=== PATIENT | male | born 1955 | race Hispanic/Latino ===

== ENCOUNTER 2021-03-14 22:25 | Inpatient (IN) | payer OTHER ==
--- OUTSIDE RECORDS SUMMARY | 2021-03-14 22:28 | XMS REPORT | Continuity of Care Document ---
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 Allergies, Adverse Reactions, Alerts This patient has no known allergies or adverse reactions. Social History Social Habit Start Date Stop Date Quantity Comments Source Exposure to Yes [facility] SARS-CoV-2 (event) [facility] Sex Assigned At [birth year] [facility] 00:00:00 00:00:00 [facility] Smoking Status Start Date Stop Date Source Unknown if ever smoked [facility] Medications This patient has no known medications. Procedures Procedure Date / Time Performed Performing Clinician [facility] e ASSIGNMENT OF BENEFITS 2021-03-12 17:05:23 Doctor Unassigned, No [facility] Name [facility] Encounters Start End Encounter Admission Attending Care Care Encounter Source Date/Time Date/Time Type Type Clinicians Facility Department ID 2021-03-12 2021-03-12 Laboratory Only, Ang Db Test [facility] 1.2.8 [id number] [facility] 12:05:39 12:20:39 Only [employer] [id number] ity [facility] [id number] Erik as Ayaz?Blea [id number] Ut chandni [address] Medical Office Building 2021-03-12 2021-03-12 Orders Doctor LUIS ARMANDO [id number] [facility] 00:00:00 00:00:00 Only Unassigned, SLY [id number] ity of [place] [facility] [id number] Erik as [phone] [facility] [address] Results This patient has no known results.
[2021-03-14 22:55] LABS: Absolute Lymphocytes (CBC) 0.9 K/uL (0.7-4.9); Basophils % 0.7 % (0-1.3); Hematocrit 29.5 % (39.6-49.0); Lymphocytes % 10.2 % (15.3-44.8); MPV 8.8 fL (7.6-11.3); RBC Red Blood Cell Count 3.29 M/uL (4.33-5.43)
[2021-03-14] MEDS ORDERED: IPRATROPIUM BROM 0.5MG/2.5ML ONE (23:13)
[2021-03-14] MEDS ORDERED: ALBUTEROL 2.5 MG/3 ML NEB SOL ONE (23:13)
[2021-03-14 23:14] LABS: ALT/SGPT 25 U/L (12-78); AST/SGOT 40 U/L (15-37); Albumin 2.3 g/dL (3.4-5.0); Alkaline Phosphatase 51 U/L (45-117); BUN Blood Urea Nitrogen 39 mg/dL (7-18); Bicarbonate 21 mmol/L (21-32); Bilirubin Direct 0.2 mg/dL (0-0.2); Bilirubin Total 0.4 mg/dL (0.2-1.0); Glucose Level 208 mg/dL (74-106); Magnesium 2.3 mg/dL (1.8-2.4); NT PRO-BNP 15615 pg/mL (<125); Potassium 3.8 mmol/L (3.5-5.1); Protein, Total 6.5 g/dL (6.4-8.2); Sodium Level 137 mmol/L (136-145); Troponin (Emerg Dept Use Only) < 0.02 ng/mL (0.0-0.045)
[2021-03-14 23:27] LABS: Protime INR 1.08
[2021-03-14] MEDS ORDERED: FUROSEMIDE 40 MG/4 ML VIAL ONE (23:56)
--- NOTE | 2021-03-15 00:01 | EDPHYS ---
Physician Documentation [facility] Name: Omar Zamudio Age: 66 yrs Sex: Male : 1955 Arrival Date: 03/14/2021 Time: 22:32 Bed 5 Private MD: ED Physician Titus Queen HPI: 03/14 22:45 This 66 yrs old Male presents to ER via Wheelchair with complaints of cp Breathing Difficulty. 22:45 The patient has shortness of breath at rest. cp 22:45 Onset: The symptoms/episode began/occurred yesterday, and became worse today. Duration: cp The symptoms are continuous, and are steadily getting worse. 22:45 The patient's shortness of breath is aggravated by light activity, supine position. cp Associated signs and symptoms: Pertinent negatives: chest pain, productive cough, diaphoresis, dizziness, fever. Severity of symptoms: in the emergency department the symptoms are unchanged despite home interventions. Historical: - Allergies: 22:39 No Known Allergies; em - PMHx: 22:39 Diabetes mellitus; Hypertensive disorder; em - PSHx: 22:39 Coronary artery bypass graft; em - Immunization history:: Adult Immunizations up to date, Client reports receiving the 2nd dose of the Covid vaccine. - Social history:: Smoking status: Patient denies any tobacco usage or history of. ROS: 22:50 Constitutional: Negative for body aches, chills, fever, poor PO intake. cp 22:50 Eyes: Negative for injury, pain, redness, and discharge. cp 22:50 ENT: Negative for ear pain, sore throat, difficulty swallowing, difficulty handling secretions. 22:50 Cardiovascular: Positive for edema, Negative for chest pain, palpitations. 22:50 Respiratory: Positive for cough, with no reported sputum, orthopnea, shortness of breath, at rest. Negative for wheezing. 22:50 Abdomen/GI: Negative for abdominal pain, nausea, vomiting, and diarrhea. 22:50 Neuro: Negative for altered mental status, headache, numbness, syncope, weakness. 22:50 All other systems are negative. Exam: 22:44 ECG was reviewed by the Attending Physician. cp 22:55 Constitutional: The patient appears in no acute distress, alert, awake, cp non-diaphoretic, non-toxic, well developed, well nourished, uncomfortable. 22:55 Head/Face: Normocephalic, atraumatic. cp 22:55 Eyes: Periorbital structures: appear normal, Conjunctiva: normal, no exudate, no cp injection, Sclera: no appreciated abnormality, Lids and lashes: appear normal, bilaterally. 22:55 ENT: External ear(s): are unremarkable, Nose: is normal, Mouth: Lips: moist, Oral mucosa: pink and intact, moist, Posterior pharynx: Airway: no evidence of obstruction, patent. 22:55 Neck: ROM/movement: is normal, is supple, without pain, no range of motions limitations, no meningismus, no nuchal rigidity. 22:55 Chest/axilla: Inspection: normal, Palpation: is normal, no crepitus, no tenderness. 22:55 Cardiovascular: Rate: normal, Rhythm: regular, Edema: ankle edema, that is mild, JVD: is not appreciated. 22:55 Respiratory: the patient does not display signs of respiratory distress, Respirations: labored breathing, that is mild, Breath sounds: bronchial sounds, that are mild, are heard diffusely, stridor, is not appreciated. 22:55 Abdomen/GI: Inspection: abdomen appears normal, Bowel sounds: active, all quadrants, Palpation: abdomen is soft and non-tender, in all quadrants. 22:55 Back: pain, is absent, ROM is normal. 22:55 Skin: cellulitis, is not appreciated, no rash present. 22:55 Neuro: Orientation: to person, place \T\ time. Mentation: is normal, Cerebellar function: is grossly normal, Motor: moves all fours, strength is normal, Sensation: is normal. Vital Signs: 22:36 BP 174 / 75; Pulse 71; Resp 28; Temp 97.9(O); Pulse Ox 88% on R/A; Height 5 ft. 9 in. em (175.26 cm); 22:40 Pulse Ox 93% on 2 lpm NC; lp1 23:00 BP 150 / 66; Pulse 75; Resp 26; Pulse Ox 100% on 15% Nebulizer Mask; lp1 23:30 BP 151 / 65; Pulse 74; Resp 27; Pulse Ox 95% on 2 lpm NC; lp1 03/15 00:00 BP 147 / 63; Pulse 73; Resp 24; Pulse Ox 94% on 2 lpm NC; lp1 MDM: 03/14 22:43 Patient medically screened. 23:00 Differential diagnosis: asthma, Bronchitis CHF exacerbation, Chronic Obstructive cp Pulmonary Disease Myocardial Infarction pneumonia, pulmonary edema, Pulmonary Embolism Sepsis Unstable Angina. 23:30 Data reviewed: vital signs, nurses notes, lab test result(s), EKG, radiologic studies, cp plain films. 23:30 Test interpretation: by ED physician or midlevel provider: ECG, plain radiologic cp studies. Counseling: I had a detailed discussion with the patient and/or guardian regarding: the historical points, exam findings, and any diagnostic results supporting the discharge/admit diagnosis, lab results, radiology results, the need for further work-up and treatment in the hospital. Response to treatment: the patient's symptoms have mildly improved after treatment. 03/15 00:00 Physician consultation: Brien DICKENS was contacted at 00:00, regarding admission, to the telemetry unit. patient's condition. 03/14 22:42 Order name: Basic Metabolic Panel 03/14 22:42 Order name: CBC with Diff 03/14 22:42 Order name: LFT's 03/14 22:42 Order name: Magnesium 03/14 22:42 Order name: NT PRO-BNP 03/14 22:42 Order name: PT-INR 03/14 22:42 Order name: Troponin (emerg Dept Use Only) 03/14 22:42 Order name: Lactate; Complete Time: 23:24 03/14 22:42 Order name: Procalcitonin 03/14 22:42 Order name: Blood Culture Adult (2) 03/14 22:42 Order name: Basic Metabolic Panel; Complete Time: 23:24 EDMS 03/14 23:24 Interpretation: Normal except: CL 108; GLUC 208; BUN 39; CRE 2.55; GFR 25; CA 8.3. 03/14 22:42 Order name: CBC with Automated Diff; Complete Time: 23:24 EDMS 03/14 23:24 Interpretation: Normal except: RBC 3.29; HGB 10.2; HCT 29.5; KENISHA% 77.5; LYM% 10.2. 03/14 22:42 Order name: Liver (Hepatic) Function; Complete Time: 23:24 EDMD 03/14 22:42 Order name: Magnesium; Complete Time: 23:24 EDMS 03/14 22:42 Order name: NT PRO-BNP; Complete Time: 23:24 EDMS 03/14 23:24 Interpretation: Abnormal: NT PRO-BNP 02829. cp 03/14 22:42 Order name: Protime (+INR) EDMD 03/14 22:42 Order name: Troponin (Emerg Dept Use Only); Complete Time: 23:24 EDMD 03/15 00:03 Order name: COVID-19/FLU A+B EDMS 03/15 03:18 Order name: CBC with Automated Diff EDMD 03/15 03:48 Order name: Comprehensive Metabolic Panel EDMD 03/15 03:48 Order name: Phosphorus EDMS 03/15 03:48 Order name: Lipid Profile EDMD 03/15 03:48 Order name: T4 Free EDMD 03/15 03:48 Order name: Magnesium EDMD 03/15 03:48 Order name: Thyroid Stimulating Hormone EDMD 03/15 06:37 Order name: Creatine Phosphokinase EDMD 03/15 07:05 Order name: PTH Intact EDMD 03/15 07:46 Order name: Glucose, Ancillary Testing EDMD 03/14 22:42 Order name: XRAY Chest (1 view) 03/14 22:42 Order name: EKG; Complete Time: 22:43 03/14 22:42 Order name: Cardiac monitoring; Complete Time: 22:46 03/14 22:42 Order name: EKG - Nurse/Tech; Complete Time: 22:46 03/14 22:42 Order name: IV Saline Lock; Complete Time: 22:46 03/14 22:42 Order name: Labs collected and sent; Complete Time: 22:46 03/14 22:42 Order name: O2 Per Protocol; Complete Time: 22:46 03/14 22:42 Order name: O2 Sat Monitoring; Complete Time: 22:46 03/15 01:17 Order name: CONS Physician Consult EDMD 03/15 07:20 Order name: US EDMD 03/15 07:49 Order name: Osmolality, Urine EDMS 03/15 08:13 Order name: Ur Protein EDMS 03/15 08:51 Order name: UR SODIUM EDMS 03/15 08:51 Order name: UR POTASSIUM EDMS EC/12 22:44 Rate is 70 beats/min. Rhythm is regular. IA interval is normal. QRS interval is normal. cp QT interval is prolonged. Interpreted by me. Reviewed by me. Administered Medications: 22:51 Drug: Albuterol - atroVENT (ipratropium) (3:1) (2.5 mg - 0.5 mg) 3 ml Route: Nebulizer; lp1 23:41 Follow up: Response: No adverse reaction lp1 23:36 Drug: Lasix (furosemide) 40 mg Route: IVP; Site: right antecubital; lp1 03/15 01:00 Follow up: Response: No adverse reaction lp1 Disposition Summary: 03/15/21 00:00 Hospitalization Ordered Hospitalization Status: Inpatient Admission cp Provider: Hiren Mcfarlane cp Condition: Stable cp Problem: new cp Symptoms: have improved cp Bed/Room Type: Standard cp Location: Telemetry/MedSurg (Inpatient)(03/15/21 07:35) bd Room Assignment: 218(03/15/21 07:35) bd Diagnosis - Unspecified systolic (congestive) heart failure cp - Hypoxemia cp - Acute kidney failure, unspecified cp Discharge Instructions: - Discharge Summary Sheet em Forms: - SBAR form em - Medication Reconciliation Form cp Signatures: Dispatcher [employer] EDMS Damari Mancia Edgar, RN RN em Gisselle Lyles RN RN lp1 Dakota Diaz PA PA cp Corrections: (The following items were deleted from the chart) 03/14 23:18 22:42 CORONAVIRUS+MR.LAB.BRZ ordered. EDMS EDMS 23:18 22:42 Influenza Screen (A \T\ B)+BA.LAB.BRZ ordered. EDMS EDMS 23:36 23:34 This 66 yrs old Male presents to ER via Wheelchair with complaints of cp Breathing Difficulty. cp 03/15 00:04 00:00 Telemetry/MedSurg (Inpatient) cp em 00:04 00:00 cp em 07:35 00:04 [facility] ER HOLD em bd 07:35 00:04 ERHOLD- em bd
--- NOTE | 2021-03-15 00:01 | ER ---
Nurse's Notes [facility] Name: Omar Zamudio Age: 66 yrs Sex: Male : 1955 Arrival Date: 03/14/2021 Time: 22:32 Bed 5 Private MD: Diagnosis: Unspecified systolic (congestive) heart failure;Hypoxemia;Acute kidney failure, unspecified Presentation: 03/14 22:36 Chief complaint: Patient states: difficulty breathing since yesterday, denies cough or em fever, tested negative for covid a few days ago, SPO2 88% now. Coronavirus screen: Vaccine status: Patient reports receiving the 2nd dose of the covid vaccine. Ebola Screen: Patient negative for fever greater than or equal to 101.5 degrees Fahrenheit, and additional compatible Ebola Virus Disease symptoms Patient denies exposure to infectious person. Patient denies travel to an Ebola-affected area in the 21 days before illness onset. No symptoms or risks identified at this time. Initial Sepsis Screen: Does the patient meet any 2 criteria? No. Patient's initial sepsis screen is negative. Does the patient have a suspected source of infection? Yes: Productive cough/pneumonia. Risk Assessment: Do you want to hurt yourself or someone else? Patient reports no desire to harm self or others. Onset of symptoms was March 14, 2021. 22:36 Method Of Arrival: Wheelchair em 22:36 Acuity: MIKI 2 em Historical: - Allergies: 22:39 No Known Allergies; em - PMHx: 22:39 Diabetes mellitus; Hypertensive disorder; em - PSHx: 22:39 Coronary artery bypass graft; em - Immunization history:: Adult Immunizations up to date, Client reports receiving the 2nd dose of the Covid vaccine. - Social history:: Smoking status: Patient denies any tobacco usage or history of. Screenin:00 Abuse screen: Denies threats or abuse. Denies injuries from another. Nutritional lp1 screening: No deficits noted. Tuberculosis screening: No symptoms or risk factors identified. Fall Risk Total Eaton Fall Scale indicates High Risk Score (45 or more points). Fall prevention measures have been instituted. Side Rails Up X 2 Family Present and informed to notify staff if the need to leave the bedside As available patient and family educated on Fall Prevention Program and Strategies. Assessment: 22:45 General: Appears uncomfortable, Behavior is appropriate for age. Pain: Denies pain. lp1 Neuro: Level of Consciousness is awake, alert, obeys commands, Oriented to person, place, situation. Cardiovascular: Patient's skin is warm and dry. Edema is 1+ to right forearm, left ankle, left forearm and right ankle Rhythm is regular. Respiratory: Reports shortness of breath Airway is patent Trachea midline Respiratory effort is shallow, Respiratory pattern is regular, symmetrical, Breath sounds with wheezes bilaterally. Onset: The symptoms/episode began/occurred gradually, the patient has mild shortness of breath. GI: Abdomen is non-distended. : No signs and/or symptoms were reported regarding the genitourinary system. EENT: No signs and/or symptoms were reported regarding the EENT system. Derm: Skin is intact, is thin, Skin is dry, Skin is normal. Musculoskeletal: No deficits noted. 03/15 00:00 Reassessment: Patient appears more calm, respirations appear even, shallow. lp1 Vital Signs: 03/14 22:36 BP 174 / 75; Pulse 71; Resp 28; Temp 97.9(O); Pulse Ox 88% on R/A; Height 5 ft. 9 in. em (175.26 cm); 22:40 Pulse Ox 93% on 2 lpm NC; lp1 23:00 BP 150 / 66; Pulse 75; Resp 26; Pulse Ox 100% on 15% Nebulizer Mask; lp1 23:30 BP 151 / 65; Pulse 74; Resp 27; Pulse Ox 95% on 2 lpm NC; lp1 03/15 00:00 BP 147 / 63; Pulse 73; Resp 24; Pulse Ox 94% on 2 lpm NC; lp1 ED Course: 03/14 22:32 Patient arrived in ED. wm 22:36 Dakota Diaz PA is PHCP. cp 22:36 Titus Queen MD is Attending Physician. cp 22:39 Triage completed. em 22:39 Arm band placed on. em 22:40 Inserted saline lock: 20 gauge in right antecubital area, using aseptic technique. lp1 Blood collected. 22:40 Initial lab(s) drawn, by me, sent to lab. First set of blood cultures drawn by me. lp1 22:45 Gisselle Lyles, RN is Primary Nurse. lp1 22:45 Patient has correct armband on for positive identification. Bed in low position. Call lp1 light in reach. quality assurance monitor body on. Pulse ox on. NIBP on. 22:54 XRAY Chest (1 view) In Process Unspecified. EDMS 23:59 Hiren Mcfarlane is Hospitalizing Provider. cp 03/15 00:16 No provider procedures requiring assistance completed. Patient admitted, IV remains in lp1 place. Administered Medications: 03/14 22:51 Drug: Albuterol - atroVENT (ipratropium) (3:1) (2.5 mg - 0.5 mg) 3 ml Route: Nebulizer; lp1 23:41 Follow up: Response: No adverse reaction lp1 23:36 Drug: Lasix (furosemide) 40 mg Route: IVP; Site: right antecubital; lp1 03/15 01:00 Follow up: Response: No adverse reaction lp1 Outcome: 00:00 Decision to Hospitalize by Provider. cp 00:13 Condition: stable lp1 00:13 Instructed on the need for admit. 01:00 Admitted to ER Hold. Please see [facility] for further documentation. lp1 10:07 Patient left the ED. aa5 Signatures: Dispatcher [employer] EDGibran Chew RN ILEANA Heather Jensen RN RN aa5 Gisselle Lyles RN RN lp1 Dakota Diaz PA PA cp Marsh, Wendy wm
[2021-03-15 00:03] LABS: SARS-COV-2 RT PCR NEGATIVE (NEGATIVE)
[2021-03-15] MEDS ORDERED: D50W 25 GM/50 ML SYRINGE IV PRN (01:34)
[2021-03-15] MEDS ORDERED: HYDRALAZINE HCL 20 MG/ML VIAL IV PRN (01:34)
[2021-03-15] MEDS ORDERED: ONDANSETRON 4 MG/2 ML VIAL IV PRN (01:34)
[2021-03-15] MEDS ORDERED: GLUCAGON 1 MG/VIAL IM PRN (01:34)
[2021-03-15] MEDS ORDERED: ACETAMINOPHEN 500 MG TAB PO PRN (01:34)
[2021-03-15 01:42] VITALS: BMI 29.7
--- NOTE | 2021-03-15 01:52 | P.HP ---
Certification for Inpatient Patient admitted to: Inpatient With expected LOS: <2 Midnights Patient will require the following post-hospital care: None Practitioner: I am a practitioner with admitting privileges, knowledge of patient current condition, hospital course, and medical plan of care. Services: Services provided to patient in accordance with Admission requirements found in Title 42 Section 412.3 of the Code of Federal Regulations Patient History Date of Service: 03/15/21 Primary Care Provider: Nick Reason for admission: volume overload History of Present Illness: Mr. Zamudio is a 66 yo M with CAD s/p CABGx3, HTN, DM, HLD who presents with worsening SOB, cough and wheezing. Also reports orthopnea, PND, and edema. Scheduled to see nephrology outpatient, but appointment had to be rescheduled due to possible COVID exposure. Patient is negative for COVID here, and has received both doses of the vaccine. H/H 10.2. BUN 39, Cr 2.55, GFR 25. Glu 208. BNP 72436. Allergies No Known Allergies Allergy (Verified 03/15/21 01:34) - Past Medical/Surgical History Has patient received pneumonia vaccine in the past: No Diabetic: Yes -: DM type 2 -: HTN -: [place] (2011) -: CABG - Family History Mother -: Heart disease, Diabetes - Social History Smoking Status: Former smoker Alcohol use: No CD- Drugs: No Caffeine use: No Place of Residence: Home Review of Systems 10-point ROS is otherwise unremarkable Respiratory: Cough, Shortness of Breath, SOB with Excertion, Wheezing Cardiovascular: Orthopnea, Paroxysmal Noc. Dyspnea, Edema Physical Examination - Physical Exam General: Alert, In no apparent distress HEENT: Atraumatic, PERRLA, Mucous membr. moist/pink, EOMI, Sclerae nonicteric Neck: Supple, 2+ carotid pulse no bruit, No LAD, Without JVD or thyroid abnormality Respiratory: Normal air movement, Crackles/rales Cardiovascular: Regular rate/rhythm, Normal S1 S2, Edema Gastrointestinal: Normal bowel sounds, No tenderness Musculoskeletal: No tenderness Integumentary: No rashes Neurological: Normal strength at 5/5 x4 extr, Normal tone Lymphatics: No axilla or inguinal lymphadenopathy - Studies Laboratory Data (last 24 hrs) 03/14/21 22:40: PT 12.4, INR 1.08 03/14/21 22:40: WBC 8.60, Hgb 10.2 L, Hct 29.5 L, Plt Count 272 03/14/21 22:40: Sodium 137, Potassium 3.8, BUN 39 H, Creatinine 2.55 H, Glucose 208 H, Magnesium 2.3, Total Bilirubin 0.4, AST 40 H, ALT 25, Alkaline Phosphatase 51 Assessment and Plan - Problems (Diagnosis) (1) Diabetes Current Visit: Yes Status: Chronic Qualifiers: Diabetes mellitus type: type 2 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: without jail use Diabetes mellitus complication status: with kidney complications Diabetes mellitus complication detail: with chronic kidney disease Chronic kidney disease stage: stage 4 (severe) Qualified Code(s): E11.22 - Type 2 diabetes mellitus with diabetic chronic kidney disease; N18.4 - Chronic kidney disease, stage 4 (severe) (2) HTN (hypertension) Current Visit: Yes Status: Chronic Qualifiers: Hypertension type: primary hypertension Qualified Code(s): I10 - Essential (primary) hypertension (3) HLD (hyperlipidemia) Current Visit: Yes Status: Chronic Qualifiers: Hyperlipidemia type: unspecified Qualified Code(s): E78.5 - Hyperlipidemia, unspecified (4) Volume overload Current Visit: Yes Status: Acute Qualifiers: Hypervolemia type: unspecified Qualified Code(s): E87.70 - Fluid overload, unspecified (5) Anemia Current Visit: Yes Status: Chronic Qualifiers: Anemia type: unspecified type Qualified Code(s): D64.9 - Anemia, unspecified - Plan nephrology consulted, renal US pending ECHO pending, continue Lasix, daily weights, sodium restriction O2 as needed sliding scale insulin and accuchecks, A1c pending anemia workup pending DVT ppx reconcile and continue home medications Discharge Plan: Home Plan to discharge in: 48 Hours - Advance Directives Does patient have a Living Will: No Does patient have a Durable POA for Healthcare: No - Code Status/Comfort Care Code Status Assessed: Yes (full code ) Critical Care: No Time Spent Managing Pts Care (In Minutes): 70
[2021-03-15 03:14] LABS: Absolute Lymphocytes (CBC) 0.7 K/uL (0.7-4.9); Basophils % 0.7 % (0-1.3); Hematocrit 27.4 % (39.6-49.0); Lymphocytes % 8.4 % (15.3-44.8); MPV 8.9 fL (7.6-11.3); RBC Red Blood Cell Count 3.06 M/uL (4.33-5.43)
[2021-03-15 03:31] LABS: Albumin 2.1 g/dL (3.4-5.0); Bilirubin Total 0.4 mg/dL (0.2-1.0); Magnesium 2.3 mg/dL (1.8-2.4); Phosphorus 3.7 mg/dL (2.5-4.9); Potassium 3.9 mmol/L (3.5-5.1); Protein, Total 5.8 g/dL (6.4-8.2)
[2021-03-15 03:48] LABS: Thyroid Stimulating Hormone 5.12 uIU/mL (0.360-3.740)
--- NOTE | 2021-03-15 07:20 | RAD REPORT ---
EXAM DESCRIPTION: US - Renal Ultrasound-Complete - 03/15/2021 2:20 am CLINICAL HISTORY: CKD COMPARISON: Renal Ultrasound-Complete dated 09/26/2018 FINDINGS: Both kidneys are normal in size, shape and echotexture. The right kidney measures 10.6 cm. Hypoechoic right renal lesion measures 14 millimeters which is lik isabelle a cyst. No hydronephrosis. Trace right perinephric fluid. The left kidney measures 10.9 cm. No hydronephrosis. Anechoic left renal lesions consistent with smal l subcentimeter cysts. The urinary bladder is incompletely distended without gross abnormality seen. IMPRESSION: No evidence of hydronephrosis. Trace right perinephric fluid. Small renal cysts.
--- NOTE | 2021-03-15 07:27 | RAD REPORT ---
EXAM DESCRIPTION: RAD - Chest Single View - 03/14/2021 10:54 pm CLINICAL HISTORY: SOB COMPARISON: No comparisons FINDINGS: Lines: None. Lungs: Diffuse prominence of the pulmonary interstitium. There is fluid in the right moderate fissure . Pleural: No significant pleural effusions or pneumothorax. Cardiac: Cardiomegaly. Bones: No acute fractures. Sternotomy. Other: IMPRESSION: Pulmonary edema. Less likely multifocal pneumonia.
[2021-03-15] MEDS: INSULIN -REGULAR HUMAN 50 UNIT/0.5 ML ML SQ SCH ×4 (07:30→20:31)
[2021-03-15] MEDS: HEPARIN 5000 UNIT/ML 1 ML VIAL SQ SCH ×2 (08:00→16:52)
[2021-03-15] MEDS: FUROSEMIDE 40 MG/4 ML VIAL IV SCH ×2 (08:00→16:52)
[2021-03-15] MEDS ORDERED: PNEUMOCOCCAL VACCINE 0.5 ML IMVAC ONE (08:00)
[2021-03-15 08:13] LABS: UR PROTEIN 189.2 mg/dL (<11.9); Urine Protein/Creatinine Ratio 3.94 ratio (<0.15)
[2021-03-15] MEDS ORDERED: HEPARIN 5000 UNIT/ML 1 ML VIAL ONE (08:22)
[2021-03-15] MEDS ORDERED: FUROSEMIDE 40 MG/4 ML VIAL ONE (08:22)
[2021-03-15] MEDS ORDERED: INSULIN -REGULAR HUMAN 50 UNIT/0.5 ML ML ONE (08:22)
--- NOTE | 2021-03-15 12:34 | RAD REPORT ---
EXAM DESCRIPTION: US - Urinary Bladder - 03/15/2021 12:24 pm CLINICAL HISTORY: Urinary retention COMPARISON: Renal Ultrasound-Complete dated 03/15/2021 FINDINGS: The bladder measures 13.1 x 8.9 x 11 cm with volume of 670 cc. The patient was unable to v oid in order to evaluate the postvoid residual. IMPRESSION: Distended bladder. The patient was unable to void for purposes of calculating 8 postvoid residual. This may be secondary to acute urinary retention.
--- NOTE | 2021-03-15 12:49 | RAD REPORT ---
EXAM DESCRIPTION: RAD - Chest Single View - 03/15/2021 12:43 pm CLINICAL HISTORY: Follow up pulmonary edema COMPARISON: March 14 TECHNIQUE: AP portable chest image was obtained 03/15/2021 12:43 pm . FINDINGS: Lung volume is similar to comparison. Interstitial prominence has diminished. Small pleura l effusions remain. Vasculature has decreased in prominence. Heart size also diminished in prominence . No pneumothorax. No acute bony abnormality seen. No acute aortic findings suspected. IMPRESSION: Significant but incomplete reduction in the CHF/ volume overload pattern since prior dirk dy.
--- NOTE | 2021-03-15 14:10 | ECHO ---
HEIGHT: 5 ft 6 in WEIGHT: 183 lb 13.848 oz DATE OF STUDY: 03/15/[address]: Brien Koenig 2-DIMENSIONAL: YES M.MODE: YES DOPPLER: YES COLOR FLOW: YES TDS: NO PORTABLE: NO DEFINITY: NO BUBBLE STUDY: NO DIAGNOSIS: VOLUME OVERLOAD CARDIAC HISTORY: CATHERIZATION: SURGERY: PROSTHETIC VALVE: PACEMAKER: MEASUREMENTS (cm) DIASTOLIC (NORMALS) SYSTOLIC (NORMALS) IVSd 1.1 (0.6-1.2) LA Diam 4.4 (1.9-4.0) LVEF 51% LVIDd 4.7 (3.5-5.7) LVIDs 3.5 (2.0-3.5) %FS 26% LVPWd 1.2 (0.6-1.2) Ao Diam 3.1 (2.0-3.7) 2 DIMENSIONAL ASSESSMENT: RIGHT ATRIUM: NORMAL LEFT ATRIUM: ENLARGED RIGHT VENTRICLE: NORMAL LEFT VENTRICLE: NORMAL TRICUSPID VALVE: MILD TRICUSPID REGURGITATION MITRAL VALVE: MILD MITRAL REGURGITATION PULMONIC VALVE: MILD PULMONIC REGURGITATION AORTIC VALVE: MILD AORTIC REGURGITATION PERICARDIAL EFFUSION: NONE AORTIC ROOT: NORMAL LEFT VENTRICULAR WALL MOTION: NORMAL. DOPPLER/COLOR FLOW: SEE ISABEL. COMMENTS: NORMAL LEFT VENTRICULAR EJECTION FRACTION 55-60% WITH NORMAL WALL MOTION. MODERATE DIASTOLIC DYSFUNCTION. RIGHT VENTRICULAR SYSTOLIC PRESSURE 40-45mmHg. MILD MITRAL, TRICUSPID, AORTIC AND PULMONIC REGURGITATION. TECHNOLOGIST: ADRIANA RODRIGUEZ
[2021-03-15] MEDS: HYDRALAZINE HCL 25 MG TABLET PO SCH ×2 (14:47→20:31)
--- NOTE | 2021-03-15 16:05 | P.PN ---
Date of Service: 03/15/21 Patient seen and examined. He states the shortness of breath is almost resolved. Repeat chest x-ray shows significant improved and pulmonary edema. He is up and ambulating without shortness of breath. He does have urinary retention and attributes it to enlarged prostate. Echocardiogram with EF 55% He is complaining of constipation. Diagnosis Acute diastolic heart failure. Acute urinary retention. Acute on chronic kidney disease stage 4 BPH. Constipation Plan: Continue IV lasix. Straight catheterized and monitor for urinary retention. Patient has responded to Lasix therapy and has clinically improved. Nephrology to see patient. Patient started on Flomax for BP. Soap roger enema x 1 for constipation.
[2021-03-15] MEDS: atenoloL 50 MG TAB PO SCH (20:30)
[2021-03-15] MEDS: TAMSULOSIN 0.4 MG SR CAP PO SCH (20:30)
[2021-03-15] MEDS: PANTOPRAZOLE 40MG TABLET PO SCH (20:30)
--- NOTE | 2021-03-15 23:55 | CON ---
Date of Consultation: 03/15/2021 Chief Complaint: Acute kidney injury, chronic kidney disease. The patient has multiple medical problems. History Of Present Illness: He presented to the hospital because of chest pain and shortness of breath. The patient was found to have elevated BUN and creatinine. The patient has nonoliguric urine to. He is a 66-year-old man with history of coronary artery disease status post CABG and he has history of hypertension, diabetes mellitus, and presented to the hospital with shortness of breath, cough, and wheezing. Also complained of orthopnea, PND, and leg edema. The patient has been scheduled for outpatient visit to establish Nephrology care. Outpatient clinic visit had to be rescheduled because he was positive for COVID exposure. The patient actually was negative for COVID, but due to possible COVID exposure, the appointment was rescheduled. He has recently vaccination with both doses of vaccine. Review of Systems: The patient denies fever, chills. He denies vision changes Patient is awake , alert Respiratory : normal respiratory effort. Edema in both legs present Laboratory Data: In this hospital BUN was 39, creatinine 2.55, glucose 208, BNP 15,615. The patient was found to have elevated BUN and creatinine. Back in December 2011, creatinine level was 0.86. The patient has acute kidney injury. Creatinine level is trending up to 2.55. There is no evidence of metabolic acidosis. Bicarbonate 22, sodium 139, potassium 3.9, chloride 108, CO2 of 22, glucose 201, calcium 8.1. Impression And Plan: 1. The patient has history of urinary tract symptoms and bladder ultrasound was done to rule out increased postvoid residual volume. The patient has distended bladder and he was unable to void . Postvoid residual bladder measured 13 x 0.1 x 8.9 cm x 11 cm and volume of 670 mL and the patient unable to void. Continue Shelton catheter, monitor urine output. 2. Renal ultrasound was done on 03/14/2019 and compared to December 2018. There was no hydronephrosis, renal cyst was stable. 3 Sepsis , continue antibiotics and pressors. EB/MODL Voice ID: [id number] Report ID: [id number] RUBIO
[2021-03-16] MEDS: HEPARIN 5000 UNIT/ML 1 ML VIAL SQ SCH ×3 (01:18→16:45)
--- NOTE | 2021-03-16 02:20 | CON ---
Date of Consultation: 03/15/2021 Chief Complaint: Volume overload, congestive heart failure, acute kidney injury. History Of Present Illness: The patient is a 66-year-old man with history of coronary artery disease status post CABG, hypertension, diabetes mellitus with renal manifestation, and HLD. He presented to the hospital because of worsening of shortness of breath, cough, and wheezing. He had orthopnea, PND, and progressively worse lower extremity edema. He has appointment with community service officer outpatient and appointment was rescheduled because he had recent COVID exposure. The patient underwent COVID test and apparently was negative and previously, he received both vaccination doses and completed vaccination. The patient was found to have elevated BUN and creatinine. Bladder ultrasound showed increased postvoid residual volume. Patient actually could not void and volume in the bladder was elevated, calculated volume was 600 ml. Review of Systems: General: Denies fever or chills. Eyes: Denies vision changes. Ears, Nose, Mouth, and Throat: Denies sore throat or earache Respiratory: Denies wheezing. Has history of cough and shortness of breath with exertion. Cardiovascular: Denies chest pain, palpitation, or syncope. GI: Denies nausea or vomiting. : Denies dysuria or hematuria. All other systems reviewed and all are negative. Past Medical History: Diabetes mellitus, hypertension, hyperlipidemia, generalized edema, myocardial infarction, coronary artery diseased, and CABG. Family History: Mother had heart disease and diabetes. Social History: Denies alcohol. He is a former smoker. Denies drugs. Physical Examination: General: The patient is awake, alert, follows commands. Eyes: Anicteric sclerae. EOMI. Ears, Nose, Mouth, and Throat: Oral mucosa moist. No pallor. Neck: Supple. No bruits. Lungs: Few crackles at bases. Heart: S1, S2. No pericardial friction rub. Abdomen: Soft, benign, nontender. Extremities: Edema present in both legs. Neurologic: Moving extremities. Cranial nerves intact. Psychiatric: Alert and oriented x3. Normal affect. Laboratory Data: WBC 8.6, hemoglobin 10.2, hematocrit 29.5, platelet count 272,000. Sodium 137, potassium 3.8, BUN 39, creatinine 2.55, glucose 208. Magnesium 2.3. AST 40, ALT 25. Impression And Plan: 1. Diabetes mellitus with renal manifestation. Continue insuline for blood glucose control. Monitor proteinuria. 2. Bladder outlet obstruction. The patient will continue Shelton catheter. At this point, he had severe bladder outlet obstruction. Plan is to continue Shelton catheter. Checkrenal ultrasound . To check urinalysis for proteinuria, likely there is element of diabetic kidney disease. Patient will continue furosemide for volume control and treatment of volume overload. 2. Hypertension. Continue blood pressure medication. 3. Anemia, chronic. Monitor hemoglobin level and check iron study. Adjust treatment with iron supplementation as needed. 4. Congestive heart failure, acute. The patient is undergoing cardiac workup. Echo is pending. Continue Lasix and monitor urine output. Continue Shelton catheter. The patient may need to be evaluated by urologist as well. NIA/GISELE Voice ID: [id number] Report ID: [id number]
[2021-03-16 05:57] LABS: Absolute Lymphocytes (CBC) 0.8 K/uL (0.7-4.9); Hematocrit 25.6 % (39.6-49.0); Lymphocytes % 13.5 % (15.3-44.8); MPV 8.7 fL (7.6-11.3)
[2021-03-16 06:50] LABS: ALT/SGPT 16 U/L (12-78); AST/SGOT 22 U/L (15-37); Alkaline Phosphatase 37 U/L (45-117); BUN Blood Urea Nitrogen 36 mg/dL (7-18); Bicarbonate 23 mmol/L (21-32); Bilirubin Total 0.4 mg/dL (0.2-1.0); Ferritin 125.5 ng/mL (26-388); Folic Acid, (Folate) > 20.0 ng/mL (3.1-17.5); Glucose Level 130 mg/dL (74-106); Potassium 3.6 mmol/L (3.5-5.1); Protein, Total 5.4 g/dL (6.4-8.2); Sodium Level 140 mmol/L (136-145); Transferrin 158 mg/dL (200-360)
[2021-03-16] MEDS: INSULIN -REGULAR HUMAN 50 UNIT/0.5 ML ML SQ SCH ×5 (07:30→20:33)
[2021-03-16] MEDS ORDERED: POTASSIUM CL SA 10 MEQ TAB PO ONE (09:00)
--- NOTE | 2021-03-16 09:40 | P.PN ---
Subjective Date of Service: 03/16/21 Primary Care Provider: Nick Chief Complaint: volume overload Subjective: Improving (feeling better this morning, breathing more comfortably, down to 2L NC urinary retention yesterday, >600 ml noted on PVR, s/p straight cath x1. Voided without issue x2 overnight. PVR <75. started flomax yesterday. no new complaints) Review of Systems 10-point ROS is otherwise unremarkable Physical Examination - Vital Signs Temperature: 98.4 F Blood Pressure: 151/70 Pulse: 65 Respirations: 18 Pulse Ox (%): 93 Assessment & Plan Physician Review Additional Text: Physical Exam General: AAOx3, NAD HEENT: MMM, normal conjunctiva, sclera anicteric Respiratory: diminished at bases bilaterally, nonlabored on 2L NC Cardiovascular: Regular rate/rhythm, Normal S1 S2, trace b/l edema to knees Gastrointestinal: soft, nontender, nondistended MSK: no joint tenderness/swelling Problem list Acute hypoxemic respiratory failure secondary to acute on chronic diastolic CHF exacerbation Acute on chronic diastolic CHF Type 2 diabetes mellitus, [id number]-ubldzuusk CAD, s/p CABG normocytic anemia, iron deficiency/chronic kidney disease Hypertension GERD swelling and breathing is improving, still requiring 2 L nasal cannula Renal function improving as well, nephrology consulted, suspect some level of diabetic kidney disease Continue IV Lasix, echocardiogram: Moderate diastolic CHF Wean O2 as tolerated sliding scale insulin and accuchecks, A1c : 6.4 anemia workup with suspicion for anemia of chronic disease and iron deficiency Continue home antihypertensives, PPI DVT ppx Dispo: anticipate dc home in ~24hrs Time Spent Managing Pts Care (In Minutes): 40
[2021-03-16] MEDS: EZETIMIBE 10 MG TAB PO SCH (10:14)
[2021-03-16] MEDS: AMLODIPINE 10 MG TAB PO SCH (10:15)
[2021-03-16] MEDS: FUROSEMIDE 40 MG/4 ML VIAL IV SCH ×2 (10:16→16:56)
[2021-03-16] MEDS: atenoloL 50 MG TAB PO SCH ×2 (10:16→20:32)
[2021-03-16] MEDS: CLOPIDOGREL 75 MG TABLET PO SCH (10:16)
[2021-03-16] MEDS: PANTOPRAZOLE 40MG TABLET PO SCH ×2 (10:16→20:32)
[2021-03-16] MEDS: HYDRALAZINE HCL 25 MG TABLET PO SCH ×3 (10:16→20:32)
--- NOTE | 2021-03-16 12:34 | PN ---
Date of Progress Note: 03/16/2021 Subjective: The patient was admitted with acute kidney injury secondary to cardiorenal. The patient was having diastolic dysfunction. The patient was diuresed. The patient had urinary retention. Physical Examination: Vital Signs: When I saw the patient; blood pressure 151/70, pulse of 65, afebrile. The patient had good urine output of 1300, negative of 700. Chest: Faint crackles bilateral base. Heart: S1, S2. Systolic murmur. Abdomen: Soft, nontender. Extremities: +1 edema. Neuro: Alert. No focality. Laboratory Data: WBC 6, H and H 8.8/25.6. Sodium 140, potassium 3.6, bicarb 23, BUN 36, creatinine 2.1, GFR of 30, calcium 7.9, phosphorus 4, magnesium of 2. Iron saturation 9.5, ferritin 125. Albumin is 2. Corrected calcium is 9.5. Serum protein electrophoresis is still pending. TSH is 5.1, PTH of 71. Current Medications: The patient on include; 1. Flomax. 2. IV iron. 3. Plavix. 4. Amlodipine. 5. Hydralazine 25 t.i.d. 6. Zofran. 7. Lasix 40 b.i.d. Assessment And Plan: 1. Acute kidney injury secondary to obstructive uropathy/cardiorenal, over volume. I am going to continue the patient on diuresis and we will monitor the patient. 2. Hypertension. We will utilize the blood pressure for more diuresis. 3. 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 We sent for serum protein electrophoresis. We will follow up. 4. Congestive heart failure with exacerbation as above. We will try to optimize fluid status for the patient. 5. Obstructive uropathy. Continue Flomax. 6. Hypokalemia. We will supplement. Time spent examining the patient [id number] placing order discussing with the patient reviewing data discussing the case with all of our subspecialty including hospitalist 35 minutes MIRTA Voice ID: [id number] Report ID: [id number] RUBIO
[2021-03-16] MEDS: SOD FERRIC GLUC COMPLX/SUCROSE 125 MG in NA CHLORIDE 0.9% 100 ML IV SCH (12:44)
[2021-03-16] MEDS: TAMSULOSIN 0.4 MG SR CAP PO SCH (20:31)
[2021-03-17] MEDS: HEPARIN 5000 UNIT/ML 1 ML VIAL SQ SCH ×2 (00:13→09:14)
[2021-03-17 05:38] LABS: Hematocrit 28.1 % (39.6-49.0); MPV 8.4 fL (7.6-11.3); RBC Red Blood Cell Count 3.21 M/uL (4.33-5.43)
[2021-03-17 05:49] LABS: Albumin 2.2 g/dL (3.4-5.0); Phosphorus 4.1 mg/dL (2.5-4.9); Potassium 3.2 mmol/L (3.5-5.1)
[2021-03-17] MEDS: INSULIN -REGULAR HUMAN 50 UNIT/0.5 ML ML SQ SCH ×2 (07:30→12:28)
[2021-03-17] MEDS ORDERED: POTASSIUM 25 MEQ EFFERV TAB PO ONE (09:00)
[2021-03-17] MEDS: SOD FERRIC GLUC COMPLX/SUCROSE 125 MG in NA CHLORIDE 0.9% 100 ML IV SCH (09:11)
[2021-03-17] MEDS: FUROSEMIDE 40 MG/4 ML VIAL IV SCH (09:12)
[2021-03-17] MEDS: atenoloL 50 MG TAB PO SCH (09:13)
[2021-03-17] MEDS: PANTOPRAZOLE 40MG TABLET PO SCH (09:13)
[2021-03-17] MEDS: CLOPIDOGREL 75 MG TABLET PO SCH (09:13)
[2021-03-17] MEDS: EZETIMIBE 10 MG TAB PO SCH (09:13)
[2021-03-17] MEDS: HYDRALAZINE HCL 25 MG TABLET PO SCH ×2 (09:13→14:13)
[2021-03-17] MEDS: AMLODIPINE 10 MG TAB PO SCH (09:13)
[2021-03-17 11:35] VITALS: BP 146/66; TEMP 97.4
--- NOTE | 2021-03-17 12:36 | PN ---
Date of Progress Note: 03/17/2021 Subjective: The patient was admitted with acute kidney injury and hypertension. His acute kidney injury was secondary to diabetes nephropathy, cardiorenal/obstructive uropathy. The patient was placed on Flomax and diuresis. Kidney function started trending down, currently plateaued around the 2. Physical Examination: Vital Signs: When I saw the patient; blood pressure 146/66, pulse of 69, afebrile. The patient had good urine output of 1350, negative of 500. Chest: Clear to auscultation. Heart: S1, S2. Systolic murmur. Abdomen: Soft, nontender. Extremities: No edema. Neurologic: Alert. No focality. Laboratory Data: Sodium 139, potassium 3.2, bicarb 25, BUN 35, creatinine 2.1, GFR of 31, calcium 8.1, phosphorus 4.1, magnesium of 2. PTH of 71, TSH of 5.1. Serum protein electrophoresis is still pending. Serology for immunofixation was still pending. PC ratio 3.9. Renal ultrasound showing 10.6/10.9, distended bladder. Current Medications: The patient on include Flomax 0.4, amlodipine 10 mg, atenolol 50 mg, Zetia, hydralazine 25 t.i.d., Tylenol, Lasix 40 mg b.i.d., pantoprazole. Assessment And Plan: 1. Chronic kidney disease, stage 3B, normal-sized kidney, nephrotic range of proteinuria secondary to diabetes nephropathy/cardiorenal, status post acute kidney injury secondary to cardiorenal, currently normal volume. I am going to go ahead and switch Lasix to 40 p.o. and we will monitor the patient. 2. Obstructive uropathy. Continue Flomax. The patient is going to need evaluation as outpatient with Urology. 3. Nephrotic range of proteinuria with the presence of anemia. We will follow up serum protein electrophoresis. Our differential diagnosis secondary to diabetes nephropathy/secondary to chronic obstructive uropathy as a component of FSGS. The patient is going to need JACQUE inhibitor as outpatient after complete recovery of the kidney function. We will continue to monitor. 4. Hypokalemia. We will supplement. Time spent examining the patient [id number] placing order discussing with the patient reviewing data discussing the case with all of our subspecialty including hospitalist 35 minutes TOD/GISELE Voice ID: [id number] Report ID: [id number] RUBIO
[2021-03-17 14:44] VITALS: O2SAT 94
--- NOTE | 2021-03-17 16:35 | P.DS ---
Admission Date: 03/15/21 Discharge Date: 03/17/21 Primary Care Provider: Nick Disposition: ROUTINE DISCHARGE Discharge Condition: GOOD Reason for Admission: volume overload Consultations: Nephrology - Dr. Bryan / Herl[place] Procedures: CXR (03/14): Diffuse prominence of the pulmonary interstitium. There is fluid in the right moderate fissure. Pulmonary edema. Less likely multifocal pneumonia. CXR (03/15): Significant but incomplete reduction in the CHF/volume overload pattern since prior study. Echocardiogram (03/15): Normal EF: 55-60% with normal wall motion. Moderate diastolic dysfunction. Right ventricular systolic pressure 40-45 mmHg. Mild mitral, tricuspid, aortic, and pulmonic regurgitation. Problem list Acute hypoxemic respiratory failure secondary to acute on chronic diastolic CHF exacerbation Acute on chronic diastolic CHF Urinary retention secondary to BPH Type 2 diabetes mellitus, [id number]-[id number] CAD, s/p CABG normocytic anemia, iron deficiency/chronic kidney disease Hypertension GERD Brief History of Present Illness: 66 yo M with CAD s/p CABGx3, HTN, DM, HLD who presents with worsening SOB, cough and wheezing. Also reports orthopnea, PND, and edema. Scheduled to see nephrology outpatient, but appointment had to be rescheduled due to possible COVID exposure. Patient is negative for COVID here, and has received both doses of the vaccine. H/H 10.2. BUN 39, Cr 2.55, GFR 25. Glu 208. BNP 21015. Hospital Course: Patient diuresed well with IV Lasix. He had rather quick improvement of his symptoms. He was weaned down to room air. During his hospitalization he did have one episode of urinary retention, he felt as though he needed to urinate but could not. Bladder scan and subsequent straight cath revealed 600 mL urine. He was started on Flomax and did not have any further episodes. He is discharged home with 40 p.o. Lasix daily. He is discharged home with new prescription for Flomax. He is to follow-up with his PCP in 3-5 days. Follow-up with cardiology in the next few weeks. Follow-up with nephrology in approximately 2 weeks. Advised to discuss further with his PCP, may benefit from following up with urology in the near future regarding his urinary retention/history of BPH. Vital Signs/Physical Exam: Temp Pulse Resp BP Pulse Ox 97.4 F 69 16 146/66 H 94 03/17/21 11:34 03/17/21 11:34 03/17/21 11:34 03/17/21 11:34 03/17/21 11:34 General: Alert, In no apparent distress, Oriented x3 HEENT: Sclerae nonicteric Respiratory: Clear to auscultation bilaterally Cardiovascular: No edema, Regular rate/rhythm Gastrointestinal: Soft and benign, Non-distended, No tenderness Musculoskeletal: No tenderness Integumentary: No rashes Neurological: Normal speech, Normal affect Laboratory Data at Discharge: WBC 5.60 K/uL (4.3-10.9) 03/17/21 04:55 Hgb 9.6 g/dL (13.6-17.9) L 03/17/21 04:55 Hct 28.1 % (39.6-49.0) L 03/17/21 04:55 Plt Count 297 K/uL (152-406) 03/17/21 04:55 PT 12.4 SECONDS (9.5-12.5) 03/14/21 22:40 INR 1.08 03/14/21 22:40 Sodium 139 mmol/L (136-145) 03/17/21 04:55 Potassium 3.2 mmol/L (3.5-5.1) L 03/17/21 04:55 BUN 35 mg/dL (7-18) H 03/17/21 04:55 Creatinine 2.13 mg/dL (0.55-1.3) H 03/17/21 04:55 Glucose 90 mg/dL (74-106) 03/17/21 04:55 Phosphorus 4.1 mg/dL (2.5-4.9) 03/17/21 04:55 Magnesium 2.0 mg/dL (1.8-2.4) 03/17/21 04:55 Total Bilirubin 0.4 mg/dL (0.2-1.0) 03/16/21 05:26 AST 22 U/L (15-37) 03/16/21 05:26 ALT 16 U/L (12-78) 03/16/21 05:26 Alkaline Phosphatase 37 U/L (45-117) L 03/16/21 05:26 Triglycerides 182 mg/dL (<150) H 03/15/21 02:35 Cholesterol 121 mg/dL (<200) 03/15/21 02:35 HDL Cholesterol 29 mg/dL (40-60) L 03/15/21 02:35 Cholesterol/HDL Ratio 4.17 03/15/21 02:35 Home Medications: Amlodipine [Norvasc*] 10 mg PO DAILY 03/15/21 Atenolol [Tenormin] 50 mg PO BID 03/15/21 Clopidogrel Bisulfate [Plavix*] 75 mg PO DAILY 03/15/21 Ezetimibe [Zetia*] 10 mg PO DAILY 03/15/21 Glipizide [Glipizide Xl] 2.5 mg PO DAILY 03/15/21 Hydralazine [Apresoline*] 25 mg PO TID 03/15/21 Pantoprazole [Protonix Tab*] 40 mg PO BID 03/15/21 Furosemide 40 mg PO DAILY 30 Days #30 tablet 03/17/21 Tamsulosin [Flomax*] 0.4 mg PO BEDTIME 60 Days #60 cap 03/17/21 New Medications: Tamsulosin [Flomax*] 0.4 mg PO BEDTIME 60 Days #60 cap Furosemide 40 mg PO DAILY 30 Days #30 tablet Physician Discharge Instructions: PROBLEM: Acute CHF Exacerbation GOAL: Clear understanding of disease process INSTRUCTIONS: You were found to have acute congestive heart failure. You improved with IV diuresis (lasix), and will be discharged with a new prescription for lasix. You had mild decrease in your renal function but this improved. You were seen by Nephrology, and should follow up with them in ~[address] Pate. You were noted to have 1 episode of urinary retention, improved after start flomax and will continue this on discharge. Recommend discussing further with your PCP and consider following up with a Urologist in the near future. Recommend following up with your PCP in 3-5 days. Follow up with Dr. Mesa in a few weeks as well. If you have any questions regarding hospital stay, feel free to call [phone]. If symptoms worsen, please go to the ER. Diet: AHA Activity: Ad sourav DME DME: Date Ordered: Name of Company: [employer] Services Needed: None Name of Company: Date or Referral: IMMUNIZATION Influenza Vaccine Indicated: Influenza Vaccine Given: Date Given: Pneumonia Vaccine Indicated: Yes Pneumonia Vaccine Given: Date Given: Diet: AHA Activity: Ad sourav Followup: NONE,NONE [Primary Care Provider] - Time spent managing pt's care (in minutes): 45
[2021-03-18] MEDS ORDERED: FUROSEMIDE 40 MG TABLET PO SCH (09:00)
[2021-03-20 05:44] LABS: Albumin, (SPE) 2.3 g/dL (3.8-4.8); Alpha-1-Globulins 0.4 g/dL (0.2-0.3); Alpha-2-Globulins 0.9 g/dL (0.5-0.9); Gamma Globulins 0.5 g/dL (0.8-1.7); INTERPRETATION REPORT
[2021-03-24 06:43] LABS: Beta Globulin 24 HR Urine 14 %; Gamma Globulin, 24hr Urine 9 %; Interpretation: REPORT; Protein/Crea Ratio in g 3170 mg/g creat (<=114); Urine Alpha-2-Globulins, 24 Hr 8 %; Urine PEP Abn Protein Band1 REPORT; Urine Total Volume 24 Hours 1825 mL
== END 2021-03-17 14:50 | disposition home or self-care (01) | DRG 291 ==
LOC: ER 22:25 → ERHOLD 03-15 01:26 → 2ND 03-15 09:10
PROVIDERS: ADMIT Internal Medicine; ATTEND Internal Medicine
DX: I13.0 Hypertensive heart and chronic kidney disease with heart failure and stage 1 through stage 4 chronic kidney disease, or unspecified chronic kidney disease (principal); J96.01 Acute respiratory failure with hypoxia; I50.31 Acute diastolic (congestive) heart failure; N17.9 Acute kidney failure, unspecified; N18.32 Chronic kidney disease, stage 3b; E11.22 Type 2 diabetes mellitus with diabetic chronic kidney disease; E11.21 Type 2 diabetes mellitus with diabetic nephropathy; E87.6 Hypokalemia; N13.9 Obstructive and reflux uropathy, unspecified; N40.1 Benign prostatic hyperplasia with lower urinary tract symptoms; R33.8 Other retention of urine; I25.10 Atherosclerotic heart disease of native coronary artery without angina pectoris; D50.9 Iron deficiency anemia, unspecified; K21.9 Gastro-esophageal reflux disease without esophagitis; Z95.1 Presence of aortocoronary bypass graft; K59.00 Constipation, unspecified; Z20.822 Contact with and (suspected) exposure to COVID-19
CPT/HCPCS: 0240U; 36415; 71045; 76770; 76857; 80048; 80053; 80061; 80069; 80076; 82550; 82570; 82607; 82728; 82746; 82947; 83036; 83540; 83605; 83735; 83880; 83935; 83970; 84100; 84132; 84145; 84156; 84165; 84166; 84300; 84439; 84443; 84466; 84484; 85025; 85027; 85610; 86334; 87040; 93005; 93306; 94760; 96374; 99285; J0360; J1644; J1940; J2916

== ENCOUNTER 2023-07-31 07:02 | Day surgery (SDC) | payer OTHER ==
[2023-07-27 14:34] LABS: Absolute Lymphocytes (CBC) 0.7 K/uL (0.7-4.9); Hematocrit 30.9 % (39.6-49.0); Lymphocytes % 9.2 % (15.3-44.8); MCV 90.8 fL (80-100); Platelets 177 thou/uL (152-406)
[2023-07-27 14:49] LABS: Potassium 4.9 mEq/L (3.5-5.1)
[2023-07-27 14:50] LABS: Protime INR 1.2
[2023-07-27 15:33] LABS: Blood Morphology Comment NOT SEEN (NOT SEEN); Platelet Estimate ADEQ; White Blood Cell Scan OK (OK)
--- NOTE | 2023-07-27 16:24 | EKG ---
Test Date: 2023-07-27 Test Time: 15:14:23 Motorcycle Technician: NOMI MEASUREMENT RESULTS: Intervals: Rate: 56 AL: 178 QRSD: 88 QT: 466 QTc: 449 Slater: P: 72 AL: 178 QRS: -3 T: 100 INTERPRETIVE STATEMENTS: Sinus bradycardia Nonspecific ST and T wave abnormality Abnormal ECG Compared to ECG 06/12/2023 14:39:54 ST (T wave) deviation now present Right-axis deviation no longer present T-wave abnormality no longer present Prolonged QT interval no longer present Electronically Signed On 07-27-23 16:23:42 SENIOR BUSINESS PROCESS ANALYST by Anselmo Palmer
[2023-07-31] MEDS ORDERED: FENTANYL CITR 100 MCG/2 ML ONE (07:06)
[2023-07-31] MEDS ORDERED: HEPA 1000U/500MLS 2,000 UNIT/1,000 ML BAG IV ONE (07:06)
[2023-07-31] MEDS ORDERED: MIDAZOLAM HCL 2 MG/2 ML INJ ONE (07:06)
[2023-07-31] MEDS ORDERED: LIDOCAINE 1% 20 ML MDV ONE (07:06)
[2023-07-31] MEDS ORDERED: ATROPINE SULF 1 MG/10 ML SYR IV ONE (07:07)
[2023-07-31] MEDS ORDERED: NA CHLORIDE 0.9% 500 ML ONE (07:12)
--- NOTE | 2023-07-31 08:48 | OP ---
Date of Procedure: 07/31/2023 Surgeon: LITA ENAMORADO Procedure Performed: Bilateral selective carotid angiogram. Indication: Carotid stenosis. Access: Right femoral artery 4-Egyptian closed with manual pressure. Complications: None. Bleeding: Less than 20 mL. Anesthesia: Total sedation time was 30 minutes. Total amount of contrast used was 30 mL. Description Of Procedure: After risks, benefits, alternatives were explained, the patient agreed to procedure and signed informed consent. The patient was brought into cardiac catheterization laborato , prepped and draped in the usual sterile fashion. Then I accessed right femoral artery using micr opuncture kit with fluoroscopy and ultrasound guidance, placed 4-Egyptian pinnacle sheath and took 4-Fr ench 3DRC catheter into the aortic root, engaged the right common carotid, took standard views and th en the left common carotid and took standard views and then removed the catheter and the sheath and m anual pressure was used for closure with good hemostasis. Findings: 1.Right common carotid is normal. Right internal carotid has about 40% stenosis. 2.Left common carotid proximally is normal. Distally, there is a large plaque burden with 80% steno sis extending into the left internal carotid artery forming at least 80% stenosis. Conclusion: Severe left internal carotid artery stenosis and mild to moderate right internal carotid artery stenosis. Recommendation: Endarterectomy on the left side. SR/MODL Voice ID: [id number] Report ID: [id number]
[2023-07-31] MEDS ORDERED: NACHLORIDE 0.45% 1,000 ML IV ONE (09:09)
[2023-07-31 09:39] VITALS: TEMP 97.9
[2023-07-31 11:34] VITALS: BP 164/64; O2SAT 96
== END 2023-07-31 11:30 | disposition home or self-care (01) ==
LOC: CCL 07:02
PROVIDERS: ATTEND Internal Medicine
PROC: B3151ZZ Fluoroscopy of Bilateral Common Carotid Arteries using Low Osmolar Contrast (ICD-10-PCS; principal; 2023-07-31)
DX: I65.23 Occlusion and stenosis of bilateral carotid arteries (principal); I25.10 Atherosclerotic heart disease of native coronary artery without angina pectoris; I13.0 Hypertensive heart and chronic kidney disease with heart failure and stage 1 through stage 4 chronic kidney disease, or unspecified chronic kidney disease; I50.32 Chronic diastolic (congestive) heart failure; N18.30 Chronic kidney disease, stage 3 unspecified; E11.22 Type 2 diabetes mellitus with diabetic chronic kidney disease; I35.2 Nonrheumatic aortic (valve) stenosis with insufficiency; E78.5 Hyperlipidemia, unspecified; G47.30 Sleep apnea, unspecified; K21.9 Gastro-esophageal reflux disease without esophagitis; Z95.1 Presence of aortocoronary bypass graft; Z87.891 Personal history of nicotine dependence; Z79.02 Long term (current) use of antithrombotics/antiplatelets; Z79.82 Long term (current) use of aspirin; Z79.4 Long term (current) use of insulin; Z79.899 Other long term (current) drug therapy; Z82.49 Family history of ischemic heart disease and other diseases of the circulatory system
CPT/HCPCS: 93005; 85025; 80048; 36415; 83721; 85610; 85730; 36222; J2001; J2250; J3010; J7040; 76937; 99152; 99153; C1893; J0461

== ENCOUNTER 2023-11-13 20:18 | Emergency (ER) | payer OTHER ==
--- OUTSIDE RECORDS SUMMARY | 2023-11-13 20:22 | XMS REPORT | Continuity of Care Document ---
Author Name Unknown Address [address] [facility] [address] [place] [address] [facility] thconnect Address [address] [facility] [address] [place] [address] Care Team Providers Care Dance Critic Name Role Phone Chantal Cole Attending Clinician UnavailThierno Lenz Attending Clinician Unavailable Oneal Mena Attending Clinician Unavailable FAUST_E Attending Clinician Unavailable Chantal Cole Admitting Clinician UnavailOneal Bolaños Admitting Clinician Unavailable FAUST_E Admitting Clinician Unavailable Payers Payer Name Policy Type Policy Number Effective Date Expiration Date Source HUMANA - GOLD PLUS (MEDICARE REPLACEMENT HMO) [id number] HUMANA 53 [id number] [facility] Problems Condition Name Condition Details Condition Category Status Onset Date Resolution Date Last Treatment Date Treating Clinician Comments Source [id number] Incomplete emptying of bladder Problem [facility] [id number] BPH loc w urin obs/LUTS Problem [facility] [id number] Complex renal cyst Problem [facility] Urge incontinen ce of urine Urge incontinen ce Problem [facility] [id number] Detrusor instabilit y Problem [facility] [id number] Enlarged prostate Problem [facility] 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 Problem [facility] [id number] Prostate nodule Problem [facility] Allergies, Adverse Reactions, Alerts Allergy Name Allergy Type Status Severity Reaction(s) Onset Date Inactive Date Treating Clinician Comments Source No Known Allergie s DA Active U 3 00:00: 00 [facility] Social History Social Habit Start Date Stop Date Quantity Comments Source History of Tobacco Use [facility] Sex Assigned At [facility] Smoking Status Start Date Stop Date Source Never Smoker [facility] Former Smoker 2022-02-07 00:00:00 2022-02-07 00:00:00 [facility] Medications Ordered Medication Name Filled Medication Name Start Date Stop Date Current Medication? Ordering Clinician Indication Dosage Frequency Signature (SIG) Comments Components Source oxyBUTYnin Chloride ER 5 MG oxyBUTYnin Chloride ER 5 MG 2022-0 6-21 00:00: 00 No QD oxyBUTYnin Chloride ER 5 MG oxyBUTYnin Chloride ER 5 MG oxyBUTYnin Chloride ER 5 MG 2022-0 -21 00:00: 00 No QD oxyBUTYnin Chloride ER 5 MG oxyBUTYnin Chloride ER 5 MG oxyBUTYnin Chloride ER 5 MG 2022-0 -21 00:00: 00 No QD oxyBUTYnin Chloride ER 5 MG oxyBUTYnin Chloride ER 5 MG oxyBUTYnin Chloride ER 5 MG 2022-0 -21 00:00: 00 No QD oxyBUTYnin Chloride ER 5 MG Proscar 5 MG Proscar 5 MG 2022-0 2-15 00:00: 00 No 1{table t} QD Proscar 5 MG Proscar 5 MG Proscar 5 MG 3-0 2-15 00:00: 00 No 1{table t} QD Proscar 5 MG Proscar 5 MG Proscar 5 MG 3-0 2-15 00:00: 00 No 1{table t} QD Proscar 5 MG Proscar 5 MG Proscar 5 MG 08-17 00:00: 00 No 1{table t} QD Proscar 5 MG Trospium Chloride 20 MG Trospium Chloride 20 MG 2021-07 00:00: 00 09-13 00:00 :00 No 1{table t_at_be dtime_o n_an_em pty_sto mach} QD Trospium Chloride 20 MG Trospium Chloride 20 MG Trospium Chloride 20 MG 2021-07 00:00: 00 09-13 00:00 :00 No 1{table t_at_be dtime_o n_an_em pty_sto mach} QD Trospium Chloride 20 MG Doxycycline Hyclate 100 MG Doxycycline Hyclate 100 MG 2021-07 00:00: 00 05-11 00:00 :00 No 1{capsu le} BID Doxycyclin e Hyclate 100 MG Losartan Potassium 50 MG Losartan Potassium 50 MG No 1{table t} BID Losartan Potassium 50 MG hydrALAZINE HCl 100 MG hydrALAZINE HCl 100 MG No 1{table t_with_ food} BID hydrALAZIN E HCl 100 MG Atenolol 50 MG Atenolol 50 MG No 1{table t} BID Atenolol 50 MG Ezetimibe 10 MG Ezetimibe 10 MG No 1{table t} QD Ezetimibe 10 MG Clopidogrel Bisulfate 75 MG Clopidogrel Bisulfate 75 MG No 1{table t} QD Clopidogre l Bisulfate 75 MG clopidogrel clopidogrel No cl opidogre l Spironolact one 100 MG Spironolact one 100 MG No 1{table t} QD Spironolac tone 100 MG Atorvastati n Calcium 10 MG Atorvastati n Calcium 10 MG No QD Atorvastat in Calcium 10 MG Furosemide 40 MG Furosemide 40 MG No 1{table t} QD Furosemide 40 MG Levothyroxi ne Sodium 75 MCG Levothyroxi ne Sodium 75 MCG No QD Levothyrox ine Sodium 75 MCG Spironolact one 100 MG Spironolact one 100 MG No 1{table t} QD Spironolac tone 100 MG Clopidogrel Bisulfate 75 MG Clopidogrel Bisulfate 75 MG No 1{table t} QD Clopidogre l Bisulfate 75 MG Losartan Potassium 50 MG Losartan Potassium 50 MG No 1{table t} BID Losartan Potassium 50 MG Levothyroxi ne Sodium 75 MCG Levothyroxi ne Sodium 75 MCG No QD Levothyrox ine Sodium 75 MCG Atenolol 50 MG Atenolol 50 MG No 1{table t} BID Atenolol 50 MG Ezetimibe 10 MG Ezetimibe 10 MG No 1{table t} QD Ezetimibe 10 MG Baby Aspirin Baby Aspirin No Baby Aspirin Atorvastati n Calcium 10 MG Atorvastati n Calcium 10 MG No QD Atorvastat in Calcium 10 MG hydrALAZINE HCl 100 MG hydrALAZINE HCl 100 MG No 1{table t_with_ food} TID hydrALAZIN E HCl 100 MG Tamsulosin HCl 0.4 MG Tamsulosin HCl 0.4 MG No 1{capsu le} Tamsulosin HCl 0.4 MG Furosemide 20 MG Furosemide 20 MG No 1{table t} QD Furosemide 20 MG Spironolact one 100 MG Spironolact one 100 MG No 1{table t} QD Spironolac tone 100 MG Clopidogrel Bisulfate 75 MG Clopidogrel Bisulfate 75 MG No 1{table t} QD Clopidogre l Bisulfate 75 MG Losartan Potassium 50 MG Losartan Potassium 50 MG No 1{table t} BID Losartan Potassium 50 MG Levothyroxi ne Sodium 75 MCG Levothyroxi ne Sodium 75 MCG No QD Levothyrox ine Sodium 75 MCG Levothyroxi ne Sodium 75 MCG Levothyroxi ne Sodium 75 MCG No QD Levothyrox ine Sodium 75 MCG Atenolol 50 MG Atenolol 50 MG No 1{table t} BID Atenolol 50 MG Ezetimibe 10 MG Ezetimibe 10 MG No 1{table t} QD Ezetimibe 10 MG Baby Aspirin Baby Aspirin No Baby Aspirin Atorvastati n Calcium 10 MG Atorvastati n Calcium 10 MG No QD Atorvastat in Calcium 10 MG hydrALAZINE HCl 100 MG hydrALAZINE HCl 100 MG No 1{table t_with_ food} TID hydrALAZIN E HCl 100 MG Tamsulosin HCl 0.4 MG Tamsulosin HCl 0.4 MG No 1{capsu le} Tamsulosin HCl 0.4 MG Furosemide 20 MG Furosemide 20 MG No 1{table t} QD Furosemide 20 MG hydrALAZINE HCl 100 MG hydrALAZINE HCl 100 MG No 1{table t_with_ food} BID hydrALAZIN E HCl 100 MG Spironolact one 100 MG Spironolact one 100 MG No 1{table t} QD Spironolac tone 100 MG Clopidogrel Bisulfate 75 MG Clopidogrel Bisulfate 75 MG No 1{table t} QD Clopidogre l Bisulfate 75 MG Losartan Potassium 50 MG Losartan Potassium 50 MG No 1{table t} BID Losartan Potassium 50 MG Levothyroxi ne Sodium 75 MCG Levothyroxi ne Sodium 75 MCG No QD Levothyrox ine Sodium 75 MCG Atenolol 50 MG Atenolol 50 MG No 1{table t} BID Atenolol 50 MG Ezetimibe 10 MG Ezetimibe 10 MG No 1{table t} QD Ezetimibe 10 MG Baby Aspirin Baby Aspirin No Baby Aspirin Atorvastati n Calcium 10 MG Atorvastati n Calcium 10 MG No QD Atorvastat in Calcium 10 MG hydrALAZINE HCl 100 MG hydrALAZINE HCl 100 MG No 1{table t_with_ food} TID hydrALAZIN E HCl 100 MG Furosemide 40 MG Furosemide 40 MG No 1{table t} QD Furosemide 40 MG Tamsulosin HCl 0.4 MG Tamsulosin HCl 0.4 MG No 1{capsu le} Tamsulosin HCl 0.4 MG Furosemide 20 MG Furosemide 20 MG No 1{table t} QD Furosemide 20 MG Ezetimibe 10 MG Ezetimibe 10 MG No 1{table t} QD Ezetimibe 10 MG Spironolact one 100 MG Spironolact one 100 MG No 1{table t} QD Spironolac tone 100 MG Clopidogrel Bisulfate 75 MG Clopidogrel Bisulfate 75 MG No 1{table t} QD Clopidogre l Bisulfate 75 MG Losartan Potassium 50 MG Losartan Potassium 50 MG No 1{table t} BID Losartan Potassium 50 MG Levothyroxi ne Sodium 75 MCG Levothyroxi ne Sodium 75 MCG No QD Levothyrox ine Sodium 75 MCG Atenolol 50 MG Atenolol 50 MG No 1{table t} BID Atenolol 50 MG Ezetimibe 10 MG Ezetimibe 10 MG No 1{table t} QD Ezetimibe 10 MG Baby Aspirin Baby Aspirin No Baby Aspirin Atorvastati n Calcium 10 MG Atorvastati n Calcium 10 MG No QD Atorvastat in Calcium 10 MG hydrALAZINE HCl 100 MG hydrALAZINE HCl 100 MG No 1{table t_with_ food} TID hydrALAZIN E HCl 100 MG Tamsulosin HCl 0.4 MG Tamsulosin HCl 0.4 MG No 1{capsu le} Tamsulosin HCl 0.4 MG Furosemide 20 MG Furosemide 20 MG No 1{table t} QD Furosemide 20 MG Spironolact one 100 MG Spironolact one 100 MG No 1{table t} QD Spironolac tone 100 MG Atorvastati n Calcium 10 MG Atorvastati n Calcium 10 MG No 1{table t} QD Atorvastat in Calcium 10 MG Baby Aspirin Baby Aspirin No Baby Aspirin Atenolol 50 MG Atenolol 50 MG No 1{table t} QD Atenolol 50 MG Spironolact one 100 MG Spironolact one 100 MG No 1{table t} QD Spironolac tone 100 MG Furosemide 40 MG Furosemide 40 MG No 1{table t} QD Furosemide 40 MG Atenolol 50 MG Atenolol 50 MG No 1{table t} BID Atenolol 50 MG Levothyroxi ne Sodium 75 MCG Levothyroxi ne Sodium 75 MCG No QD Levothyrox ine Sodium 75 MCG Losartan Potassium 50 MG Losartan Potassium 50 MG No 1{table t} BID Losartan Potassium 50 MG Baby Aspirin Baby Aspirin No Baby Aspirin Atorvastati n Calcium 10 MG Atorvastati n Calcium 10 MG No QD Atorvastat in Calcium 10 MG hydrALAZINE HCl 100 MG hydrALAZINE HCl 100 MG No 1{table t_with_ food} BID hydrALAZIN E HCl 100 MG Ezetimibe 10 MG Ezetimibe 10 MG No 1{table t} QD Ezetimibe 10 MG Clopidogrel Bisulfate 75 MG Clopidogrel Bisulfate 75 MG No 1{table t} QD Clopidogre l Bisulfate 75 MG Levothyroxi ne Sodium 75 MCG Levothyroxi ne Sodium 75 MCG No QD Levothyrox ine Sodium 75 MCG Clopidogrel Bisulfate 75 MG Clopidogrel Bisulfate 75 MG No 1{table t} QD Clopidogre l Bisulfate 75 MG Ezetimibe 10 MG Ezetimibe 10 MG No 1{table t} QD Ezetimibe 10 MG Atenolol 50 MG Atenolol 50 MG No 1{table t} BID Atenolol 50 MG hydrALAZINE HCl 100 MG hydrALAZINE HCl 100 MG No 1{table t_with_ food} BID hydrALAZIN E HCl 100 MG Spironolact one 100 MG Spironolact one 100 MG No 1{table t} QD Spironolac tone 100 MG Losartan Potassium 50 MG Losartan Potassium 50 MG No 1{table t} BID Losartan Potassium 50 MG Baby Aspirin Baby Aspirin No Baby Aspirin Furosemide 40 MG Furosemide 40 MG No 1{table t} QD Furosemide 40 MG Atorvastati n Calcium 10 MG Atorvastati n Calcium 10 MG No QD Atorvastat in Calcium 10 MG Losartan Potassium 50 MG Losartan Potassium 50 MG No 1{table t} BID Losartan Potassium 50 MG hydrALAZINE HCl 100 MG hydrALAZINE HCl 100 MG No 1{table t_with_ food} BID hydrALAZIN E HCl 100 MG Atenolol 50 MG Atenolol 50 MG No 1{table t} BID Atenolol 50 MG Ezetimibe 10 MG Ezetimibe 10 MG No 1{table t} QD Ezetimibe 10 MG Clopidogrel Bisulfate 75 MG Clopidogrel Bisulfate 75 MG No 1{table t} QD Clopidogre l Bisulfate 75 MG clopidogrel clopidogrel No cl opidogre l Spironolact one 100 MG Spironolact one 100 MG No 1{table t} QD Spironolac tone 100 MG Atorvastati n Calcium 10 MG Atorvastati n Calcium 10 MG No QD Atorvastat in Calcium 10 MG Furosemide 40 MG Furosemide 40 MG No 1{table t} QD Furosemide 40 MG Levothyroxi ne Sodium 75 MCG Levothyroxi ne Sodium 75 MCG No QD Levothyrox ine Sodium 75 MCG Tamsulosin HCl 0.4 MG Tamsulosin HCl 0.4 MG 06-10 00:00 :00 No 1{capsu le} BID Tamsulosin HCl 0.4 MG Tamsulosin HCl 0.4 MG Tamsulosin HCl 0.4 MG 06-10 00:00 :00 No 1{capsu le} BID Tamsulosin HCl 0.4 MG Tamsulosin HCl 0.4 MG Tamsulosin HCl 0.4 MG 02-02 00:00 :00 No 1{capsu le} BID Tamsulosin HCl 0.4 MG Tamsulosin HCl 0.4 MG Tamsulosin HCl 0.4 MG 02-02 00:00 :00 No 1{capsu le} BID Tamsulosin HCl 0.4 MG Tamsulosin HCl 0.4 MG Tamsulosin HCl 0.4 MG 02-02 00:00 :00 No 1{capsu le} BID Tamsulosin HCl 0.4 MG Vital Signs Vital Name Observation Time Observation Value Comments S mao height 2023-02-15 10:00:00 66 [in_i] Commo n [facility] weight 2023-02-15 10:00:00 171 [lb_av] Comm on [facility] temperature 2023-02-15 10:00:00 97.3 [degF] Com [facility] bmi 2023-02-15 10:00:00 27.6 kg/m2 Commo n [facility] oximetry 2023-02-15 10:00:00 96 % Commo n [facility] respiratory rate 2023-02-15 10:00:00 18 /min [facility] blood pressure systolic 2023-02-15 10:00:00 141 mm[Hg] Common [facility] blood pressure diastolic 2023-02-15 10:00:00 60 mm[Hg] Common [facility] height 2022-08-17 11:30:00 66 [in_i] Commo n [facility] weight 2022-08-17 11:30:00 179.2 [lb_av] Co mmon [facility] temperature 2022-08-17 11:30:00 97.3 [degF] Com [facility] bmi 2022-08-17 11:30:00 28.92 kg/m2 Comm on [facility] oximetry 2022-08-17 11:30:00 96 % Commo n [facility] respiratory rate 2022-08-17 11:30:00 16 /min [facility] blood pressure systolic 2022-08-17 11:30:00 136 mm[Hg] Common [facility] blood pressure diastolic 2022-08-17 11:30:00 62 mm[Hg] [facility] height 2022-06-15 11:15:00 66 [in_i] Commo n [facility] weight 2022-06-15 11:15:00 162 [lb_av] Comm on [facility] temperature 2022-06-15 11:15:00 97.0 [degF] Com mon [facility] bmi 2022-06-15 11:15:00 26.14 kg/m2 Comm on [facility] oximetry 2022-06-15 11:15:00 99 % Commo n [facility] respiratory rate 2022-06-15 11:15:00 18 /min [facility] blood pressure systolic 2022-06-15 11:15:00 150 mm[Hg] [facility] blood pressure diastolic 2022-06-15 11:15:00 66 mm[Hg] Common [facility] height 2022-04-27 17:30:00 66 [in_i] Commo n [facility] weight 2022-04-27 17:30:00 175.2 [lb_av] Co mmon [facility] temperature 2022-04-27 17:30:00 97.2 [degF] Com mon [facility] bmi 2022-04-27 17:30:00 28.27 kg/m2 Comm on [facility] oximetry 2022-04-27 17:30:00 97 % Commo n [facility] respiratory rate 2022-04-27 17:30:00 18 /min Common [facility] blood pressure systolic 2022-04-27 17:30:00 188 mm[Hg] [facility] blood pressure diastolic 2022-04-27 17:30:00 86 mm[Hg] [facility] height 2022-02-07 13:30:00 66 [in_i] Commo n [facility] weight 2022-02-07 13:30:00 170.2 [lb_av] Co mmon [facility] temperature 2022-02-07 13:30:00 98.2 [degF] Com mon [facility] bmi 2022-02-07 13:30:00 27.47 kg/m2 Comm on [facility] oximetry 2022-02-07 13:30:00 91 % Commo n [facility] respiratory rate 2022-02-07 13:30:00 16 /min Common [facility] blood pressure systolic 2022-02-07 13:30:00 210 mm[Hg] [facility] blood pressure diastolic 2022-02-07 13:30:00 87 mm[Hg] [facility] Procedures Procedure Date / Time Performed Performing Clinicia n Source [id number] 2023-09-18 00:00:00 CHAAB.01 [facility] [id number] 2023-09-18 00:00:00 CHAAB.01 [facility] [id number] 2023-09-18 00:00:00 CHAAB.01 [facility] [id number] 2023-09-18 00:00:00 CHAAB.01 [facility] [id number] 2023-09-18 00:00:00 CHAAB.01 [facility] [id number] 2023-09-18 00:00:00 CHAAB.01 [facility] [id number] 2023-09-18 00:00:00 ALKNE [facility] [id number] 2023-09-18 00:00:00 ALKNE [facility] [id number] 2023-09-18 00:00:00 ALKNE [facility] PVR 2023-02-15 00:00:00 [facility] PVR 2022-08-17 00:00:00 Common [facility] Encounters Start Date/Time End Date/Time Encounter Type Admission Type Attending Clinicians Care Facility Care Department Encounter ID Source 2023-09-13 13:30:00 Inpatient Chantal Thomas HCACL CARD [id number] [facility] 2022-04-28 09:49:03 Outpatient Nick Thierno STSHERLY STLMLC [id number] [facility] 2022-02-07 12:58:58 Outpatient NickThierno chatman STLC STLMLC [id number] [facility] 2023-09-12 00:29:00 2023-09-19 11:14:00 Inpatient Oneal Dai HCACL INTE [id number] [facility] 2023-09-15 00:00:00 2023-09-15 00:00:00 Outpatient FAUST_E PANRSOH PANRSID [id number] [facility] 2023-02-15 00:00:00 2023-02-15 00:00:00 OFFICE VISIT ESTAB PT LEVEL 4 STLMLC STLMLC [id number] [facility] 2022-12-21 00:00:00 2022-12-21 00:00:00 (TEL) STLMLC STLMLC [id number] [facility] 2022-08-19 00:00:00 2022-08-19 00:00:00 (TEL) STLMLC STLMLC [id number] [facility] 2022-08-17 00:00:00 2022-08-17 00:00:00 OFFICE VISIT ESTAB PT LEVEL 3 STLMLC STLMLC [id number] [facility] 2022-06-15 00:00:00 2022-06-15 00:00:00 OFFICE VISIT EST PT LEVEL 3 STLMLC STLMLC [id number] [facility] 2022-05-04 00:00:00 2022-05-04 00:00:00 NO CHARGE STLMLC STLMLC [id number] [facility] 2022-05-04 00:00:00 2022-05-04 00:00:00 (PROC) Procedure STLMLC STLC [id number] [facility] 2022-04-27 00:00:00 2022-04-27 00:00:00 OFFICE VISIT ESTAB PT LEVEL 2 STLMLC STLMLC [id number] [facility] 2022-02-07 00:00:00 2022-02-07 00:00:00 OFFICE VISIT NEW PT LEVEL 3 STLMLC STLMLC [id number] [facility] Results Test Description Test Time Test Comments Results Result Co mments Source BASIC METABOLIC [id number] 07:00:00* Test Item Value Reference Range Interpretation Comme nts SODIUM (test code = NA) 133 mEq/L 134-147 L POTASSIUM (test code = K) 4.9 mEq/L 3.4-5.0 N CHLORIDE (test code = CL) 101 mEq/L 100-108 N CARBON DIOXIDE (test code = CO2) 23 mEq/l 21-33 N ANION GAP (test code = GAP) 14 0-20 N GLUCOSE (test code = GLU) 128 mg/dL 77-141 BLOOD UREA NITROGEN (test code = BUN) 72 mg/dL 7-25 H GLOMERULAR FILTRATION RATE (test code = GFR) 15.3 70-80 L The Glomerular Filtration Rate is a calculated parameterbased on serum Creatinine, patient age and sex. GFR valuesless than 60 mL/min/1.73 square meters are indicative ofChronic Kidney Disease. Values less than 15 mL/min/1.73square meters indicate Kidney failure. The calculation forGFR is based on the CKD-EPI (2020) calculation. This formulais race indifferent and is the recommended formula for GFRby the National Kidney Foundation for Adults.The GFR will not calculate if the sex is unknown or if thepatient's age is <18 years. CREATININE (test code = CREAT) 4.0 mg/dL 0.6-1.3 H CALCIUM (test code = CA) 7.3 mg/dL 8.0-10.5 L CBC W/AUTO [id number] 06:16:00* Test Item Value Reference Range Interpretation Comme nts WHITE BLOOD CELL (test code = WBC) 6.6 x10 3/uL 4.5-11.0 N RED BLOOD CELL (test code = RBC) 2.70 x10 6/uL 4.00-5.60 L HEMOGLOBIN (test code = HGB) 8.0 g/dL 12.5-16.9 L HEMATOCRIT (test code = HCT) 23.3 % 37.5-50.7 L MEAN CELL VOLUME (test code = MCV) 86.3 fL 81.0-99.0 N MEAN CELL HGB (test code = MCH) 29.6 pg 27.0-33.0 N MEAN CELL HGB CONCETRATION (test code = MCHC) 34.3 g/dL 33.0-37.0 N RED CELL DISTRIBUTION WIDTH CV (test code = RDW) 13.8 % 11.5-14.5 N RED CELL DISTRIBUTION WIDTH SD (test code = RDW-SD) 42.5 fL 37.0-54.0 N PLATELET COUNT (test code = PLT) 150 x10 3/uL 150-400 N MEAN PLATELET VOLUME (test c ode = MPV) 10.3 fL 7.0-9.0 H NEUTROPHIL % (test code = NT%) 72.2 % 56.0-77.0 N IMMATURE GRANULOCYTE % (test code = IG%) 0.5 % 0.0-2.0 N LYMPHOCYTE % (test code = LY%) 11.8 % 14.0-32.0 L MONOCYTE % (test code = MO%) 12.6 % 4.8-9.0 H EOSINOPHIL % (test code = EO%) 2.4 % 0.3-3.7 N BASOPHIL % (test code = BA%) 0.5 % 0.0-2.0 N NUCLEATED RBC % (test code = NRBC%) 0.0 % 0-0 N NEUTROPHIL # (test code = NT#) 4.78 x10 3/uL 2.0-7.6 N IMMATURE GRANULOCYTE # (test code = IG#) 0.03 x10 3/uL 0.00-0.03 N LYMPHOCYTE # (test code = LY#) 0.78 x10 3/uL 1.0-3.8 L MONOCYTE # (test code = MO#) 0.83 x10 3/uL 0.1-0.8 H EOSINOPHIL # (test code = EO#) 0.16 x10 3/uL 0.0-0.2 N BASOPHIL # (test code = BA#) 0.03 x10 3/uL 0.0-0.2 N NUCLEATED RBC # (test code = NRBC#) 0.00 x10 3/uL 0.0-0.1 N GLUCOSE [id number] 20:20:00* Test Item Value Reference Range Interpretation Comme nts GLUCOSE BEDSIDE (test code = GLUBED) 158 MG/DL 70-110 H Performed by cer tified drill press set up operator at [facility] GLUCOSE [id number] 16:29:00* Test Item Value Reference Range Interpretation Comme nts GLUCOSE BEDSIDE (test code = GLUBED) 213 MG/DL 70-110 H Performed by cer tified drill press set up operator at [facility] GLUCOSE [id number] 09:15:00* Test Item Value Reference Range Interpretation Comme nts GLUCOSE BEDSIDE (test code = GLUBED) 187 MG/DL 70-110 H Performed by cer tified drill press set up operator at [facility] COMPREHENSIVE METABOLIC [id number] 06:02:00* Test Item Value Reference Range Interpretation Comme nts SODIUM (test code = NA) 132 mEq/L 134-147 L POTASSIUM (test code = K) 4.5 mEq/L 3.4-5.0 N CHLORIDE (test code = CL) 102 mEq/L 100-108 N CARBON DIOXIDE (test code = CO2) 23 mEq/l 21-33 N ANION GAP (test code = GAP) 11 0-20 N GLUCOSE (test code = GLU) 176 mg/dL 77-141 H BLOOD UREA NITROGEN (test code = BUN) 71 mg/dL 7-25 H GLOMERULAR FILTRATION RATE (test code = GFR) 16.8 70-80 L The Glomerular Filtration Rate is a calculated parameterbased on serum Creatinine, patient age and sex. GFR valuesless than 60 mL/min/1.73 square meters are indicative ofChronic Kidney Disease. Values less than 15 mL/min/1.73square meters indicate Kidney failure. The calculation forGFR is based on the CKD-EPI (202) calculation. This formulais race indifferent and is the recommended formula for GFRby the National Kidney Foundation for Adults.The GFR will not calculate if the sex is unknown or if thepatient's age is <18 years. CREATININE (test code = CREAT) 3.7 mg/dL 0.6-1.3 H TOTAL PROTEIN (test code = PROT) 5.9 g/dL 6.4-8.2 L ALBUMIN (test code = ALB) 2.90 g/dL 3.4-5.0 L CALCIUM (test code = CA) 7.7 mg/dL 8.0-10.5 L BILIRUBIN TOTAL (test code = BILT) 0.20 mg/dL 0.0-1.0 N SGOT/AST (test code = AST) 17 IUnit/L 8-34 N SGPT/ALT (test code = ALT) 11 IUnit/L 10-49 ALKALINE PHOSPHATASE TOTAL (test code = ALKP) 36 IUnit/L 20-125 N [id number] 06:02:00* Test Item Value Reference Range Interpretation Comme nts PHOSPHOROUS (test code = PHOS) 4.6 MG/DL 2.5-4.9 N [id number] 06:02:00* Test Item Value Reference Range Interpretation Comme nts MAGNESIUM (test code = MAG) 2.16 mg/dL 1.6-2.6 N CALCIUM [id number] 06:02:00* Test Item Value Reference Range Interpretation Comme nts CALCIUM IONIZED (test code = OSMANI) 1.10 MMOL/L 1.09-1.30 N CBC W/AUTO [id number] 05:22:00* Test Item Value Reference Range Interpretation Comme nts WHITE BLOOD CELL (test code = WBC) 5.8 x10 3/uL 4.5-11.0 N RED BLOOD CELL (test code = RBC) 3.17 x10 6/uL 4.00-5.60 L HEMOGLOBIN (test code = HGB) 9.4 g/dL 12.5-16.9 L HEMATOCRIT (test code = HCT) 27.3 % 37.5-50.7 L MEAN CELL VOLUME (test code = MCV) 86.1 fL 81.0-99.0 N MEAN CELL HGB (test code = MCH) 29.7 pg 27.0-33.0 N MEAN CELL HGB CONCETRATION (test code = MCHC) 34.4 g/dL 33.0-37.0 N RED CELL DISTRIBUTION WIDTH CV (test code = RDW) 13.2 % 11.5-14.5 N RED CELL DISTRIBUTION WIDTH SD (test code = RDW-SD) 41.5 fL 37.0-54.0 N PLATELET COUNT (test code = PLT) 158 x10 3/uL 150-400 N MEAN PLATELET VOLUME (test c ode = MPV) 10.7 fL 7.0-9.0 H NEUTROPHIL % (test code = NT%) 67.6 % 56.0-77.0 N IMMATURE GRANULOCYTE % (test code = IG%) 0.3 % 0.0-2.0 N LYMPHOCYTE % (test code = LY%) 15.0 % 14.0-32.0 N MONOCYTE % (test code = MO%) 10.2 % 4.8-9.0 H EOSINOPHIL % (test code = EO%) 6.4 % 0.3-3.7 H BASOPHIL % (test code = BA%) 0.5 % 0.0-2.0 N NUCLEATED RBC % (test code = NRBC%) 0.0 % 0-0 N NEUTROPHIL # (test code = NT#) 3.93 x10 3/uL 2.0-7.6 N IMMATURE GRANULOCYTE # (test code = IG#) 0.02 x10 3/uL 0.00-0.03 N LYMPHOCYTE # (test code = LY#) 0.87 x10 3/uL 1.0-3.8 L MONOCYTE # (test code = MO#) 0.59 x10 3/uL 0.1-0.8 N EOSINOPHIL # (test code = EO#) 0.37 x10 3/uL 0.0-0.2 H BASOPHIL # (test code = BA#) 0.03 x10 3/uL 0.0-0.2 N NUCLEATED RBC # (test code = NRBC#) 0.00 x10 3/uL 0.0-0.1 N GLUCOSE [id number] 19:55:00* Test Item Value Reference Range Interpretation Comme [facility] GLUCOSE BEDSIDE (test code = GLUBED) 173 MG/DL 70-110 H Performed by cer berthaied drill press set up operator at [facility] GLUCOSE [id number] 17:14:00* Test Item Value Reference Range Interpretation Comme [facility] GLUCOSE BEDSIDE (test code = GLUBED) 145 MG/DL 70-110 H Performed by UZwan [employer] drill press set up operator at [facility] PROTHROMBIN [id number] 16:06:00* Test Item Value Reference Range Interpretation Comme [facility] PROTHROMBIN TIME PATIENT (test code = PTP) 11.5 SECONDS 9.3-12.9 N INTERNATIONAL NORMAL RATIO (test code = INR) 1.0 0.8-1.2 N TARGET INR BY INDICATION Indication INR1. Prophylaxis of venous thrombosis 2.0 - 3.0 (orthopedic surgery), Prophylaxis of venous thrombosis (other than high-risk surgery), Treatment of Deep Vein Thrombosis/Pulmonary Embolism, Prevention of systemic embolism - Tissue heart valves, Acute Myocardial Infarction (to prevent systemic embolism), Valvular heart disease, Atrial Fibrillation, Bileaflet mechanical valve in aortic position.2. Mechanical prosthetic valves (high risk), 2.5 - 3.5 Presence of Lupus Anticoagulant or Antiphospholipid Antibodies, Prevention of systemic embolism - Acute Myocardial Infarction (to prevent recurrent infarct). THROMBOPLASTIN TIME [id number] 16:06:00* Test Item Value Reference Range Interpretation Comme [facility] THROMBOPLASTIN TIME PARTIAL (test code = PTT) 36.1 Seconds 25.0-39.5 N Therapeutic Rang e: 50.4 - 88.3 Seconds Effective 10/16/2018 GLUCOSE [id number] 11:51:00* Test Item Value Reference Range Interpretation Comme [facility] GLUCOSE BEDSIDE (test code = GLUBED) 266 MG/DL 70-110 H Performed by [facility] tified drill press set up operator at [facility] GLUCOSE [id number] 09:31:00* Test Item Value Reference Range Interpretation Comme [facility] GLUCOSE BEDSIDE (test code = GLUBED) 148 MG/DL 70-110 H Performed by [facility] ONDiGO Mobile CRMied drill press set up operator at [facility] COMPREHENSIVE METABOLIC [id number] 06:00:00* Test Item Value Reference Range Interpretation Comme [facility] SODIUM (test code = NA) 133 mEq/L 134-147 L POTASSIUM (test code = K) 4.5 mEq/L 3.4-5.0 N CHLORIDE (test code = CL) 101 mEq/L 100-108 N CARBON DIOXIDE (test code = CO2) 23 mEq/l 21-33 N ANION GAP (test code = GAP) 14 0-20 N GLUCOSE (test code = GLU) 163 mg/dL 77-141 H BLOOD UREA NITROGEN (test code = BUN) 63 mg/dL 7-25 H GLOMERULAR FILTRATION RATE (test code = GFR) 18.0 70-80 L The Glomerular Filtration Rate is a calculated parameterbased on serum Creatinine, patient age and sex. GFR valuesless than 60 mL/min/1.73 square meters are indicative ofChronic Kidney Disease. Values less than 15 mL/min/1.73square meters indicate Kidney failure. The calculation forGFR is based on the CKD-EPI (2020) calculation. This formulais race indifferent and is the recommended formula for GFRby the National Kidney Foundation for Adults.The GFR will not calculate if the sex is unknown or if thepatient's age is <18 years. CREATININE (test code = CREAT) 3.5 mg/dL 0.6-1.3 H TOTAL PROTEIN (test code = PROT) 5.8 g/dL 6.4-8.2 L ALBUMIN (test code = ALB) 2.90 g/dL 3.4-5.0 L CALCIUM (test code = CA) 8.1 mg/dL 8.0-10.5 N BILIRUBIN TOTAL (test code = BILT) 0.20 mg/dL 0.0-1.0 SGOT/AST (test code = AST) 15 IUnit/L 8-34 N SGPT/ALT (test code = ALT) < 7 IUnit/L 10-49 L ALKALINE PHOSPHATASE TOTAL (test code = ALKP) 37 IUnit/L 20-125 N [id number] 06:00:00* Test Item Value Reference Range Interpretation Comme nts PHOSPHOROUS (test code = PHOS) 4.3 MG/DL 2.5-4.9 N [id number] 06:00:00* Test Item Value Reference Range Interpretation Comme nts MAGNESIUM (test code = MAG) 2.17 mg/dL 1.6-2.6 CALCIUM [id number] 06:00:00* Test Item Value Reference Range Interpretation Comme nts CALCIUM IONIZED (test code = OSMANI) 1.05 MMOL/L 1.09-1.30 L CBC W/AUTO [id number] 05:32:00* Test Item Value Reference Range Interpretation Comme nts WHITE BLOOD CELL (test code = WBC) 5.8 x10 3/uL 4.5-11.0 N RED BLOOD CELL (test code = RBC) 3.19 x10 6/uL 4.00-5.60 L HEMOGLOBIN (test code = HGB) 9.3 g/dL 12.5-16.9 L HEMATOCRIT (test code = HCT) 27.3 % 37.5-50.7 L MEAN CELL VOLUME (test code = MCV) 85.6 fL 81.0-99.0 N MEAN CELL HGB (test code = MCH) 29.2 pg 27.0-33.0 N MEAN CELL HGB CONCETRATION (test code = MCHC) 34.1 g/dL 33.0-37.0 N RED CELL DISTRIBUTION WIDTH CV (test code = RDW) 13.3 % 11.5-14.5 N RED CELL DISTRIBUTION WIDTH SD (test code = RDW-SD) 41.5 fL 37.0-54.0 N PLATELET COUNT (test code = PLT) 152 x10 3/uL 150-400 N MEAN PLATELET VOLUME (test c ode = MPV) 10.6 fL 7.0-9.0 H NEUTROPHIL % (test code = NT%) 66.2 % 56.0-77.0 N IMMATURE GRANULOCYTE % (test code = IG%) 0.3 % 0.0-2.0 N LYMPHOCYTE % (test code = LY%) 13.4 % 14.0-32.0 L MONOCYTE % (test code = MO%) 11.5 % 4.8-9.0 H EOSINOPHIL % (test code = EO%) 7.7 % 0.3-3.7 H BASOPHIL % (test code = BA%) 0.9 % 0.0-2.0 N NUCLEATED RBC % (test code = NRBC%) 0.0 % 0-0 N NEUTROPHIL # (test code = NT#) 3.85 x10 3/uL 2.0-7.6 N IMMATURE GRANULOCYTE # (test code = IG#) 0.02 x10 3/uL 0.00-0.03 N LYMPHOCYTE # (test code = LY#) 0.78 x10 3/uL 1.0-3.8 L MONOCYTE # (test code = MO#) 0.67 x10 3/uL 0.1-0.8 N EOSINOPHIL # (test code = EO#) 0.45 x10 3/uL 0.0-0.2 H BASOPHIL # (test code = BA#) 0.05 x10 3/uL 0.0-0.2 N NUCLEATED RBC # (test code = NRBC#) 0.00 x10 3/uL 0.0-0.1 N GLUCOSE [id number] 20:49:00* Test Item Value Reference Range Interpretation Comme nts GLUCOSE BEDSIDE (test code = GLUBED) 249 MG/DL 70-110 H Performed by cer tified drill press set up operator at [facility] GLUCOSE [id number] 16:41:00* Test Item Value Reference Range Interpretation Comme nts GLUCOSE BEDSIDE (test code = GLUBED) 246 MG/DL 70-110 H Performed by [facility] tified drill press set up operator at [facility] GLUCOSE [id number] 11:35:00* Test Item Value Reference Range Interpretation Comme nts GLUCOSE BEDSIDE (test code = GLUBED) 186 MG/DL 70-110 H Performed by [facility] tified drill press set up operator at [facility] - XR CHEST 1 [id number] 08:41:00 [facility] 1955 Sex: M FAX: Oneal Suarez MD [phone] [place]: St: ADM FAX: Margarita Cárdenas FAX: Chantal Johnson MD [phone] Name: [facility] 1955 Age/S: 68/M [address] [place] [address] Unit #: [id number] Loc: [place] [address] Phys: Margarita Cárdenas Acct: [id number] Dis Date: Status: ADM IN PHONE #: [phone] Exam Date: 09/16/2023826 FAX #: [phone] Reason: SOB EXAMS: CPT CODE: [id number] XR CHEST 1 V [id number] EXAM: CHEST ONE VIEW INDICATION: SOB LOCATION: H99 COMPARISON: September 11, 2023 TECHNIQUE: AP view of the chest FINDINGS: The heart size is normal given projection and imaging technique. There is evidence of prior thoracic surgery. Low lung volumes with increased central vascular congestion and bibasilar atelectasis. No pneumothorax or pleural effusion is identified. The osseous structures are normal. IMPRESSION: Low lung volumes with central vascular congestion and bibasilar atelectasis. No effusion or pneumothorax. Continued attention on follow-up. at 0841 Reported and signed by: Carlie Ruiz M.D. CC: Oneal Mena MD; Margarita Cárdenas; Chantal Vicente Technologist: Carly Massey, RT(R); Mita Epps, RT(R) Trnnvrd Date/Time/By: 09/16/2023 (41): By: [email or web address] [facility] Print D/T: S: 09/16/2023 (0845) PAGE 1 Signed ReportGLUCOSE [id number] 07:58:00* Test Item Value Reference Range Interpretation Comme nts GLUCOSE BEDSIDE (test code = GLUBED) 173 MG/DL 70-110 H Performed by aleta ballard at [facility] COMPREHENSIVE METABOLIC [id number] 06:14:00* Test Item Value Reference Range Interpretation Comme nts SODIUM (test code = NA) 135 mEq/L 134-147 N POTASSIUM (test code = K) 4.3 mEq/L 3.4-5.0 N CHLORIDE (test code = CL) 104 mEq/L 100-108 N CARBON DIOXIDE (test code = CO2) 23 mEq/l 21-33 N ANION GAP (test code = GAP) 12 0-20 N GLUCOSE (test code = GLU) 139 mg/dL 77-141 N BLOOD UREA NITROGEN (test code = BUN) 65 mg/dL 7-25 H GLOMERULAR FILTRATION RATE (test code = GFR) 17.4 70-80 L The Glomerular Filtration Rate is a calculated parameterbased on serum Creatinine, patient age and sex. GFR valuesless than 60 mL/min/1.73 square meters are indicative ofChronic Kidney Disease. Values less than 15 mL/min/1.73square meters indicate Kidney failure. The calculation forGFR is based on the CKD-EPI (2020) calculation. This formulais race indifferent and is the recommended formula for GFRby the National Kidney Foundation for Adults.The GFR will not calculate if the sex is unknown or if thepatient's age is <18 years. CREATININE (test code = CREAT) 3.6 mg/dL 0.6-1.3 H TOTAL PROTEIN (test code = PROT) 6.0 g/dL 6.4-8.2 L ALBUMIN (test code = ALB) 3.00 g/dL 3.4-5.0 L CALCIUM (test code = CA) 8.2 mg/dL 8.0-10.5 N BILIRUBIN TOTAL (test code = BILT) 0.30 mg/dL 0.0-1.0 N SGOT/AST (test code = AST) 16 IUnit/L 8-34 N SGPT/ALT (test code = ALT) 8 IUnit/L 10-49 L ALKALINE PHOSPHATASE TOTAL (test code = ALKP) 39 IUnit/L 20-125 N [id number] 06:14:00* Test Item Value Reference Range Interpretation Comme nts PHOSPHOROUS (test code = PHOS) 4.5 MG/DL 2.5-4.9 N [id number] 06:14:00* Test Item Value Reference Range Interpretation Comme nts MAGNESIUM (test code = MAG) 1.85 mg/dL 1.6-2.6 CALCIUM [id number] 06:14:00* Test Item Value Reference Range Interpretation Comme nts CALCIUM IONIZED (test code = OSMANI) 1.08 MMOL/L 1.09-1.30 L TOTAL IRON BINDING [id number] 06:10:00* Test Item Value Reference Range Interpretation Comme nts SERUM IRON (test code = IRON) 61 mcg/dL 35-150 N TOTAL IRON BINDING CAPACITY (test code = TIBC) 274 mcg/dL 260-445 N UIBC (test code = UIBC) 213 mcg/dL IRON SATURATION (test code = FESAT) 22.3 % 14-34 N CBC W/AUTO [id number] 05:52:00* Test Item Value Reference Range Interpretation Comme nts WHITE BLOOD CELL (test code = WBC) 5.9 x10 3/uL 4.5-11.0 N RED BLOOD CELL (test code = RBC) 3.30 x10 6/uL 4.00-5.60 L HEMOGLOBIN (test code = HGB) 9.8 g/dL 12.5-16.9 L HEMATOCRIT (test code = HCT) 28.4 % 37.5-50.7 L MEAN CELL VOLUME (test code = MCV) 86.1 fL 81.0-99.0 N MEAN CELL HGB (test code = MCH) 29.7 pg 27.0-33.0 N MEAN CELL HGB CONCETRATION (test code = MCHC) 34.5 g/dL 33.0-37.0 N RED CELL DISTRIBUTION WIDTH CV (test code = RDW) 13.3 % 11.5-14.5 N RED CELL DISTRIBUTION WIDTH SD (test code = RDW-SD) 41.3 fL 37.0-54.0 N PLATELET COUNT (test code = PLT) 159 x10 3/uL 150-400 N MEAN PLATELET VOLUME (test c ode = MPV) 10.4 fL 7.0-9.0 H NEUTROPHIL % (test code = NT%) 67.3 % 56.0-77.0 N IMMATURE GRANULOCYTE % (test code = IG%) 0.3 % 0.0-2.0 N LYMPHOCYTE % (test code = LY%) 13.5 % 14.0-32.0 L MONOCYTE % (test code = MO%) 9.9 % 4.8-9.0 H EOSINOPHIL % (test code = EO%) 8.0 % 0.3-3.7 H BASOPHIL % (test code = BA%) 1.0 % 0.0-2.0 N NUCLEATED RBC % (test code = NRBC%) 0.0 % 0-0 N NEUTROPHIL # (test code = NT#) 3.93 x10 3/uL 2.0-7.6 N IMMATURE GRANULOCYTE # (test code = IG#) 0.02 x10 3/uL 0.00-0.03 N LYMPHOCYTE # (test code = LY#) 0.79 x10 3/uL 1.0-3.8 L MONOCYTE # (test code = MO#) 0.58 x10 3/uL 0.1-0.8 N EOSINOPHIL # (test code = EO#) 0.47 x10 3/uL 0.0-0.2 H BASOPHIL # (test code = BA#) 0.06 x10 3/uL 0.0-0.2 N NUCLEATED RBC # (test code = NRBC#) 0.00 x10 3/uL 0.0-0.1 N GLUCOSE [id number] 21:04:00* Test Item Value Reference Range Interpretation Comme nts GLUCOSE BEDSIDE (test code = GLUBED) 187 MG/DL 70-110 H Performed by cer [employer] drill press set up operator at [facility] GLUCOSE [id number] 17:01:00* Test Item Value Reference Range Interpretation Comme nts GLUCOSE BEDSIDE (test code = GLUBED) 146 MG/DL 70-110 H Performed by [employer] drill press set up operator at [facility] GLUCOSE [id number] 12:15:00* Test Item Value Reference Range Interpretation Comme nts GLUCOSE BEDSIDE (test code = GLUBED) 147 MG/DL 70-110 H Performed by cer [employer] drill press set up operator at [facility] GLUCOSE [id number] 08:02:00* Test Item Value Reference Range Interpretation Comme nts GLUCOSE BEDSIDE (test code = GLUBED) 119 MG/DL 70-110 H Performed by [employer] drill press set up operator at [facility] RENAL FUNCTION [id number] 07:03:00* Test Item Value Reference Range Interpretation Comme nts SODIUM (test code = NA) 138 mEq/L 134-147 N POTASSIUM (test code = K) 4.0 mEq/L 3.4-5.0 N CHLORIDE (test code = CL) 105 mEq/L 100-108 N CARBON DIOXIDE (test code = CO2) 22 mEq/l 21-33 N ANION GAP (test code = GAP) 15 0-20 N GLUCOSE (test code = GLU) 125 mg/dL 77-141 N BLOOD UREA NITROGEN (test code = BUN) 67 mg/dL 7-25 H GLOMERULAR FILTRATION RATE (test code = GFR) 20.8 70-80 L The Glomerular Filtration Rate is a calculated parameterbased on serum Creatinine, patient age and sex. GFR valuesless than 60 mL/min/1.73 square meters are indicative ofChronic Kidney Disease. Values less than 15 mL/min/1.73square meters indicate Kidney failure. The calculation forGFR is based on the CKD-EPI (202) calculation. This formulais race indifferent and is the recommended formula for GFRby the National Kidney Foundation for Adults.The GFR will not calculate if the sex is unknown or if thepatient's age is <18 years. CREATININE (test code = CREAT) 3.1 mg/dL 0.6-1.3 H ALBUMIN (test code = ALB) 2.70 g/dL 3.4-5.0 L CALCIUM (test code = CA) 7.5 mg/dL 8.0-10.5 L PHOSPHOROUS (test code = PHOS) 4.3 MG/DL 2.5-4.9 N CBC W/AUTO [id number] 06:45:00* Test Item Value Reference Range Interpretation Comme nts WHITE BLOOD CELL (test code = WBC) 5.7 x10 3/uL 4.5-11.0 N RED BLOOD CELL (test code = RBC) 3.32 x10 6/uL 4.00-5.60 L HEMOGLOBIN (test code = HGB) 9.8 g/dL 12.5-16.9 L HEMATOCRIT (test code = HCT) 28.7 % 37.5-50.7 L MEAN CELL VOLUME (test code = MCV) 86.4 fL 81.0-99.0 N MEAN CELL HGB (test code = MCH) 29.5 pg 27.0-33.0 N MEAN CELL HGB CONCETRATION (test code = MCHC) 34.1 g/dL 33.0-37.0 N RED CELL DISTRIBUTION WIDTH CV (test code = RDW) 13.3 % 11.5-14.5 N RED CELL DISTRIBUTION WIDTH SD (test code = RDW-SD) 41.6 fL 37.0-54.0 N PLATELET COUNT (test code = PLT) 156 x10 3/uL 150-400 N MEAN PLATELET VOLUME (test c ode = MPV) 10.8 fL 7.0-9.0 H NEUTROPHIL % (test code = NT%) 68.0 % 56.0-77.0 N IMMATURE GRANULOCYTE % (test code = IG%) 0.4 % 0.0-2.0 N LYMPHOCYTE % (test code = LY%) 12.2 % 14.0-32.0 L MONOCYTE % (test code = MO%) 10.2 % 4.8-9.0 H EOSINOPHIL % (test code = EO%) 8.1 % 0.3-3.7 H BASOPHIL % (test code = BA%) 1.1 % 0.0-2.0 N NUCLEATED RBC % (test code = NRBC%) 0.0 % 0-0 N NEUTROPHIL # (test code = NT#) 3.86 x10 3/uL 2.0-7.6 N IMMATURE GRANULOCYTE # (test code = IG#) 0.02 x10 3/uL 0.00-0.03 N LYMPHOCYTE # (test code = LY#) 0.69 x10 3/uL 1.0-3.8 L MONOCYTE # (test code = MO#) 0.58 x10 3/uL 0.1-0.8 N EOSINOPHIL # (test code = EO#) 0.46 x10 3/uL 0.0-0.2 H BASOPHIL # (test code = BA#) 0.06 x10 3/uL 0.0-0.2 N NUCLEATED RBC # (test code = NRBC#) 0.00 x10 3/uL 0.0-0.1 N GLUCOSE [id number] 21:04:00* Test Item Value Reference Range Interpretation Comme nts GLUCOSE BEDSIDE (test code = GLUBED) 221 MG/DL 70-110 H Performed by cer tified drill press set up operator at [facility] GLUCOSE [id number] 16:40:00* Test Item Value Reference Range Interpretation Comme nts GLUCOSE BEDSIDE (test code = GLUBED) 118 MG/DL 70-110 H Performed by cer tified drill press set up operator at [facility] COVID 19 Asymptomatic IH [id number] 11:07:00* Test Item Value Reference Range Interpretation Comme nts COVID 19 Asymptomatic IH AG (test code = COVNONPUIAG) Negative Negative A negative resul t is presumptive and should be confirmedwith an FDA authorized molecular assay, if necessary forpatient management.A positive result does not rule out co-infections withother pathogens.This test detects both viable (live) and non-viable,SARS-CoV, and SARS-CoV-2. Test performance depends on theamount of virus (antigen) in the sample.This test has not been FDA cleared or approved; the test hasbeen authorized by FDA under an Emergency Use Authorization(EUA) for use by laboratories certified under the CLIA thatmeet the requirements to perform moderate, high or waivedcomplexity tests. GLUCOSE [id number] 07:43:00* Test Item Value Reference Range Interpretation Comme nts GLUCOSE BEDSIDE (test code = GLUBED) 114 MG/DL 70-110 H Performed by cer milka drill press set up operator at [facility] RENAL FUNCTION [id number] 07:26:00* Test Item Value Reference Range Interpretation Comme nts SODIUM (test code = NA) 136 mEq/L 134-147 N POTASSIUM (test code = K) 4.6 mEq/L 3.4-5.0 N CHLORIDE (test code = CL) 104 mEq/L 100-108 N CARBON DIOXIDE (test code = CO2) 21 mEq/l 21-33 N ANION GAP (test code = GAP) 16 0-20 N GLUCOSE (test code = GLU) 113 mg/dL 77-141 N BLOOD UREA NITROGEN (test code = BUN) 69 mg/dL 7-25 H GLOMERULAR FILTRATION RATE (test code = GFR) 19.3 70-80 L The Glomerular Filtration Rate is a calculated parameterbased on serum Creatinine, patient age and sex. GFR valuesless than 60 mL/min/1.73 square meters are indicative ofChronic Kidney Disease. Values less than 15 mL/min/1.73square meters indicate Kidney failure. The calculation forGFR is based on the CKD-EPI (202) calculation. This formulais race indifferent and is the recommended formula for GFRby the National Kidney Foundation for Adults.The GFR will not calculate if the sex is unknown or if thepatient's age is <18 years. CREATININE (test code = CREAT) 3.3 mg/dL 0.6-1.3 H ALBUMIN (test code = ALB) 3.00 g/dL 3.4-5.0 L CALCIUM (test code = CA) 8.0 mg/dL 8.0-10.5 N PHOSPHOROUS (test code = PHOS) 5.2 MG/DL 2.5-4.9 H [id number] 07:26:00* Test Item Value Reference Range Interpretation Comme nts MAGNESIUM (test code = MAG) 1.55 mg/dL 1.6-2.6 L [id number] 07:14:00* Test Item Value Reference Range Interpretation Comme nts HGBA1C% (test code = HGBA1C%) 7.7 %A1C 4.8-6.0 H GLUCOSE [id number] 21:56:00* Test Item Value Reference Range Interpretation Comme [facility] GLUCOSE BEDSIDE (test code = GLUBED) 134 MG/DL 70-110 H Performed by cer [employer] drill press set up operator at [facility] GLUCOSE [id number] 16:44:00* Test Item Value Reference Range Interpretation Comme [facility] GLUCOSE BEDSIDE (test code = GLUBED) 156 MG/DL 70-110 H Performed by cer [employer] drill press set up operator at [facility] GLUCOSE [id number] 11:47:00* Test Item Value Reference Range Interpretation Comme nts GLUCOSE BEDSIDE (test code = GLUBED) 152 MG/DL 70-110 H Performed by cer [employer] drill press set up operator at [facility] GLUCOSE [id number] 09:12:00* Test Item Value Reference Range Interpretation Comme [facility] GLUCOSE BEDSIDE (test code = GLUBED) 141 MG/DL 70-110 H Performed by [employer] drill press set up operator at [facility] RENAL FUNCTION [id number] 04:33:00* Test Item Value Reference Range Interpretation Comme nts SODIUM (test code = NA) 136 mEq/L 134-147 N POTASSIUM (test code = K) 5.1 mEq/L 3.4-5.0 H CHLORIDE (test code = CL) 105 mEq/L 100-108 N CARBON DIOXIDE (test code = CO2) 21 mEq/l 21-33 N ANION GAP (test code = GAP) 15 0-20 N GLUCOSE (test code = GLU) 136 mg/dL 77-141 BLOOD UREA NITROGEN (test code = BUN) 66 mg/dL 7-25 H GLOMERULAR FILTRATION RATE (test code = GFR) 18.0 70-80 L The Glomerular Filtration Rate is a calculated parameterbased on serum Creatinine, patient age and sex. GFR valuesless than 60 mL/min/1.73 square meters are indicative ofChronic Kidney Disease. Values less than 15 mL/min/1.73square meters indicate Kidney failure. The calculation forGFR is based on the CKD-EPI (202) calculation. This formulais race indifferent and is the recommended formula for GFRby the National Kidney Foundation for Adults.The GFR will not calculate if the sex is unknown or if thepatient's age is <18 years. CREATININE (test code = CREAT) 3.5 mg/dL 0.6-1.3 H ALBUMIN (test code = ALB) 3.00 g/dL 3.4-5.0 L CALCIUM (test code = CA) 7.5 mg/dL 8.0-10.5 L PHOSPHOROUS (test code = PHOS) 6.2 MG/DL 2.5-4.9 H [id number] 04:33:00* Test Item Value Reference Range Interpretation Comme nts MAGNESIUM (test code = MAG) 1.52 mg/dL 1.6-2.6 L CBC W/AUTO [id number] 04:07:00* Test Item Value Reference Range Interpretation Comme nts WHITE BLOOD CELL (test code = WBC) 7.8 x10 3/uL 4.5-11.0 N RED BLOOD CELL (test code = RBC) 3.44 x10 6/uL 4.00-5.60 L HEMOGLOBIN (test code = HGB) 10.3 g/dL 12.5-16.9 L HEMATOCRIT (test code = HCT) 29.9 % 37.5-50.7 L MEAN CELL VOLUME (test code = MCV) 86.9 fL 81.0-99.0 N MEAN CELL HGB (test code = MCH) 29.9 pg 27.0-33.0 N MEAN CELL HGB CONCETRATION (test code = MCHC) 34.4 g/dL 33.0-37.0 N RED CELL DISTRIBUTION WIDTH CV (test code = RDW) 13.7 % 11.5-14.5 N RED CELL DISTRIBUTION WIDTH SD (test code = RDW-SD) 43.3 fL 37.0-54.0 N PLATELET COUNT (test code = PLT) 176 x10 3/uL 150-400 N MEAN PLATELET VOLUME (test c ode = MPV) 10.8 fL 7.0-9.0 H NEUTROPHIL % (test code = NT%) 71.9 % 56.0-77.0 N IMMATURE GRANULOCYTE % (test code = IG%) 0.4 % 0.0-2.0 N LYMPHOCYTE % (test code = LY%) 11.5 % 14.0-32.0 L MONOCYTE % (test code = MO%) 9.2 % 4.8-9.0 H EOSINOPHIL % (test code = EO%) 6.2 % 0.3-3.7 H BASOPHIL % (test code = BA%) 0.8 % 0.0-2.0 N NUCLEATED RBC % (test code = NRBC%) 0.0 % 0-0 N NEUTROPHIL # (test code = NT#) 5.58 x10 3/uL 2.0-7.6 N IMMATURE GRANULOCYTE # (test code = IG#) 0.03 x10 3/uL 0.00-0.03 N LYMPHOCYTE # (test code = LY#) 0.89 x10 3/uL 1.0-3.8 L MONOCYTE # (test code = MO#) 0.71 x10 3/uL 0.1-0.8 N EOSINOPHIL # (test code = EO#) 0.48 x10 3/uL 0.0-0.2 H BASOPHIL # (test code = BA#) 0.06 x10 3/uL 0.0-0.2 N NUCLEATED RBC # (test code = NRBC#) 0.00 x10 3/uL 0.0-0.1 N GLUCOSE [id number] 20:46:00* Test Item Value Reference Range Interpretation Comme nts GLUCOSE BEDSIDE (test code = GLUBED) 317 MG/DL 70-110 H Performed by cer tified drill press set up operator at [facility] GLUCOSE [id number] 15:47:00* Test Item Value Reference Range Interpretation Comme nts GLUCOSE BEDSIDE (test code = GLUBED) 194 MG/DL 70-110 H Performed by cer tified drill press set up operator at [facility] GLUCOSE [id number] 12:46:00* Test Item Value Reference Range Interpretation Comme nts GLUCOSE BEDSIDE (test code = GLUBED) 154 MG/DL 70-110 H Performed by aleta jarquin drill press set up operator at [facility] BASIC METABOLIC [id number] 23:46:00* Test Item Value Reference Range Interpretation Comme nts SODIUM (test code = NA) 135 mEq/L 134-147 N POTASSIUM (test code = K) 5.0 mEq/L 3.4-5.0 N CHLORIDE (test code = CL) 101 mEq/L 100-108 N CARBON DIOXIDE (test code = CO2) 24 mEq/l 21-33 N ANION GAP (test code = GAP) 15 0-20 N GLUCOSE (test code = GLU) 268 mg/dL 77-141 H BLOOD UREA NITROGEN (test code = BUN) 77 mg/dL 7-25 H GLOMERULAR FILTRATION RATE (test code = GFR) 15.3 70-80 L The Glomerular Filtration Rate is a calculated parameterbased on serum Creatinine, patient age and sex. GFR valuesless than 60 mL/min/1.73 square meters are indicative ofChronic Kidney Disease. Values less than 15 mL/min/1.73square meters indicate Kidney failure. The calculation forGFR is based on the CKD-EPI (202) calculation. This formulais race indifferent and is the recommended formula for GFRby the National Kidney Foundation for Adults.The GFR will not calculate if the sex is unknown or if thepatient's age is <18 years. CREATININE (test code = CREAT) 4.0 mg/dL 0.6-1.3 H CALCIUM (test code = CA) 7.7 mg/dL 8.0-10.5 L HEPATIC FUNCTION [id number] 23:46:00* Test Item Value Reference Range Interpretation Comme nts TOTAL PROTEIN (test code = PROT) 6.9 g/dL 6.4-8.2 N ALBUMIN (test code = ALB) 3.40 g/dL 3.4-5.0 N BILIRUBIN TOTAL (test code = BILT) 0.30 mg/dL 0.0-1.0 N BILIRUBIN DIRECT (test code = BILD) 0.10 MG/DL 0.1-0.3 N BILIRUBIN INDIRECT (test cod e = BILIND) 0.20 MG/DL SGOT/AST (test code = AST) 21 IUnit/L 8-34 N SGPT/ALT (test code = ALT) 16 IUnit/L 10-49 N ALKALINE PHOSPHATASE TOTAL ( test code = ALKP) 48 IUnit/L 20-125 N CREATINE KINASE (CK)2023-09-11 23:46:00* Test Item Value Reference Range Interpretation Comme nts CREATINE KINASE (CK) (test c ode = CK) 114 Units/L 46-171 N [id number] 23:46:00* Test Item Value Reference Range Interpretation Comme nts MAGNESIUM (test code = MAG) 1.34 mg/dL 1.6-2.6 L TROP-I HIGH [id number] 23:46:00* Test Item Value Reference Range Interpretation Comme nts TROP-I HIGH SENSITIVITY (test code = TROPIHS) 7 ng/L 0-54 N CAUTION: Units o f the current test methodology (ng/L) differfrom the prior test methodology (ng/mL) by a factor of 1000. 99th Percentile Upper Reference Limit (URL): Females: 34 ng/LMales: 54 ng/L In order to distinguish acute elevations of high sensitivitytroponin from other clinical conditions, the FourthUniversal Definition of Myocardial Infarction stressesclinical assessment and the demonstration of a rise and/orfall in serial troponin results above the URL. These results were obtained using Siemens Nexess IM TnIHreagent. Results from different methodologies should not becompared to one another as quantitative results and URLs mayvary by method. PROTHROMBIN [id number] 23:32:00* Test Item Value Reference Range Interpretation Comme [facility] PROTHROMBIN TIME PATIENT (test code = PTP) 12.4 SECONDS 9.3-12.9 N INTERNATIONAL NORMAL RATIO (test code = INR) 1.1 0.8-1.2 N TARGET INR BY INDICATION Indication INR1. Prophylaxis of venous thrombosis 2.0 - 3.0 (orthopedic surgery), Prophylaxis of venous thrombosis (other than high-risk surgery), Treatment of Deep Vein Thrombosis/Pulmonary Embolism, Prevention of systemic embolism - Tissue heart valves, Acute Myocardial Infarction (to prevent systemic embolism), Valvular heart disease, Atrial Fibrillation, Bileaflet mechanical valve in aortic position.2. Mechanical prosthetic valves (high risk), 2.5 - 3.5 Presence of Lupus Anticoagulant or Antiphospholipid Antibodies, Prevention of systemic embolism - Acute Myocardial Infarction (to prevent recurrent infarct). THROMBOPLASTIN TIME [id number] 23:32:00* Test Item Value Reference Range Interpretation Comme nts THROMBOPLASTIN TIME PARTIAL (test code = PTT) 43.1 Seconds 25.0-39.5 H Therapeutic Rang e: 50.4 - 88.3 Seconds Effective 10/16/2018 UA RFLX MICR CULT IF [id number] 23:26:00* Test Item Value Reference Range Interpretation Comme nts UA COLOR (test code = COLU) YELLOW YEL/STRAW UA APPEARANCE (test code = APPU) CLEAR CLEAR UA GLUCOSE DIPSTICK (test co de = DGLUU) 3+ NEGATIVE A UA BILIRUBIN DIPSTICK (test code = BILU) NEGATIVE NEGATIVE UA KETONE DIPSTICK (test cod e = KETU) NEGATIVE NEGATIVE UA SPECIFIC GRAVITY (test co de = SGU) 1.008 1.005-1.030 N UA BLOOD DIPSTICK (test code = IAN) NEGATIVE NEGATIVE UA PH DIPSTICK (test code = CINTHIA) 6.0 5.0-7.0 N UA PROTEIN DIPSTICK (test co de = PROU) 2+ NEGATIVE A UA UROBILINIOGEN DIPSTICK (test code = URO) 0.2 mg/dL 0.2-1.0 UA NITRITE DIPSTICK (test co de = LORETTA) NEGATIVE NEGATIVE UA LEUKOCYTE ESTERASE DIPSTI CK (test code = LEUU) NEGATIVE NEGATIVE UA WBC (test code = WBCU) 0-3 WBC/HPF 0-3 UA RBC (test code = RBCU) 4-10 RBC/HPF 0-3 UA WBC NO REFLEX (test code = WBCUCL) 0-3 WBC/HPF 0-3 UA BACTERIA (test code = BACU) NONE SEEN /HPF NONE SEEN UA SQUAMOUS CELLS (test code = SQU) NONE SEEN /HPF NONE SEEN Indication for culture: Gross Hematuria Dysuria/FrequencySpecimen Description: CLEAN CATCHCBC W/AUTO [id number] 23:22:00* Test Item Value Reference Range Interpretation Comme nts WHITE BLOOD CELL (test code = WBC) 6.1 x10 3/uL 4.5-11.0 N RED BLOOD CELL (test code = RBC) 3.46 x10 6/uL 4.00-5.60 L HEMOGLOBIN (test code = HGB) 10.2 g/dL 12.5-16.9 L HEMATOCRIT (test code = HCT) 30.0 % 37.5-50.7 L MEAN CELL VOLUME (test code = MCV) 86.7 fL 81.0-99.0 N MEAN CELL HGB (test code = MCH) 29.5 pg 27.0-33.0 N MEAN CELL HGB CONCETRATION (test code = MCHC) 34.0 g/dL 33.0-37.0 N RED CELL DISTRIBUTION WIDTH CV (test code = RDW) 13.4 % 11.5-14.5 N RED CELL DISTRIBUTION WIDTH SD (test code = RDW-SD) 42.1 fL 37.0-54.0 N PLATELET COUNT (test code = PLT) 175 x10 3/uL 150-400 N MEAN PLATELET VOLUME (test c ode = MPV) 11.0 fL 7.0-9.0 H NEUTROPHIL % (test code = NT%) 66.7 % 56.0-77.0 N IMMATURE GRANULOCYTE % (test code = IG%) 0.5 % 0.0-2.0 N LYMPHOCYTE % (test code = LY%) 13.1 % 14.0-32.0 L MONOCYTE % (test code = MO%) 10.2 % 4.8-9.0 H EOSINOPHIL % (test code = EO%) 8.3 % 0.3-3.7 H BASOPHIL % (test code = BA%) 1.2 % 0.0-2.0 N NUCLEATED RBC % (test code = NRBC%) 0.0 % 0-0 N NEUTROPHIL # (test code = NT#) 4.04 x10 3/uL 2.0-7.6 N IMMATURE GRANULOCYTE # (test code = IG#) 0.03 x10 3/uL 0.00-0.03 N LYMPHOCYTE # (test code = LY#) 0.79 x10 3/uL 1.0-3.8 L MONOCYTE # (test code = MO#) 0.62 x10 3/uL 0.1-0.8 N EOSINOPHIL # (test code = EO#) 0.50 x10 3/uL 0.0-0.2 H BASOPHIL # (test code = BA#) 0.07 x10 3/uL 0.0-0.2 N NUCLEATED RBC # (test code = NRBC#) 0.00 x10 3/uL 0.0-0.1 N - XR CHEST 1 [id number] 23:02:00 [facility] : 1955 Sex: M FAX: Chantal Johnson MD [phone] [place]: St: [facility] FAX: Leno Romero MD [phone] Name: ZACKARY KIM [facility] : 1955 Age/S: 68/M [address] [place] [address] Unit #: [id number] Loc: [place] [address] Phys: Leno Romero MD Acct: [id number] Dis Date: Status: REG ER PHONE #: [phone] Exam Date: 09/11/20232250 FAX #: [phone] Reason: renal fial EXAMS: CPT CODE: [id number] XR CHEST 1 V 97506 EXAM: CHEST ONE VIEW INDICATION: Renal failure LOCATION: B2 COMPARISON: September 11, 2023 TECHNIQUE: AP view of the chest FINDINGS: The heart size is normal. There is evidence of prior thoracic surgery. The lungs are clear bilaterally. The pulmonary vasculature is normal. No pneumothorax or pleural effusion is identified. The osseous structures are normal. IMPRESSION: No acute cardiopulmonary process. at 2302 Reported and signed by: Amanda Fung M.D. CC: Chantal Cole MD; Leno Romero MD Technologist: RT Vannesa(R) Trnscrd Date/Time/By: 09/11/2023 (2302) : By: [email or web address] Orig Print D/T: S: 09/11/2023 (5352) PAGE 1 Signed ReportCOVID 19 Asymptomatic IH [id number] 16:54:00* Test Item Value Reference Range Interpretation Comme nts COVID 19 Asymptomatic IH AG (test code = COVNONPUIAG) Negative Negative A negative resul t is presumptive and should be confirmedwith an FDA authorized molecular assay, if necessary forpatient management.A positive result does not rule out co-infections withother pathogens.This test detects both viable (live) and non-viable,SARS-CoV, and SARS-CoV-2. Test performance depends on theamount of virus (antigen) in the sample.This test has not been FDA cleared or approved; the test hasbeen authorized by FDA under an Emergency Use Authorization(EUA) for use by laboratories certified under the CLIA thatmeet the requirements to perform moderate, high or waivedcomplexity tests. COMPREHENSIVE METABOLIC [id number] 15:37:00* Test Item Value Reference Range Interpretation Comme nts SODIUM (test code = NA) 135 mEq/L 134-147 N POTASSIUM (test code = K) 5.3 mEq/L 3.4-5.0 H CHLORIDE (test code = CL) 102 mEq/L 100-108 N CARBON DIOXIDE (test code = CO2) 24 mEq/l 21-33 N ANION GAP (test code = GAP) 14 0-20 N GLUCOSE (test code = GLU) 355 mg/dL 77-141 H BLOOD UREA NITROGEN (test code = BUN) 70 mg/dL 7-25 H GLOMERULAR FILTRATION RATE (test code = GFR) 15.3 70-80 L The Glomerular Filtration Rate is a calculated parameterbased on serum Creatinine, patient age and sex. GFR valuesless than 60 mL/min/1.73 square meters are indicative ofChronic Kidney Disease. Values less than 15 mL/min/1.73square meters indicate Kidney failure. The calculation forGFR is based on the CKD-EPI (202) calculation. This formulais race indifferent and is the recommended formula for GFRby the National Kidney Foundation for Adults.The GFR will not calculate if the sex is unknown or if thepatient's age is <18 years. CREATININE (test code = CREAT) 4.0 mg/dL 0.6-1.3 H TOTAL PROTEIN (test code = PROT) 6.5 g/dL 6.4-8.2 N ALBUMIN (test code = ALB) 3.30 g/dL 3.4-5.0 L CALCIUM (test code = CA) 8.0 mg/dL 8.0-10.5 N BILIRUBIN TOTAL (test code = BILT) 0.30 mg/dL 0.0-1.0 N SGOT/AST (test code = AST) 16 IUnit/L 8-34 N SGPT/ALT (test code = ALT) 14 IUnit/L 10-49 N ALKALINE PHOSPHATASE TOTAL (test code = ALKP) 45 IUnit/L 20-125 N URINALYSIS [id number] 15:17:00* Test Item Value Reference Range Interpretation Comme nts UA COLOR (test code = COLU) STRAW YEL/STRAW UA APPEARANCE (test code = APPU) CLEAR CLEAR UA GLUCOSE DIPSTICK (test co de = DGLUU) 3+ NEGATIVE A UA BILIRUBIN DIPSTICK (test code = BILU) NEGATIVE NEGATIVE UA KETONE DIPSTICK (test cod e = KETU) NEGATIVE NEGATIVE UA SPECIFIC GRAVITY (test co de = SGU) 1.007 1.005-1.030 N UA BLOOD DIPSTICK (test code = IAN) NEGATIVE NEGATIVE UA PH DIPSTICK (test code = CINTHIA) 6.0 5.0-7.0 N UA PROTEIN DIPSTICK (test co de = PROU) 2+ NEGATIVE A UA UROBILINIOGEN DIPSTICK (test code = URO) 0.2 mg/dL 0.2-1.0 UA NITRITE DIPSTICK (test co de = LORETTA) NEGATIVE NEGATIVE UA LEUKOCYTE ESTERASE DIPSTI CK (test code = LEUU) NEGATIVE NEGATIVE UA RBC (test code = RBCU) 0-3 RBC/HPF 0-3 UA WBC NO REFLEX (test code = WBCUCL) 0-3 WBC/HPF 0-3 UA BACTERIA (test code = BACU) NONE SEEN /HPF NONE SEEN UA SQUAMOUS CELLS (test code = SQU) NONE SEEN /HPF NONE SEEN UA MUCUS (test code = MUCU) TRACE /LPF NONE SEEN PROTHROMBIN [id number] 15:10:00* Test Item Value Reference Range Interpretation Comme nts PROTHROMBIN TIME PATIENT (test code = PTP) 13.0 SECONDS 9.3-12.9 H INTERNATIONAL NORMAL RATIO (test code = INR) 1.2 0.8-1.2 N TARGET INR BY INDICATION Indication INR1. Prophylaxis of venous thrombosis 2.0 - 3.0 (orthopedic surgery), Prophylaxis of venous thrombosis (other than high-risk surgery), Treatment of Deep Vein Thrombosis/Pulmonary Embolism, Prevention of systemic embolism - Tissue heart valves, Acute Myocardial Infarction (to prevent systemic embolism), Valvular heart disease, Atrial Fibrillation, Bileaflet mechanical valve in aortic position.2. Mechanical prosthetic valves (high risk), 2.5 - 3.5 Presence of Lupus Anticoagulant or Antiphospholipid Antibodies, Prevention of systemic embolism - Acute Myocardial Infarction (to prevent recurrent infarct). THROMBOPLASTIN TIME [id number] 15:10:00* Test Item Value Reference Range Interpretation Comme nts THROMBOPLASTIN TIME PARTIAL (test code = PTT) 40.5 Seconds 25.0-39.5 H Therapeutic Rang e: 50.4 - 88.3 Seconds Effective 10/16/2018 - XR CHEST 2 [id number] 15:06:00 [facility] : 1955 Sex: M FAX: Chantal Johnson MD [phone] [place]: St: PRE Name: ZACKARY KIM [facility] [place] : 1955 Age/S: 68/M [address] [place] [address] Unit #: [id number] Loc: [place] [address] Phys: Chantal Cole MD Acct: [id number] Dis Date: Status: PRE IN PHONE #: [phone] Exam Date: 09/11/2023 1501 FAX #: [phone] Reason: PAT EXAMS: CPT CODE: [id number] XR CHEST 2 V 95260 Chest x-ray: Frontal and lateral views (2 views total). Indication: Pre-op/pre-admission testing. Comparison: None. FINDINGS: The visualized airway is unremarkable. The patient is status post median sternotomy. The cardiomediastinal silhouette is enlarged. The thoracic aorta is tortuous and atherosclerotic at the arch. There is mild pulmonary vascular congestion. There is prominence of the main pulmonary artery, which may be seen in the setting of pulmonary arterial hypertension. There is bibasilar airspace disease/atelectasis. There is no visualized pneumothorax or large pleural effusion. There are degenerative changes of the thoracic spine. IMPRESSION: Enlarged cardiomediastinal silhouette and mild pulmonary vascular congestion. Bibasilar airspace disease/atelectasis. Prominence of the main pulmonary artery, whichmay be seen in the setting of pulmonary arterial hypertension. at 1506 Reported and signed by: Glenn Reyes M.D. CC: Chantal Cole MD Technologist: Gee Morris, RT(R) Trnscrd Date/Time/By: 09/11/2023 (1500): By: [email or web address] Orig Print D/T: S: 09/11/2023 (9948) PAGE 1 Signed ReportCBC W/AUTO [id number] 14:54:00* Test Item Value Reference Range Interpretation Comme nts WHITE BLOOD CELL (test code = WBC) 6.4 x10 3/uL 4.5-11.0 N RED BLOOD CELL (test code = RBC) 3.41 x10 6/uL 4.00-5.60 L HEMOGLOBIN (test code = HGB) 10.2 g/dL 12.5-16.9 L HEMATOCRIT (test code = HCT) 29.7 % 37.5-50.7 L MEAN CELL VOLUME (test code = MCV) 87.1 fL 81.0-99.0 N MEAN CELL HGB (test code = MCH) 29.9 pg 27.0-33.0 N MEAN CELL HGB CONCETRATION (test code = MCHC) 34.3 g/dL 33.0-37.0 N RED CELL DISTRIBUTION WIDTH CV (test code = RDW) 13.6 % 11.5-14.5 N RED CELL DISTRIBUTION WIDTH SD (test code = RDW-SD) 42.8 fL 37.0-54.0 N PLATELET COUNT (test code = PLT) 168 x10 3/uL 150-400 N MEAN PLATELET VOLUME (test c ode = MPV) 11.1 fL 7.0-9.0 H NEUTROPHIL % (test code = NT%) 71.1 % 56.0-77.0 N IMMATURE GRANULOCYTE % (test code = IG%) 0.5 % 0.0-2.0 N LYMPHOCYTE % (test code = LY%) 11.1 % 14.0-32.0 L MONOCYTE % (test code = MO%) 8.4 % 4.8-9.0 N EOSINOPHIL % (test code = EO%) 8.1 % 0.3-3.7 H BASOPHIL % (test code = BA%) 0.8 % 0.0-2.0 N NUCLEATED RBC % (test code = NRBC%) 0.0 % 0-0 N NEUTROPHIL # (test code = NT#) 4.55 x10 3/uL 2.0-7.6 N IMMATURE GRANULOCYTE # (test code = IG#) 0.03 x10 3/uL 0.00-0.03 N LYMPHOCYTE # (test code = LY#) 0.71 x10 3/uL 1.0-3.8 L MONOCYTE # (test code = MO#) 0.54 x10 3/uL 0.1-0.8 N EOSINOPHIL # (test code = EO#) 0.52 x10 3/uL 0.0-0.2 H BASOPHIL # (test code = BA#) 0.05 x10 3/uL 0.0-0.2 N NUCLEATED RBC # (test code = NRBC#) 0.00 x10 3/uL 0.0-0.1 N Notes Date/Time Note Provider Source 2023-09-19 10:05:00 [id number]/U gyYrsaeqzWab3TzJrOuXofh3SKi4215-10-79K48:05:00 [facility] SummaryREPORT#:[id number] REPORT STATUS: SignedREPORT INITIALIZATION DATE:09/19/23 TIME: 100 PATIENT: ZACKARY KIM UNIT #: [id number]#: [id number] [place] [facility] [place]DOB: [birth year] AGE: 68 SEX: M ATTEND: Oneal Mena MDADM AUTHOR: Annelise Jara MDREPT SERVICE DT/TIME: 09/19/23 1005* ALL edits or amendments must be made on the electronic/computer document * General InformationDate of admission:Observation Start Date: Date of admission: 09/12/23 Discharge date: 09/19/23Admission diagnosis:- Left carotid stenosis- DEDRICK now stage IV chronic kidney disease- Hypomagnesemia- Hypertensive heart disease- CAD- BPH- Hypothyroidism- Anemia of chronic diseaseDischarge diagnosis:- Left carotid stenosis- DEDRICK now stage IV chronic kidney disease- Hypomagnesemia- Hypertensive heart disease- CAD- BPH- Hypothyroidism- Anemia of chronic diseaseHospital course:- Left carotid stenosis- DEDRICK now stage IV chronic kidney disease- Hypomagnesemia- Hypertensive heart disease- CAD- BPH- Hypothyroidism- Anemia of chronic disease Nephrology consult for DEDRICK.Hold diuretics.Avoid nephrotoxic meds.Mag was replaced.Repeat labs in the AM.Resume home antihypertensive meds. Uncontrolled BP.Surgery per consult. 09/12-- he feel well -- HTN -- not well control manage as cardiology adjust medication as cardiology - replace mag as nephrology no HD need now 09/13- he is seen. - surgery today -- monitor BP and renal function -- continue current medication 09/14-- he is seen -- surgery postpone today 09/15 carotid enterectomy delayed, hemoglobin stable, chronic kidney disease stage IV, aggressive blood pressure treatment 09/16 blood pressure better controlled, hemoglobin stable, kidney function stable, await carotid enterectomy 09/17- he just has surgery this morning -- no complaint -- monitor in ccu -- BP-- better control he is doing well . he is stable to discharge home . he will follow up with surgeon next week Consultants: cardiology, cardiovascular surgery, nephrology Free Text DxA P NotesFree text DxA P notes:Impression/Plan:- Left carotid stenosis- DEDIRCK now stage IV chronic kidney disease- Hypomagnesemia- Hypertensive heart disease- CAD- BPH- Hypothyroidism- Anemia of chronic disease Nephrology consult for DEDRICK.Hold diuretics.Avoid nephrotoxic meds.Mag was replaced.Repeat labs in the AM.Resume home antihypertensive meds. Uncontrolled BP.Surgery per consult. 09/12-- he feel well -- HTN -- not well control manage as cardiology adjust medication as cardiology - replace mag as nephrology no HD need now 09/13- he is seen. - surgery today -- monitor BP and renal function -- continue current medication 09/14-- he is seen -- surgery postpone today 09/15 carotid enterectomy delayed, hemoglobin stable, chronic kidney disease stage IV, aggressive blood pressure treatment 09/16 blood pressure better controlled, hemoglobin stable, kidney function stable, await carotid enterectomy 09/17- he just has surgery this morning -- no complaint -- monitor in ccu -- BP-- better control Med Rec Med RecDischarge meds:Continue taking these medications:ATENOLOL (TENORMIN) 50 MG TAB 50 MILLIGRAM ORAL TWICE DAILY. Ezetimibe (Zetia) 10 MG TAB 10 MILLIGRAM ORAL DAILY. CLOPIDOGREL (PLAVIX) 75 MG TAB 75 MILLIGRAM ORAL DAILY. LEVOTHYROXINE (SYNTHROID) 125 MCG TAB 125 MICROGRAM ORAL DAILY. FUROSEMIDE (LASIX) 40 MG TAB 40 MILLIGRAM ORAL DAILY. amLODIPine (NORVASC) 10 MG TAB 10 MILLIGRAM ORAL DAILY. ISOSORBIDE MONONITRATE SR (IMDUR) 60 MG TAB.SR.24H 60 MILLIGRAM ORAL DAILY. cloNIDine (CATAPRES) 0.2 MG TAB 0.2 MILLIGRAM ORAL THREE TIMES A DAY. hydrALAZINE (APRESOLINE) 100 MG TAB 100 MILLIGRAM ORAL THREE TIMES A DAY. SODIUM BICARBONATE (SODIUM BICARBONATE) 650 MG TAB 1,300 MILLIGRAM ORAL TWICE DAILY. TAMSULOSIN ER (FLOMAX) 0.4 MG CAP.SR.24H 0.4 MILLIGRAM ORAL TWICE DAILY. FINASTERIDE (PROSCAR) 5 MG TAB 5 MILLIGRAM ORAL DAILY. OXYBUTYNIN (DITROPAN) 5 MG TAB 5 MILLIGRAM ORAL DAILY. Instructions: 1-2 TABLETS/DAY ATORVASTATIN (LIPITOR) 20 MG TAB 20 MILLIGRAM ORAL DAILY. SPIRONOLACTONE (ALDACTONE) 25 MG TAB 25 MILLIGRAM ORAL DAILY. ASPIRIN (ASPIRIN) 81 MG TAB.CHEW 81 MILLIGRAM ORAL DAILY. glipiZIDE (GLUCOTROL) 5 MG TAB 5 MILLIGRAM ORAL DAILY. ObjectiveVS/I OLast Documented: Result Date Time Pulse Ox 97 09/18 1000 B/P 149/67 09/18 1000 B/P Mean 97 09/18 1000 Pulse 55 09/18 1000 Resp 12 09/18 1000 Temp 36.3 09/18 0800 O2 Delivery Room air 09/17 1045 O2 Flow Rate 6 09/17 0845 24 hour I O ending at 0700: 09/18 0700 09/17 1900 Intake Total 360 420 Output Total 345 315 Balance 15 105 Intake, Oral 360 420 Output, 45 15 Drainage Output, Urine 300 300 General appearance: alert, awake, orientedHead/Eyes: atraumatic, normocephalicNeck: supple/no meningismusCardiovascular: normal heart sounds, regular rate rhythmRespiratory: clear to auscultation, symmetric expansionAbdomen: non-tender, softExtremities: moves all, no clubbing, no cyanosis, no edemaMusculoskeletal: normal inspectionNeuro/FEED PROJECT ENGINEER: alert, oriented X 3, normal speechSkin: normal color, normal temperaturePsychiatry: normal affect, normal judgment/insight, normal mood ResultsFindings/Data:Laboratory Tests: 09/18 Chemistry Sodium (134 - 147 mEq/L) 133 L Potassium (3.4 - 5.0 mEq/L) 4.9 Chloride (100 - 108 mEq/L) 101 Carbon Dioxide (21 - 33 mEq/l) 23 Anion Gap (0 - 20) 14 BUN (7 - 25 mg/dL) 72 H Creatinine (0.6 - 1.3 mg/dL) 4.0 H Glomerular Filtr Rate (70 - 80) 15.3 L Glucose (77 - 141 mg/dL) 128 POC Glucose (70 - 110 MG/DL) 158 H Calcium (8.0 - 10.5 mg/dL) 7.3 L Hematology WBC (4.5 - 11.0 x10 3/uL) 6.6 RBC (4.00 - 5.60 x10 6/uL) 2.70 L Hgb (12.5 - 16.9 g/dL) 8.0 L Hct (37.5 - 50.7 %) 23.3 L MCV (81.0 - 99.0 fL) 86.3 MCH (27.0 - 33.0 pg) 29.6 MCHC (33.0 - 37.0 g/dL) 34.3 RDW (11.5 - 14.5 %) 13.8 Plt Count (150 - 400 x10 3/uL) 150 MPV (7.0 - 9.0 fL) 10.3 H Neut % (Auto) (56.0 - 77.0 %) 72.2 Lymph % (Auto) (14.0 - 32.0 %) 11.8 L [place] % (Auto) (4.8 - 9.0 %) 12.6 H Eos % (Auto) (0.3 - 3.7 %) 2.4 Baso % (Auto) (0.0 - 2.0 %) 0.5 Neut # (Auto) (2.0 - 7.6 x10 3/uL) 4.78 Lymph # (Auto) (1.0 - 3.8 x10 3/uL) 0.78 L [place] # (Auto) (0.1 - 0.8 x10 3/uL) 0.83 H Eos # (Auto) (0.0 - 0.2 x10 3/uL) 0.16 Baso # (Auto) (0.0 - 0.2 x10 3/uL) 0.03 Abs Immat Gran (auto) (0.00 - 0.03 x10 3/uL) 0.03 Immature Gran % (0.0 - 2.0 %) 0.5 Nucleated RBC % (0 - 0 %) 0.0 Nucleated RBCs # (Man) (0.0 - 0.1 x10 3/uL) 0.00 Discharge Instructions PCPDischarge to: Home/Self CareAdditional Discharge Routines: PCP Follow-UpDiet: CardiacActivity: As Tolerated Follow-up AppointmentsPCP follow-up: PCP: Chantal Cole MD PCP follow up timeframe: In 1-2 weeks at 1827 RPT #:[id number] OF REPORTDSDischarge cwtubed7146-77-87U73:05:00G.[id number] ailable for patient ktgwOTJEQBIZDUNCRK0182-78-55J16:28:03 [facility] 2023-09-19 07:24:00 [id number]+FZob6iyLwicqrOEo3T2/Wk54 1vSDUzVXlBTVS1wh7f8c4lrH4e24097-22-96K15:24:00 [facility])Cardiothoracic Surgery ProgREPORT#:[id number] REPORT STATUS: SignedREPORT INITIALIZATION DATE:09/19/23 TIME: 723 PATIENT: ZACKARY KIM UNIT #: [id number]#: [id number] ROOM/BED: 3305-1DOB: [birth year] AGE: 68 SEX: M ATTEND: Oneal Mena AUTHOR: Yajaira Bryant PhysicREPT SERVICE DT/TIME: 09/19/23 0724* ALL edits or amendments must be made on the electronic/computer document * SubjectiveChief complaint:abnormal labs Cartotid Stenosis. Review of SystemsConstitutional:Denies: chills, fatigue, fever. Skin:Denies: abrasion, bruising, diaphoresis. Allergy/Immun:Denies: allergic reaction, anaphylaxis, hives. Eyes:Denies: redness, discharge, visual loss/blurred. Cardiovascular:Denies: chest pain, palpitations. GI:Denies: abdominal pain, nausea, rectal pain. Heme:Denies: adenopathy, bleeding, bruising. All systems rev neg: except as marked Objective GeneralVS/I OLast Documented: Result Date Time Pulse Ox 97 09/18 06 B/P 149/65 09/18 0601 B/P Mean 93 09/18 06 Pulse 56 09/18 0601 Resp 11 09/18 06 Temp 97.8 09/18 0400 O2 Delivery Room air 09/17 1045 O2 Flow Rate 6 09/17 0845 24 hour I O ending at 0700: 09/18 0700 09/17 1900 Intake Total 360 420 Output Total 345 315 Balance 15 105 Intake, Oral 360 420 Output, 45 15 Drainage Output, Urine 300 300 PATIENT WEIGHT: Weight (lb): 167Weight (oz): Weight (kg): 75.75 Physical ExamGeneral appearance: alert, awake, orientedHEENT: anicteric, mucosal membranes moist, pupils reactive to lightNeck: full range of motion, non-tenderCardiovascular: normal heart sounds, regular rate rhythmRespiratory: aerating well, symmetric expansion, no distressAbdomen: soft, non-tenderGenitourinary: no bladder distention, no flank pain, no foleyExtremities: dry, moves all, normal capillary refillMusculoskeletal: full range of motion, painless range of motionNeuro/FEED PROJECT ENGINEER: alert, oriented X 3Skin: dry, intactPsychiatry: normal affect, normal mood Diagnosis, Assessment PlanHospital course to date:This is a very pleasant 68-year-old gentleman with a past medical history of hypertension, hyperlipidemia, diabetes, coronary artery disease status post coronary artery bypass graft surgery in 2017, BPH who went for routine checkup 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 A carotid Doppler was completed showing evidence of bilateral carotid stenosis. Subsequently a carotid angiogram was completed showing a left carotid stenosis of 80% with 40% noted on the right. Patient denies any send dizziness, syncope, shortness of breath. Patient will benefit from left carotid endarterectomy. Patient had preop workup done which showed abnormal labs so I asked the patient to come to the emergency room for further evaluation. I am planning for patient to have left carotid endarterectomy after abnormal labs are taken care of.Appreciate renal inputFollow labsFurther recommendations to follow 09/13/23Patient doing well, denies any complaintsLabs reviewed, creatinine trending down 3.5 todayWill contact patient's outpatient environmental services project manager for baseline creatinineTolerating dietPlan of care discussed with patient, all questions were answered 09/14/23Patient alert, awake, and oriented, denies any complaintsCreatinine 3.3, at baseline creatinine, nephrology clearedI will proceed with left carotid endarterectomy today, NPOHave explained to the patient the procedure, risk involved, benefits, alternatives, and complications. Patient acknowledges understanding and willingto proceed. Patient will have left CEA today. All questions were answered Do to an unforseen emergency, patient's case was postponed and will be done first in the morning.I explained to the pateint and he is understandable 09/15/23Patient in stable condition denies complaintsLabs reviewedPatient will have left CEA on MondayI have spoken to the patient and explained the delays in procedure due to emergency casePatient acknowledges understanding 09/16/23Patient resring comfortable. Denies complaints On room air. Plan for Left CEA monday.Patient seen and examined with Dr. Cole. 09/17/23Patient resting comfortableDenies complaintsOn room airPlan for left CEA on MondayThis was discussed with the patient. All questions were answered 09/18/23Left CEA 09/19/23Patient resting comfrotable. Denies headacheNo facial deficets. No facial deoop, no tongue deviation. No development CCU CVICU is a good talkerOn room air. Sinus rhythm. ALLI drain 15cc - removedFrom CV standpoint, Patient can DC home. Followup in 1 week. Patient seen and examined by Dr Cole. Consultants: cardiology, cardiovascular surgery, nephrology at 0737 at 0948 [facility] #:[id number] OF REPORTPRProgress [id number]:24:00G.[id number] able for patient jtrlZLHDDFQMYSZMZP6203-53-61U86:37:51 [facility] 2023-09-18 19:43:00 [id number]+wJVYRCo+mb+9hS3CZZ+E5XQO gkK7AuzbjmJHqFwHKKlLqrfvVX/6029-45-94S16:43:07882 [id number] [place] [address] PATIENT NAME: ZACKARY KIM ADMIT DATE: 09/12/23ACCOUNT NO: [id number] ROOM NO: G.[id number] AGE: 68 REPORT TYPE: OPERATIVE REPORT SEX: M ADMITTING PHYSICIAN:Oneal Mena MD ATTENDING PHYSICIAN:Oneal Mena MD OPERATION DATE: 09/18/2023 PREOPERATIVE DIAGNOSES:1. Severe asymptomatic left internal carotid artery stenosis.2. Chronic kidney disease. POSTOPERATIVE DIAGNOSES:1. Severe asymptomatic left internal carotid artery stenosis.2. Chronic kidney disease. PROCEDURE: Left carotid endarterectomy. SURGEON: Keily Cole M.D. EXPORT SALES ASSISTANT: Osiris Mayberry. ANESTHESIOLOGIST: Dr. Loomis. ANESTHESIA: General endotracheal anesthesia. ESTIMATED BLOOD LOSS: 20 mL. INDICATIONS: Mr. Kim is a 68-year-old gentleman with severe asymptomatic left internal carotid artery stenosis. After due preop counseling, he was brought to the operating room today for left carotid endarterectomy. FINDINGS: Calcified plaque at the bifurcation of the left common carotid arteryleading to a pinhole opening in the left internal carotid artery. Good endpointin the left internal carotid artery following endarterectomy. The hypoglossal nerve was identified and protected throughout the procedure. Tongue was in the midline and the patient was moving all extremities at the end of the procedure. PROCEDURE IN DETAIL: Mr. Kim was identified in the preop holding area and brought to the operating room and placed supine on the operating table. After induction of general endotracheal anesthesia, the left side of the neck was prepped and draped in standard surgical fashion. A 4-cm incision was made alongthe anterior border of the middle third of the left sternocleidomastoid. The platysma was divided with Bovie cautery. The deep cervical fascia was opened. The facial nerve was identified, dissected, ligated and divided. The hypoglossal nerve was identified and protected throughout the procedure. The PATIENT NAME: ZACKARY KIM left common carotid artery, the left internal carotid artery and the left external carotid artery were identified, dissected and isolated. The patient was heparinized with 7000 units of heparin. After waiting for 3 minutes, the bifurcation of left common carotid artery was isolated with 3 profunda clamp. Arteriotomy was performed on the left common carotid artery and extended onto the left internal carotid artery using Hamilton scissors. The patient's cerebral oximetry remained stable and hence, I did not use a shunt. Next, using a [place] dissector, endarterectomy of the left common and left internal carotid artery was performed. There was a good endpoint in the left internal carotid artery following endarterectomy. Endarterectomy of the left external carotid artery was performed using eversion technique. Patch repair of the left common and internal carotid artery was performed using bovine pericardial patch and running 6-0 Prolene suture. Prior to tying the patch, careful de-aeration was performed. Next, a 7 ALLI was placed in the wound. Hemostasis was confirmed and the incision was closed in layers using #2 Vicryl for platysma and 4-0 Vicryl for the skin. The patient was extubated in the operating room and moved to PACUin stable condition. Dictated By: Keily Cole MD Date Dictated: 09/18/2023 19:43:37Date Transcribed: 09/18/2023 22:53:32MEI/Wil #: [id number] ID: [id number] by Chantal Cole MD On 09/19/2023 05:21:37 PM at 0521 PATIENT NAME: ZACKARY KIM [id number]:53:00G.[id number] lable for patient xgvqJCYCKBXMBYORTW5142-58-18D84:22:13 [facility] 2023-09-18 15:17:00 [id number] dC8PueVNlMwtJXAK1p1Ch0iH1vu3458-93-66T29:17:00 [facility] ([facility])Nephrology Progress NoteREPORT#:[id number] REPORT STATUS: SignedREPORT INITIALIZATION DATE:09/18/23 TIME: 1516 PATIENT: ZACKARY KIM UNIT #: [id number]#: [id number] [address] AGE: 68 SEX: M ATTEND: Oneal Mena MDADM AUTHOR: Rosaura Macario MDREPT SERVICE DT/TIME: 09/18/231516* ALL edits or amendments must be made on the electronic/computer document * SubjectiveChief complaint:Chart reviewedEvents noted Objective GeneralVS/I O:Vital Signs: Date Time Temp Pulse Resp B/P B/P Pulse O2 O2 Flow FiO2 Mean Ox Delivery Rate 09/17 1131 69 9 144/46 78 97 09/17 1100 73 19 168/56 100 100 09/17 1045 58 16 144/67 100 Room air 09/17 1030 60 16 150/60 100 Room air 09/17 1016 66 16 157/53 100 Room air 09/17 1015 64 16 156/67 100 Room air 09/17 1001 65 16 162/54 100 Room air 09/17 1000 65 16 150/71 100 Room air 09/17 0945 66 16 148/68 100 Room air 09/17 0930 68 16 186/66 100 Room air 09/17 0915 70 16 204/74 100 Room air 09/17 0900 71 16 195/93 100 Room air 09/17 0855 71 16 188/88 100 Room air 09/17 0850 70 16 182/90 100 Room air 09/17 0845 70 16 165/87 100 Simple 6 mask 09/17 0841 36.5 66 16 162/79 100 Simple 6 mask 09/17 0800 36.5 09/17 0600 61 15 196/92 132 99 09/17 0500 70 20 178/81 116 98 09/17 0400 36.2 56 13 172/81 116 98 09/17 0300 55 18 171/80 115 98 09/17 0200 57 13 173/79 114 98 09/17 0101 57 13 164/76 109 98 09/17 0001 36.4 56 12 181/80 115 98 09/16 2300 55 11 166/78 112 97 09/16 2200 56 11 166/75 108 98 09/16 2101 60 18 154/72 103 99 09/16 2000 36.5 58 16 154/66 95 99 09/16 1900 56 16 135/63 91 97 09/16 1801 57 11 131/59 85 99 09/16 1700 68 22 152/67 97 98 09/16 1600 62 15 141/63 91 98 24 hour I O ending at 0700: 09/17 0700 09/16 1900 Intake Total 180 800 Output Total 625 620 Balance -445 180 Intake, Oral 180 800 Output, Urine 625 620 PATIENT WEIGHT: Weight (lb): 167Weight (oz): Weight (kg): 75.75 MedicationsActive Meds + DC'd Last 24 HrsClopidogrel Bisulfate (Plavix) 75 MG DAILY PO Meperidine HCl (MEPERIDINE HCL/PF) 0 .STK-MED ONE IV (DC) Fentanyl Citrate (SUBLIMAZE) 0 .STK-MED ONE IV (DC) Ondansetron HCl (ZOFRAN) 0 .STK-MED ONE IV (DC) Hydralazine HCl (APRESOLINE) 0 .STK-MED ONE IV (DC) Acetaminophen (TYLENOL) 650 MG Q4H PRN PRN PO Diphenhydramine HCl (BENADRYL) 12.5 MG PACU ONCE PRN IV (DC) Fentanyl Citrate (SUBLIMAZE) 100 MCG PACU Q10MIN PRN PRN IV (DC) Fentanyl Citrate (SUBLIMAZE) 50 MCG PACU Q10MIN PRN PRN IV (DC) Hydralazine HCl (APRESOLINE) 5 MG PACU Q10MIN PRN PRN IV (DC) Hydrocodone Bitart/Acetaminophen (NORCO 5/325) 1 TAB PACU ONCE PO (DC) Hydromorphone HCl (DILAUDID) 1 MG PACU Q10MIN PRN PRN IV (DC) Hydromorphone HCl (DILAUDID) 0.5 MG PACU Q5MIN PRN PRN IV (DC) Insulin Human Lispro (HUMALOG) 0 PACU ONCE PRN SUBQ (DC) Labetalol HCl (labetalol) 5 MG PACU Q10MIN PRN PRN IV (DC) Meperidine HCl (MEPERIDINE HCL/PF) 12.5 MG PACU ONCE PRN IV (DC) Morphine Sulfate (morphine SULFATE) 2 MG PACU Q10MIN PRN PRN IV (DC) Ondansetron HCl (ZOFRAN) 4 MG PACU ONCE PRN IV (DC) Promethazine HCl (PHENERGAN) 25 MG PACU ONCE PRN PO (DC) Ropivacaine (NAROPIN 0.5% 150 MG/30mL) 150 MG ASDIR PRN LOCAL (DC) Tramadol HCl (ULTRAM) 50 MG PACU ONCE PO (DC) Labetalol HCl (labetalol) 0 .STK-MED ONE IV (DC) Protamine Sulfate (PROTAMINE SULFATE) 0 .STK-MED ONE IV (DC) Rocuronium [place] (ZEMURON) 0 .STK-MED ONE IV (DC) Sugammadex Sodium (BRIDION) 0 .STK-MED ONE IV (DC) Heparin Sodium (HEPARIN SODIUM) 0 .STK-MED ONE .ROUTE (DC) Lidocaine HCl (XYLOCAINE IV) 0 .STK-MED ONE IV (DC) Thrombin (RECOTHROM) 0 .STK-MED ONE TOPICAL (DC) Cefazolin Sodium (KEFZOL OR ANCEF) 0 .STK-MED ONE .ROUTE (DC) Sodium Chloride (SODIUM CHLORIDE 0.9%) 50 ML .STK-MED ONE IV (DC) Lidocaine HCl (XYLOCAINE) 0 .STK-MED ONE .ROUTE (DC) Fentanyl Citrate (SUBLIMAZE) 0 .STK-MED ONE IV (DC) Propofol (DIPRIVAN 200MG/20ML INJECTION) 20 ML .STK-MED ONE IV (DC) Dexamethasone Sodium Phosphate (DECADRON) 0 .STK-MED ONE .ROUTE (DC) Glycopyrrolate (GLYCOPYRROLATE) 0 .STK-MED ONE .ROUTE (DC) Heparin Sodium (HEPARIN SODIUM) 0 .STK-MED ONE .ROUTE (DC) Lidocaine HCl (XYLOCAINE) 0 .STK-MED ONE .ROUTE (DC) Ondansetron HCl (ZOFRAN) 0 .STK-MED ONE .ROUTE (DC) Protamine Sulfate (PROTAMINE SULFATE) 0 .STK-MED ONE IV (DC) Nitroglycerin/Dextrose (NITROGLYCERIN 50,000MCG/D5W 250ML) 250 ML .STK-MED ONE IV (DC) Norepinephrine Bitartrate (NOREPINEPHRINE 8 MG/NS 250 ML) 250 ML .STK-MED ONE IV (DC) Cefazolin Sodium (KEFZOL OR ANCEF) 2 GM PREOP ONCALL IV (CKD) Polyethylene Glycol (MIRALAX) 17 GM DAILY 1700 PO Senna/Docusate Sodium (SENOKOT S) 1 TAB BID 9A 5P PO Aspirin (ASPIRIN) 81 MG DAILY PO Epoetin Thaddeus-epbx (RETACRIT) 3,000 UNIT MoWeFr@2100 SUBQ Mupirocin (BACTROBAN 2% 22 GM OINTMENT) 1 APPLIC BID NASAL Acetaminophen (TYLENOL) 650 MG Q4H PRN PRN PO Acetaminophen (TYLENOL) 650 MG Q4H PRN PRN PO Acetaminophen (TYLENOL) 650 MG Q4H PRN PRN RECTAL Bisacodyl (DULCOLAX) 10 MG DAILY PRN PRN RECTAL Hydralazine HCl (APRESOLINE) 10 MG Q6H PRN PRN IV Magnesium Hydroxide (MILK OF MAGNESIA) 30 ML Q6H PRN PRN PO Ondansetron HCl (ZOFRAN) 4 MG Q6H PRN PRN IV Sevelamer Carbonate (RENVELA) 800 MG C MEALS PO Dextrose/Water (DEXTROSE 10% IN WATER) 125 ML ASDIR PRN IV (CKD) Dextrose/Water (DEXTROSE 10% IN WATER) 250 ML ASDIR PRN IV (CKD) Glucagon (GLUCAGON) 1 MG ASDIR PRN IM Ezetimibe (ZETIA) 10 MG DAILY PO Finasteride (PROSCAR) 5 MG DAILY PO Isosorbide Mononitrate (Imdur 60 mg) 60 MG DAILY PO Oxybutynin Chloride (DITROPAN) 5 MG DAILY PO Levothyroxine Sodium (SYNTHROID) 125 MCG 0600 PO Melatonin (Melatonin) 6 MG BEDTIME PRN PO Atenolol (TENORMIN) 50 MG BID PO Atorvastatin Calcium (LIPITOR) 20 MG 2100 PO Clonidine HCl (CATAPRES) 0.2 MG TID PO Sodium Bicarbonate (SODIUM BICARBONATE) 1,300 MG BID PO Tamsulosin HCl (Flomax 0.4 mg) 0.4 MG BID PO Insulin Human Lispro (HUMALOG) 0 AC HS SUBQ Hydralazine HCl (APRESOLINE) 100 MG TID PO Amlodipine Besylate (NORVASC) 10 MG DAILY PO Physical ExamGeneral appearance: no acute distressHead/eyes: clear cornea, EOMIENT: moist mucous membranesNeck: non-tender, supple/no meningismus, no JVDCardiovascular: regular rate and rhythmRespiratory: decreased breath soundsAbdomen: non-tender, soft, no distentionExtremities: no edemaNeuro/FEED PROJECT ENGINEER: alert, oriented X 3Skin: intact ResultsFindings/Data:Laboratory Tests 09/17 09/17 09/16 09/16 0904 0456 1943 1703 Chemistry Sodium (134 - 147 mEq/L) 132 L Potassium (3.4 - 5.0 mEq/L) 4.5 Chloride (100 - 108 mEq/L) 102 Carbon Dioxide (21 - 33 mEq/l) 23 Anion Gap (0 - 20) 11 BUN (7 - 25 mg/dL) 71 H Creatinine (0.6 - 1.3 mg/dL) 3.7 H Glomerular Filtr Rate (70 - 80) 16.8 L Glucose (77 - 141 mg/dL) 176 H POC Glucose (70 - 110 MG/DL) 187 H 173 H 145 H Calcium (8.0 - 10.5 mg/dL) 7.7 L Ionized Calcium Sanjana (1.09 - 1.30 MMOL/L) 1.10 Phosphorus (2.5 - 4.9 MG/DL) 4.6 Magnesium (1.6 - 2.6 mg/dL) 2.16 Total Bilirubin (0.0 - 1.0 mg/dL) 0.20 AST (8 - 34 IUnit/L) 17 ALT (10 - 49 IUnit/L) 11 Total Alk Phosphatase (20 - 125 IUnit/L) 36 Total Protein (6.4 - 8.2 g/dL) 5.9 L Albumin (3.4 - 5.0 g/dL) 2.90 L Laboratory Tests 09/17 0456 Hematology WBC (4.5 - 11.0 x10 3/uL) 5.8 RBC (4.00 - 5.60 x10 6/uL) 3.17 L Hgb (12.5 - 16.9 g/dL) 9.4 L Hct (37.5 - 50.7 %) 27.3 L MCV (81.0 - 99.0 fL) 86.1 MCH (27.0 - 33.0 pg) 29.7 MCHC (33.0 - 37.0 g/dL) 34.4 RDW (11.5 - 14.5 %) 13.2 Plt Count (150 - 400 x10 3/uL) 158 MPV (7.0 - 9.0 fL) 10.7 H Neut % (Auto) (56.0 - 77.0 %) 67.6 Lymph % (Auto) (14.0 - 32.0 %) 15.0 [place] % (Auto) (4.8 - 9.0 %) 10.2 H Eos % (Auto) (0.3 - 3.7 %) 6.4 H Baso % (Auto) (0.0 - 2.0 %) 0.5 Neut # (Auto) (2.0 - 7.6 x10 3/uL) 3.93 Lymph # (Auto) (1.0 - 3.8 x10 3/uL) 0.87 L [place] # (Auto) (0.1 - 0.8 x10 3/uL) 0.59 Eos # (Auto) (0.0 - 0.2 x10 3/uL) 0.37 H Baso # (Auto) (0.0 - 0.2 x10 3/uL) 0.03 Abs Immat Gran (auto) (0.00 - 0.03 x10 3/uL) 0.02 Immature Gran % (0.0 - 2.0 %) 0.3 Nucleated RBC % (0 - 0 %) 0.0 Nucleated RBCs # (Man) (0.0 - 0.1 x10 3/uL) 0.00 Diagnosis, Assessment PlanFree Text A P:DEDRICK on CKD IVHyperkalemiaMetabolic acidosisAnemiaHyperphosphatemiaHTNLeft carotid stenosis s/p CEA on 09/17 Relatively stable renal functionPt sees Dr. Abilio Sousa with nephrology in [place]. He states his baseline eGFR is 19-20ml/minLytes and acid/base status acceptableLasix PRNContinue ESAContinue binders. Phos improvingMonitor BP and titrate meds as needed for optimal controlConsultants: cardiology, cardiovascular surgery, nephrology at 1541 RPT #:[id number] OF REPORTPRProgress [id number]:17:00G.[id number] able for patient nzmbZEZSZERLTREXLF8926-18-50M21:41:51 [facility] 2023-09-18 12:55:00 [id number] fAsxENL73VlBAgA1Iray1QN+bmGzf cTdUQJDzIigvtHeF/rGHYEGjwfd5906-78-69V52:55:00 [facility] Centerist Progress NoteREPORT#:[id number] REPORT STATUS: SignedREPORT INITIALIZATION DATE:09/18/23 TIME: 125 PATIENT: ZACKARY KIM UNIT #: [id number]#: [id number] [address] [birth year] AGE: 68 SEX: M ATTEND: Oneal Mena AUTHOR: Annelise Jara MDREPT SERVICE DT/TIME: 09/18/23 1255* ALL edits or amendments must be made on the electronic/computer document * SubjectiveChief complaint:he had carotid enterectomy today.HPI:68 year old male with history of CAD, HTN, BPH, and hypothyroidism who presentedfor surgery with Dr. Cole. Patient reports carotid stenosis on the left side.Denies any dizziness or headaches. Found with DEDRICK with creatinine of 4 and hypomagnesemia. Admitted with nephrology and cardiothoracic surgeon consult. Currently NPO. Review of SystemsAll systems rev neg: except as noted Objective GeneralVS/I O:Vital Signs: Date Time Temp Pulse Resp B/P B/P Pulse O2 O2 Flow FiO2 Mean Ox Delivery Rate 09/17 1131 69 9 144/46 78 97 / 1100 73 19 168/56 100 100 03/18 1045 58 16 144/67 100 Room air 03/18 1030 60 16 150/60 100 Room air 09/17 1016 66 16 157/53 100 Room air 09/17 1015 64 16 156/67 100 Room air 09/17 1001 65 16 162/54 100 Room air / 1000 65 16 150/71 100 Room air 09/17 0945 66 16 148/68 100 Room air 09/17 0930 68 16 186/66 100 Room air 09/17 0915 70 16 204/74 100 Room air / 0900 71 16 195/93 100 Room air 09/17 0855 71 16 188/88 100 Room air 09/17 0850 70 16 182/90 100 Room air 09/17 0845 70 16 165/87 100 Simple 6 mask 09/17 0841 36.5 66 16 162/79 100 Simple 6 mask 09/17 0800 36.5 /18 0600 61 15 196/92 132 99 03/18 0500 70 20 178/81 116 98 / 0400 36.2 56 13 172/81 116 98 /18 0300 55 18 171/80 115 98 / 0200 57 13 173/79 114 98 /18 0101 57 13 164/76 109 98 / 0001 36.4 56 12 181/80 115 98 / 2300 55 11 166/78 112 97 / 2200 56 11 166/75 108 98 /17 2101 60 18 154/72 103 99 / 2000 36.5 58 16 154/66 95 99 03/ 1900 56 16 135/63 91 97 / 1801 57 11 131/59 85 99 / 1700 68 22 152/67 97 98 /17 1600 62 15 141/63 91 98 03/ 1500 61 16 144/66 95 97 03/ 1400 64 16 127/60 86 98 / 1301 62 19 163/72 103 99 24 hour I O ending at 0700: 09/17 0700 09/16 1900 Intake Total 180 800 Output Total 625 620 Balance -445 180 Intake, Oral 180 800 Output, Urine 625 620 PATIENT WEIGHT: Weight (lb): 167Weight (oz): Weight (kg): 75.75 Medications:Active Meds + DC'd Last 24 HrsClopidogrel Bisulfate (Plavix) 75 MG DAILY PO Meperidine HCl (MEPERIDINE HCL/PF) 0 .STK-MED ONE IV (DC) Fentanyl Citrate (SUBLIMAZE) 0 .STK-MED ONE IV (DC) Ondansetron HCl (ZOFRAN) 0 .STK-MED ONE IV (DC) Hydralazine HCl (APRESOLINE) 0 .STK-MED ONE IV (DC) Acetaminophen (TYLENOL) 650 MG Q4H PRN PRN PO Diphenhydramine HCl (BENADRYL) 12.5 MG PACU ONCE PRN IV (DC) Fentanyl Citrate (SUBLIMAZE) 100 MCG PACU Q10MIN PRN PRN IV (DC) Fentanyl Citrate (SUBLIMAZE) 50 MCG PACU Q10MIN PRN PRN IV (DC) Hydralazine HCl (APRESOLINE) 5 MG PACU Q10MIN PRN PRN IV (DC) Hydrocodone Bitart/Acetaminophen (NORCO 5/325) 1 TAB PACU ONCE PO (DC) Hydromorphone HCl (DILAUDID) 1 MG PACU Q10MIN PRN PRN IV (DC) Hydromorphone HCl (DILAUDID) 0.5 MG PACU Q5MIN PRN PRN IV (DC) Insulin Human Lispro (HUMALOG) 0 PACU ONCE PRN SUBQ (DC) Labetalol HCl (labetalol) 5 MG PACU Q10MIN PRN PRN IV (DC) Meperidine HCl (MEPERIDINE HCL/PF) 12.5 MG PACU ONCE PRN IV (DC) Morphine Sulfate (morphine SULFATE) 2 MG PACU Q10MIN PRN PRN IV (DC) Ondansetron HCl (ZOFRAN) 4 MG PACU ONCE PRN IV (DC) Promethazine HCl (PHENERGAN) 25 MG PACU ONCE PRN PO (DC) Ropivacaine (NAROPIN 0.5% 150 MG/30mL) 150 MG ASDIR PRN LOCAL (DC) Tramadol HCl (ULTRAM) 50 MG PACU ONCE PO (DC) Labetalol HCl (labetalol) 0 .STK-MED ONE IV (DC) Protamine Sulfate (PROTAMINE SULFATE) 0 .STK-MED ONE IV (DC) Rocuronium [place] (ZEMURON) 0 .STK-MED ONE IV (DC) Sugammadex Sodium (BRIDION) 0 .STK-MED ONE IV (DC) Heparin Sodium (HEPARIN SODIUM) 0 .STK-MED ONE .ROUTE (DC) Lidocaine HCl (XYLOCAINE IV) 0 .STK-MED ONE IV (DC) Thrombin (RECOTHROM) 0 .STK-MED ONE TOPICAL (DC) Cefazolin Sodium (KEFZOL OR ANCEF) 0 .STK-MED ONE .ROUTE (DC) Sodium Chloride (SODIUM CHLORIDE 0.9%) 50 ML .STK-MED ONE IV (DC) Lidocaine HCl (XYLOCAINE) 0 .STK-MED ONE .ROUTE (DC) Fentanyl Citrate (SUBLIMAZE) 0 .STK-MED ONE IV (DC) Propofol (DIPRIVAN 200MG/20ML INJECTION) 20 ML .STK-MED ONE IV (DC) Dexamethasone Sodium Phosphate (DECADRON) 0 .STK-MED ONE .ROUTE (DC) Glycopyrrolate (GLYCOPYRROLATE) 0 .STK-MED ONE .ROUTE (DC) Heparin Sodium (HEPARIN SODIUM) 0 .STK-MED ONE .ROUTE (DC) Lidocaine HCl (XYLOCAINE) 0 .STK-MED ONE .ROUTE (DC) Ondansetron HCl (ZOFRAN) 0 .STK-MED ONE .ROUTE (DC) Protamine Sulfate (PROTAMINE SULFATE) 0 .STK-MED ONE IV (DC) Nitroglycerin/Dextrose (NITROGLYCERIN 50,000MCG/D5W 250ML) 250 ML .STK-MED ONE IV (DC) Norepinephrine Bitartrate (NOREPINEPHRINE 8 MG/NS 250 ML) 250 ML .STK-MED ONE IV (DC) Cefazolin Sodium (KEFZOL OR ANCEF) 2 GM PREOP ONCALL IV (CKD) Polyethylene Glycol (MIRALAX) 17 GM DAILY 1700 PO Senna/Docusate Sodium (SENOKOT S) 1 TAB BID 9A 5P PO Aspirin (ASPIRIN) 81 MG DAILY PO Epoetin Thaddeus-epbx (RETACRIT) 3,000 UNIT MoWeFr@2100 SUBQ Mupirocin (BACTROBAN 2% 22 GM OINTMENT) 1 APPLIC BID NASAL Acetaminophen (TYLENOL) 650 MG Q4H PRN PRN PO Acetaminophen (TYLENOL) 650 MG Q4H PRN PRN PO Acetaminophen (TYLENOL) 650 MG Q4H PRN PRN RECTAL Bisacodyl (DULCOLAX) 10 MG DAILY PRN PRN RECTAL Hydralazine HCl (APRESOLINE) 10 MG Q6H PRN PRN IV Magnesium Hydroxide (MILK OF MAGNESIA) 30 ML Q6H PRN PRN PO Ondansetron HCl (ZOFRAN) 4 MG Q6H PRN PRN IV Sevelamer Carbonate (RENVELA) 800 MG C MEALS PO Dextrose/Water (DEXTROSE 10% IN WATER) 125 ML ASDIR PRN IV (CKD) Dextrose/Water (DEXTROSE 10% IN WATER) 250 ML ASDIR PRN IV (CKD) Glucagon (GLUCAGON) 1 MG ASDIR PRN IM Ezetimibe (ZETIA) 10 MG DAILY PO Finasteride (PROSCAR) 5 MG DAILY PO Isosorbide Mononitrate (Imdur 60 mg) 60 MG DAILY PO Oxybutynin Chloride (DITROPAN) 5 MG DAILY PO Levothyroxine Sodium (SYNTHROID) 125 MCG 0600 PO Melatonin (Melatonin) 6 MG BEDTIME PRN PO Atenolol (TENORMIN) 50 MG BID PO Atorvastatin Calcium (LIPITOR) 20 MG 2100 PO Clonidine HCl (CATAPRES) 0.2 MG TID PO Sodium Bicarbonate (SODIUM BICARBONATE) 1,300 MG BID PO Tamsulosin HCl (Flomax 0.4 mg) 0.4 MG BID PO Insulin Human Lispro (HUMALOG) 0 AC HS SUBQ Hydralazine HCl (APRESOLINE) 100 MG TID PO Amlodipine Besylate (NORVASC) 10 MG DAILY PO Physical ExamGeneral appearance: alert, awake, orientedHead/Eyes: atraumatic, normocephalicNeck: supple/no meningismusCardiovascular: normal heart sounds, regular rate rhythmRespiratory: clear to auscultation, symmetric expansionAbdomen: non-tender, softExtremities: moves all, no clubbing, no cyanosis, no edemaMusculoskeletal: normal inspectionNeuro/FEED PROJECT ENGINEER: alert, oriented X 3, normal speechSkin: normal color, normal temperaturePsychiatry: normal affect, normal judgment/insight, normal mood ResultsFindings/Data:Laboratory Tests 09/17 09/17 09/16 09/16 0904 0456 1943 1703 Chemistry Sodium (134 - 147 mEq/L) 132 L Potassium (3.4 - 5.0 mEq/L) 4.5 Chloride (100 - 108 mEq/L) 102 Carbon Dioxide (21 - 33 mEq/l) 23 Anion Gap (0 - 20) 11 BUN (7 - 25 mg/dL) 71 H Creatinine (0.6 - 1.3 mg/dL) 3.7 H Glomerular Filtr Rate (70 - 80) 16.8 L Glucose (77 - 141 mg/dL) 176 H POC Glucose (70 - 110 MG/DL) 187 H 173 H 145 H Calcium (8.0 - 10.5 mg/dL) 7.7 L Ionized Calcium Sanjana (1.09 - 1.30 MMOL/L) 1.10 Phosphorus (2.5 - 4.9 MG/DL) 4.6 Magnesium (1.6 - 2.6 mg/dL) 2.16 Total Bilirubin (0.0 - 1.0 mg/dL) 0.20 AST (8 - 34 IUnit/L) 17 ALT (10 - 49 IUnit/L) 11 Total Alk Phosphatase (20 - 125 IUnit/L) 36 Total Protein (6.4 - 8.2 g/dL) 5.9 L Albumin (3.4 - 5.0 g/dL) 2.90 L Laboratory Tests 09/16 1511 Coagulation INR (0.8 - 1.2) 1.0 PTT (Megan) (25.0 - 39.5 Seconds) 36.1 PT Patient/Control Mix (9.3 - 12.9 SECONDS) 11.5 Laboratory Tests 09/17 0456 Hematology WBC (4.5 - 11.0 x10 3/uL) 5.8 RBC (4.00 - 5.60 x10 6/uL) 3.17 L Hgb (12.5 - 16.9 g/dL) 9.4 L Hct (37.5 - 50.7 %) 27.3 L MCV (81.0 - 99.0 fL) 86.1 MCH (27.0 - 33.0 pg) 29.7 MCHC (33.0 - 37.0 g/dL) 34.4 RDW (11.5 - 14.5 %) 13.2 Plt Count (150 - 400 x10 3/uL) 158 MPV (7.0 - 9.0 fL) 10.7 H Neut % (Auto) (56.0 - 77.0 %) 67.6 Lymph % (Auto) (14.0 - 32.0 %) 15.0 [place] % (Auto) (4.8 - 9.0 %) 10.2 H Eos % (Auto) (0.3 - 3.7 %) 6.4 H Baso % (Auto) (0.0 - 2.0 %) 0.5 Neut # (Auto) (2.0 - 7.6 x10 3/uL) 3.93 Lymph # (Auto) (1.0 - 3.8 x10 3/uL) 0.87 L [place] # (Auto) (0.1 - 0.8 x10 3/uL) 0.59 Eos # (Auto) (0.0 - 0.2 x10 3/uL) 0.37 H Baso # (Auto) (0.0 - 0.2 x10 3/uL) 0.03 Abs Immat Gran (auto) (0.00 - 0.03 x10 3/uL) 0.02 Immature Gran % (0.0 - 2.0 %) 0.3 Nucleated RBC % (0 - 0 %) 0.0 Nucleated RBCs # (Man) (0.0 - 0.1 x10 3/uL) 0.00 Treatment Prophylaxis Treatment ProphylaxisAnti-hypertensives: amlodipine besylate, atenolol, hydralazine HCL Diagnosis, Assessment PlanConsultants: cardiology, cardiovascular surgery, nephrology Free Text DxA P NotesFree text DxA P notes:Impression/Plan:- Left carotid stenosis- DEDRICK now stage IV chronic kidney disease- Hypomagnesemia- Hypertensive heart disease- CAD- BPH- Hypothyroidism- Anemia of chronic disease Nephrology consult for DEDRICK.Hold diuretics.Avoid nephrotoxic meds.Mag was replaced.Repeat labs in the AM.Resume home antihypertensive meds. Uncontrolled BP.Surgery per consult. 09/12-- he feel well -- HTN -- not well control manage as cardiology adjust medication as cardiology - replace mag as nephrology no HD need now 09/13- he is seen. - surgery today -- monitor BP and renal function -- continue current medication 09/14-- he is seen -- surgery postpone today 09/15 carotid enterectomy delayed, hemoglobin stable, chronic kidney disease stage IV, aggressive blood pressure treatment 09/16 blood pressure better controlled, hemoglobin stable, kidney function stable, await carotid enterectomy 09/17- he just has surgery this morning -- no complaint -- monitor in ccu -- BP-- better control at 1627 RPT #:[id number] OF REPORTPRProgress [id number] able for patient [id number] [facility] 2023-09-18 11:03:00 [id number] JIWzXDcy/FmW6GxQXmFh2I6RGXUuS 32ddAK+2ZenBJniEoOTbL9QzzRY4619-33-25O80:03:00 [facility] ([facility])Critical Care Progress NoteREPORT#:[id number] REPORT STATUS: SignedREPORT INITIALIZATION DATE:09/18/23 TIME: 1102 PATIENT: ZACKARY KIM UNIT #: [id number]#: [id number] [address] [birth year] AGE: 68 SEX: M ATTEND: Oneal Mena AUTHOR: Mariposa Panda PAREPT SERVICE DT/TIME: 09/18/23 1103* ALL edits or amendments must be made on the electronic/computer document * SubjectiveChief complaint:Carotid stenosisHPI:Mr. uW Kim is a 68-year-old male patient who was transferred to CCU yesterday and is awaiting carotid endarterectomy by Dr. Cole today. He was seen and examined at the bedside during rounds. He is awake and alert not in distress. He denies any shortness of breath or chest pain. His medical historyincludes CAD, hypertension, BPH and hypothyroidism, he was found to have carotidstenosis of the left side and acute kidney injury. Patient denies any dizziness, headache or blurry vision at present. Review of SystemsAll systems rev neg: except as marked Objective GeneralVS/I OLast Documented: Result Date Time Pulse Ox 100 09/17 1016 B/P 157/53 09/17 1016 O2 Delivery Room air 09/17 1016 Pulse 66 09/17 1016 Resp 16 09/17 1016 O2 Flow Rate 6 09/17 0845 Temp 36.5 09/17 0841 B/P Mean 132 09/17 0600 24 hour I O ending at 0700: 09/17 0700 09/16 1900 Intake Total 180 800 Output Total 625 620 Balance -445 180 Intake, Oral 180 800 Output, Urine 625 620 PATIENT WEIGHT: Weight (lb): 167Weight (oz): Weight (kg): 75.75 Medications:Active Meds + DC'd Last 24 HrsClopidogrel Bisulfate (Plavix) 75 MG DAILY PO Meperidine HCl (MEPERIDINE HCL/PF) 0 .STK-MED ONE IV (DC) Fentanyl Citrate (SUBLIMAZE) 0 .STK-MED ONE IV (DC) Ondansetron HCl (ZOFRAN) 0 .STK-MED ONE IV (DC) Hydralazine HCl (APRESOLINE) 0 .STK-MED ONE IV (DC) Acetaminophen (TYLENOL) 650 MG Q4H PRN PRN PO Diphenhydramine HCl (BENADRYL) 12.5 MG PACU ONCE PRN IV Fentanyl Citrate (SUBLIMAZE) 100 MCG PACU Q10MIN PRN PRN IV Fentanyl Citrate (SUBLIMAZE) 50 MCG PACU Q10MIN PRN PRN IV Hydralazine HCl (APRESOLINE) 5 MG PACU Q10MIN PRN PRN IV Hydrocodone Bitart/Acetaminophen (NORCO 5/325) 1 TAB PACU ONCE PO (CKD) Hydromorphone HCl (DILAUDID) 1 MG PACU Q10MIN PRN PRN IV Hydromorphone HCl (DILAUDID) 0.5 MG PACU Q5MIN PRN PRN IV Insulin Human Lispro (HUMALOG) 0 PACU ONCE PRN SUBQ Labetalol HCl (labetalol) 5 MG PACU Q10MIN PRN PRN IV Meperidine HCl (MEPERIDINE HCL/PF) 12.5 MG PACU ONCE PRN IV Morphine Sulfate (morphine SULFATE) 2 MG PACU Q10MIN PRN PRN IV Ondansetron HCl (ZOFRAN) 4 MG PACU ONCE PRN IV Promethazine HCl (PHENERGAN) 25 MG PACU ONCE PRN PO Ropivacaine (NAROPIN 0.5% 150 MG/30mL) 150 MG ASDIR PRN LOCAL Tramadol HCl (ULTRAM) 50 MG PACU ONCE PO (CKD) Labetalol HCl (labetalol) 0 .STK-MED ONE IV (DC) Protamine Sulfate (PROTAMINE SULFATE) 0 .STK-MED ONE IV (DC) Rocuronium [place] (ZEMURON) 0 .STK-MED ONE IV (DC) Sugammadex Sodium (BRIDION) 0 .STK-MED ONE IV (DC) Heparin Sodium (HEPARIN SODIUM) 0 .STK-MED ONE .ROUTE (DC) Lidocaine HCl (XYLOCAINE IV) 0 .STK-MED ONE IV (DC) Thrombin (RECOTHROM) 0 .STK-MED ONE TOPICAL (DC) Cefazolin Sodium (KEFZOL OR ANCEF) 0 .STK-MED ONE .ROUTE (DC) Sodium Chloride (SODIUM CHLORIDE 0.9%) 50 ML .STK-MED ONE IV (DC) Lidocaine HCl (XYLOCAINE) 0 .STK-MED ONE .ROUTE (DC) Fentanyl Citrate (SUBLIMAZE) 0 .STK-MED ONE IV (DC) Propofol (DIPRIVAN 200MG/20ML INJECTION) 20 ML .STK-MED ONE IV (DC) Dexamethasone Sodium Phosphate (DECADRON) 0 .STK-MED ONE .ROUTE (DC) Glycopyrrolate (GLYCOPYRROLATE) 0 .STK-MED ONE .ROUTE (DC) Heparin Sodium (HEPARIN SODIUM) 0 .STK-MED ONE .ROUTE (DC) Lidocaine HCl (XYLOCAINE) 0 .STK-MED ONE .ROUTE (DC) Ondansetron HCl (ZOFRAN) 0 .STK-MED ONE .ROUTE (DC) Protamine Sulfate (PROTAMINE SULFATE) 0 .STK-MED ONE IV (DC) Nitroglycerin/Dextrose (NITROGLYCERIN 50,000MCG/D5W 250ML) 250 ML .STK-MED ONE IV (DC) Norepinephrine Bitartrate (NOREPINEPHRINE 8 MG/NS 250 ML) 250 ML .STK-MED ONE IV (DC) Cefazolin Sodium (KEFZOL OR ANCEF) 2 GM PREOP ONCALL IV (CKD) Polyethylene Glycol (MIRALAX) 17 GM DAILY 1700 PO Senna/Docusate Sodium (SENOKOT S) 1 TAB BID 9A 5P PO Aspirin (ASPIRIN) 81 MG DAILY PO Epoetin Thaddeus-epbx (RETACRIT) 3,000 UNIT MoWeFr@2100 SUBQ Mupirocin (BACTROBAN 2% 22 GM OINTMENT) 1 APPLIC BID NASAL Acetaminophen (TYLENOL) 650 MG Q4H PRN PRN PO Acetaminophen (TYLENOL) 650 MG Q4H PRN PRN PO Acetaminophen (TYLENOL) 650 MG Q4H PRN PRN RECTAL Bisacodyl (DULCOLAX) 10 MG DAILY PRN PRN RECTAL Hydralazine HCl (APRESOLINE) 10 MG Q6H PRN PRN IV Magnesium Hydroxide (MILK OF MAGNESIA) 30 ML Q6H PRN PRN PO Ondansetron HCl (ZOFRAN) 4 MG Q6H PRN PRN IV Sevelamer Carbonate (RENVELA) 800 MG C MEALS PO Dextrose/Water (DEXTROSE 10% IN WATER) 125 ML ASDIR PRN IV (CKD) Dextrose/Water (DEXTROSE 10% IN WATER) 250 ML ASDIR PRN IV (CKD) Glucagon (GLUCAGON) 1 MG ASDIR PRN IM Ezetimibe (ZETIA) 10 MG DAILY PO Finasteride (PROSCAR) 5 MG DAILY PO Isosorbide Mononitrate (Imdur 60 mg) 60 MG DAILY PO Oxybutynin Chloride (DITROPAN) 5 MG DAILY PO Levothyroxine Sodium (SYNTHROID) 125 MCG 0600 PO Melatonin (Melatonin) 6 MG BEDTIME PRN PO Atenolol (TENORMIN) 50 MG BID PO Atorvastatin Calcium (LIPITOR) 20 MG 2100 PO Clonidine HCl (CATAPRES) 0.2 MG TID PO Sodium Bicarbonate (SODIUM BICARBONATE) 1,300 MG BID PO Tamsulosin HCl (Flomax 0.4 mg) 0.4 MG BID PO Insulin Human Lispro (HUMALOG) 0 AC HS SUBQ Hydralazine HCl (APRESOLINE) 100 MG TID PO Amlodipine Besylate (NORVASC) 10 MG DAILY PO ResultsFindings/data:Laboratory Tests 09/17 09/17 09/16 09/16 09/16 0904 0456 1943 1703 1137Chemistry Sodium (134 - 147 mEq/L) 132 L Potassium (3.4 - 5.0 mEq/L) 4.5 Chloride (100 - 108 mEq/L) 102 Carbon Dioxide (21 - 33 mEq/l) 23 Anion Gap (0 - 20) 11 BUN (7 - 25 mg/dL) 71 H Creatinine (0.6 - 1.3 mg/dL) 3.7 H Glomerular Filtr Rate (70 - 80) 16.8 L Glucose (77 - 141 mg/dL) 176 H POC Glucose (70 - 110 MG/DL) 187 H 173 H 145 H 266 H Calcium (8.0 - 10.5 mg/dL) 7.7 L Ionized Calcium Sanjana (1.09 - 1.30 MMOL/L) 1.10 Phosphorus (2.5 - 4.9 MG/DL) 4.6 Magnesium (1.6 - 2.6 mg/dL) 2.16 Total Bilirubin (0.0 - 1.0 mg/dL) 0.20 AST (8 - 34 IUnit/L) 17 ALT (10 - 49 IUnit/L) 11 Total Alk Phosphatase (20 - 125 IUnit/L) 36 Total Protein (6.4 - 8.2 g/dL) 5.9 L Albumin (3.4 - 5.0 g/dL) 2.90 L Laboratory Tests 09/16 1511 Coagulation INR (0.8 - 1.2) 1.0 PTT (Mcdowell) (25.0 - 39.5 Seconds) 36.1 PT Patient/Control Mix (9.3 - 12.9 SECONDS) 11.5 Laboratory Tests 09/17 0456 Hematology WBC (4.5 - 11.0 x10 3/uL) 5.8 RBC (4.00 - 5.60 x10 6/uL) 3.17 L Hgb (12.5 - 16.9 g/dL) 9.4 L Hct (37.5 - 50.7 %) 27.3 L MCV (81.0 - 99.0 fL) 86.1 MCH (27.0 - 33.0 pg) 29.7 MCHC (33.0 - 37.0 g/dL) 34.4 RDW (11.5 - 14.5 %) 13.2 Plt Count (150 - 400 x10 3/uL) 158 MPV (7.0 - 9.0 fL) 10.7 H Neut % (Auto) (56.0 - 77.0 %) 67.6 Lymph % (Auto) (14.0 - 32.0 %) 15.0 [place] % (Auto) (4.8 - 9.0 %) 10.2 H Eos % (Auto) (0.3 - 3.7 %) 6.4 H Baso % (Auto) (0.0 - 2.0 %) 0.5 Neut # (Auto) (2.0 - 7.6 x10 3/uL) 3.93 Lymph # (Auto) (1.0 - 3.8 x10 3/uL) 0.87 L [place] # (Auto) (0.1 - 0.8 x10 3/uL) 0.59 Eos # (Auto) (0.0 - 0.2 x10 3/uL) 0.37 H Baso # (Auto) (0.0 - 0.2 x10 3/uL) 0.03 Abs Immat Gran (auto) (0.00 - 0.03 x10 3/uL) 0.02 Immature Gran % (0.0 - 2.0 %) 0.3 Nucleated RBC % (0 - 0 %) 0.0 Nucleated RBCs # (Man) (0.0 - 0.1 x10 3/uL) 0.00 Laboratory Tests 09/18/23 0456:[Embedded Image Not Available] Free Text Obj NotesFree Text Obj Notes: Physical ExamGeneral appearance: chair position, not in distress, interactiveHead/Eyes: atraumatic, normocephalic, pupils round, equal and reactiveNeck: supple/no meningismus, full range of motion, no JVD or swellingCardiovascular: normal heart sounds, bradycardic, regular rate rhythm, no gallops or rubsRespiratory: clear to auscultation, symmetric expansion, no rales/wheezingAbdomen: non-tender, soft, obese, bowel sounds presentGU: Voiding, no flank painExtremities: moves all, no clubbing, no cyanosis, no edemaMusculoskeletal: normal inspectionNeuro/FEED PROJECT ENGINEER: alert, oriented X 3, normal speech, nonfocalSkin: normal color, normal temperature, no rashPsychiatry: calm Treatment Prophylaxis Treatment ProphylaxisOxygen: room airAnti-hypertensives: amlodipine besylate, atenolol, hydralazine HCL Diagnosis, Assessment PlanProblem list/A P: 1. CKD (chronic kidney disease) 2. Elective surgery Free text A P:Problems:Left carotid stenosisAcute kidney injuryCoronary artery disease status post CABG in 2017HypertensionHyperlipidemiaDiabetes mellitusBPHHypothyroidism PlanNeuro at baseline. Melatonin at bedtime for insomniaLeft carotid enterectomy cancelled, now planned for Monday.Patient did received dose of plavix today- Discussed with Dr. Cole's PA, willd/c plavix. Blood pressure control PRN hydralazine.Aspirin, statinNo oxygen requirements, keep SpO2 above 92%Monitor renal function. I/0. Monitor and replete electrolytes as neededOn Proscar and Flomax for BPH.Followed by renal, holding Dena, on Renvela. 1L fluid restriction. PRN lasixResume diet. Glycemic control with ISS. A1c 7.7. Home dose levothyroxineBowel careMonitor for signs and symptoms of infection. UA doneMobility as toleratedICC will follow 09/18/23: s/p Left CEA. Seen post operatively, awake and alert without acute complaints. BP control issues in OR. h/e baseline sbp at home on 4 antihypertensives is 150-160s control bp. Denies pain, denies neuro s/sx Dispo: CCU. Patient is a full code33 minutes of critical care spent DVT prophylaxis: SCDsConsultants: cardiology, cardiovascular surgery, nephrology at 1434 at 5792 RPT #:[id number] OF REPORTPRProgress rpqf7779-25-00P64:03:00G.[id number] able for patient vapsVFUZTIZEHYJUUI3532-96-48P90:35:30 [facility] 2023-09-18 08:37:00 [id number] P46VaDVJMvTwnWO0/DfA7+iCaciqh hKRHcoBFK0Qjc4+2IcWRkTqyh9C1582-46-82D23:37:00 [facility] ([facility])Clinical NoteREPORT#:[id number] REPORT STATUS: SignedREPORT INITIALIZATION DATE:09/18/23 TIME: 836 PATIENT: ZACKARY KIM UNIT #: [id number]#: [id number] [address]OB: [birth year] AGE: 68 SEX: M ATTEND: Oneal Mena AUTHOR: Chantal Cole MDREPT SERVICE DT/TIME: 09/18/23 0837* ALL edits or amendments must be made on the electronic/computer document * Clinical NoteNote:After the procedure, I went to the waiting room to update the family on the procedure and findings, however there was no family in the waiting room. at 2003 RPT #:[id number] OF REPORTCLClinical uahu7701-21-47H61:37:00G.[id number] able for patient nihcOWHYFSGKOQDSZD0625-41-96M13:04:09 [facility] 2023-09-18 08:32:00 [id number] r3hG19uliMKYkWB0FLirsHCtWX5zy yVgFk8uQ3ZfJlj++B0PXGRrr2YQ1489-01-73L30:32:00 [facility] ([facility])Brief Op NoteREPORT#:[id number] REPORT STATUS: SignedREPORT INITIALIZATION DATE:09/18/23 TIME: 08 PATIENT: ZACKARY KIM UNIT #: [id number]#: [id number] [address]OB: [birth year] AGE: 68 SEX: M ATTEND: Oneal Mena MDADM AUTHOR: Chantal Cole MDREPT SERVICE DT/TIME: 09/18/23 08* ALL edits or amendments must be made on the electronic/computer document * Op/Inv Proc Note - BriefPre-procedure diagnosis:left carotid artery stenosisPost-procedure diagnosis: same as pre procedure dxProcedures performed:L CEAPrimary Surgeon:Douglasistant(s): Andrey MayerFindings:calcified plaque left common carotid artery extending into the left internal carotid arteryComplications: noneEstimated blood loss in ml's: 10 ccSpecimens removed/altered: none at 1334 RPT #:[id number] OF REPORTOPOperative oavqcl2138-74-14D06:32:00G.[id number] ilable for patient vyewDUERHCEROVPRGW6488-17-10E71:35:30 [facility] 2023-09-17 19:02:00 [id number] iGUf/mJC8PRhTI40jwHXKl3ainW5K 8q70c0clWByHvC6WEnX9K0hDGJh9979-34-42U67:02:00 [facility]Hospital[facility] Progress NoteREPORT#:[id number] REPORT STATUS: SignedREPORT INITIALIZATION DATE:09/17/23 TIME: 1901 PATIENT: ZACKARY KIM UNIT #: [id number]#: [id number] [address]: [birth year] AGE: 68 SEX: M ATTEND: Oneal Mena MDADM AUTHOR: Oneal Mena MDREPT SERVICE DT/TIME: 09/17/231901* ALL edits or amendments must be made on the electronic/computer document * SubjectiveChief complaint:Await carotid enterectomyHPI:68 year old male with history of CAD, HTN, BPH, and hypothyroidism who presentedfor surgery with Dr. Cole. Patient reports carotid stenosis on the left side.Denies any dizziness or headaches. Found with DEDRICK with creatinine of 4 and hypomagnesemia. Admitted with nephrology and cardiothoracic surgeon consult. Currently NPO. Review of SystemsAll systems rev neg: except as noted Objective GeneralVS/I O:Vital Signs: Date Time Temp Pulse Resp B/P B/P Pulse O2 O2 Flow FiO2 Mean Ox Delivery Rate 09/16 1801 57 11 131/59 85 99 09/16 1700 68 22 152/67 97 98 09/16 1600 62 15 141/63 91 98 09/16 1500 61 16 144/66 95 97 09/16 1400 64 16 127/60 86 98 09/16 1301 62 19 163/72 103 99 09/16 1253 68 27 175/82 118 98 09/16 1251 68 193/84 120 98 09/16 1245 63 16 158/72 104 98 09/16 1205 70 17 171/77 119 98 09/16 1200 73 16 183/87 125 98 09/16 1100 60 13 156/71 102 97 09/16 1001 62 12 154/72 104 97 09/16 0900 57 17 165/79 114 97 09/16 0800 57 12 153/70 101 97 09/16 0700 56 13 158/73 109 97 09/16 0645 57 14 167/77 110 98 09/16 0604 58 15 177/83 119 98 09/16 0500 56 13 173/78 109 98 09/16 0400 98.0 62 17 159/73 101 99 09/16 0300 54 18 168/76 106 97 09/16 0200 55 16 152/78 102 98 09/16 0100 53 12 161/76 104 98 09/16 0000 52 13 174/79 110 98 09/15 2300 53 13 162/76 104 98 09/15 2200 54 11 163/77 105 98 09/15 2000 97.7 52 11 151/71 97 98 24 hour I O ending at 0700: 09/16 0700 09/15 1900 Intake Total 600 1420.00 Output Total 600 950 Balance 0 470.00 Intake, IV 100.00 Intake, Oral 600 1320 Output, Urine 600 950 Patient 75.75 kg Weight PATIENT WEIGHT: Weight (lb): 167Weight (oz): Weight (kg): 75.75 Medications:Active Meds + DC'd Last 24 HrsCefazolin Sodium (KEFZOL OR ANCEF) 2 GM PREOP ONCALL IV (CKD) Polyethylene Glycol (MIRALAX) 17 GM DAILY 1700 PO Senna/Docusate Sodium (SENOKOT S) 1 TAB BID 9A 5P PO Aspirin (ASPIRIN) 81 MG DAILY PO Epoetin Thaddeus-epbx (RETACRIT) 3,000 UNIT MoWeFr@2100 SUBQ Mupirocin (BACTROBAN 2% 22 GM OINTMENT) 1 APPLIC BID NASAL Acetaminophen (TYLENOL) 650 MG Q4H PRN PRN PO Acetaminophen (TYLENOL) 650 MG Q4H PRN PRN PO Acetaminophen (TYLENOL) 650 MG Q4H PRN PRN RECTAL Bisacodyl (DULCOLAX) 10 MG DAILY PRN PRN RECTAL Hydralazine HCl (APRESOLINE) 10 MG Q6H PRN PRN IV Magnesium Hydroxide (MILK OF MAGNESIA) 30 ML Q6H PRN PRN PO Ondansetron HCl (ZOFRAN) 4 MG Q6H PRN PRN IV Sevelamer Carbonate (RENVELA) 800 MG C MEALS PO Dextrose/Water (DEXTROSE 10% IN WATER) 125 ML ASDIR PRN IV (CKD) Dextrose/Water (DEXTROSE 10% IN WATER) 250 ML ASDIR PRN IV (CKD) Glucagon (GLUCAGON) 1 MG ASDIR PRN IM Ezetimibe (ZETIA) 10 MG DAILY PO Finasteride (PROSCAR) 5 MG DAILY PO Isosorbide Mononitrate (Imdur 60 mg) 60 MG DAILY PO Oxybutynin Chloride (DITROPAN) 5 MG DAILY PO Levothyroxine Sodium (SYNTHROID) 125 MCG 0600 PO Melatonin (Melatonin) 6 MG BEDTIME PRN PO Atenolol (TENORMIN) 50 MG BID PO Atorvastatin Calcium (LIPITOR) 20 MG 2100 PO Clonidine HCl (CATAPRES) 0.2 MG TID PO Sodium Bicarbonate (SODIUM BICARBONATE) 1,300 MG BID PO Tamsulosin HCl (Flomax 0.4 mg) 0.4 MG BID PO Insulin Human Lispro (HUMALOG) 0 AC HS SUBQ Hydralazine HCl (APRESOLINE) 100 MG TID PO Amlodipine Besylate (NORVASC) 10 MG DAILY PO Physical ExamGeneral appearance: alert, awake, orientedHead/Eyes: atraumatic, normocephalicNeck: supple/no meningismusCardiovascular: normal heart sounds, regular rate rhythmRespiratory: clear to auscultation, symmetric expansionAbdomen: non-tender, softExtremities: moves all, no clubbing, no cyanosis, no edemaMusculoskeletal: normal inspectionNeuro/FEED PROJECT ENGINEER: alert, oriented X 3, normal speechSkin: normal color, normal temperaturePsychiatry: normal affect, normal judgment/insight, normal mood ResultsFindings/Data:Laboratory Tests 09/16 09/16 09/16 09/16 09/15 1703 1137 0917 0506 2003Chemistry Sodium (134 - 147 mEq/L) 133 L Potassium (3.4 - 5.0 mEq/L) 4.5 Chloride (100 - 108 mEq/L) 101 Carbon Dioxide (21 - 33 mEq/l) 23 Anion Gap (0 - 20) 14 BUN (7 - 25 mg/dL) 63 H Creatinine (0.6 - 1.3 mg/dL) 3.5 H Glomerular Filtr Rate (70 - 80) 18.0 L Glucose (77 - 141 mg/dL) 163 H POC Glucose (70 - 110 MG/DL) 145 H 266 H 148 H 249 H Calcium (8.0 - 10.5 mg/dL) 8.1 Ionized Calcium Sanjana (1.09 - 1.30 MMOL/L) 1.05 L Phosphorus (2.5 - 4.9 MG/DL) 4.3 Magnesium (1.6 - 2.6 mg/dL) 2.17 Total Bilirubin (0.0 - 1.0 mg/dL) 0.20 AST (8 - 34 IUnit/L) 15 ALT (10 - 49 IUnit/L) < 7 L Total Alk Phosphatase (20 - 125 IUnit/L) 37 Total Protein (6.4 - 8.2 g/dL) 5.8 L Albumin (3.4 - 5.0 g/dL) 2.90 L Laboratory Tests 09/16 1511 Coagulation INR (0.8 - 1.2) 1.0 PTT (Megan) (25.0 - 39.5 Seconds) 36.1 PT Patient/Control Mix (9.3 - 12.9 SECONDS) 11.5 Laboratory Tests 09/16 0508 Hematology WBC (4.5 - 11.0 x10 3/uL) 5.8 RBC (4.00 - 5.60 x10 6/uL) 3.19 L Hgb (12.5 - 16.9 g/dL) 9.3 L Hct (37.5 - 50.7 %) 27.3 L MCV (81.0 - 99.0 fL) 85.6 MCH (27.0 - 33.0 pg) 29.2 MCHC (33.0 - 37.0 g/dL) 34.1 RDW (11.5 - 14.5 %) 13.3 Plt Count (150 - 400 x10 3/uL) 152 MPV (7.0 - 9.0 fL) 10.6 H Neut % (Auto) (56.0 - 77.0 %) 66.2 Lymph % (Auto) (14.0 - 32.0 %) 13.4 L [place] % (Auto) (4.8 - 9.0 %) 11.5 H Eos % (Auto) (0.3 - 3.7 %) 7.7 H Baso % (Auto) (0.0 - 2.0 %) 0.9 Neut # (Auto) (2.0 - 7.6 x10 3/uL) 3.85 Lymph # (Auto) (1.0 - 3.8 x10 3/uL) 0.78 L [place] # (Auto) (0.1 - 0.8 x10 3/uL) 0.67 Eos # (Auto) (0.0 - 0.2 x10 3/uL) 0.45 H Baso # (Auto) (0.0 - 0.2 x10 3/uL) 0.05 Abs Immat Gran (auto) (0.00 - 0.03 x10 3/uL) 0.02 Immature Gran % (0.0 - 2.0 %) 0.3 Nucleated RBC % (0 - 0 %) 0.0 Nucleated RBCs # (Man) (0.0 - 0.1 x10 3/uL) 0.00 Treatment Prophylaxis Treatment ProphylaxisAnti-hypertensives: amlodipine besylate, atenolol, hydralazine HCL Diagnosis, Assessment PlanConsultants: cardiology, cardiovascular surgery, nephrology Free Text DxA P NotesFree text DxA P notes:Impression/Plan:- Left carotid stenosis- DEDRICK now stage IV chronic kidney disease- Hypomagnesemia- Hypertensive heart disease- CAD- BPH- Hypothyroidism- Anemia of chronic disease Nephrology consult for DEDRICK.Hold diuretics.Avoid nephrotoxic meds.Mag was replaced.Repeat labs in the AM.Resume home antihypertensive meds. Uncontrolled BP.Surgery per consult. 09/12-- he feel well -- HTN -- not well control manage as cardiology adjust medication as cardiology - replace mag as nephrology no HD need now 09/13- he is seen. - surgery today -- monitor BP and renal function -- continue current medication 09/14-- he is seen -- surgery postpone today 09/15 carotid enterectomy delayed, hemoglobin stable, chronic kidney disease stage IV, aggressive blood pressure treatment 09/16 blood pressure better controlled, hemoglobin stable, kidney function stable, await carotid enterectomy at 1919 RPT #:[id number] OF REPORTPRProgress ldjy4442-71-94I12:02:00G.[id number] able for patient nczyVTLPDKXDECIUET8202-66-99J19:19:57 [facility] 2023-09-17 12:38:00 [id number] rHg21Tb/ELmX7acOFw//NqQO1WUDE kLXfo0B/gIdg1BWYAiU5kUIspZL1010-48-77G91:38:00 [facility] ProgREPORT#:[id number] REPORT STATUS: SignedREPORT INITIALIZATION DATE:09/17/23 TIME: 123 PATIENT: ZACKARY KIM UNIT #: [id number]#: [id number] [address] [birth year] AGE: 68 SEX: M ATTEND: Oneal Mena [facility] AUTHOR: Yajaira Bryant PhysicREPT SERVICE DT/TIME: 09/17/23 1238* ALL edits or amendments must be made on the electronic/computer document * SubjectiveChief complaint:abnormal labs Cartotid Stenosis. Review of SystemsConstitutional:Denies: chills, fatigue, fever. Skin:Denies: abrasion, bruising, diaphoresis. Allergy/Immun:Denies: allergic reaction, anaphylaxis, hives. Eyes:Denies: redness, discharge, visual loss/blurred. Cardiovascular:Denies: chest pain, palpitations. GI:Denies: abdominal pain, nausea, rectal pain. Heme:Denies: adenopathy, bleeding, bruising. All systems rev neg: except as marked Objective GeneralVS/I OLast Documented: Result Date Time Pulse Ox 98 09/16 1205 B/P 171/77 09/16 1205 B/P Mean 119 09/16 1205 Pulse 70 09/16 1205 Resp 17 09/16 1205 Temp 98.0 09/16 0400 O2 Delivery Room air 09/13 1451 24 hour I O ending at 0700: 09/16 0700 09/15 1900 Intake Total 600 1420.00 Output Total 600 950 Balance 0 470.00 Intake, IV 100.00 Intake, Oral 600 1320 Output, Urine 600 950 Patient 75.75 kg Weight PATIENT WEIGHT: Weight (lb): 167Weight (oz): Weight (kg): 75.75 Physical ExamGeneral appearance: alert, awake, orientedHEENT: anicteric, mucosal membranes moist, pupils reactive to lightNeck: full range of motion, non-tenderCardiovascular: normal heart sounds, regular rate rhythmRespiratory: aerating well, symmetric expansion, no distressAbdomen: soft, non-tenderGenitourinary: no bladder distention, no flank pain, no foleyExtremities: dry, moves all, normal capillary refillMusculoskeletal: full range of motion, painless range of motionNeuro/FEED PROJECT ENGINEER: alert, oriented X 3Skin: dry, intactPsychiatry: normal affect, normal mood Diagnosis, Assessment PlanHospital course to date:This is a very pleasant 68-year-old gentleman with a past medical history of hypertension, hyperlipidemia, diabetes, coronary artery disease status post coronary artery bypass graft surgery in 2017, BPH who went for routine checkup 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 A carotid Doppler was completed showing evidence of bilateral carotid stenosis. Subsequently a carotid angiogram was completed showing a left carotid stenosis of 80% with 40% noted on the right. Patient denies any send dizziness, syncope, shortness of breath. Patient will benefit from left carotid endarterectomy. Patient had preop workup done which showed abnormal labs so I asked the patient to come to the emergency room for further evaluation. I am planning for patient to have left carotid endarterectomy after abnormal labs are taken care of.Appreciate renal inputFollow labsFurther recommendations to follow 09/13/23Patient doing well, denies any complaintsLabs reviewed, creatinine trending down 3.5 todayWill contact patient's outpatient environmental services project manager for baseline creatinineTolerating dietPlan of care discussed with patient, all questions were answered 09/14/23Patient alert, awake, and oriented, denies any complaintsCreatinine 3.3, at baseline creatinine, nephrology clearedI will proceed with left carotid endarterectomy today, NPOHave explained to the patient the procedure, risk involved, benefits, alternatives, and complications. Patient acknowledges understanding and willingto proceed. Patient will have left CEA today. All questions were answered Do to an unforseen emergency, patient's case was postponed and will be done first in the morning.I explained to the pateint and he is understandable 09/15/23Patient in stable condition denies complaintsLabs reviewedPatient will have left CEA on MondayI have spoken to the patient and explained the delays in procedure due to emergency casePatient acknowledges understanding 09/16/23Patient resring comfortable. Denies complaints On room air. Plan for Left CEA monday.Patient seen and examined with Dr. Cole. 09/17/23Patient resting comfortableDenies complaintsOn room airPlan for left CEA on was discussed with the patient. All questions were answered Consultants: cardiology, cardiovascular surgery, nephrology at 1243 at 2003 RPT #:[id number] OF REPORTPRProgress [id number]:38:00G.[id number] able for patient [id number]:43:40 HCACL 2023-09-16 17:25:00 [id number]+E [id number]/LL8 oHFF/qGca1xC6Eb8+GbgzlP8SW00038-78-78W28:25:00 [facility] ([facility]ITALHospitalist Progress NoteREPORT#:[id number] REPORT STATUS: SignedREPORT INITIALIZATION DATE:09/16/23 TIME: 1724 PATIENT: ZACKARY KIM UNIT #: [id number]#: [id number] [address] AGE: 68 SEX: M ATTEND: Oneal Mena MDADM AUTHOR: Oneal Mena MDREPT SERVICE DT/TIME: 09/16/231724* ALL edits or amendments must be made on the electronic/computer document * SubjectiveChief complaint:Await carotid enterectomy HPI:68 year old male with history of CAD, HTN, BPH, and hypothyroidism who presentedfor surgery with Dr. Cole. Patient reports carotid stenosis on the left side.Denies any dizziness or headaches. Found with DEDRICK with creatinine of 4 and hypomagnesemia. Admitted with nephrology and cardiothoracic surgeon consult. Currently NPO. Review of SystemsAll systems rev neg: except as noted Objective GeneralVS/I O:Vital Signs: Date Time Temp Pulse Resp B/P B/P Pulse O2 O2 Flow FiO2 Mean Ox Delivery Rate 09/15 1600 98.2 66 13 170/77 108 / 1500 55 12 172/72 105 /16 1400 52 15 137/63 87 98 /16 1300 61 14 152/70 97 98 /16 1200 97.8 55 12 169/72 104 98 /16 1100 53 12 134/61 85 97 /16 1000 61 12 125/60 81 /16 0900 60 14 145/65 91 95 /16 0800 98.1 52 18 181/80 113 /16 0700 52 13 162/71 101 03/16 0600 57 11 178/77 110 /16 0500 57 11 185/86 119 /16 0400 97.8 60 12 183/81 115 97 /16 0300 56 11 165/76 105 97 /16 0200 54 11 148/69 95 96 03/16 0000 97.8 58 15 178/81 113 99 09/14 2300 54 11 148/69 95 96 09/140 97.8 58 15 167/72 103 97 09/14 2099 59 12 181/80 113 98 09/15 1999 59 12 181/80 113 98 PATIENT WEIGHT: Weight (lb): Weight (oz): Weight (kg): 75.909 Medications:Active Meds + DC'd Last 24 HrsPolyethylene Glycol (MIRALAX) 17 GM DAILY 1700 PO Senna/Docusate Sodium (SENOKOT S) 1 TAB BID 9A 5P PO Furosemide (LASIX) 40 MG ONCE ONE PO (DC) Aspirin (ASPIRIN) 81 MG DAILY PO Clopidogrel Bisulfate (Plavix) 75 MG DAILY PO (DC) Calcium Gluconate (Calcium Gluconate 1 GM/NS 50 mL (B2)) 50 ML ONCE ONE IV (DC) Magnesium Sulfate (MAGNESIUM SULFATE 2GM/SWFI 50ML) 50 ML ONCE ONE IV (DC) Epoetin Thaddeus-epbx (RETACRIT) 3,000 UNIT MoWeFr@2100 SUBQ Docusate Sodium (COLACE) 100 MG BID PO (DC) Mupirocin (BACTROBAN 2% 22 GM OINTMENT) 1 APPLIC BID NASAL Acetaminophen (TYLENOL) 650 MG Q4H PRN PRN PO Acetaminophen (TYLENOL) 650 MG Q4H PRN PRN PO Acetaminophen (TYLENOL) 650 MG Q4H PRN PRN RECTAL Bisacodyl (DULCOLAX) 10 MG DAILY PRN PRN RECTAL Hydralazine HCl (APRESOLINE) 10 MG Q6H PRN PRN IV Magnesium Hydroxide (MILK OF MAGNESIA) 30 ML Q6H PRN PRN PO Ondansetron HCl (ZOFRAN) 4 MG Q6H PRN PRN IV Cefazolin Sodium (KEFZOL OR ANCEF) 1 GM PREOP ONCALL IV (DC) Sodium Chloride (SODIUM CHLORIDE) 10 MLSevelamer Carbonate (RENVELA) 800 MG C MEALS PO Dextrose/Water (DEXTROSE 10% IN WATER) 125 ML ASDIR PRN IV (CKD) Dextrose/Water (DEXTROSE 10% IN WATER) 250 ML ASDIR PRN IV (CKD) Glucagon (GLUCAGON) 1 MG ASDIR PRN IM Ezetimibe (ZETIA) 10 MG DAILY PO Finasteride (PROSCAR) 5 MG DAILY PO Isosorbide Mononitrate (Imdur 60 mg) 60 MG DAILY PO Oxybutynin Chloride (DITROPAN) 5 MG DAILY PO Levothyroxine Sodium (SYNTHROID) 125 MCG 0600 PO Melatonin (Melatonin) 6 MG BEDTIME PRN PO Atenolol (TENORMIN) 50 MG BID PO Atorvastatin Calcium (LIPITOR) 20 MG 2100 PO Clonidine HCl (CATAPRES) 0.2 MG TID PO Sodium Bicarbonate (SODIUM BICARBONATE) 1,300 MG BID PO Tamsulosin HCl (Flomax 0.4 mg) 0.4 MG BID PO Insulin Human Lispro (HUMALOG) 0 AC HS SUBQ Hydralazine HCl (APRESOLINE) 100 MG TID PO Amlodipine Besylate (NORVASC) 10 MG DAILY PO Physical ExamGeneral appearance: alert, awake, orientedHead/Eyes: atraumatic, normocephalicNeck: supple/no meningismusCardiovascular: normal heart sounds, regular rate rhythmRespiratory: clear to auscultation, symmetric expansionAbdomen: non-tender, softExtremities: moves all, no clubbing, no cyanosis, no edemaMusculoskeletal: normal inspectionNeuro/FEED PROJECT ENGINEER: alert, oriented X 3, normal speechSkin: normal color, normal temperaturePsychiatry: normal affect, normal judgment/insight, normal mood ResultsFindings/Data:Laboratory Tests 09/15 09/15 09/15 09/15 09/15 1629 1123 0745 0515 0515Chemistry Sodium (134 - 147 mEq/L) 135 Potassium (3.4 - 5.0 mEq/L) 4.3 Chloride (100 - 108 mEq/L) 104 Carbon Dioxide (21 - 33 mEq/l) 23 Anion Gap (0 - 20) 12 BUN (7 - 25 mg/dL) 65 H Creatinine (0.6 - 1.3 mg/dL) 3.6 H Glomerular Filtr Rate (70 - 80) 17.4 L Glucose (77 - 141 mg/dL) 139 POC Glucose (70 - 110 MG/DL) 246 H 186 H 173 H Calcium (8.0 - 10.5 mg/dL) 8.2 Ionized Calcium Sanjana (1.09 - 1.30 MMOL/L) 1.08 L Phosphorus (2.5 - 4.9 MG/DL) 4.5 Magnesium (1.6 - 2.6 mg/dL) 1.85 Iron (35 - 150 mcg/dL) 61 TIBC (260 - 445 mcg/dL) 274 % Saturation (14 - 34 %) 22.3 Unsat Iron Binding (mcg/dL) 213 Total Bilirubin (0.0 - 1.0 mg/dL) 0.30 AST (8 - 34 IUnit/L) 16 ALT (10 - 49 IUnit/L) 8 L Total Alk Phosphatase (20 - 125 IUnit/L) 39 Total Protein (6.4 - 8.2 g/dL) 6.0 L Albumin (3.4 - 5.0 g/dL) 3.00 L 09/149 Chemistry POC Glucose (70 - 110 MG/DL) 187 H Laboratory Tests 09/15 0515 Hematology WBC (4.5 - 11.0 x10 3/uL) 5.9 RBC (4.00 - 5.60 x10 6/uL) 3.30 L Hgb (12.5 - 16.9 g/dL) 9.8 L Hct (37.5 - 50.7 %) 28.4 L MCV (81.0 - 99.0 fL) 86.1 MCH (27.0 - 33.0 pg) 29.7 MCHC (33.0 - 37.0 g/dL) 34.5 RDW (11.5 - 14.5 %) 13.3 Plt Count (150 - 400 x10 3/uL) 159 MPV (7.0 - 9.0 fL) 10.4 H Neut % (Auto) (56.0 - 77.0 %) 67.3 Lymph % (Auto) (14.0 - 32.0 %) 13.5 L [place] % (Auto) (4.8 - 9.0 %) 9.9 H Eos % (Auto) (0.3 - 3.7 %) 8.0 H Baso % (Auto) (0.0 - 2.0 %) 1.0 Neut # (Auto) (2.0 - 7.6 x10 3/uL) 3.93 Lymph # (Auto) (1.0 - 3.8 x10 3/uL) 0.79 L [place] # (Auto) (0.1 - 0.8 x10 3/uL) 0.58 Eos # (Auto) (0.0 - 0.2 x10 3/uL) 0.47 H Baso # (Auto) (0.0 - 0.2 x10 3/uL) 0.06 Abs Immat Gran (auto) (0.00 - 0.03 x10 3/uL) 0.02 Immature Gran % (0.0 - 2.0 %) 0.3 Nucleated RBC % (0 - 0 %) 0.0 Nucleated RBCs # (Man) (0.0 - 0.1 x10 3/uL) 0.00 Radiology data:Recent Impressions:RADIOLOGY - XR CHEST 1 V 09/15 0827 Report Impression - Status: SIGNED Entered: 09/16/2023 0845 IMPRESSION:Low lung volumes with central vascular congestion and bibasilaratelectasis. No effusion or pneumothorax. Continued attention onfollow-up. Impression By: Erloy Ruiz M.D. Diagnosis, Assessment PlanConsultants: cardiology, cardiovascular surgery, nephrology Free Text DxA P NotesFree text DxA P notes:Impression/Plan:- Left carotid stenosis- DEDRICK now stage IV chronic kidney disease- Hypomagnesemia- Hypertensive heart disease- CAD- BPH- Hypothyroidism- Anemia of chronic disease Nephrology consult for DEDRICK.Hold diuretics.Avoid nephrotoxic meds.Mag was replaced.Repeat labs in the AM.Resume home antihypertensive meds. Uncontrolled BP.Surgery per consult. 09/12-- he feel well -- HTN -- not well control manage as cardiology adjust medication as cardiology - replace mag as nephrology no HD need now 09/13- he is seen. - surgery today -- monitor BP and renal function -- continue current medication 09/14-- he is seen -- surgery postpone today 09/15 carotid enterectomy delayed, hemoglobin stable, chronic kidney disease stage IV, aggressive blood pressure treatment at 8111 RPT #:[id number] OF REPORTPRProgress [id number]:25:00G.[id number] able for patient cggcGYBRDIFYNUKOEC5380-64-26J80:21:48 [facility] 2023-09-16 10:46:00 [id number]/[id number] QDF0dFp+7uQebzUYiPFlHITNo0vkF WKZa2pT4b0/6q/vwGxqdnJdirRu6376-14-39S22:46:00 [facility] ([facility])Nephrology Progress NoteREPORT#:[id number] REPORT STATUS: SignedREPORT INITIALIZATION DATE:09/16/23 TIME: 104 PATIENT: ZACKARY KIM UNIT #: [id number]#: [id number] [address] [birth year] AGE: 68 SEX: M ATTEND: Oneal Mena MDADM AUTHOR: Hu Lott MDREPT SERVICE DT/TIME: 09/16/23 1046* ALL edits or amendments must be made on the electronic/computer document * SubjectiveComments:Data and notes, reviewedDw pt and CCU RN Awake, nadNo chf sxs Review of SystemsConstitutional:Denies: fever. Respiratory:Denies: SOB. Cardiovascular:Denies: chest pain, edema. Heme:Denies: bleeding. Neuro:Denies: change in LOC, confusion. Objective GeneralVS/I O:Vital Signs: Date Time Temp Pulse Resp B/P B/P Pulse O2 O2 Flow FiO2 Mean Ox Delivery Rate 09/15 0800 98.1 52 18 181/80 113 09/15 0700 52 13 162/71 101 09/15 0600 57 11 178/77 110 09/15 0500 57 11 185/86 119 09/15 0400 97.8 60 12 183/81 115 97 09/15 0300 56 11 165/76 105 97 09/15 0200 54 11 148/69 95 96 / 0000 97.8 58 15 178/81 113 99 / 2300 54 11 148/69 95 96 09/14 2200 97.8 58 15 167/72 103 97 09/14 2100 59 12 181/80 113 98 09/14 2000 59 12 181/80 113 98 09/14 1600 98.6 09/14 1200 98.4 PATIENT WEIGHT: Weight (lb): Weight (oz): Weight (kg): 75.909 Physical ExamGeneral appearance: alert, awake, oriented, no acute distress, pleasant, conversational, mental status normal, no respiratory distressHead/eyes: atraumatic, clear cornea, EOMIENT: moist mucous membranesNeck: non-tender, supple/no meningismus, no JVDCardiovascular: regular rate and rhythmRespiratory: decreased breath sounds, aerating well, symmetric expansion, no distressAbdomen: non-tender, soft, no distentionExtremities: no edemaNeuro/FEED PROJECT ENGINEER: alert, oriented X 3, normal speechSkin: intactPsychiatry: normal affect, no hallucinations ResultsResults: labs reviewed, vital signs reviewed, vital signs stable Diagnosis, Assessment PlanFree Text A P:Nonoliguric, Dedrick Sl increased creatinine/ azotemia, baseline. MonitorCKD 4, baseline Sl hyperkalemia ResolvedStable hco3/Hx met acidosis +PO Na old8Vkvzqvfrkxk volume status, incresed /cxr, notedAnemia Sl decreased hgb/unchanged MonitorHypertension Plan: Serial indicesEsa rx and check iron storesPo renvela/monitor phosholding Lokelma and monitor K+Renal dietPo fluid restrictionPrn po lasixBp rx, in progress No indications for dialysis, presentlyCEA scheduled for MondayConsultants: cardiology, cardiovascular surgery, nephrologyPlan discussed with: patient, nurse at 1048 RPT #:[id number] OF REPORTPRProgress rfke6453-09-53V82:46:00G.[id number] able for patient xbhjSXCNADJYHMVAEC6441-95-41Q72:49:10 [facility] 2023-09-16 08:07:00 [id number] fBOMcfY1iQFH/2XsqB2k6YaCBsMQJ FGnI7UGXW8zNmxwe4wj51eY5mZV4689-17-91I09:07:00 [facility] ([facility])Critical Care Progress NoteREPORT#:[id number] REPORT STATUS: SignedREPORT INITIALIZATION DATE:09/16/23 TIME: 806 PATIENT: ZACKARY KIM UNIT #: [id number]#: [id number] [address] [birth year] AGE: 68 SEX: M ATTEND: Oneal Mena MDADM AUTHOR: Margarita Cárdenas SERVICE DT/TIME: 09/16/23 08* ALL edits or amendments must be made on the electronic/computer document * SubjectiveChief complaint:Carotid stenosisHPI:Mr. Wu Kim is a 68-year-old male patient who was transferred to CCU yesterday and is awaiting carotid endarterectomy by Dr. Cole today. He was seen and examined at the bedside during rounds. He is awake and alert not in distress. He denies any shortness of breath or chest pain. His medical historyincludes CAD, hypertension, BPH and hypothyroidism, he was found to have carotidstenosis of the left side and acute kidney injury. Patient denies any dizziness, headache or blurry vision at present.Patient reports:No: pain, shortness of breath. Nursing reports:No: complaints. Comments:up to chair. Has no complaints to offerRoom airSurgery plans for Monday Objective GeneralVS/I OLast Documented: Result Date Time B/P 181/80 09/15 0800 B/P Mean 113 09/15 0800 Temp 98.1 09/15 0800 Pulse 52 09/15 0800 Resp 18 09/15 0800 Pulse Ox 97 09/15 0400 O2 Delivery Room air 09/13 1451 PATIENT WEIGHT: Weight (lb): Weight (oz): Weight (kg): 75.909 Medications:Active Meds + DC'd Last 24 HrsAspirin (ASPIRIN) 81 MG DAILY PO Clopidogrel Bisulfate (Plavix) 75 MG DAILY PO Epoetin Thaddeus-epbx (RETACRIT) 3,000 UNIT MoWeFr@2100 SUBQ Lidocaine HCl (XYLOCAINE IV) 0 .STK-MED ONE IV (DC) Thrombin (RECOTHROM) 0 .STK-MED ONE TOPICAL (DC) Docusate Sodium (COLACE) 100 MG BID PO Mupirocin (BACTROBAN 2% 22 GM OINTMENT) 1 APPLIC BID NASAL Acetaminophen (TYLENOL) 650 MG Q4H PRN PRN PO Acetaminophen (TYLENOL) 650 MG Q4H PRN PRN PO Acetaminophen (TYLENOL) 650 MG Q4H PRN PRN RECTAL Bisacodyl (DULCOLAX) 10 MG DAILY PRN PRN RECTAL Hydralazine HCl (APRESOLINE) 10 MG Q6H PRN PRN IV Magnesium Hydroxide (MILK OF MAGNESIA) 30 ML Q6H PRN PRN PO Ondansetron HCl (ZOFRAN) 4 MG Q6H PRN PRN IV Cefazolin Sodium (KEFZOL OR ANCEF) 1 GM PREOP ONCALL IV (DC) Sodium Chloride (SODIUM CHLORIDE) 10 MLMagnesium Oxide (MAG-OX 400) 400 MG BID PO (DC) Sevelamer Carbonate (RENVELA) 800 MG C MEALS PO Dextrose/Water (DEXTROSE 10% IN WATER) 125 ML ASDIR PRN IV (CKD) Dextrose/Water (DEXTROSE 10% IN WATER) 250 ML ASDIR PRN IV (CKD) Glucagon (GLUCAGON) 1 MG ASDIR PRN IM Sodium Zirconium Cyclosilicate (Lokelma) 10 GM DAILY PO (DC) Ezetimibe (ZETIA) 10 MG DAILY PO Finasteride (PROSCAR) 5 MG DAILY PO Isosorbide Mononitrate (Imdur 60 mg) 60 MG DAILY PO Oxybutynin Chloride (DITROPAN) 5 MG DAILY PO Levothyroxine Sodium (SYNTHROID) 125 MCG 0600 PO Melatonin (Melatonin) 6 MG BEDTIME PRN PO Atenolol (TENORMIN) 50 MG BID PO Atorvastatin Calcium (LIPITOR) 20 MG 2100 PO Clonidine HCl (CATAPRES) 0.2 MG TID PO Sodium Bicarbonate (SODIUM BICARBONATE) 1,300 MG BID PO Tamsulosin HCl (Flomax 0.4 mg) 0.4 MG BID PO Insulin Human Lispro (HUMALOG) 0 AC HS SUBQ Hydralazine HCl (APRESOLINE) 100 MG TID PO Amlodipine Besylate (NORVASC) 10 MG DAILY PO ResultsFindings/data:Laboratory Tests 09/15 09/15 09/15 09/14 09/14 0745 0515 9815 1095 1647Chemistry Sodium (134 - 147 mEq/L) 135 Potassium (3.4 - 5.0 mEq/L) 4.3 Chloride (100 - 108 mEq/L) 104 Carbon Dioxide (21 - 33 mEq/l) 23 Anion Gap (0 - 20) 12 BUN (7 - 25 mg/dL) 65 H Creatinine (0.6 - 1.3 mg/dL) 3.6 H Glomerular Filtr Rate (70 - 80) 17.4 L Glucose (77 - 141 mg/dL) 139 POC Glucose (70 - 110 MG/DL) 173 H 187 H 146 H Calcium (8.0 - 10.5 mg/dL) 8.2 Ionized Calcium Sanjana (1.09 - 1.30 1.08 LMMOL/L) Phosphorus (2.5 - 4.9 MG/DL) 4.5 Magnesium (1.6 - 2.6 mg/dL) 1.85 Iron (35 - 150 mcg/dL) 61 TIBC (260 - 445 mcg/dL) 274 % Saturation (14 - 34 %) 22.3 Unsat Iron Binding (mcg/dL) 213 Total Bilirubin (0.0 - 1.0 mg/dL) 0.30 AST (8 - 34 IUnit/L) 16 ALT (10 - 49 IUnit/L) 8 L Total Alk Phosphatase (20 - 125 39IUnit/L) Total Protein (6.4 - 8.2 g/dL) 6.0 L Albumin (3.4 - 5.0 g/dL) 3.00 L 09/14 1203 Chemistry POC Glucose (70 - 110 MG/DL) 147 H Laboratory Tests 09/15 0515 Hematology WBC (4.5 - 11.0 x10 3/uL) 5.9 RBC (4.00 - 5.60 x10 6/uL) 3.30 L Hgb (12.5 - 16.9 g/dL) 9.8 L Hct (37.5 - 50.7 %) 28.4 L MCV (81.0 - 99.0 fL) 86.1 MCH (27.0 - 33.0 pg) 29.7 MCHC (33.0 - 37.0 g/dL) 34.5 RDW (11.5 - 14.5 %) 13.3 Plt Count (150 - 400 x10 3/uL) 159 MPV (7.0 - 9.0 fL) 10.4 H Neut % (Auto) (56.0 - 77.0 %) 67.3 Lymph % (Auto) (14.0 - 32.0 %) 13.5 L [place] % (Auto) (4.8 - 9.0 %) 9.9 H Eos % (Auto) (0.3 - 3.7 %) 8.0 H Baso % (Auto) (0.0 - 2.0 %) 1.0 Neut # (Auto) (2.0 - 7.6 x10 3/uL) 3.93 Lymph # (Auto) (1.0 - 3.8 x10 3/uL) 0.79 L [place] # (Auto) (0.1 - 0.8 x10 3/uL) 0.58 Eos # (Auto) (0.0 - 0.2 x10 3/uL) 0.47 H Baso # (Auto) (0.0 - 0.2 x10 3/uL) 0.06 Abs Immat Gran (auto) (0.00 - 0.03 x10 3/uL) 0.02 Immature Gran % (0.0 - 2.0 %) 0.3 Nucleated RBC % (0 - 0 %) 0.0 Nucleated RBCs # (Man) (0.0 - 0.1 x10 3/uL) 0.00 Laboratory Tests 09/16/23 0515:[Embedded Image Not Available] Results: labs reviewed, vital signs reviewed, rhythm personally rev'd, x-ray personally reviewed, current med profile rev'd Free Text Obj NotesFree Text Obj Notes: Physical ExamGeneral appearance: chair position, not in distress, interactiveHead/Eyes: atraumatic, normocephalic, pupils round, equal and reactiveNeck: supple/no meningismus, full range of motion, no JVD or swellingCardiovascular: normal heart sounds, bradycardic, regular rate rhythm, no gallops or rubsRespiratory: clear to auscultation, symmetric expansion, no rales/wheezingAbdomen: non-tender, soft, obese, bowel sounds presentGU: Voiding, no flank painExtremities: moves all, no clubbing, no cyanosis, no edemaMusculoskeletal: normal inspectionNeuro/FEED PROJECT ENGINEER: alert, oriented X 3, normal speech, nonfocalSkin: normal color, normal temperature, no rashPsychiatry: calm Treatment Prophylaxis Treatment ProphylaxisUrinary cath status: noneOxygen: room airAnti-hypertensives: amlodipine besylate, atenolol, hydralazine HCL Diagnosis, Assessment PlanProblem list/A P: 1. CKD (chronic kidney disease) 2. Elective surgery Free text A P:Problems:Left carotid stenosisAcute kidney injuryCoronary artery disease status post CABG in 2017HypertensionHyperlipidemiaDiabetes mellitusBPHHypothyroidism PlanNeuro at baseline. Melatonin at bedtime for insomniaLeft carotid enterectomy cancelled, now planned for Monday.Patient did received dose of plavix today- Discussed with Dr. Cole's PA, willd/c plavix. Blood pressure control PRN hydralazine.Aspirin, statinNo oxygen requirements, keep SpO2 above 92%Monitor renal function. I/0. Monitor and replete electrolytes as neededOn Proscar and Flomax for BPH.Followed by renal, holding Lokelma, on Renvela. 1L fluid restriction. PRN lasixResume diet. Glycemic control with ISS. A1c 7.7. Home dose levothyroxineBowel careMonitor for signs and symptoms of infection. UA doneMobility as toleratedICC will followDispo: CCU. Patient is a full code33 minutes of critical care spent DVT prophylaxis: SCDsOrders: Procedure Date/time Status CARDIAC DIET 09/15 B Active Consultants: cardiology, cardiovascular surgery, nephrologyCode status: full codePlan discussed with: patient, collaborating MD, nurse, interdisc care team, pharmacy/pharmacist at [facility] #:[id number] OF REPORTPRProgress [id number]:07:00G.[id number] able for patient pgrtCQZLEUOUKRWMIO6594-15-39P80:21:35 [facility] 2023-09-16 06:17:00 [id number] bSseRs5rvJdKhGUR+Iv5/LgY+XndJ m9lJSnR2plMs5SZUHPrGZ0hVCpt1905-50-17W10:17:00 [facility] ProgREPORT#:[id number] REPORT STATUS: SignedREPORT INITIALIZATION DATE:09/16/23 TIME: 616 PATIENT: ZACKARY KIM UNIT #: [id number]#: [id number] ROOM/BED: 3305[address]1DOB: [birth year] AGE: 68 SEX: M ATTEND: Oneal Mena MDADM AUTHOR: Yajaira Bryant PhysicREPT SERVICE DT/TIME: 09/16/23616* ALL edits or amendments must be made on the electronic/computer document * SubjectiveChief complaint:abnormal labsCartotid Stenosis. Review of SystemsConstitutional:Denies: chills, fatigue, fever. Skin:Denies: abrasion, bruising, diaphoresis. Allergy/Immun:Denies: allergic reaction, anaphylaxis, hives. Eyes:Denies: redness, discharge, visual loss/blurred. Cardiovascular:Denies: chest pain, palpitations. GI:Denies: abdominal pain, nausea, rectal pain. Heme:Denies: adenopathy, bleeding, bruising. All systems rev neg: except as marked Objective GeneralVS/I OLast Documented: Result Date Time Pulse Ox 96 09/15 0200 B/P 148/69 09/15 0200 B/P Mean 95 09/15 0200 Pulse 54 09/15 0200 Resp 11 09/15 0200 Temp 97.8 09/15 0000 O2 Delivery Room air 09/13 1451 PATIENT WEIGHT: Weight (lb): Weight (oz): Weight (kg): 75.909 Physical ExamGeneral appearance: alert, awake, orientedHEENT: anicteric, mucosal membranes moist, pupils reactive to lightNeck: full range of motion, non-tenderCardiovascular: normal heart sounds, regular rate rhythmRespiratory: aerating well, symmetric expansion, no distressAbdomen: soft, non-tenderGenitourinary: no bladder distention, no flank pain, no foleyExtremities: dry, moves all, normal capillary refillMusculoskeletal: full range of motion, painless range of motionNeuro/FEED PROJECT ENGINEER: alert, oriented X 3Skin: dry, intactPsychiatry: normal affect, normal mood Diagnosis, Assessment PlanHospital course to date:This is a very pleasant 68-year-old gentleman with a past medical history of hypertension, hyperlipidemia, diabetes, coronary artery disease status post coronary artery bypass graft surgery in 2017, BPH who went for routine checkup 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 A carotid Doppler was completed showing evidence of bilateral carotid stenosis. Subsequently a carotid angiogram was completed showing a left carotid stenosis of 80% with 40% noted on the right. Patient denies any send dizziness, syncope, shortness of breath. Patient will benefit from left carotid endarterectomy. Patient had preop workup done which showed abnormal labs so I asked the patient to come to the emergency room for further evaluation. I am planning for patient to have left carotid endarterectomy after abnormal labs are taken care of.Appreciate renal inputFollow labsFurther recommendations to follow 09/13/23Patient doing well, denies any complaintsLabs reviewed, creatinine trending down 3.5 todayWill contact patient's outpatient environmental services project manager for baseline creatinineTolerating dietPlan of care discussed with patient, all questions were answered 09/14/23Patient alert, awake, and oriented, denies any complaintsCreatinine 3.3, at baseline creatinine, nephrology clearedI will proceed with left carotid endarterectomy today, NPOHave explained to the patient the procedure, risk involved, benefits, alternatives, and complications. Patient acknowledges understanding and willingto proceed. Patient will have left CEA today. All questions were answered Do to an unforseen emergency, patient's case was postponed and will be done first in the morning.I explained to the pateint and he is understandable 09/15/23Patient in stable condition denies complaintsLabs reviewedPatient will have left CEA on MondayI have spoken to the patient and explained the delays in procedure due to emergency casePatient acknowledges understanding 09/16/23Patient resring comfortable. Denies complaints On room air. Plan for Left CEA monday.Patient seen and examined with Dr. Cole. Consultants: cardiology, cardiovascular surgery, nephrology at 1441 at 0720 RPT #:[id number] OF REPORTPRProgress [id number]:17:00G.[id number] able for patient adkxVVDOUCNXZEKGRE5611-28-26G04:41:40 [facility] 2023-09-15 18:58:00 [id number] LQEdgQ+5Hxbo82hR/nP1keUAcXBht RZQaPkOYvepJfSw41jziElmOI6O7714-33-67B99:58:00 [facility] ProgREPORT#:[id number] REPORT STATUS: SignedREPORT INITIALIZATION DATE:09/15/23 TIME: 1857 PATIENT: ZACKARY KIM UNIT #: [id number]#: [id number] [address]OB: [birth year] AGE: 68 SEX: M ATTEND: Oneal Mena MDADM AUTHOR: Chantal Cole MDREPT SERVICE DT/TIME: 09/15/231857* ALL edits or amendments must be made on the electronic/computer document * SubjectiveChief complaint:abnormal labs Review of SystemsConstitutional:Denies: chills, fatigue, fever. Skin:Denies: abrasion, bruising, diaphoresis. Allergy/Immun:Denies: allergic reaction, anaphylaxis, hives. Eyes:Denies: redness, discharge, visual loss/blurred. Cardiovascular:Denies: chest pain, palpitations. GI:Denies: abdominal pain, nausea, rectal pain. Heme:Denies: adenopathy, bleeding, bruising. All systems rev neg: except as marked Objective GeneralVS/I OLast Documented: Result Date Time Temp 37.0 09/14 1600 Pulse Ox 97 09/13 1451 B/P 156/72 09/13 1451 B/P Mean 100.2 09/13 1451 O2 Delivery Room air 09/13 1451 Pulse 67 09/13 1451 Resp 12 09/13 1451 24 hour I O ending at 0700: 09/14 0700 09/13 1900 Intake Total Output Total 900 Balance -900 Output, Urine 900 PATIENT WEIGHT: Weight (lb): Weight (oz): Weight (kg): 75.909 Dietitian Nutrition assessmentThe data set between the solid lines has been imported from the dietitian's assessment. BMI Calculated: 27.0Nutrition related diagnosis: Nutrition diagnosis details: Nutrition problem: Nutrition etiology: Nutrition signs and symptoms: Nutrition prescription: Dietitian name: Assessment completed: Physical ExamGeneral appearance: alert, awake, orientedHEENT: anicteric, mucosal membranes moist, pupils reactive to lightNeck: full range of motion, non-tenderCardiovascular: normal heart sounds, regular rate rhythmRespiratory: aerating well, symmetric expansion, no distressAbdomen: soft, non-tenderGenitourinary: no bladder distention, no flank pain, no foleyExtremities: dry, moves all, normal capillary refillMusculoskeletal: full range of motion, painless range of motionNeuro/FEED PROJECT ENGINEER: alert, oriented X 3Skin: dry, intactPsychiatry: normal affect, normal mood Current MedicationsMedications:Active Meds + DC'd Last 24 HrsAspirin (ASPIRIN) 81 MG DAILY PO Clopidogrel Bisulfate (Plavix) 75 MG DAILY PO Epoetin Thaddeus-epbx (RETACRIT) 3,000 UNIT MoWeFr@2100 SUBQ Lidocaine HCl (XYLOCAINE IV) 0 .STK-MED ONE IV (DC) Thrombin (RECOTHROM) 0 .STK-MED ONE TOPICAL (DC) Docusate Sodium (COLACE) 100 MG BID PO Mupirocin (BACTROBAN 2% 22 GM OINTMENT) 1 APPLIC BID NASAL Acetaminophen (TYLENOL) 650 MG Q4H PRN PRN PO Acetaminophen (TYLENOL) 650 MG Q4H PRN PRN PO Acetaminophen (TYLENOL) 650 MG Q4H PRN PRN RECTAL Bisacodyl (DULCOLAX) 10 MG DAILY PRN PRN RECTAL Hydralazine HCl (APRESOLINE) 10 MG Q6H PRN PRN IV Magnesium Hydroxide (MILK OF MAGNESIA) 30 ML Q6H PRN PRN PO Ondansetron HCl (ZOFRAN) 4 MG Q6H PRN PRN IV Cefazolin Sodium (KEFZOL OR ANCEF) 1 GM PREOP ONCALL IV (CKD) Sodium Chloride (SODIUM CHLORIDE) 10 MLMagnesium Oxide (MAG-OX 400) 400 MG BID PO (DC) Sevelamer Carbonate (RENVELA) 800 MG C MEALS PO Dextrose/Water (DEXTROSE 10% IN WATER) 125 ML ASDIR PRN IV (CKD) Dextrose/Water (DEXTROSE 10% IN WATER) 250 ML ASDIR PRN IV (CKD) Glucagon (GLUCAGON) 1 MG ASDIR PRN IM Sodium Zirconium Cyclosilicate (Lokelma) 10 GM DAILY PO (DC) Ezetimibe (ZETIA) 10 MG DAILY PO Finasteride (PROSCAR) 5 MG DAILY PO Isosorbide Mononitrate (Imdur 60 mg) 60 MG DAILY PO Oxybutynin Chloride (DITROPAN) 5 MG DAILY PO Levothyroxine Sodium (SYNTHROID) 125 MCG 0600 PO Melatonin (Melatonin) 6 MG BEDTIME PRN PO Hydralazine HCl (APRESOLINE) 5 MG Q6H PRN PRN IV (DC) Atenolol (TENORMIN) 50 MG BID PO Atorvastatin Calcium (LIPITOR) 20 MG 2100 PO Clonidine HCl (CATAPRES) 0.2 MG TID PO Sodium Bicarbonate (SODIUM BICARBONATE) 1,300 MG BID PO Tamsulosin HCl (Flomax 0.4 mg) 0.4 MG BID PO Insulin Human Lispro (HUMALOG) 0 AC HS SUBQ Hydralazine HCl (APRESOLINE) 100 MG TID PO Amlodipine Besylate (NORVASC) 10 MG DAILY PO ResultsFindings/Data:Laboratory Tests 09/14 09/14 09/14 09/13 1647 1203 0620 2052 Chemistry Sodium (134 - 147 mEq/L) 138 Potassium (3.4 - 5.0 mEq/L) 4.0 Chloride (100 - 108 mEq/L) 105 Carbon Dioxide (21 - 33 mEq/l) 22 Anion Gap (0 - 20) 15 BUN (7 - 25 mg/dL) 67 H Creatinine (0.6 - 1.3 mg/dL) 3.1 H Glomerular Filtr Rate (70 - 80) 20.8 L Glucose (77 - 141 mg/dL) 125 POC Glucose (70 - 110 MG/DL) 146 H 147 H 221 H Calcium (8.0 - 10.5 mg/dL) 7.5 L Phosphorus (2.5 - 4.9 MG/DL) 4.3 Albumin (3.4 - 5.0 g/dL) 2.70 L Laboratory Tests 09/14 0620 Hematology WBC (4.5 - 11.0 x10 3/uL) 5.7 RBC (4.00 - 5.60 x10 6/uL) 3.32 L Hgb (12.5 - 16.9 g/dL) 9.8 L Hct (37.5 - 50.7 %) 28.7 L MCV (81.0 - 99.0 fL) 86.4 MCH (27.0 - 33.0 pg) 29.5 MCHC (33.0 - 37.0 g/dL) 34.1 RDW (11.5 - 14.5 %) 13.3 Plt Count (150 - 400 x10 3/uL) 156 MPV (7.0 - 9.0 fL) 10.8 H Neut % (Auto) (56.0 - 77.0 %) 68.0 Lymph % (Auto) (14.0 - 32.0 %) 12.2 L [place] % (Auto) (4.8 - 9.0 %) 10.2 H Eos % (Auto) (0.3 - 3.7 %) 8.1 H Baso % (Auto) (0.0 - 2.0 %) 1.1 Neut # (Auto) (2.0 - 7.6 x10 3/uL) 3.86 Lymph # (Auto) (1.0 - 3.8 x10 3/uL) 0.69 L [place] # (Auto) (0.1 - 0.8 x10 3/uL) 0.58 Eos # (Auto) (0.0 - 0.2 x10 3/uL) 0.46 H Baso # (Auto) (0.0 - 0.2 x10 3/uL) 0.06 Abs Immat Gran (auto) (0.00 - 0.03 x10 3/uL) 0.02 Immature Gran % (0.0 - 2.0 %) 0.4 Nucleated RBC % (0 - 0 %) 0.0 Nucleated RBCs # (Man) (0.0 - 0.1 x10 3/uL) 0.00 Results: labs reviewed, vital signs stable, keelym personally rev'd, current med profile rev'd Diagnosis, Assessment PlanHospital course to date:This is a very pleasant 68-year-old gentleman with a past medical history of hypertension, hyperlipidemia, diabetes, coronary artery disease status post coronary artery bypass graft surgery in 2017, BPH who went for routine checkup 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 A carotid Doppler was completed showing evidence of bilateral carotid stenosis. Subsequently a carotid angiogram was completed showing a left carotid stenosis of 80% with 40% noted on the right. Patient denies any send dizziness, syncope, shortness of breath. Patient will benefit from left carotid endarterectomy. Patient had preop workup done which showed abnormal labs so I asked the patient to come to the emergency room for further evaluation. I am planning for patient to have left carotid endarterectomy after abnormal labs are taken care of.Appreciate renal inputFollow labsFurther recommendations to follow 09/13/23Patient doing well, denies any complaintsLabs reviewed, creatinine trending down 3.5 todayWill contact patient's outpatient environmental services project manager for baseline creatinineTolerating dietPlan of care discussed with patient, all questions were answered 09/14/23Patient alert, awake, and oriented, denies any complaintsCreatinine 3.3, at baseline creatinine, nephrology clearedI will proceed with left carotid endarterectomy today, NPOHave explained to the patient the procedure, risk involved, benefits, alternatives, and complications. Patient acknowledges understanding and willingto proceed. Patient will have left [facility] today. All questions were answered Do to an unforseen emergency, patient's case was postponed and will be done first in the morning.I explained to the pateint and he is understandable 09/15/23Patient in stable condition denies complaintsLabs reviewedPatient will have left CEA on MondayI have spoken to the patient and explained the delays in procedure due to emergency casePatient acknowledges understanding Consultants: cardiology, cardiovascular surgery, nephrology at 0732 RPT #:[id number] OF REPORTPRProgress [id number]:58:00G.[id number] able for patient vomlFNZDOLJPIBONTA6131-27-48V60:33:06 [facility] 2023-09-15 16:49:00 [id number] OgpnJCIXH7+xLutLDI0B8tbuq/44I eIwuwx0uskMadfcLtwl17VU6vcN8051-21-04O71:49:00 [facility] CenterCritical Care Consult NoteREPORT#:[id number] REPORT STATUS: SignedREPORT INITIALIZATION DATE:09/15/23 TIME: 1648 PATIENT: ZACKARY KIM UNIT #: [id number]#: [id number] [address] [birth year] AGE: 68 SEX: M ATTEND: Oneal Mena AUTHOR: Margarita CárdenasPREPT SERVICE DT/TIME: 09/15/23 164* ALL edits or amendments must be made on the electronic/computer document * History of Present Illness HPIRequesting clinician: Dr. Banks for consult:ICU managementChief complaint:Carotid stenosisPCP:PCP: Chantal Cole MD HPI:Mr. Wu Kim is a 68-year-old male patient who was transferred to CCU yesterday and is awaiting carotid endarterectomy by Dr. Cole today. He was seen and examined at the bedside during rounds. He is awake and alert not in distress. He denies any shortness of breath or chest pain. His medical historyincludes CAD, hypertension, BPH and hypothyroidism, he was found to have carotidstenosis of the left side and acute kidney injury. Patient denies any dizziness, headache or blurry vision at present. History - Adult longitudinalPast medical history:Reports: Coronary artery disease, Hypertension, BPH, Dyslipidemia. Additional surgical history:noneAdditional family history:n/cAlcohol use: Denies EtOH useDrug use: Denies recreational drugsSmoking status for patients 13 years old or older: Former SmokerAllergies:Coded Allergies:No Known Allergies (09/11/23) Ambulatory status: Independent Review of Systems ROSAdditional notes:A review of system was conducted with patient and all pertinent positive and negatives were documented in HPI Objective Physical ExamVS/I O:Last Documented: Result Date Time Temp 98.6 09/14 1600 Pulse Ox 97 09/13 1451 B/P 156/72 09/13 1451 B/P Mean 100.2 09/13 1451 O2 Delivery Room air 09/13 1451 Pulse 67 09/13 1451 Resp 12 09/13 1451 24 hour I O ending at 0700: 09/14 0700 09/13 1900 Intake Total Output Total 900 Balance -900 Output, Urine 900 Patient Weight and BMI Weight (kg): 75.909 BMI: 27.0 Medications:Active Meds + DC'd Last 24 HrsAspirin (ASPIRIN) 81 MG DAILY PO Clopidogrel Bisulfate (Plavix) 75 MG DAILY PO Epoetin Thaddeus-epbx (RETACRIT) 3,000 UNIT MoWeFr@2100 SUBQ Lidocaine HCl (XYLOCAINE IV) 0 .STK-MED ONE IV (DC) Thrombin (RECOTHROM) 0 .STK-MED ONE TOPICAL (DC) Docusate Sodium (COLACE) 100 MG BID PO Mupirocin (BACTROBAN 2% 22 GM OINTMENT) 1 APPLIC BID NASAL Acetaminophen (TYLENOL) 650 MG Q4H PRN PRN PO Acetaminophen (TYLENOL) 650 MG Q4H PRN PRN PO Acetaminophen (TYLENOL) 650 MG Q4H PRN PRN RECTAL Bisacodyl (DULCOLAX) 10 MG DAILY PRN PRN RECTAL Hydralazine HCl (APRESOLINE) 10 MG Q6H PRN PRN IV Magnesium Hydroxide (MILK OF MAGNESIA) 30 ML Q6H PRN PRN PO Ondansetron HCl (ZOFRAN) 4 MG Q6H PRN PRN IV Cefazolin Sodium (KEFZOL OR ANCEF) 1 GM PREOP ONCALL IV (CKD) Sodium Chloride (SODIUM CHLORIDE) 10 MLMagnesium Oxide (MAG-OX 400) 400 MG BID PO (DC) Sevelamer Carbonate (RENVELA) 800 MG C MEALS PO Dextrose/Water (DEXTROSE 10% IN WATER) 125 ML ASDIR PRN IV (CKD) Dextrose/Water (DEXTROSE 10% IN WATER) 250 ML ASDIR PRN IV (CKD) Glucagon (GLUCAGON) 1 MG ASDIR PRN IM Sodium Zirconium Cyclosilicate (Lokelma) 10 GM DAILY PO (DC) Ezetimibe (ZETIA) 10 MG DAILY PO Finasteride (PROSCAR) 5 MG DAILY PO Isosorbide Mononitrate (Imdur 60 mg) 60 MG DAILY PO Oxybutynin Chloride (DITROPAN) 5 MG DAILY PO Levothyroxine Sodium (SYNTHROID) 125 MCG 0600 PO Melatonin (Melatonin) 6 MG BEDTIME PRN PO Hydralazine HCl (APRESOLINE) 5 MG Q6H PRN PRN IV (DC) Atenolol (TENORMIN) 50 MG BID PO Atorvastatin Calcium (LIPITOR) 20 MG 2100 PO Clonidine HCl (CATAPRES) 0.2 MG TID PO Sodium Bicarbonate (SODIUM BICARBONATE) 1,300 MG BID PO Tamsulosin HCl (Flomax 0.4 mg) 0.4 MG BID PO Insulin Human Lispro (HUMALOG) 0 AC HS SUBQ Hydralazine HCl (APRESOLINE) 100 MG TID PO Amlodipine Besylate (NORVASC) 10 MG DAILY PO ResultsFindings/Data:Laboratory Tests 09/15/23 0620:[Embedded Image Not Available]Laboratory Tests 09/14 09/14 09/13 1203 0620 2052 Chemistry Sodium (134 - 147 mEq/L) 138 Potassium (3.4 - 5.0 mEq/L) 4.0 Chloride (100 - 108 mEq/L) 105 Carbon Dioxide (21 - 33 mEq/l) 22 Anion Gap (0 - 20) 15 BUN (7 - 25 mg/dL) 67 H Creatinine (0.6 - 1.3 mg/dL) 3.1 H Glomerular Filtr Rate (70 - 80) 20.8 L Glucose (77 - 141 mg/dL) 125 POC Glucose (70 - 110 MG/DL) 147 H 221 H Calcium (8.0 - 10.5 mg/dL) 7.5 L Phosphorus (2.5 - 4.9 MG/DL) 4.3 Albumin (3.4 - 5.0 g/dL) 2.70 L Laboratory Tests 09/14 0620 Hematology WBC (4.5 - 11.0 x10 3/uL) 5.7 RBC (4.00 - 5.60 x10 6/uL) 3.32 L Hgb (12.5 - 16.9 g/dL) 9.8 L Hct (37.5 - 50.7 %) 28.7 L MCV (81.0 - 99.0 fL) 86.4 MCH (27.0 - 33.0 pg) 29.5 MCHC (33.0 - 37.0 g/dL) 34.1 RDW (11.5 - 14.5 %) 13.3 Plt Count (150 - 400 x10 3/uL) 156 MPV (7.0 - 9.0 fL) 10.8 H Neut % (Auto) (56.0 - 77.0 %) 68.0 Lymph % (Auto) (14.0 - 32.0 %) 12.2 L [place] % (Auto) (4.8 - 9.0 %) 10.2 H Eos % (Auto) (0.3 - 3.7 %) 8.1 H Baso % (Auto) (0.0 - 2.0 %) 1.1 Neut # (Auto) (2.0 - 7.6 x10 3/uL) 3.86 Lymph # (Auto) (1.0 - 3.8 x10 3/uL) 0.69 L [place] # (Auto) (0.1 - 0.8 x10 3/uL) 0.58 Eos # (Auto) (0.0 - 0.2 x10 3/uL) 0.46 H Baso # (Auto) (0.0 - 0.2 x10 3/uL) 0.06 Abs Immat Gran (auto) (0.00 - 0.03 x10 3/uL) 0.02 Immature Gran % (0.0 - 2.0 %) 0.4 Nucleated RBC % (0 - 0 %) 0.0 Nucleated RBCs # (Man) (0.0 - 0.1 x10 3/uL) 0.00 Results: labs reviewed, vital signs reviewed, rhythm personally rev'd, x-ray personally reviewed, current med profile rev'd Free Text Obj NotesFree Text Obj Notes: Physical ExamGeneral appearance: Upright position in bed, AAOx3, interactive, not in distressHead/Eyes: atraumatic, normocephalic, pupils round, equal and reactiveNeck: supple/no meningismus, full range of motion, no JVD or swellingCardiovascular: normal heart sounds, regular rate rhythm, no gallops or rubsRespiratory: clear to auscultation, symmetric expansion, no rales/wheezingAbdomen: non-tender, soft, obese, bowel sounds presentExtremities: moves all, no clubbing, no cyanosis, no edemaMusculoskeletal: normal inspectionNeuro/FEED PROJECT ENGINEER: alert, oriented X 3, normal speechSkin: normal color, normal temperaturePsychiatry: calm Diagnosis, Assessment Plan Diagnosis, Assessment PlanProblem list/A P: 1. CKD (chronic kidney disease) 2. Elective surgery Orders: Procedure Date/time Status CBC W/AUTO DIFF 09/18 0500 Active PHOSPHOROUS 09/17 0500 Active MAGNESIUM 09/17 0500 Active COMPREHENSIVE METABOLIC PANEL 09/17 0500 Active CBC W/AUTO DIFF 09/17 0500 Active CALCIUM IONIZED 09/17 0500 Active PHOSPHOROUS 09/16 0500 Active MAGNESIUM 09/16 0500 Active COMPREHENSIVE METABOLIC PANEL 09/16 0500 Active CBC W/AUTO DIFF 09/16 0500 Active CALCIUM IONIZED 09/16 0500 Active XR CHEST 1V 09/15 0500 Active PHOSPHOROUS 09/15 0500 Active MAGNESIUM 09/15 0500 Active COMPREHENSIVE METABOLIC PANEL 09/15 0500 Active CALCIUM IONIZED 09/15 0500 Active Consultants: cardiology, cardiovascular surgery, nephrologyPlan discussed with: patient, collaborating MD, consultants, nurse, interdisc care team, pharmacy/pharmacistFree text DxA P:Problems:Left carotid stenosisAcute kidney injuryCoronary artery disease status post CABG in 2017HypertensionHyperlipidemiaDiabetes mellitusBPHHypothyroidism PlanNeuro at baseline. Melatonin at bedtime for insomniaPatient will go for left carotid enterectomy today by follow-up postoperativelyBlood pressure control with amlodipine, clonidine, hydralazineAspirin, statinNo oxygen requirements, keep SpO2 above 92%Monitor renal function. I/0. Monitor and replete electrolytes as neededOn Proscar and Flomax for BPH.Followed by renal, juan Gary RenvelaKeep n.p.o.Glycemic control with ISS.. A1c 7.7. Home dose levothyroxineMonitor for signs and symptoms of infection. UA doneMobility as toleratedAppreciate your kind consult. ICC will followDispo: CCU. Patient is a full code35 minutes of critical care spent DVT prophylaxis: SCDs at 1737 RPT #:[id number] OF REPORTVGUtqlkespxpii8771-05-54K91:49:00G.PDOC2 [id number] for patient cmssNRGFRWWXSKZBOL8054-85-64N20:37:53 [facility] 2023-09-15 11:55:00 [id number] A5O4u1SLbyDtjinvx6dBQzD02dj7x g9PgucImeWrjLrYTaSIx1W6+SYA7489-59-11H04:55:00 [facility])Nephrology Progress NoteREPORT#:[id number] REPORT STATUS: SignedREPORT INITIALIZATION DATE:09/15/23 TIME: 115 PATIENT: ZACKARY KIM UNIT #: [id number]#: [id number] [address] [birth year] AGE: 68 SEX: M ATTEND: Oneal Mena MDADM AUTHOR: Hu Lott MDREPT SERVICE DT/TIME: 09/15/23 1155* ALL edits or amendments must be made on the electronic/computer document * SubjectiveComments:Data and notes, reviewedDw pt and his , bedside Awake, supine, nadNo chf sxs awaiting CEA Review of SystemsConstitutional:Denies: fever. Respiratory:Denies: SIMS (dyspnea on exertion), hemoptysis, non productive cough, SOB. Cardiovascular:Denies: chest pain, edema. GI:Denies: abdominal pain, nausea. :Denies: dysuria, flank pain. Heme:Denies: bleeding. Neuro:Denies: change in LOC, confusion. Objective GeneralVS/I O:Vital Signs: Date Time Temp Pulse Resp B/P B/P Pulse O2 O2 Flow FiO2 Mean Ox Delivery Rate 09/14 0800 98.6 09/14 0400 97.9 09/14 0000 98.1 09/14 1999 98.4 09/13 1451 97.9 67 12 156/72 100.2 97 Room air 24 hour I O ending at 0700: 09/14 0700 09/13 1900 Intake Total Output Total 900 Balance -900 Output, Urine 900 PATIENT WEIGHT: Weight (lb): Weight (oz): Weight (kg): 75.909 Physical ExamGeneral appearance: alert, awake, oriented, no acute distress, pleasant, conversational, mental status normal, no respiratory distressHead/eyes: atraumatic, clear cornea, EOMIENT: moist mucous membranesNeck: non-tender, supple/no meningismus, no JVDCardiovascular: regular rate and rhythmRespiratory: aerating well, symmetric expansion, no distressAbdomen: non-tender, soft, no distentionExtremities: no edemaNeuro/FEED PROJECT ENGINEER: alert, oriented X 3, normal speechSkin: intactPsychiatry: normal affect, no hallucinations ResultsResults: labs reviewed, vital signs reviewed, vital signs stable Diagnosis, Assessment PlanFree Text A P:Nonoliguric, Dedrick Improved azotemia, baseline. MonitorCKD 4, baseline Sl hyperkalemia ResolvedStable hco3/Hx met acidosis +PO Na cby9Dkpitmdpomx volume statusAnemia Sl decreased hgb MonitorHypertension Plan: Serial indicesEsa rx and check iron storesPo renvela/monitor phoshold Lokelma and monitor K+Renal dietBp rx, in progress No indications for dialysis, presentlyCEA scheduled for todayConsultants: cardiology, cardiovascular surgery, nephrologyPlan discussed with: patient, spouse/partner, pharmacy/pharmacist at 1157 RPT #:[id number] OF REPORTPRProgress hngq2511-79-76Y07:55:00G.[id number] able for patient kyjmNVRQQPUUYUKRJE2011-41-94B98:58:02 [facility] 2023-09-15 10:30:00 [id number] Rl9XkyvWtoNpZyvPZPEApn3a4fzcK ua5sZp3BQOQOuNvdMEN90P/3eP58084-23-04A89:30:00 [facility] ([facility])Hospitalist Progress NoteREPORT#:[id number] REPORT STATUS: SignedREPORT INITIALIZATION DATE:09/15/23 TIME: 1030 PATIENT: ZACKARY KIM UNIT #: [id number]#: [id number] [address] [birth year] AGE: 68 SEX: M ATTEND: Oneal Mena MDADM AUTHOR: Annelise Jara MDREPT SERVICE DT/TIME: 09/15/23 1030* ALL edits or amendments must be made on the electronic/computer document * SubjectiveChief complaint:he is seen . he may have surgery today HPI:68 year old male with history of CAD, HTN, BPH, and hypothyroidism who presentedfor surgery with Dr. Cole. Patient reports carotid stenosis on the left side.Denies any dizziness or headaches. Found with DEDRICK with creatinine of 4 and hypomagnesemia. Admitted with nephrology and cardiothoracic surgeon consult. Currently NPO. Review of SystemsAll systems rev neg: except as noted Objective GeneralVS/I O:Vital Signs: Date Time Temp Pulse Resp B/P B/P Pulse O2 O2 Flow FiO2 Mean Ox Delivery Rate 09/14 0800 37.0 09/14 0400 36.6 09/14 0000 36.7 09/13 2000 36.9 09/13 1451 36.6 67 12 156/72 100.2 97 Room air 09/13 1054 36.6 62 12 141/61 87.3 96 Room air 24 hour I O ending at 0700: 09/14 0700 09/13 1900 Intake Total Output Total 900 Balance -900 Output, Urine 900 PATIENT WEIGHT: Weight (lb): Weight (oz): Weight (kg): 75.909 Medications:Active Meds + DC'd Last 24 HrsAspirin (ASPIRIN) 81 MG DAILY PO Clopidogrel Bisulfate (Plavix) 75 MG DAILY PO Lidocaine HCl (XYLOCAINE IV) 0 .STK-MED ONE IV (DC) Thrombin (RECOTHROM) 0 .STK-MED ONE TOPICAL (DC) Docusate Sodium (COLACE) 100 MG BID PO Mupirocin (BACTROBAN 2% 22 GM OINTMENT) 1 APPLIC BID NASAL Acetaminophen (TYLENOL) 650 MG Q4H PRN PRN PO Acetaminophen (TYLENOL) 650 MG Q4H PRN PRN PO Acetaminophen (TYLENOL) 650 MG Q4H PRN PRN RECTAL Bisacodyl (DULCOLAX) 10 MG DAILY PRN PRN RECTAL Hydralazine HCl (APRESOLINE) 10 MG Q6H PRN PRN IV Magnesium Hydroxide (MILK OF MAGNESIA) 30 ML Q6H PRN PRN PO Ondansetron HCl (ZOFRAN) 4 MG Q6H PRN PRN IV Cefazolin Sodium (KEFZOL OR ANCEF) 1 GM PREOP ONCALL IV (CKD) Sodium Chloride (SODIUM CHLORIDE) 10 MLMagnesium Oxide (MAG-OX 400) 400 MG BID PO (DC) Sevelamer Carbonate (RENVELA) 800 MG C MEALS PO Dextrose/Water (DEXTROSE 10% IN WATER) 125 ML ASDIR PRN IV (CKD) Dextrose/Water (DEXTROSE 10% IN WATER) 250 ML ASDIR PRN IV (CKD) Glucagon (GLUCAGON) 1 MG ASDIR PRN IM Sodium Zirconium Cyclosilicate (Lokelma) 10 GM DAILY PO Ezetimibe (ZETIA) 10 MG DAILY PO Finasteride (PROSCAR) 5 MG DAILY PO Isosorbide Mononitrate (Imdur 60 mg) 60 MG DAILY PO Oxybutynin Chloride (DITROPAN) 5 MG DAILY PO Levothyroxine Sodium (SYNTHROID) 125 MCG 0600 PO Melatonin (Melatonin) 6 MG BEDTIME PRN PO Hydralazine HCl (APRESOLINE) 5 MG Q6H PRN PRN IV (DC) Atenolol (TENORMIN) 50 MG BID PO Atorvastatin Calcium (LIPITOR) 20 MG 2100 PO Clonidine HCl (CATAPRES) 0.2 MG TID PO Sodium Bicarbonate (SODIUM BICARBONATE) 1,300 MG BID PO Tamsulosin HCl (Flomax 0.4 mg) 0.4 MG BID PO Insulin Human Lispro (HUMALOG) 0 AC HS SUBQ Hydralazine HCl (APRESOLINE) 100 MG TID PO Amlodipine Besylate (NORVASC) 10 MG DAILY PO Physical ExamGeneral appearance: alert, awake, orientedHead/Eyes: atraumatic, normocephalicNeck: supple/no meningismusCardiovascular: normal heart sounds, regular rate rhythmRespiratory: clear to auscultation, symmetric expansionAbdomen: non-tender, softExtremities: moves all, no clubbing, no cyanosis, no edemaMusculoskeletal: normal inspectionNeuro/FEED PROJECT ENGINEER: alert, oriented X 3, normal speechSkin: normal color, normal temperaturePsychiatry: normal affect, normal judgment/insight, normal mood ResultsFindings/Data:Laboratory Tests 09/14 09/13 09/13 09/13 0620 2052 1452 1055 Chemistry Sodium (134 - 147 mEq/L) 138 Potassium (3.4 - 5.0 mEq/L) 4.0 Chloride (100 - 108 mEq/L) 105 Carbon Dioxide (21 - 33 mEq/l) 22 Anion Gap (0 - 20) 15 BUN (7 - 25 mg/dL) 67 H Creatinine (0.6 - 1.3 mg/dL) 3.1 H Glomerular Filtr Rate (70 - 80) 20.8 L Glucose (77 - 141 mg/dL) 125 POC Glucose (70 - 110 MG/DL) 221 H 118 H 119 H Calcium (8.0 - 10.5 mg/dL) 7.5 L Phosphorus (2.5 - 4.9 MG/DL) 4.3 Albumin (3.4 - 5.0 g/dL) 2.70 L Laboratory Tests 09/14 0620 Hematology WBC (4.5 - 11.0 x10 3/uL) 5.7 RBC (4.00 - 5.60 x10 6/uL) 3.32 L Hgb (12.5 - 16.9 g/dL) 9.8 L Hct (37.5 - 50.7 %) 28.7 L MCV (81.0 - 99.0 fL) 86.4 MCH (27.0 - 33.0 pg) 29.5 MCHC (33.0 - 37.0 g/dL) 34.1 RDW (11.5 - 14.5 %) 13.3 Plt Count (150 - 400 x10 3/uL) 156 MPV (7.0 - 9.0 fL) 10.8 H Neut % (Auto) (56.0 - 77.0 %) 68.0 Lymph % (Auto) (14.0 - 32.0 %) 12.2 L [place] % (Auto) (4.8 - 9.0 %) 10.2 H Eos % (Auto) (0.3 - 3.7 %) 8.1 H Baso % (Auto) (0.0 - 2.0 %) 1.1 Neut # (Auto) (2.0 - 7.6 x10 3/uL) 3.86 Lymph # (Auto) (1.0 - 3.8 x10 3/uL) 0.69 L [place] # (Auto) (0.1 - 0.8 x10 3/uL) 0.58 Eos # (Auto) (0.0 - 0.2 x10 3/uL) 0.46 H Baso # (Auto) (0.0 - 0.2 x10 3/uL) 0.06 Abs Immat Gran (auto) (0.00 - 0.03 x10 3/uL) 0.02 Immature Gran % (0.0 - 2.0 %) 0.4 Nucleated RBC % (0 - 0 %) 0.0 Nucleated RBCs # (Man) (0.0 - 0.1 x10 3/uL) 0.00 Diagnosis, Assessment PlanConsultants: cardiology, cardiovascular surgery, nephrology Free Text DxA P NotesFree text DxA P notes:Impression/Plan:- Left carotid stenosis- DEDRICK- Hypomanesemia- Hypertensive heart disease- CAD- BPH- Hypothyroidism Nephrology consult for DEDRICK.Hold diuretics.Avoid nephrotoxic meds.Mag was replaced.Repeat labs in the AM.Resume home antihypertensive meds. Uncontrolled BP.Surgery per consult. 09/12-- he feel well -- HTN -- not well control manage as cardiology adjust medication as cardiology - replace mag as nephrology no HD need now 09/13- he is seen. - surgery today -- monitor BP and renal function -- continue current medication 09/14-- he is seen -- surgery postpone today at 163 RPT #:[id number] OF REPORTPRProgress [id number]:30:00G.[id number] able for patient cbinEEQCZYYCICTFUA3060-12-38S41:40:01 [facility] 2023-09-14 13:14:00 [id number] i24TJ6ZmWZgVNWR3T9UbtExC4vvkI Ad5rBKketFV4k8vQ+BMwb/BJT/j8839-53-37J20:14:00 [facility] CenterHospitalist Progress NoteREPORT#:[id number] REPORT STATUS: SignedREPORT INITIALIZATION DATE:09/14/23 TIME: 131 PATIENT: ZACKARY KIM UNIT #: [id number]#: [id number] [address] [birth year] AGE: 68 SEX: M ATTEND: Oneal Mena MDADM AUTHOR: Annelise Jara MDREPT SERVICE DT/TIME: 09/14/23 1314* ALL edits or amendments must be made on the electronic/computer document * SubjectiveChief complaint:he feel well . no complaint surgery -- todayHPI:68 year old male with history of CAD, HTN, BPH, and hypothyroidism who presentedfor surgery with Dr. Cole. Patient reports carotid stenosis on the left side.Denies any dizziness or headaches. Found with DEDRICK with creatinine of 4 and hypomagnesemia. Admitted with nephrology and cardiothoracic surgeon consult. Currently NPO. Review of SystemsAll systems rev neg: except as noted Objective GeneralVS/I O:Vital Signs: Date Time Temp Pulse Resp B/P B/P Pulse O2 O2 Flow FiO2 Mean Ox Delivery Rate 09/13 1451 36.6 67 12 156/72 100.2 97 Room air 09/13 1054 36.6 62 12 141/61 87.3 96 Room air 09/13 0638 37.0 61 12 187/77 113.6 97 Room air 09/13 0444 36.7 61 15 172/72 105.5 97 09/12 2352 36.8 61 15 162/74 103 98 09/12 1918 36.3 57 15 167/76 106.5 98 PATIENT WEIGHT: Weight (lb): Weight (oz): Weight (kg): 75.909 Medications:Active Meds + DC'd Last 24 HrsCefazolin Sodium (KEFZOL OR ANCEF) 1 GM PREOP ONCALL IV (CKD) Sodium Chloride (SODIUM CHLORIDE) 10 MLMagnesium Oxide (MAG-OX 400) 400 MG BID PO Sevelamer Carbonate (RENVELA) 800 MG C MEALS PO Dextrose/Water (DEXTROSE 10% IN WATER) 125 ML ASDIR PRN IV (CKD) Dextrose/Water (DEXTROSE 10% IN WATER) 250 ML ASDIR PRN IV (CKD) Glucagon (GLUCAGON) 1 MG ASDIR PRN IM Sodium Zirconium Cyclosilicate (Lokelma) 10 GM DAILY PO Ezetimibe (ZETIA) 10 MG DAILY PO Finasteride (PROSCAR) 5 MG DAILY PO Isosorbide Mononitrate (Imdur 60 mg) 60 MG DAILY PO Oxybutynin Chloride (DITROPAN) 5 MG DAILY PO Levothyroxine Sodium (SYNTHROID) 125 MCG 0600 PO Melatonin (Melatonin) 6 MG BEDTIME PRN PO Hydralazine HCl (APRESOLINE) 5 MG Q6H PRN PRN IV Atenolol (TENORMIN) 50 MG BID PO Atorvastatin Calcium (LIPITOR) 20 MG 2100 PO Clonidine HCl (CATAPRES) 0.2 MG TID PO Sodium Bicarbonate (SODIUM BICARBONATE) 1,300 MG BID PO Tamsulosin HCl (Flomax 0.4 mg) 0.4 MG BID PO Insulin Human Lispro (HUMALOG) 0 AC HS SUBQ Hydralazine HCl (APRESOLINE) 100 MG TID PO Amlodipine Besylate (NORVASC) 10 MG DAILY PO Physical ExamGeneral appearance: alert, awake, orientedHead/Eyes: atraumatic, normocephalicNeck: supple/no meningismusCardiovascular: normal heart sounds, regular rate rhythmRespiratory: clear to auscultation, symmetric expansionAbdomen: non-tender, softExtremities: moves all, no clubbing, no cyanosis, no edemaMusculoskeletal: normal inspectionNeuro/FEED PROJECT ENGINEER: alert, oriented X 3, normal speechSkin: normal color, normal temperaturePsychiatry: normal affect, normal judgment/insight, normal mood ResultsFindings/Data:Laboratory Tests 03/09/13 1452 0636 0545 0545 2048 Chemistry Sodium (134 - 147 mEq/L) 136 Potassium (3.4 - 5.0 mEq/L) 4.6 Chloride (100 - 108 mEq/L) 104 Carbon Dioxide (21 - 33 mEq/l) 21 Anion Gap (0 - 20) 16 BUN (7 - 25 mg/dL) 69 H Creatinine (0.6 - 1.3 mg/dL) 3.3 H Glomerular Filtr Rate (70 - 80) 19.3 L Glucose (77 - 141 mg/dL) 113 POC Glucose (70 - 110 MG/DL) 118 H 114 H 134 H Hemoglobin A1c (4.8 - 6.0 %A1C) 7.7 H Calcium (8.0 - 10.5 mg/dL) 8.0 Phosphorus (2.5 - 4.9 MG/DL) 5.2 H Magnesium (1.6 - 2.6 mg/dL) 1.55 L Albumin (3.4 - 5.0 g/dL) 3.00 L Laboratory Tests 09/13 0939 Serology SARS-CoV-2 Ag (Rapid) (Negative) Negative Diagnosis, Assessment PlanConsultants: cardiology, cardiovascular surgery, nephrology Free Text DxA P NotesFree text DxA P notes:Impression/Plan:- Left carotid stenosis- DEDRICK- Hypomanesemia- Hypertensive heart disease- CAD- BPH- Hypothyroidism Nephrology consult for DEDRICK.Hold diuretics.Avoid nephrotoxic meds.Mag was replaced.Repeat labs in the AM.Resume home antihypertensive meds. Uncontrolled BP.Surgery per consult. 09/12-- he feel well -- HTN -- not well control manage as cardiology adjust medication as cardiology - replace mag as nephrology no HD need now 09/13- he is seen. - surgery today -- monitor BP and renal function -- continue current medication at 6509 [facility] #:[id number] OF REPORTPRProgress [id number]:14:00G.[id number] able for patient dsydQQHRXVGWBDUZDU9930-52-72O22:52:25 [facility] 2023-09-14 11:19:00 [id number] 7UnnTPshjf1sIwLT0+olKtkyLmcZ3 ilyq2uyzCQRpVYjuD1gYe2d/sGT1888-94-13R38:19:00 [facility] ([facility])Nephrology Progress NoteREPORT#:[id number] REPORT STATUS: SignedREPORT INITIALIZATION DATE:09/14/23 TIME: 111 PATIENT: ZACKARY KIM UNIT #: [id number]#: [id number] [address] [birth year] AGE: 68 SEX: M ATTEND: Oneal Mena MDADM AUTHOR: Hu Lott MDREPT SERVICE DT/TIME: 09/14/23 111* ALL edits or amendments must be made on the electronic/computer document * SubjectiveComments:Data and notes, reviewed Dw ptAlert, supine, nad Review of SystemsConstitutional:Denies: fever. Respiratory:Denies: SIMS (dyspnea on exertion), hemoptysis, non productive cough, productive cough (sputum), SOB. Cardiovascular:Denies: chest pain. GI:Denies: abdominal pain, nausea. :Denies: flank pain, hematuria. Heme:Denies: bleeding. Neuro:Denies: change in LOC, confusion. Objective GeneralVS/I O:Vital Signs: Date Time Temp Pulse Resp B/P B/P Pulse O2 O2 Flow FiO2 Mean Ox Delivery Rate 09/13 1054 97.9 62 12 141/61 87.3 96 Room air 09/13 0638 98.6 61 12 187/77 113.6 97 Room air 09/13 0444 98.1 61 15 172/72 105.5 97 09/12 2352 98.2 61 15 162/74 103 98 09/12 1918 97.3 57 15 167/76 106.5 98 09/12 1524 95.7 60 16 158/69 98.6 98 PATIENT WEIGHT: Weight (lb): Weight (oz): Weight (kg): 75.909 Physical ExamGeneral appearance: alert, awake, oriented, no acute distress, pleasant, mental status normal, no respiratory distressHead/eyes: atraumatic, clear cornea, EOMIENT: moist mucous membranesNeck: non-tender, supple/no meningismus, no JVDCardiovascular: regular rate and rhythmRespiratory: aerating well, symmetric expansion, no distressAbdomen: non-tender, soft, no distentionExtremities: no edemaNeuro/FEED PROJECT ENGINEER: alert, oriented X 3, normal speechSkin: intactPsychiatry: normal affect, no hallucinations ResultsResults: labs reviewed, vital signs reviewed, vital signs stable Diagnosis, Assessment PlanFree Text A P:Nonoliguric, Dedrick Improved azotemia, baseline. 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 hyperkalemia ResolvedStable hco3/Hx met acidosis +PO Na mkr3Syjxtzrpeai volume statusAnemia Stable hgb MonitorHypertension Plan: Serial indicesPo renvela/monitor phosLokelma, daily Monitor K+Renal dietPo Mg ++ MonitorBp rx, in progress No indications for dialysis, presentlyCEA scheduledConsultants: cardiology, cardiovascular surgery, nephrologyPlan discussed with: patient at 1123 RPT #:[id number] OF REPORTPRProgress [id number]:19:00G.[id number] able for patient ingzJSUMUHJJNGQJJX6288-37-20N45:23:20 [facility] 2023-09-14 08:52:00 [id number] Y9uSDbrdT52vPuN8s+VhDmIc8uwyu wrX6ViiqpSMHqz102hUVWMsXDaf2642-07-76T05:52:00 [facility])Cardiothoracic Surgery ProgREPORT#:[id number] REPORT STATUS: SignedREPORT INITIALIZATION DATE:09/14/23 TIME: 851 PATIENT: ZACKARY KIM UNIT #: [id number]#: [id number] [address] [birth year] AGE: 68 SEX: M ATTEND: Oneal Mena AUTHOR: Chantal Cole MDREPT SERVICE DT/TIME: 09/14/23 0852* ALL edits or amendments must be made on the electronic/computer document * SubjectiveChief complaint:abnormal labs Review of SystemsConstitutional:Denies: chills, fatigue, fever. Skin:Denies: abrasion, bruising, diaphoresis. Allergy/Immun:Denies: allergic reaction, anaphylaxis, hives. Eyes:Denies: redness, discharge, visual loss/blurred. Cardiovascular:Denies: chest pain, palpitations. GI:Denies: abdominal pain, nausea, rectal pain. Heme:Denies: adenopathy, bleeding, bruising. All systems rev neg: except as marked Objective GeneralVS/I OLast Documented: Result Date Time Pulse Ox 97 09/13 637 B/P 187/77 09/13 637 B/P Mean 113.6 09/13 637 O2 Delivery Room air 09/13 637 Temp 37.0 09/13 637 Pulse 61 09/13 637 Resp 12 09/13 637 PATIENT WEIGHT: Weight (lb): Weight (oz): Weight (kg): 75.909 Dietitian Nutrition assessmentThe data set between the solid lines has been imported from the dietitian's assessment. BMI Calculated: 27.0Nutrition related diagnosis: Nutrition diagnosis details: Nutrition problem: Nutrition etiology: Nutrition signs and symptoms: Nutrition prescription: Dietitian name: Assessment completed: Physical ExamGeneral appearance: alert, awake, orientedHEENT: anicteric, mucosal membranes moist, pupils reactive to lightNeck: full range of motion, non-tenderCardiovascular: normal heart sounds, regular rate rhythmRespiratory: aerating well, symmetric expansion, no distressAbdomen: soft, non-tenderGenitourinary: no bladder distention, no flank pain, no foleyExtremities: dry, moves all, normal capillary refillMusculoskeletal: full range of motion, painless range of motionNeuro/FEED PROJECT ENGINEER: alert, oriented X 3Skin: dry, intactPsychiatry: normal affect, normal mood Current MedicationsMedications:Active Meds + DC'd Last 24 HrsCefazolin Sodium (KEFZOL OR ANCEF) 1 GM PREOP ONCALL IV (CKD) Sodium Chloride (SODIUM CHLORIDE) 10 MLMagnesium Oxide (MAG-OX 400) 400 MG BID PO Sevelamer Carbonate (RENVELA) 800 MG C MEALS PO Dextrose/Water (DEXTROSE 10% IN WATER) 125 ML ASDIR PRN IV (CKD) Dextrose/Water (DEXTROSE 10% IN WATER) 250 ML ASDIR PRN IV (CKD) Glucagon (GLUCAGON) 1 MG ASDIR PRN IM Magnesium Sulfate (MAGNESIUM SULFATE 2GM/SWFI 50ML) 50 ML ONCE ONE IV (CAN) Sodium Polystyrene Sulfonate (KAYEXELATE) 30 GM ONCE ONE PO (CAN) Sodium Zirconium Cyclosilicate (Lokelma) 10 GM DAILY PO Amlodipine Besylate (NORVASC) 10 MG DAILY PO (DC) Ezetimibe (ZETIA) 10 MG DAILY PO Finasteride (PROSCAR) 5 MG DAILY PO Isosorbide Mononitrate (Imdur 60 mg) 60 MG DAILY PO Oxybutynin Chloride (DITROPAN) 5 MG DAILY PO Levothyroxine Sodium (SYNTHROID) 125 MCG 0600 PO Melatonin (Melatonin) 6 MG BEDTIME PRN PO Hydralazine HCl (APRESOLINE) 5 MG Q6H PRN PRN IV Atenolol (TENORMIN) 50 MG BID PO Atorvastatin Calcium (LIPITOR) 20 MG 2100 PO Clonidine HCl (CATAPRES) 0.2 MG TID PO Sodium Bicarbonate (SODIUM BICARBONATE) 1,300 MG BID PO Tamsulosin HCl (Flomax 0.4 mg) 0.4 MG BID PO Insulin Human Lispro (HUMALOG) 0 AC HS SUBQ Hydralazine HCl (APRESOLINE) 100 MG TID PO Amlodipine Besylate (NORVASC) 10 MG DAILY PO ResultsFindings/Data:Laboratory Tests 09/13 09/13 09/13 09/12 09/12 0636 0545 0545 2048 1521 Chemistry Sodium (134 - 147 mEq/L) 136 Potassium (3.4 - 5.0 mEq/L) 4.6 Chloride (100 - 108 mEq/L) 104 Carbon Dioxide (21 - 33 mEq/l) 21 Anion Gap (0 - 20) 16 BUN (7 - 25 mg/dL) 69 H Creatinine (0.6 - 1.3 mg/dL) 3.3 H Glomerular Filtr Rate (70 - 80) 19.3 L Glucose (77 - 141 mg/dL) 113 POC Glucose (70 - 110 MG/DL) 114 H 134 H 156 H Hemoglobin A1c (4.8 - 6.0 %A1C) 7.7 H Calcium (8.0 - 10.5 mg/dL) 8.0 Phosphorus (2.5 - 4.9 MG/DL) 5.2 H Magnesium (1.6 - 2.6 mg/dL) 1.55 L Albumin (3.4 - 5.0 g/dL) 3.00 L 09/12 1101 Chemistry POC Glucose (70 - 110 MG/DL) 152 H Results: labs reviewed, vital signs stable, keelym personally rev'd, current med profile rev'd Diagnosis, Assessment PlanHospital course to date:This is a very pleasant 68-year-old gentleman with a past medical history of hypertension, hyperlipidemia, diabetes, coronary artery disease status post coronary artery bypass graft surgery in 2017, BPH who went for routine checkup 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 A carotid Doppler was completed showing evidence of bilateral carotid stenosis. Subsequently a carotid angiogram was completed showing a left carotid stenosis of 80% with 40% noted on the right. Patient denies any send dizziness, syncope, shortness of breath. Patient will benefit from left carotid endarterectomy. Patient had preop workup done which showed abnormal labs so I asked the patient to come to the emergency room for further evaluation. I am planning for patient to have left carotid endarterectomy after abnormal labs are taken care of.Appreciate renal inputFollow labsFurther recommendations to follow 09/13/23Patient doing well, denies any complaintsLabs reviewed, creatinine trending down 3.5 todayWill contact patient's outpatient environmental services project manager for baseline creatinineTolerating dietPlan of care discussed with patient, all questions were answered 09/14/23Patient alert, awake, and oriented, denies any complaintsCreatinine 3.3, at baseline creatinine, nephrology clearedI will proceed with left carotid endarterectomy today, NPOHave explained to the patient the procedure, risk involved, benefits, alternatives, and complications. Patient acknowledges understanding and willingto proceed. Patient will have left CEA today. All questions were answered Do to an unforseen emergency, patient's case was postponed and will be done first in the morning.I explained to the pateint and he is understandable Consultants: cardiology, cardiovascular surgery, nephrology at 1026 RPT #:[id number] OF REPORTPRProgress [id number]:52:00G.[id number] able for patient tqnpXOVHYCAINDCZXC6164-65-70G62:27:05 [facility] 2023-09-13 13:00:00 [id number] czegvTdNd4jP3q7LGYjlJCeO/HDRZ JoVFbtRavpDZkpFM1p9ppNLJmm49246-45-58N25:00:00 [facility] Progress NoteREPORT#:[id number] REPORT STATUS: SignedREPORT INITIALIZATION DATE:09/13/23 TIME: 1300 PATIENT: ZACKARY KIM UNIT #: [id number]#: [id number] [address] [birth year] AGE: 68 SEX: M ATTEND: Oneal Mena AUTHOR: Hu Lott MDREPT SERVICE DT/TIME: 09/13/23 1300* ALL edits or amendments must be made on the electronic/computer document * SubjectiveComments:Data and notes, reveiwed Dw pt and his , bedside alert, supine, nadNo chf sxsS-p Iv Ns Review of SystemsConstitutional:Denies: fever. Respiratory:Denies: SIMS (dyspnea on exertion), hemoptysis, non productive cough, productive cough (sputum), SOB. Cardiovascular:Denies: chest pain, parox nocturnal dyspnea. GI:Denies: abdominal pain, nausea. :Denies: flank pain, hematuria. Heme:Denies: bleeding. Neuro:Denies: change in LOC, confusion. Objective GeneralVS/I O:Vital Signs: Date Time Temp Pulse Resp B/P B/P Pulse O2 O2 Flow FiO2 Mean Ox Delivery Rate 09/12 1101 98.4 62 16 136/75 95.2 97 Room air 09/12 0752 98.2 68 16 183/81 115.1 97 09/12 0549 63 159/77 104.3 09/12 0411 98.1 66 14 174/77 109.5 97 09/12 0059 76 157/76 102.7 09/11 2308 67 16 184/86 118.9 97 09/11 2047 98.2 69 16 176/83 114.3 97 09/11 1446 97.7 74 14 195/97 129.5 98 Room air 09/11 1414 65 18 188/60 102 24 hour I O ending at 0700: 09/12 0700 09/11 1900 Intake Total 710.00 Output Total 600 Balance 710.00 -600 Intake, IV 500.00 Intake, Oral 210 Number Voids 4 Output, Urine 600 PATIENT WEIGHT: Weight (lb): Weight (oz): Weight (kg): 75.909 Physical ExamGeneral appearance: alert, awake, oriented, no acute distress, pleasant, conversational, mental status normal, no respiratory distressHead/eyes: atraumatic, clear cornea, EOMIENT: moist mucous membranesNeck: non-tender, supple/no meningismus, no JVDCardiovascular: regular rate and rhythmRespiratory: aerating well, symmetric expansion, no distressAbdomen: non-tender, soft, no distentionExtremities: no edemaNeuro/FEED PROJECT ENGINEER: alert, oriented X 3, normal speechSkin: intactPsychiatry: normal affect, no hallucinations ResultsResults: labs reviewed, vital signs reviewed, vital signs stable Diagnosis, Assessment PlanFree Text A P:Nonoliguric, Dedrick Improved azotemia 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 hyperkalemiaStable hco3/Hx met acidosis +PO Na yqh7Yqbbajprwly volume statusAnemia Stable hgb MonitorHypertensionHypomg++Hyperphosphaemia Plan: Serial indicesReplete Mg++Po renvela/monitor phosLokelma, daily Monitor K+Renal dietBp rx, in progress No indications for dialysis, presentlyPlan discussed with: patient, spouse/partner at 1306 RPT #:[id number] OF REPORTPRProgress alvr1796-12-62N18:00:00G.[id number] able for patient prspCFOAGUJITUHUQW2189-80-12J06:06:53 [facility] 2023-09-13 10:57:00 [id number] [id number] A3YUd3jq42VRQbFoHkLi68PRgGi3428-94-98B18:57:00 [facility] CenterHospital[facility] Progress NoteREPORT#:[id number] REPORT STATUS: SignedREPORT INITIALIZATION DATE:09/13/23 TIME: 105 PATIENT: ZACKARY KIM UNIT #: [id number]#: [id number] [address] [birth year] AGE: 68 SEX: M ATTEND: Oneal Mena MDADM AUTHOR: Annelise Jara MDREPT SERVICE DT/TIME: 09/13/23 1057* ALL edits or amendments must be made on the electronic/computer document * SubjectiveChief complaint:he feel well . BP is not control surgery -- as CV surgeon HPI:68 year old male with history of CAD, HTN, BPH, and hypothyroidism who presentedfor surgery with Dr. Cole. Patient reports carotid stenosis on the left side.Denies any dizziness or headaches. Found with DEDRICK with creatinine of 4 and hypomagnesemia. Admitted with nephrology and cardiothoracic surgeon consult. Currently NPO. Review of SystemsAll systems rev neg: except as noted Objective GeneralVS/I O:Vital Signs: Date Time Temp Pulse Resp B/P B/P Pulse O2 O2 Flow FiO2 Mean Ox Delivery Rate 09/12 0752 36.8 68 16 183/81 115.1 97 09/12 0549 63 159/77 104.3 09/12 0411 36.7 66 14 174/77 109.5 97 09/12 0059 76 157/76 102.7 09/11 2308 67 16 184/86 118.9 97 09/11 2047 36.8 69 16 176/83 114.3 97 09/11 1446 36.5 74 14 195/97 129.5 98 Room air 09/11 1414 65 18 188/60 102 09/11 1233 36.4 71 12 202/88 125.7 98 Room air 09/11 1143 36.4 64 15 177/82 113.9 97 Room air 24 hour I O ending at 0700: 09/12 0700 09/11 1900 Intake Total 710.00 Output Total 600 Balance 710.00 -600 Intake, IV 500.00 Intake, Oral 210 Number Voids 4 Output, Urine 600 PATIENT WEIGHT: Weight (lb): Weight (oz): Weight (kg): 75.909 Medications:Active Meds + DC'd Last 24 HrsAmlodipine Besylate (NORVASC) 10 MG DAILY PO (DC) Ezetimibe (ZETIA) 10 MG DAILY PO Finasteride (PROSCAR) 5 MG DAILY PO Isosorbide Mononitrate (Imdur 60 mg) 60 MG DAILY PO Oxybutynin Chloride (DITROPAN) 5 MG DAILY PO Levothyroxine Sodium (SYNTHROID) 125 MCG 0600 PO Melatonin (Melatonin) 6 MG BEDTIME PRN PO Hydralazine HCl (APRESOLINE) 5 MG Q6H PRN PRN IV Atenolol (TENORMIN) 50 MG BID PO Atorvastatin Calcium (LIPITOR) 20 MG 2100 PO Clonidine HCl (CATAPRES) 0.2 MG TID PO Sodium Bicarbonate (SODIUM BICARBONATE) 1,300 MG BID PO Tamsulosin HCl (Flomax 0.4 mg) 0.4 MG BID PO Insulin Human Lispro (HUMALOG) 0 AC HS SUBQ Sodium Chloride (SODIUM CHLORIDE 0.9%) 500 ML ONCE ONE IV (DC) Sodium Chloride (SODIUM CHLORIDE 0.9%) 500 ML ONCE ONE IV (DC) Hydralazine HCl (APRESOLINE) 100 MG TID PO Amlodipine Besylate (NORVASC) 10 MG DAILY PO Hydralazine HCl (APRESOLINE) 10 MG ONCE ONE IV (DC) Physical ExamGeneral appearance: alert, awake, orientedHead/Eyes: atraumatic, normocephalicNeck: supple/no meningismusCardiovascular: normal heart sounds, regular rate rhythmRespiratory: clear to auscultation, symmetric expansionAbdomen: non-tender, softExtremities: moves all, no clubbing, no cyanosis, no edemaMusculoskeletal: normal inspectionNeuro/FEED PROJECT ENGINEER: alert, oriented X 3, normal speechSkin: normal color, normal temperaturePsychiatry: normal affect, normal judgment/insight, normal mood ResultsFindings/Data:Laboratory Tests 09/12 09/12 09/11 09/11 09/11 0753 0215 2034 1445 1229 Chemistry Sodium (134 - 147 mEq/L) 136 Potassium (3.4 - 5.0 mEq/L) 5.1 H Chloride (100 - 108 mEq/L) 105 Carbon Dioxide (21 - 33 mEq/l) 21 Anion Gap (0 - 20) 15 BUN (7 - 25 mg/dL) 66 H Creatinine (0.6 - 1.3 mg/dL) 3.5 H Glomerular Filtr Rate (70 - 80) 18.0 L Glucose (77 - 141 mg/dL) 136 POC Glucose (70 - 110 MG/DL) 141 H 317 H 194 H 154 H Calcium (8.0 - 10.5 mg/dL) 7.5 L Phosphorus (2.5 - 4.9 MG/DL) 6.2 H Magnesium (1.6 - 2.6 mg/dL) 1.52 L Albumin (3.4 - 5.0 g/dL) 3.00 L Laboratory Tests 09/12 214 Hematology WBC (4.5 - 11.0 x10 3/uL) 7.8 RBC (4.00 - 5.60 x10 6/uL) 3.44 L Hgb (12.5 - 16.9 g/dL) 10.3 L Hct (37.5 - 50.7 %) 29.9 L MCV (81.0 - 99.0 fL) 86.9 MCH (27.0 - 33.0 pg) 29.9 MCHC (33.0 - 37.0 g/dL) 34.4 RDW (11.5 - 14.5 %) 13.7 Plt Count (150 - 400 x10 3/uL) 176 MPV (7.0 - 9.0 fL) 10.8 H Neut % (Auto) (56.0 - 77.0 %) 71.9 Lymph % (Auto) (14.0 - 32.0 %) 11.5 L [place] % (Auto) (4.8 - 9.0 %) 9.2 H Eos % (Auto) (0.3 - 3.7 %) 6.2 H Baso % (Auto) (0.0 - 2.0 %) 0.8 Neut # (Auto) (2.0 - 7.6 x10 3/uL) 5.58 Lymph # (Auto) (1.0 - 3.8 x10 3/uL) 0.89 L [place] # (Auto) (0.1 - 0.8 x10 3/uL) 0.71 Eos # (Auto) (0.0 - 0.2 x10 3/uL) 0.48 H Baso # (Auto) (0.0 - 0.2 x10 3/uL) 0.06 Abs Immat Gran (auto) (0.00 - 0.03 x10 3/uL) 0.03 Immature Gran % (0.0 - 2.0 %) 0.4 Nucleated RBC % (0 - 0 %) 0.0 Nucleated RBCs # (Man) (0.0 - 0.1 x10 3/uL) 0.00 Diagnosis, Assessment PlanConsultants: cardiology, cardiovascular surgery, nephrology Free Text DxA P NotesFree text DxA P notes:Impression/Plan:- Left carotid stenosis- DEDRICK- Hypomanesemia- Hypertensive heart disease- CAD- BPH- Hypothyroidism Nephrology consult for DEDRICK.Hold diuretics.Avoid nephrotoxic meds.Mag was replaced.Repeat labs in the AM.Resume home antihypertensive meds. Uncontrolled BP.Surgery per consult. 09/12-- he feel well -- HTN -- not well control manage as cardiology adjust medication as cardiology - replace mag as nephrology no HD need now at 1423 RPT #:[id number] OF REPORTPRProgress krpd5131-81-51K49:57:00G.[id number] able for patient ehsuAQOOWQNYLOPSEZ7113-38-10Y58:23:37 [facility] 2023-09-13 09:57:00 [id number] 2r/l8kn8ohVpdSKV1I/3vJ4ikp70686-55-81E77:57:00 [facility])Cardiothoracic Surgery ProgREPORT#:[id number] REPORT STATUS: SignedREPORT INITIALIZATION DATE:09/13/23 TIME: 956 PATIENT: ZACKARY KIM UNIT #: [id number]#: [id number] [address] [birth year] AGE: 68 SEX: M ATTEND: Oneal Mena MDADM AUTHOR: Chantal Cole MDREPT SERVICE DT/TIME: 09/13/23956* ALL edits or amendments must be made on the electronic/computer document * SubjectiveChief complaint:abnormal labs Review of SystemsConstitutional:Denies: chills, fatigue, fever. Skin:Denies: abrasion, bruising, diaphoresis. Allergy/Immun:Denies: allergic reaction, anaphylaxis, hives. Eyes:Denies: redness, discharge, visual loss/blurred. Cardiovascular:Denies: chest pain, palpitations. GI:Denies: abdominal pain, nausea, rectal pain. Heme:Denies: adenopathy, bleeding, bruising. All systems rev neg: except as marked Objective GeneralVS/I OLast Documented: Result Date Time Pulse Ox 97 09/12 075 B/P 183/81 09/13 751 B/P Mean 115.1 09/13 751 Temp 36.8 09/12 075 Pulse 68 09/12 075 Resp 16 09/12 075 O2 Delivery Room air 09/11 1446 24 hour I O ending at 0700: 09/12 0700 09/11 1900 Intake Total 710.00 Output Total 600 Balance 710.00 -600 Intake, IV 500.00 Intake, Oral 210 Number Voids 4 Output, Urine 600 PATIENT WEIGHT: Weight (lb): Weight (oz): Weight (kg): 75.909 Dietitian Nutrition assessmentThe data set between the solid lines has been imported from the dietitian's assessment. BMI Calculated: 27.0Nutrition related diagnosis: Nutrition diagnosis details: Nutrition problem: Nutrition etiology: Nutrition signs and symptoms: Nutrition prescription: Dietitian name: Assessment completed: Physical ExamGeneral appearance: alert, awake, orientedHEENT: anicteric, mucosal membranes moist, pupils reactive to lightNeck: full range of motion, non-tenderCardiovascular: normal heart sounds, regular rate rhythmRespiratory: aerating well, symmetric expansion, no distressAbdomen: soft, non-tenderGenitourinary: no bladder distention, no flank pain, no foleyExtremities: dry, moves all, normal capillary refillMusculoskeletal: full range of motion, painless range of motionNeuro/FEED PROJECT ENGINEER: alert, oriented X 3Skin: dry, intactPsychiatry: normal affect, normal mood Current MedicationsMedications:Active Meds + DC'd Last 24 HrsAmlodipine Besylate (NORVASC) 10 MG DAILY PO (DC) Ezetimibe (ZETIA) 10 MG DAILY PO Finasteride (PROSCAR) 5 MG DAILY PO Isosorbide Mononitrate (Imdur 60 mg) 60 MG DAILY PO Oxybutynin Chloride (DITROPAN) 5 MG DAILY PO Levothyroxine Sodium (SYNTHROID) 125 MCG 0600 PO Melatonin (Melatonin) 6 MG BEDTIME PRN PO Hydralazine HCl (APRESOLINE) 5 MG Q6H PRN PRN IV Atenolol (TENORMIN) 50 MG BID PO Atorvastatin Calcium (LIPITOR) 20 MG 2100 PO Clonidine HCl (CATAPRES) 0.2 MG TID PO Sodium Bicarbonate (SODIUM BICARBONATE) 1,300 MG BID PO Tamsulosin HCl (Flomax 0.4 mg) 0.4 MG BID PO Insulin Human Lispro (HUMALOG) 0 AC HS SUBQ Sodium Chloride (SODIUM CHLORIDE 0.9%) 500 ML ONCE ONE IV (DC) Sodium Chloride (SODIUM CHLORIDE 0.9%) 500 ML ONCE ONE IV (DC) Hydralazine HCl (APRESOLINE) 100 MG TID PO Amlodipine Besylate (NORVASC) 10 MG DAILY PO Hydralazine HCl (APRESOLINE) 10 MG ONCE ONE IV (DC) Sodium Chloride (SODIUM CHLORIDE 0.9%) 1,000 ML X1ED STA IV (DC) ResultsFindings/Data:Laboratory Tests 09/12 09/12 09/11 09/11 09/11 0753 0215 2034 1445 1229 Chemistry Sodium (134 - 147 mEq/L) 136 Potassium (3.4 - 5.0 mEq/L) 5.1 H Chloride (100 - 108 mEq/L) 105 Carbon Dioxide (21 - 33 mEq/l) 21 Anion Gap (0 - 20) 15 BUN (7 - 25 mg/dL) 66 H Creatinine (0.6 - 1.3 mg/dL) 3.5 H Glomerular Filtr Rate (70 - 80) 18.0 L Glucose (77 - 141 mg/dL) 136 POC Glucose (70 - 110 MG/DL) 141 H 317 H 194 H 154 H Calcium (8.0 - 10.5 mg/dL) 7.5 L Phosphorus (2.5 - 4.9 MG/DL) 6.2 H Magnesium (1.6 - 2.6 mg/dL) 1.52 L Albumin (3.4 - 5.0 g/dL) 3.00 L Laboratory Tests 09/12 0215 Hematology WBC (4.5 - 11.0 x10 3/uL) 7.8 RBC (4.00 - 5.60 x10 6/uL) 3.44 L Hgb (12.5 - 16.9 g/dL) 10.3 L Hct (37.5 - 50.7 %) 29.9 L MCV (81.0 - 99.0 fL) 86.9 MCH (27.0 - 33.0 pg) 29.9 MCHC (33.0 - 37.0 g/dL) 34.4 RDW (11.5 - 14.5 %) 13.7 Plt Count (150 - 400 x10 3/uL) 176 MPV (7.0 - 9.0 fL) 10.8 H Neut % (Auto) (56.0 - 77.0 %) 71.9 Lymph % (Auto) (14.0 - 32.0 %) 11.5 L [place] % (Auto) (4.8 - 9.0 %) 9.2 H Eos % (Auto) (0.3 - 3.7 %) 6.2 H Baso % (Auto) (0.0 - 2.0 %) 0.8 Neut # (Auto) (2.0 - 7.6 x10 3/uL) 5.58 Lymph # (Auto) (1.0 - 3.8 x10 3/uL) 0.89 L [place] # (Auto) (0.1 - 0.8 x10 3/uL) 0.71 Eos # (Auto) (0.0 - 0.2 x10 3/uL) 0.48 H Baso # (Auto) (0.0 - 0.2 x10 3/uL) 0.06 Abs Immat Gran (auto) (0.00 - 0.03 x10 3/uL) 0.03 Immature Gran % (0.0 - 2.0 %) 0.4 Nucleated RBC % (0 - 0 %) 0.0 Nucleated RBCs # (Man) (0.0 - 0.1 x10 3/uL) 0.00 Results: labs reviewed, vital signs stable, rythm personally rev'd, x-ray personally reviewed, current med profile rev'd Diagnosis, Assessment PlanHospital course to date:This is a very pleasant 68-year-old gentleman with a past medical history of hypertension, hyperlipidemia, diabetes, coronary artery disease status post coronary artery bypass graft surgery in 2017, BPH who went for routine checkup 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 A carotid Doppler was completed showing evidence of bilateral carotid stenosis. Subsequently a carotid angiogram was completed showing a left carotid stenosis of 80% with 40% noted on the right. Patient denies any send dizziness, syncope, shortness of breath. Patient will benefit from left carotid endarterectomy. Patient had preop workup done which showed abnormal labs so I asked the patient to come to the emergency room for further evaluation. I am planning for patient to have left carotid endarterectomy after abnormal labs are taken care of.Appreciate renal inputFollow labsFurther recommendations to follow 09/13/23Patient doing well, denies any complaintsLabs reviewed, creatinine trending down 3.5 todayWill contact patient's outpatient environmental services project manager for baseline creatinineTolerating dietPlan of care discussed with patient, all questions were answered at 1010 RPT #:[id number] OF REPORTPRProgress dfet8145-16-50J96:57:00G.[id number] able for patient voneOLLGSQOVXBPOHI6770-32-64X62:12:00 [facility] 2023-09-12 15:25:00 [id number] EAH7+OhQWksW0ZwrB78nsndjWrlZi vBVETy7JG/GW5uDhPqkF11029uD3919-18-66M07:25:00 [facility] ([facility])Clinical NoteREPORT#:[id number] REPORT STATUS: SignedREPORT INITIALIZATION DATE:09/12/23 TIME: 152 PATIENT: ZACKARY KIM UNIT #: [id number]#: [id number] [address] [birth year] AGE: 68 SEX: M ATTEND: Oneal Mena MDADM AUTHOR: Hu Lott MDREPT SERVICE DT/TIME: 09/12/23 1525* ALL edits or amendments must be made on the electronic/computer document * Clinical NoteNote:#[id number] dictated Dw ptOrders entered Thank you at 1525 RPT #:[id number] OF REPORTCLClinical eher0611-04-89C36:25:00G.[id number] able for patient nvdyTKFWYWYVFGRPVE4146-57-15T93:26:14 [facility] 2023-09-12 15:25:00 [id number] p6ud7feD2/NUnkEF8eZn6I95iSiHq pIoJc23bNtg08n0vEiJ7MS5n9Zy0968-65-05D96:25:80702 2-[address] [place] [address] PATIENT NAME: ZACKARY KIM ADMIT DATE: 09/12/23ACCOUNT NO: [id number] ROOM NO: [facility] AGE: 68 REPORT TYPE: CONSULTATION REPORT SEX: M ADMITTING PHYSICIAN:Oneal Mena MD ATTENDING PHYSICIAN:Oneal Mena MD CONSULTATION DATE: 09/12/2023 NEPHROLOGY CONSULTATION REFERRING PHYSICIAN: Dr. Mena. HISTORY OF PRESENT ILLNESS: The patient is a 68-year-old man who has a history of coronary artery disease with prior bypass, hypertension, benign prostatic hypertrophy, hypothyroidism and chronic kidney disease, reportedly stage IV withremaining function at 19% perfusion. The patient presents for left-sided carotid endarterectomy by Dr. Cole of cardiovascular surgery. I am consulted for evaluation of abnormal renal indices with an increased creatinine of 4.0 mg/dL. He notes compliance with his home medications, which do include Lasix, sodium bicarbonate, atorvastatin, Aldactone, aspirin with dosages noted. The patient does see an outside environmental services project manager in his home city and states that he was seen approximately 2-3 weeks ago where he was told that he had 19% remaining kidney function. He is not aware about any dialysis preparation at this point on my review. The patient had an outpatient carotid angiography revealing left-sided carotid stenosis with evidence of bilateral carotid stenosis. Carotid stenosis was noted to be 80% with 40% on the right per Dr. Cole's notation. He presents for further evaluation in preparation for surgical intervention. The patient is presently awake, alert, and supine, no distress. He denies angina, palpitations, fevers, shakes, chills, diarrhea, nausea or vomiting. No falls, headaches, orthostatic dizziness, abdominal pain, flank pain, gross hematuria, dysuria melenic stools. ALLERGIES: NO KNOWN DRUG ALLERGIES. PAST MEDICAL HISTORY: As above. He had a coronary artery bypass in 2017, hypertension, BPH, dyslipidemia, chronic kidney disease, likely stage IV by his report, hypothyroidism. SOCIAL HISTORY: Positive for former smoking. PATIENT NAME: ZACKARY KIM HOME MEDICATIONS: Atenolol, Zetia, Plavix, Synthroid, Lasix 40 mg p.o. daily, amlodipine, Imdur, clonidine, hydralazine, sodium bicarbonate, Flomax, Proscar, Ditropan, Lipitor, Aldactone, aspirin. Dosages and frequencies reviewed. LABORATORY DATA: On September 10, white count 6.1, hemoglobin 10.2, platelets 175. Sodium 135, potassium 5, chloride 101, bicarbonate 24, creatinine 4.0, BUN 77 mg/dL. GFR estimated at 15 mL per minute, glucose 268, calcium is 7.7, magnesium low at 1.34. Total CK 114, albumin 3.4, globulin 3.5. Urinalysis; yellow, clear, specific gravity 1.008, positive protein and glucose, otherwise unremarkable. IMAGING STUDIES: Chest x-ray, 09/11/2023, no acute cardiopulmonary process by formal report. PHYSICAL EXAMINATION:GENERAL: He is pleasant, awake, supine, tired appearing.VITAL SIGNS: Afebrile 97.7, respirations 16 and nonlabored, systolic pressure greater than 188 mmHg.HEAD AND NECK: Atraumatic, normocephalic. Anicteric sclerae. Slight moist oral mucosa.NECK: Supple, no JVP.LUNGS: Clear bilaterally. No wheezes, rhonchi, or rales.CARDIAC: Regular rate. No S3, no murmurs.ABDOMEN: Flat, soft, nontender, nondistended. No guarding or rebound.BACK: Bilateral CVA tenderness.EXTREMITIES: Lower extremity without overt edema, ischemic lesions or skin rash. well healed midline scar. ASSESSMENT:1. Known underlying chronic kidney disease, stage IV, details not known at thistime.2. Likely acute kidney injury with slight increased creatinine, and decreased GFR in comparison to his history.3. Stable electrolytes.4. Stable acid base status.5. Anemia, likely secondary to chronic kidney disease component.6. Volume status, compensated.7. Hypertensive.8. Hypomagnesemia.9. Proteinuria.10. Bilateral carotid stenosis as detailed by Dr. Cole's notations and to benefit from carotid endarterectomy as per assessment and plan: DISCUSSION: Acute kidney injury, possible renal hypoperfusion effect with concomitant use of home medications including a diuretic. Doubtful for obstruction. Consideration of IV dye exposure and contrast-induced nephrotoxicity (LUPE) is to be considered, albeit greater than 2-3 weeks ago by his history. PLAN:1. Daily renal panel.2. Oral repletion of magnesium.3. No acute indications for dialysis.4. Gentle IV hydration. PATIENT NAME: ZACKARY KIM 5. Hold Lasix and monitor volume status closely.6. No indications for MINDA therapy at this time.7. Dose meds for creatinine clearance of 15-17 mL per minute, placing him at advanced CKD stage IV.8. Continue to avoid nonsteroidal anti-inflammatory medications, nephrotoxins, further IV dye MRA as being done. We will make other recommendations per clinical course. I appreciate being asked to participate in his care. Please, give me a call at any time regarding his renal issues. Dictated By: Hu Lott MD Date Dictated: 09/12/2023 15:25:32Date Transcribed: 09/12/2023 16:17:05MERLE/ANUP/Albin #: [id number] ID: [id number] by Hu Lott MD On 09/13/2023 02:42:07 PM at 0242 PATIENT NAME: ZACKARY KIM :17:00G.CO [id number] for patient ndgfIOSMKSIFMOSLON2715-57-53K73:42:49 [facility] 2023-09-12 13:14:00 [id number] Qm1Tvb22HNRFaTFOXE0muN1qKPgEr xo5CVx/I8Xf0tbhKjK3aynGk3N75898-72-66B23:14:00 [facility] ([facility])Cardiothoracic Surgery ConsultREPORT#:[id number] REPORT STATUS: SignedREPORT INITIALIZATION DATE:09/12/23 TIME: 1313 PATIENT: ZACKARY KIM UNIT #: [id number]#: [id number] ROOM/BED: 3305-1DOB: [birth year] AGE: 68 SEX: M ATTEND: Oneal Mena MDADM AUTHOR: Chantal Cole MDREPT SERVICE DT/TIME: 09/12/23 131* ALL edits or amendments must be made on the electronic/computer document * History of Present Illness HPIChief complaint:abnormal labsPCP:PCP: Chantal Cole MD HPI:This is a very pleasant 68-year-old gentleman with a past medical history of hypertension, hyperlipidemia, diabetes, coronary artery disease status post coronary artery bypass graft surgery in 2017, BPH who went for routine checkup 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 A carotid Doppler was completed showing evidence of bilateral carotid stenosis. Subsequently a carotid angiogram was completed showing a left carotid stenosis of 80% with 40% noted on the right. Patient denies any send dizziness, syncope, shortness of breath. Patient will benefit from left carotid endarterectomy. Patient had preop workup done which showed abnormal labs so I asked the patient to come to the emergency room for further evaluation. HistoryPast Medical History:Reports: Coronary artery disease, Hypertension, BPH, Dyslipidemia. Additional Surgical History:noneAlcohol Use Denies EtOH useDrug Use Denies recreational drugsSmoking status for patients 13 years old or older: Former SmokerMedications:Home Medications:Medication Dose/Rte/Freq Days Qty Entered Last Max Daily Dose Reviewed ATENOLOL (TENORMIN) 50 MG PO BID 09/11/23 09/12/23Strength: 50 MG TAB 1523 1111 Ezetimibe (Zetia) 10 MG PO DAILY 09/11/23 09/12/23Strength: 10 MG TAB 1523 1111 CLOPIDOGREL (PLAVIX) 75 MG PO DAILY 09/11/23 09/12/23Strength: 75 MG TAB 1523 1111 LEVOTHYROXINE 125 MCG PO DAILY 09/11/23 09/12/23 (SYNTHROID) 1524 1116Strength: 125 MCG TAB FUROSEMIDE (LASIX) 40 MG PO DAILY 09/11/23 09/12/23Strength: 40 MG TAB 1524 1112 amLODIPine (NORVASC) 10 MG PO DAILY 09/11/23 09/12/23Strength: 10 MG TAB 1524 1112 ISOSORBIDE 60 MG PO DAILY 09/11/23 09/12/23 MONONITRATE SR 1524 1112 (IMDUR)Strength: 60 MG TAB.SR.24H cloNIDine (CATAPRES) 0.2 MG PO TID 09/11/23 09/12/23Strength: 0.2 MG TAB 1524 1113 hydrALAZINE (APRESOLINE) 100 MG PO TID 09/11/23 09/12/23Strength: 100 MG TAB 1525 1113 SODIUM BICARBONATE 1,300 MG PO BID 09/11/23 09/12/23Strength: 650 MG TAB 1525 1114 TAMSULOSIN ER (FLOMAX) 0.4 MG PO BID 09/11/23 09/12/23Strength: 0.4 MG CAP.SR.24H 1526 1115 FINASTERIDE (PROSCAR) 5 MG PO DAILY 09/11/23 09/12/23Strength: 5 MG TAB 1526 1115 OXYBUTYNIN (DITROPAN) 5 MG PO DAILY 09/11/23 09/12/23Strength: 5 MG TAB 1526 1115 ATORVASTATIN (LIPITOR) 20 MG PO DAILY 09/11/23 09/12/23Strength: 20 MG TAB 1526 1115 SPIRONOLACTONE 25 MG PO DAILY 09/11/23 09/12/23 (ALDACTONE) 1526 1115Strength: 25 MG TAB ASPIRIN 81 MG PO DAILY 09/11/23 09/12/23Strength: 81 MG TAB.CHEW 1526 1116 Current Hospital Medications:Cardiovascular Drugs Sig/Khalif Start time Last Medication Dose Route Stop Time Status Admin Amlodipine Besylate 10 MG DAILY 09/12 0900 DC (NORVASC) PO 12/11 0859 Atenolol 50 MG BID 09/11 2100 AC (TENORMIN) PO 12/10 2058 Hydralazine HCl 100 MG TID 09/11 1500 AC (APRESOLINE) PO 12/10 1459 Amlodipine Besylate 10 MG DAILY 09/11 1300 AC (NORVASC) PO 12/10 1259 Hydralazine HCl 10 MG ONCE ONE 09/11 1245 DC 09/11 (APRESOLINE) IV 09/11 1246 1304 Central Nervous System Agents Sig/Khalif Start time Last Medication Dose Route Stop Time Status Admin Magnesium Sulfate 50 ML X1ED STA 09/11 0026 DC 09/11 (MAGNESIUM SULFATE IV 09/11 0225 0126 2GM/SWFI 50ML) Electrolytic, Caloric, And Elma Sig/Khalif Start time Last Medication Dose Route Stop Time Status Admin Sodium Chloride 1,000 ML X1ED STA 09/11 0026 DC 09/11 (SODIUM CHLORIDE IV 09/11 1025 0126 0.9%) Allergies:Coded Allergies:No Known Allergies (09/11/23) Review of Systems Review of SystemsConstitutional:Denies: chills, fatigue, fever. Skin:Denies: abrasion, bruising, contusion. Allergy/Immun:Denies: allergic reaction, anaphylaxis, hives. Eyes:Denies: redness, discharge, visual loss/blurred. ENT:Denies: ear drainage, ear ringing, earache. Respiratory:Denies: SIMS (dyspnea on exertion), pneumonia. Cardiovascular:Denies: chest pain, palpitations. :Denies: dysuria, flank pain. Endocrine:Denies: cold intolerance, heat intolerance, polydipsia. Neuro:Denies: confusion, dizziness, seizure, syncope. All systems rev neg: except as marked Objective Physical ExamVS/I O:Last Documented: Result Date Time Pulse Ox 98 09/11 1233 B/P 202/88 09/11 1233 B/P Mean 125.7 09/11 1233 O2 Delivery Room air 09/11 1233 Temp 36.4 09/11 1233 Pulse 71 09/11 1233 Resp 12 09/11 1233 24 hour I O ending at 0700: 09/11 0700 09/10 1900 Intake Total Output Total Balance Patient 75.909 kg Weight Weight Stated/Reported Measurement Method PATIENT WEIGHT: Weight (lb): Weight (oz): Weight (kg): 75.909 General appearance: alert, awake, orientedHEENT: anicteric, mucosal membranes moist, pupils reactive to lightNeck: full range of motion, non-tenderCardiovascular: normal heart sounds, regular rate rhythmRespiratory: aerating well, symmetric expansion, no distressAbdomen: soft, non-tenderGenitourinary: no bladder distention, no flank painExtremities: dry, moves allMusculoskeletal: full range of motionNeuro/FEED PROJECT ENGINEER: alert, oriented X 3Skin: dry, intact ResultsFindings/Data:Laboratory Tests 09/11 09/10 1229 2300 Chemistry Sodium (134 - 147 mEq/L) 135 Potassium (3.4 - 5.0 mEq/L) 5.0 Chloride (100 - 108 mEq/L) 101 Carbon Dioxide (21 - 33 mEq/l) 24 Anion Gap (0 - 20) 15 BUN (7 - 25 mg/dL) 77 H Creatinine (0.6 - 1.3 mg/dL) 4.0 H Glomerular Filtr Rate (70 - 80) 15.3 L Glucose (77 - 141 mg/dL) 268 H POC Glucose (70 - 110 MG/DL) 154 H Calcium (8.0 - 10.5 mg/dL) 7.7 L Magnesium (1.6 - 2.6 mg/dL) 1.34 L Total Bilirubin (0.0 - 1.0 mg/dL) 0.30 Direct Bilirubin (0.1 - 0.3 MG/DL) 0.10 Indirect Bilirubin (MG/DL) 0.20 AST (8 - 34 IUnit/L) 21 ALT (10 - 49 IUnit/L) 16 Total Alk Phosphatase (20 - 125 IUnit/L) 48 Total Creatine Kinase (46 - 171 Units/L) 114 Troponin I High Sens (0 - 54 ng/L) 7 Total Protein (6.4 - 8.2 g/dL) 6.9 Albumin (3.4 - 5.0 g/dL) 3.40 Laboratory Tests 09/10 2300 Coagulation INR (0.8 - 1.2) 1.1 PTT (Megan) (25.0 - 39.5 Seconds) 43.1 H PT Patient/Control Mix (9.3 - 12.9 SECONDS) 12.4 Laboratory Tests 09/10 2300 Hematology WBC (4.5 - 11.0 x10 3/uL) 6.1 RBC (4.00 - 5.60 x10 6/uL) 3.46 L Hgb (12.5 - 16.9 g/dL) 10.2 L Hct (37.5 - 50.7 %) 30.0 L MCV (81.0 - 99.0 fL) 86.7 MCH (27.0 - 33.0 pg) 29.5 MCHC (33.0 - 37.0 g/dL) 34.0 RDW (11.5 - 14.5 %) 13.4 Plt Count (150 - 400 x10 3/uL) 175 MPV (7.0 - 9.0 fL) 11.0 H Neut % (Auto) (56.0 - 77.0 %) 66.7 Lymph % (Auto) (14.0 - 32.0 %) 13.1 L [place] % (Auto) (4.8 - 9.0 %) 10.2 H Eos % (Auto) (0.3 - 3.7 %) 8.3 H Baso % (Auto) (0.0 - 2.0 %) 1.2 Neut # (Auto) (2.0 - 7.6 x10 3/uL) 4.04 Lymph # (Auto) (1.0 - 3.8 x10 3/uL) 0.79 L [place] # (Auto) (0.1 - 0.8 x10 3/uL) 0.62 Eos # (Auto) (0.0 - 0.2 x10 3/uL) 0.50 H Baso # (Auto) (0.0 - 0.2 x10 3/uL) 0.07 Abs Immat Gran (auto) (0.00 - 0.03 x10 3/uL) 0.03 Immature Gran % (0.0 - 2.0 %) 0.5 Nucleated RBC % (0 - 0 %) 0.0 Nucleated RBCs # (Man) (0.0 - 0.1 x10 3/uL) 0.00 Laboratory Tests 09/10 2300 Urines Urine Color (YEL/STRAW) YELLOW Urine Appearance (CLEAR) CLEAR Urine pH (5.0 - 7.0) 6.0 Ur Specific [place] (1.005 - 1.030) 1.008 Urine Protein (NEGATIVE) 2+ H Urine Glucose (UA) (NEGATIVE) 3+ H Urine Ketones (NEGATIVE) NEGATIVE Urine Blood (NEGATIVE) NEGATIVE Urine Nitrite (NEGATIVE) NEGATIVE Urine Bilirubin (NEGATIVE) NEGATIVE Urine Urobilinogen (0.2 - 1.0 mg/dL) 0.2 Ur Leukocyte Esterase (NEGATIVE) NEGATIVE Urine RBC (0 - 3 RBC/HPF) 4-10 Urine WBC (0 - 3 WBC/HPF) 0-3 Ur Squamous Epith Cells (NONE SEEN /HPF) NONE SEEN Urine Bacteria (NONE SEEN /HPF) NONE SEEN Radiology data:Recent Impressions:RADIOLOGY - XR CHEST 1 V 09/10 2251 Report Impression - Status: SIGNED Entered: 09/11/2023 3610 IMPRESSION:No acute cardiopulmonary process. Impression By: Mayi - Amanda Fung M.D. Results: labs reviewed, vital signs reviewed, vital signs stable, rhythm personally rev'd, current med profile rev'd Diagnosis, Assessment PlanFree Text A P:This is a very pleasant 68-year-old gentleman with a past medical history of hypertension, hyperlipidemia, diabetes, coronary artery disease status post coronary artery bypass graft surgery in 2017, BPH who went for routine checkup 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 A carotid Doppler was completed showing evidence of bilateral carotid stenosis. Subsequently a carotid angiogram was completed showing a left carotid stenosis of 80% with 40% noted on the right. Patient denies any send dizziness, syncope, shortness of breath. Patient will benefit from left carotid endarterectomy. Patient had preop workup done which showed abnormal labs so I asked the patient to come to the emergency room for further evaluation. I am planning for patient to have left carotid endarterectomy after abnormal labs are taken care of.Appreciate renal inputFollow labsFurther recommendations to follow Thank you for this kind consultation at [facility] #:[id number] OF REPORTFONwexzdctfqkk1228-61-15J53:14:00G.PDOC2 [id number] for patient owffMGOSDYQGTBJYMS6357-45-63Q22:57:15 [facility] 2023-09-12 11:14:00 [id number] ZLd3eA+/YSrlffabAqFrlODSpYbT4 E6Rzl5sBtDa+ajApvGujbDG4BHb1398-18-19C12:14:00 [facility] ([facility])Hospitalist History PhysicalREPORT#:[id number] REPORT STATUS: SignedREPORT INITIALIZATION DATE:09/12/23 TIME: 1113 PATIENT: ZACKARY KIM UNIT #: [id number]#: [id number] [address] [birth year] AGE: 68 SEX: M ATTEND: Oneal Mena MDADM AUTHOR: Frieda Soni APRNREPT SERVICE DT/TIME: 09/12/23 111* ALL edits or amendments must be made on the electronic/computer document * History of Present Illness HPIChief complaint:here for surgeryPCP:PCP: Chantal Cole MD HPI:68 year old male with history of CAD, HTN, BPH, and hypothyroidism who presentedfor surgery with Dr. Cole. Patient reports carotid stenosis on the left side.Denies any dizziness or headaches. Found with DEDRICK with creatinine of 4 and hypomagnesemia. Admitted with nephrology and cardiothoracic surgeon consult. Currently NPO. HistoryPast medical history:Reports: Coronary artery disease, Hypertension, BPH, Dyslipidemia. Additional surgical history:noneAdditional family history:n/cAlcohol use: Denies EtOH useDrug use: Denies recreational drugsSmoking status for patients 13 years old or older: Never Smoker Medication/Allergy-Vaccine HxMedications:Home Medications:Medication Dose/Rte/Freq Days Qty Entered Last Max Daily Dose Reviewed ATENOLOL (TENORMIN) 50 MG PO BID 09/11/23 09/12/23Strength: 50 MG TAB 1523 1111 Ezetimibe (Zetia) 10 MG PO DAILY 09/11/23 09/12/23Strength: 10 MG TAB 1523 1111 CLOPIDOGREL (PLAVIX) 75 MG PO DAILY 09/11/23 09/12/23Strength: 75 MG TAB 1523 1111 LEVOTHYROXINE 125 MCG PO DAILY 09/11/23 09/12/23 (SYNTHROID) 1524 1116Strength: 125 MCG TAB FUROSEMIDE (LASIX) 40 MG PO DAILY 09/11/23 09/12/23Strength: 40 MG TAB 1524 1112 amLODIPine (NORVASC) 10 MG PO DAILY 09/11/23 09/12/23Strength: 10 MG TAB 1524 1112 ISOSORBIDE 60 MG PO DAILY 09/11/23 09/12/23 MONONITRATE SR 1524 1112 (IMDUR)Strength: 60 MG TAB.SR.24H cloNIDine (CATAPRES) 0.2 MG PO TID 09/11/23 09/12/23Strength: 0.2 MG TAB 1524 1113 hydrALAZINE (APRESOLINE) 100 MG PO TID 09/11/23 09/12/23Strength: 100 MG TAB 1525 1113 SODIUM BICARBONATE 1,300 MG PO BID 09/11/23 09/12/23Strength: 650 MG TAB 1525 1114 TAMSULOSIN ER (FLOMAX) 0.4 MG PO BID 09/11/23 09/12/23Strength: 0.4 MG CAP.SR.24H 1526 1115 FINASTERIDE (PROSCAR) 5 MG PO DAILY 09/11/23 09/12/23Strength: 5 MG TAB 1526 1115 OXYBUTYNIN (DITROPAN) 5 MG PO DAILY 09/11/23 09/12/23Strength: 5 MG TAB 1526 1115 ATORVASTATIN (LIPITOR) 20 MG PO DAILY 09/11/23 09/12/23Strength: 20 MG TAB 1526 1115 SPIRONOLACTONE 25 MG PO DAILY 09/11/23 09/12/23 (ALDACTONE) 1526 1115Strength: 25 MG TAB ASPIRIN 81 MG PO DAILY 09/11/23 09/12/23Strength: 81 MG TAB.CHEW 1526 1116 Current Hospital Medications:Cardiovascular Drugs Sig/Khalif Start time Last Medication Dose Route Stop Time Status Admin Amlodipine Besylate 10 MG DAILY 09/12 0900 AC (NORVASC) PO 12/11 0859 Atenolol 50 MG BID 09/11 2100 AC (TENORMIN) PO 12/10 205 Hydralazine HCl 100 MG TID 09/11 1500 AC (APRESOLINE) PO 12/10 1459 Central Nervous System Agents Sig/Khalif Start time Last Medication Dose Route Stop Time Status Admin Magnesium Sulfate 50 ML X1ED STA 09/11 0026 DC 09/11 (MAGNESIUM SULFATE IV 09/11 0225 0126 2GM/SWFI 50ML) Electrolytic, Caloric, And Elma Sig/Khalif Start time Last Medication Dose Route Stop Time Status Admin Sodium Chloride 1,000 ML X1ED STA 09/11 0026 DC 09/11 (SODIUM CHLORIDE IV 09/11 1025 0126 0.9%) Allergies:Coded Allergies:No Known Allergies (09/11/23) Review of SystemsAll systems rev neg: except as marked Objective GeneralVS/I O:Vital Signs: Date Time Temp Pulse Resp B/P B/P Pulse O2 O2 Flow FiO2 Mean Ox Delivery Rate 09/11 0804 36.4 64 15 171/82 111.7 97 Room air 09/11 0540 36.6 60 17 181/86 118.0 98 09/11 0250 62 15 176/86 116.0 98 09/11 0250 62 15 176/86 116.0 98 09/10 2139 37.1 69 20 160/77 104 99 Room air 24 hour I O ending at 0700: 09/11 0700 09/10 1900 Intake Total Output Total Balance Patient 75.909 kg Weight Weight Stated/Reported Measurement Method PATIENT WEIGHT: Weight (lb): Weight (oz): Weight (kg): 75.909 Medications:Active Meds + DC'd Last 24 HrsMagnesium Sulfate (MAGNESIUM SULFATE 2GM/SWFI 50ML) 50 ML X1ED STA IV (DC) Sodium Chloride (SODIUM CHLORIDE 0.9%) 1,000 ML X1ED STA IV (DC) Physical ExamGeneral appearance: alert, awake, oriented, no acute distressHead/Eyes: atraumatic, normocephalicNeck: supple/no meningismusCardiovascular: normal heart sounds, regular rate rhythmRespiratory: clear to auscultation, symmetric expansionAbdomen: non-tender, softExtremities: moves all, no clubbing, no cyanosis, no edemaMusculoskeletal: normal inspectionNeuro/FEED PROJECT ENGINEER: alert, oriented X 3, normal speechSkin: normal color, normal temperaturePsychiatry: normal affect, normal judgment/insight, normal mood ResultsFindings/Data:Laboratory Tests 09/10 2300 Chemistry Sodium (134 - 147 mEq/L) 135 Potassium (3.4 - 5.0 mEq/L) 5.0 Chloride (100 - 108 mEq/L) 101 Carbon Dioxide (21 - 33 mEq/l) 24 Anion Gap (0 - 20) 15 BUN (7 - 25 mg/dL) 77 H Creatinine (0.6 - 1.3 mg/dL) 4.0 H Glomerular Filtr Rate (70 - 80) 15.3 L Glucose (77 - 141 mg/dL) 268 H Calcium (8.0 - 10.5 mg/dL) 7.7 L Magnesium (1.6 - 2.6 mg/dL) 1.34 L Total Bilirubin (0.0 - 1.0 mg/dL) 0.30 Direct Bilirubin (0.1 - 0.3 MG/DL) 0.10 Indirect Bilirubin (MG/DL) 0.20 AST (8 - 34 IUnit/L) 21 ALT (10 - 49 IUnit/L) 16 Total Alk Phosphatase (20 - 125 IUnit/L) 48 Total Creatine Kinase (46 - 171 Units/L) 114 Troponin I High Sens (0 - 54 ng/L) 7 Total Protein (6.4 - 8.2 g/dL) 6.9 Albumin (3.4 - 5.0 g/dL) 3.40 Laboratory Tests 09/10 2300 Coagulation INR (0.8 - 1.2) 1.1 PTT (Mcdowell) (25.0 - 39.5 Seconds) 43.1 H PT Patient/Control Mix (9.3 - 12.9 SECONDS) 12.4 Laboratory Tests 09/10 2300 Hematology WBC (4.5 - 11.0 x10 3/uL) 6.1 RBC (4.00 - 5.60 x10 6/uL) 3.46 L Hgb (12.5 - 16.9 g/dL) 10.2 L Hct (37.5 - 50.7 %) 30.0 L MCV (81.0 - 99.0 fL) 86.7 MCH (27.0 - 33.0 pg) 29.5 MCHC (33.0 - 37.0 g/dL) 34.0 RDW (11.5 - 14.5 %) 13.4 Plt Count (150 - 400 x10 3/uL) 175 MPV (7.0 - 9.0 fL) 11.0 H Neut % (Auto) (56.0 - 77.0 %) 66.7 Lymph % (Auto) (14.0 - 32.0 %) 13.1 L [place] % (Auto) (4.8 - 9.0 %) 10.2 H Eos % (Auto) (0.3 - 3.7 %) 8.3 H Baso % (Auto) (0.0 - 2.0 %) 1.2 Neut # (Auto) (2.0 - 7.6 x10 3/uL) 4.04 Lymph # (Auto) (1.0 - 3.8 x10 3/uL) 0.79 L [place] # (Auto) (0.1 - 0.8 x10 3/uL) 0.62 Eos # (Auto) (0.0 - 0.2 x10 3/uL) 0.50 H Baso # (Auto) (0.0 - 0.2 x10 3/uL) 0.07 Abs Immat Gran (auto) (0.00 - 0.03 x10 3/uL) 0.03 Immature Gran % (0.0 - 2.0 %) 0.5 Nucleated RBC % (0 - 0 %) 0.0 Nucleated RBCs # (Man) (0.0 - 0.1 x10 3/uL) 0.00 Laboratory Tests 09/10 2299 Urines Urine Color (YEL/STRAW) YELLOW Urine Appearance (CLEAR) CLEAR Urine pH (5.0 - 7.0) 6.0 Ur Specific [place] (1.005 - 1.030) 1.008 Urine Protein (NEGATIVE) 2+ H Urine Glucose (UA) (NEGATIVE) 3+ H Urine Ketones (NEGATIVE) NEGATIVE Urine Blood (NEGATIVE) NEGATIVE Urine Nitrite (NEGATIVE) NEGATIVE Urine Bilirubin (NEGATIVE) NEGATIVE Urine Urobilinogen (0.2 - 1.0 mg/dL) 0.2 Ur Leukocyte Esterase (NEGATIVE) NEGATIVE Urine RBC (0 - 3 RBC/HPF) 4-10 Urine WBC (0 - 3 WBC/HPF) 0-3 Ur Squamous Epith Cells (NONE SEEN /HPF) NONE SEEN Urine Bacteria (NONE SEEN /HPF) NONE SEEN Radiology data:Recent Impressions:RADIOLOGY - XR CHEST 1 V 09/10 2250 Report Impression - Status: SIGNED Entered: 09/11/20232304 IMPRESSION:No acute cardiopulmonary process. Impression By: Mayi - Amanda Fung M.D. Diagnosis, Assessment Plan Free Text DxA P NotesFree Text DxA P Notes:Impression/Plan:- Left carotid stenosis- DEDRICK- Hypomanesemia- Hypertensive heart disease- CAD- BPH- Hypothyroidism Nephrology consult for DEDRICK.Hold diuretics.Avoid nephrotoxic meds.Mag was replaced.Repeat labs in the AM.Resume home antihypertensive meds. Uncontrolled BP.Surgery per consult. at 1245 at 1841 RPT #:[id number] OF REPORTHPHistory and physical [id number]:14:00G.[id number] AVAvailable for patient [id number]:46:03 [facility] 2023-09-11 22:42:00 [id number]:42:00 [facility]EM[facility] PROVIDER REPORTREPORT#:[id number] REPORT STATUS: SignedDATE:09/11/23 TIME: 2241 PATIENT: ZACKARY KIM UNIT #: [id number]#: [id number] [address] 68 SEX: M PCP PHYS: Chantal Cole MDSERVICE AUTHOR: Leno Romero MD * ALL edits or amendments must be made on the electronic/computer document * HPI-General Illness Free Text HPI NotesFree Text HPI Hofut42-junu-lor male history of coronary disease status post three-vessel bypass, significant chronic kidney disease reported GFR of 20, presenting to the emergency department for abnormal lab work. Patient was in preop, and found tohave abnormal labs, told to come into the emergency department. Abnormal lab work showed elevated creatinine, elevated potassium level of 5.3. Patient reports that he still makes urine per his baseline, this has been unchanged. Patient denies chest pain, shortness breath, nausea, vomiting, abdominal pain, back pain. Denies fevers. Denies numbness and healing. Patient is planning for surgery tomorrow for his carotid stenosis. GeneralConfirmed Patient YesPatient Type New patientInitial Greet Date/Time 09/11/232144PCPharvey tera is pcp = shanika PresentationChief Complaint __ (abnl labs )Hx Obtained From Patient, Prior medical recordsOnset Occurred ChronicSymptom Duration Chronic Review of Systems ROS StatementsAll systems rev neg except as marked. Free Text ROS NotesFree Text ROS NotesReview of systems was performed, pertinent positives and negatives noted in HPI. Past Medical History - AdultStated Complaint HAD ABN LABS FOR PREOP/SENT FOR ADMISSIONAllergiesCoded Allergies:No Known Allergies (09/11/23) Home MedicationsReported MedicationsATENOLOL (TENORMIN) 50 MG PO BID Ezetimibe (Zetia) 10 MG PO DAILY CLOPIDOGREL (PLAVIX) 75 MG PO DAILY LEVOTHYROXINE (SYNTHROID) 125 MCG PO DAILY FUROSEMIDE (LASIX) 40 MG PO DAILY amLODIPine (NORVASC) 10 MG PO DAILY ISOSORBIDE MONONITRATE SR (IMDUR) 60 MG PO DAILY cloNIDine (CATAPRES) 0.2 MG PO TID hydrALAZINE (APRESOLINE) 100 MG PO TID SODIUM BICARBONATE 1,300 MG PO BID TAMSULOSIN ER (FLOMAX) 0.4 MG PO BID FINASTERIDE (PROSCAR) 5 MG PO DAILY OXYBUTYNIN (DITROPAN) 5 MG PO DAILY ATORVASTATIN (LIPITOR) 20 MG PO DAILY SPIRONOLACTONE (ALDACTONE) 25 MG PO DAILY ASPIRIN 81 MG PO DAILY Calculated Suicide Risk (nurs) No riskReview of Nursing Notes Rapid assess notes revSmoking status for patients 13 years old or older: Never Smoker Physical Exam Vital SignsVital SignsFirst Documented: Result Date Time Pulse Ox 99 09/10 2138 B/P 160/77 09/10 2138 B/P Mean 104 09/10 2138 O2 Delivery Room air 09/10 2138 Temp 37.1 09/10 2138 Pulse 69 09/10 2138 Resp 20 09/10 2138 Last Documented: Result Date Time Pulse Ox 99 09/10 2138 B/P 160/77 09/10 2138 B/P Mean 104 09/10 2138 O2 Delivery Room air 09/10 2138 Temp 37.1 09/10 2138 Pulse 69 09/10 2138 Resp 20 09/10 2138 Review of Vital Signs Reviewed Free Text PE NotesFree Text PE NotesGEN/CONST: awake, alertMS HEAD: normocephalicEYES: EOMI, no scleral icterusEARS/NOSE/THROAT: airway patent, mucous membranes moistMS NECK: supple, full range of motionRESPIRATORY/CHEST: equal diaphragmatic excursion with normal breath sounds, no respiratory distressCARDIOVASCULAR: normal rate and regular rhythmABDOMEN/GI: no distension, soft and nontenderMS BACK: painless range of motion, non-tenderMS UPPER EXT: inspection unremarkable, no deformity MS LOWER EXT: inspection unremarkable, no deformity SKIN: warm, dry, intactNEURO: normal speech, no motor deficits Interpretation Diagnostics Lab Results InterpretationConsiderations Independ review imaging, Reviewed prior recordsResultsLaboratory Tests 09/11/232299:[Embedded Image Not Available]Laboratory Tests: 09/10 2299 Chemistry Sodium (134 - 147 mEq/L) 135 Potassium (3.4 - 5.0 mEq/L) 5.0 Chloride (100 - 108 mEq/L) 101 Carbon Dioxide (21 - 33 mEq/l) 24 Anion Gap (0 - 20) 15 BUN (7 - 25 mg/dL) 77 H Creatinine (0.6 - 1.3 mg/dL) 4.0 H Glomerular Filtr Rate (70 - 80) 15.3 L Glucose (77 - 141 mg/dL) 268 H Calcium (8.0 - 10.5 mg/dL) 7.7 L Magnesium (1.6 - 2.6 mg/dL) 1.34 L Total Bilirubin (0.0 - 1.0 mg/dL) 0.30 Direct Bilirubin (0.1 - 0.3 MG/DL) 0.10 Indirect Bilirubin (MG/DL) 0.20 AST (8 - 34 IUnit/L) 21 ALT (10 - 49 IUnit/L) 16 Total Alk Phosphatase (20 - 125 IUnit/L) 48 Total Creatine Kinase (46 - 171 Units/L) 114 Troponin I High Sens (0 - 54 ng/L) 7 Total Protein (6.4 - 8.2 g/dL) 6.9 Albumin (3.4 - 5.0 g/dL) 3.40 Coagulation INR (0.8 - 1.2) 1.1 PTT (Megan) (25.0 - 39.5 Seconds) 43.1 H PT Patient/Control Mix (9.3 - 12.9 SECONDS) 12.4 Hematology WBC (4.5 - 11.0 x10 3/uL) 6.1 RBC (4.00 - 5.60 x10 6/uL) 3.46 L Hgb (12.5 - 16.9 g/dL) 10.2 L Hct (37.5 - 50.7 %) 30.0 L MCV (81.0 - 99.0 fL) 86.7 MCH (27.0 - 33.0 pg) 29.5 MCHC (33.0 - 37.0 g/dL) 34.0 RDW (11.5 - 14.5 %) 13.4 Plt Count (150 - 400 x10 3/uL) 175 MPV (7.0 - 9.0 fL) 11.0 H Neut % (Auto) (56.0 - 77.0 %) 66.7 Lymph % (Auto) (14.0 - 32.0 %) 13.1 L [place] % (Auto) (4.8 - 9.0 %) 10.2 H Eos % (Auto) (0.3 - 3.7 %) 8.3 H Baso % (Auto) (0.0 - 2.0 %) 1.2 Neut # (Auto) (2.0 - 7.6 x10 3/uL) 4.04 Lymph # (Auto) (1.0 - 3.8 x10 3/uL) 0.79 L [place] # (Auto) (0.1 - 0.8 x10 3/uL) 0.62 Eos # (Auto) (0.0 - 0.2 x10 3/uL) 0.50 H Baso # (Auto) (0.0 - 0.2 x10 3/uL) 0.07 Abs Immat Gran (auto) (0.00 - 0.03 x10 3/uL) 0.03 Immature Gran % (0.0 - 2.0 %) 0.5 Nucleated RBC % (0 - 0 %) 0.0 Nucleated RBCs # (Man) (0.0 - 0.1 x10 3/uL) 0.00 Urines Urine Color (YEL/STRAW) YELLOW Urine Appearance (CLEAR) CLEAR Urine pH (5.0 - 7.0) 6.0 Ur Specific [place] (1.005 - 1.030) 1.008 Urine Protein (NEGATIVE) 2+ H Urine Glucose (UA) (NEGATIVE) 3+ H Urine Ketones (NEGATIVE) NEGATIVE Urine Blood (NEGATIVE) NEGATIVE Urine Nitrite (NEGATIVE) NEGATIVE Urine Bilirubin (NEGATIVE) NEGATIVE Urine Urobilinogen (0.2 - 1.0 mg/dL) 0.2 Ur Leukocyte Esterase (NEGATIVE) NEGATIVE Urine RBC (0 - 3 RBC/HPF) 4-10 Urine WBC (0 - 3 WBC/HPF) 0-3 Ur Squamous Epith Cells (NONE SEEN /HPF) NONE SEEN Urine Bacteria (NONE SEEN /HPF) NONE SEEN Recent Impressions:RADIOLOGY - XR CHEST 1 V 09/101 Report Impression - Status: SIGNED Entered: 09/11/20235 IMPRESSION:No acute cardiopulmonary process. Impression By: Mayi - Amanda Fung M.D. Lab Imaging StatementLaboratory radiographic studies reviewed and considered in the medical decision-making. Point of Care TestingPulse Oximetry Pulse Ox % 99 On: Room air Interpretation Interpreted by me, Pulse oximetry normal Time 2139 ECG #1 InterpretationText/Dict NoteECG was ordered and Interpreted by myself, ED physician at September 11, 2023, 2315 -ECG reveals a normal sinus rhythm-QRS and QTc not significantly prolonged-No ST elevation or ST depression suggestive of ischemia CPT Code 97470 Re-Evaluation MDM Free Text MDM NotesFree Text MDM Notes-I reviewed medical records and imaging studies if available in EMR; Hx obtainedfrom patient as able-Independent history also from over the phone, required given medical condition of patient may limit full history -PMH most significant for elements in HPI above Patient here with abnormal labs, patient is hemodynamically stable, without complaint. Will reorder labs, and reassess patient. Screening labs, including hematology and electrolytes, ordered to assess for risk of severe/invasive infection, anemia, electrolyte derangements, and renal function. Patient bad been found to have a elevated creatinine, with hyperkalemia, thus orders to assess for renal failure were placed, including screening EKG, and chest x-ray. Re-Evaluation/Progress #1Text/Dict Note-Patient care is requiring additional/significant diagnostic testing and treatment due to high risk of morbidity, mortality, complications related to comorbidities, acute illness-All ordered tests were independently reviewed and interpreted by me. Notably showing: Patient remains asymptomatic, stable. Making urine, provide urine sample without difficulty. Labs showing chronic kidney disease, there is significant elevation in BUN, will plan for bladder scan, and nephrology consultation. Will consult the patient surgeon who is planning for carotid stent on Monday/today. I informed the hospitalist team (see disposition section for time and specific provider/team) and discussed the patient presentation, history, workup, and needfor admission. The hospitalist team is aware and agrees to admission for furthercare and evaluation. Time of Re-Eval 0001Re-Eval Status Unchanged Tissue Perfusion ReassessmentPatient tissue perfusion reassessment completed. ED CourseMedication(s) OrderedMedication(s) Ordered:Central Nervous System Agents Sig/Khalif Start time Last Medication Dose Route Stop Time Status Admin Magnesium Sulfate 50 ML X1ED STA 09/11 0026 DC 09/11 IV 09/11 0225 0126 Electrolytic, Caloric, And Elma Sig/Khalif Start time Last Medication Dose Route Stop Time Status Admin Sodium Chloride 1,000 ML X1ED STA 09/11 0026 DC 09/11 IV 09/11 1025 0126 Patient Discharge Departure Vital Signs/ConditionVital SignsFirst Documented: Result Date Time Pulse Ox 99 09/10 2138 B/P 160/77 09/10 2138 B/P Mean 104 09/10 2138 O2 Delivery Room air 09/10 2138 Temp 37.1 09/10 2138 Pulse 69 09/10 2138 Resp 20 09/10 2138 Last Documented: Result Date Time Pulse Ox 99 09/10 2138 B/P 160/77 09/10 2138 B/P Mean 104 09/10 2138 O2 Delivery Room air 09/10 2138 Temp 37.1 09/10 2138 Pulse 69 09/10 2138 Resp 20 09/10 2138 All vital signs available at the time of this entry have been reviewed. Condition Guarded Clinical ImpressionClinical ImpressionPrimary Impression: CKD (chronic kidney disease)Secondary Impressions: Elective surgery Disposition DecisionHospitalize Hosp Physician Name Oneal Mena MD Hosp Physician Hospitalist Request Time 0002 Request Date 09/12/23 )( Accepts Hospitalization Yes )( Reason for Hospitalizationrenal function, elective surg )( Accepted Time 0002 )( Accepted Date 09/12/23 Call Information will see patient, agrees with eval, agrees with plan Discharge/Care PlanCounseled Regarding Diagnosis, Lab results, Imaging studies, Need for admission Admit NoteI have spoken with the patient and/or caregivers. I have explained the patient'scondition, diagnoses and treatment plan based on the information available to meat this time. I have answered the patient's and/or caregiver's questions and addressed any concerns. The patient and/or caregivers have as good an understanding of the patient's diagnosis, condition and treatment plan as can beexpected at this point. The patient has been stabilized within the capability ofthe emergency department. The patient will be transported for further care and management or will be moved to an observation or inpatient service. I have communicated with the staff or medical practitioner taking over this patient's care. at 1838RPT #:[id number] OF REPORTEDEmermercy hospital ozarkcy department kpyxma7330-06-00W15:42:00G.[id number] ilable for patient [id number]:39:00 [facility] 2023-09-11 14:30:00 [id number] Wbero+[id number]+[id number]:30:99857 2-[address] [place] [address] PATIENT NAME: ZACKARY KIM ADMIT DATE: ACCOUNT NO: [id number] ROOM NO: AGE: 68 REPORT TYPE: eELECTROCARDIOGRAM REPORT SEX: M ADMITTING PHYSICIAN:Chantal Cole MD ATTENDING PHYSICIAN:Chantal Cole MD Order:[id number] Reason : PREOP Test Date/Time Stamp:MonSep 11 2023 14:30:46Blood Pressure : / mmHGVent. Rate : 060 BPM Atrial Rate : 060 BPM P-R Int : 174 ms QRS Dur : 088 ms QT Int : 472 ms P-R-T Axes : 044 105 089 degrees QTc Int : 472 ms Normal sinus rhythmRightward axisNonspecific T wave abnormalityProlonged QTAbnormal ECGNo previous ECGs availableConfirmed by ZEE MEJIA MD ([id number]) on 09/12/2023 8:16:05 AM Referred By: Chantal Cole Confirmed by:ZEE MEJIA MD at 0816 PATIENT NAME: ZACKARY KIM .[id number] AVAvailable for patient [id number]:16:26 HCACL
[2023-11-13] MEDS ORDERED: LIDOCAINE 1% 20 ML MDV ONE (20:57)
[2023-11-13] MEDS ORDERED: TDAP (DIPHTH,PERTUSS(ACELL),TET VAC) 0.5 ML VIAL IMVAC ONE (21:00)
--- NOTE | 2023-11-13 21:52 | RAD REPORT ---
EXAM DESCRIPTION: CT - Head Brain Wo Cont - 11/13/2023 9:45 pm CLINICAL HISTORY: head injury COMPARISON: No comparisons TECHNIQUE: All CT scans are performed using dose optimization technique as appropriate and may inclu de automated exposure control or mA/KV adjustment according to patient size. FINDINGS: No intracranial hemorrhage, hydrocephalus or extra-axial fluid collection.No areas of brai n edema or evidence of midline shift. Mild chronic small-vessel ischemic changes. The paranasal sinuses and mastoids are clear. The calvarium is intact. IMPRESSION: No acute intracranial abnormality.
--- NOTE | 2023-11-13 23:38 | ER ---
Nurse's Notes [facility] Name: Omar Joe Age: 68 yrs Sex: Male : 1955 Arrival Date: 11/13/2023 Time: 20:18 Bed 7 Private MD: Diagnosis: Unspecified injury of head, initial encounter;Closed head injury, right lateral forehead laceration, left forearm skin tear, acute fall at home Presentation: 11/12 20:45 Chief complaint: Patient states: Pt states he fell approx 2 steps and struck right side tl4 of face on concrete. No LOC. Pt has laceration to right eyebrow and left wrist. Coronavirus screen: At this time, the client does not indicate any symptoms associated with coronavirus-19. Ebola Screen: No symptoms or risks identified at this time. Initial Sepsis Screen: Does the patient meet any 2 criteria? No. Patient's initial sepsis screen is negative. Does the patient have a suspected source of infection? No. Patient's initial sepsis screen is negative. Risk Assessment: Do you want to hurt yourself or someone else? Patient reports no desire to harm self or others. Onset of symptoms was November 13, 2023 at 16:30. 20:45 Method Of Arrival: Wheelchair tl4 20:45 Acuity: MIKI 3 tl4 Triage Assessment: 20:49 General: Appears in no apparent distress. Behavior is calm, cooperative. Pain: Denies tl4 pain. EENT: No signs and/or symptoms were reported regarding the EENT system. Neuro: Level of Consciousness is awake, alert, obeys commands, Oriented to person, place, time, situation, Moves all extremities. Speech is normal. Cardiovascular: Capillary refill < 3 seconds Patient's skin is warm and dry. Respiratory: Airway is patent Respiratory effort is even, unlabored, Respiratory pattern is regular, symmetrical. GI: No signs and/or symptoms were reported involving the gastrointestinal system. : No signs and/or symptoms were reported regarding the genitourinary system. Derm: No signs and/or symptoms reported regarding the dermatologic system. Musculoskeletal: No signs and/or symptoms reported regarding the musculoskeletal system. Injury Description: Laceration sustained to right eye and left arm. Historical: - Allergies: 20:47 No Known Allergies; tl4 - Home Meds: 20:47 Plavix 75 mg Oral tablet 1 tab daily [Active]; tl4 - PMHx: 20:47 diabetes mellitus; Hypertensive disorder; tl4 - PSHx: 20:47 Coronary artery bypass graft; tl4 - Immunization history:: Adult Immunizations unknown. - Infectious Disease History:: Denies. - Immunization history: Last tetanus immunization: unknown. - Social history:: Smoking status: Patient/guardian denies using tobacco, the patient reports quitting approximately 30 years ago. - Family history:: not pertinent. Screenin:05 Abuse screen: Denies threats or abuse. Tuberculosis screening: No symptoms or risk jj7 factors identified. 21:30 [facility] ED Fall Risk Assessment (Adult) History of falling in the last 3 months, rv including since admission Yes- single mechanical fall (1 pt) Score/Fall Risk Level 3 or more points = High Risk Oriented to surroundings, Maintained a safe environment, Educated pt \T\ family on fall prevention, incl call for assistance when getting out of bed, Assessed \T\ reinforced patient's understanding of fall precautions. 21:30 Nutritional screening: No deficits noted. rv Primary Survey: 21:05 NO uncontrolled hemorrhage observed. A: The client is awake and alert. The airway is jj7 patent. The client is alert. Breathing/Chest: Spontaneous respiratory effort, equal unlabored respirations, breath sounds clear bilaterally, regular pattern, symmetrical chest rise and fall. Circulation: No external hemorrhage present. Regular and strong central pulse, skin warm/dry/normal color. Disability Pupils are equal, round, reactive to light and accommodation. Exposure/Environment: There is no evidence of uncontrolled external bleeding. Obvious injury(ies) are noted at this time: LAC TO HEAD AND LEFT ARM. Secondary Survey: 21:05 HEENT: Face Other LAC TO RIGHT EYEBROW. Injury Description: Laceration sustained to jj7 face and left arm. Assessment: 21:05 General: Appears in no apparent distress. uncomfortable, Behavior is calm, cooperative, jj7 appropriate for age. Pain: Complains of pain in face and dorsal aspect of right wrist. Neuro: No deficits noted. Level of Consciousness is awake, alert, obeys commands, Oriented to person, place, time, situation, Appropriate for age. Derm: Wound noted face and left arm Wound is LAC. Injury Description: Laceration FALL. Vital Signs: 20:45 BP 150 / 70; Pulse 65; Resp 18; Temp 97.9(O); Pulse Ox 100% on R/A; Weight 77.11 kg; tl4 Height 5 ft. 6 in. ; Pain 0/10; 21:30 BP 169 / 87; Pulse 71; Resp 18; Pulse Ox 98% ; jj7 22:30 BP 173 / 74; Pulse 66; Resp 19; Pulse Ox 99% ; jj7 20:45 Body Mass Index 27.44 (77.11 kg, 167.64 cm) tl4 20:45 Pain Scale: Adult tl4 Octavio Coma Score: 21:05 Eye Response: spontaneous(4). Motor Response: obeys commands(6). Verbal Response: jj7 oriented(5). Total: 15. 23:38 Eye Response: spontaneous(4). Motor Response: obeys commands(6). Verbal Response: sp4 oriented(5). Total: 15. Trauma Score (Adult): 21:05 Eye Response: spontaneous(1); Verbal Response: oriented(1); Motor Response: obeys jj7 commands(2); Systolic BP: > 89 mm Hg(4); Respiratory Rate: 10 to 29 per min(4); Octavio Score: 15; Trauma Score: 12 ED Course: 20:19 Patient arrived in ED. ra3 20:20 Marlon Platt MD is Attending Physician. sp4 20:47 Triage completed. tl4 20:50 Arm band placed on left wrist. tl4 21:05 Patient has correct armband on for positive identification. Bed in low position. Call jj7 light in reach. Side rails up X2. Adult w/ patient. 21:05 O2 via RA. jj7 21:29 CT Head Brain wo Cont In Process Unspecified. EDMS 23:20 Assist provider with laceration repair on head and left arm using sutures. Set up tray. jj7 Performed by Marlon Platt MD Patient tolerated well. 23:32 Junior Pacheco, ILEANA is Primary Nurse. rv 23:32 Patient did not have IV access during this emergency room visit. rv 23:36 Thierno Romero MD is Referral Physician. sp4 Administered Medications: 21:05 Drug: Boostrix Tdap IM 0.5 ml IM once; as a single dose Route: IM; Site: right deltoid; jj7 23:33 Follow up: Response: No adverse reaction rv 23:17 Drug: Lidocaine Infiltration (1 %) 20 ml 20 ml Infiltration once; to bedside {Note: jj7 ADMIN BY DR ABURTO.} Volume: 20 ml; Route: Infiltration; 23:33 Drug: Kiejyuhp-Ohxuzipqea-Hscowvsud Topical Ointment 1 application Topical once Route: rv Topical; Site: left forearm; Medication: 23:43 Vaccine Information Statement (VIS) provided today. Questions and/or concerns rv addressed. VIS edition date: November 13, 2023. Outcome: 23:37 Discharge ordered by . sp4 23:42 Discharged to home ambulatory, with family, rv 23:42 Condition: good 23:42 Discharge instructions given to patient, family, Instructed on discharge instructions, follow up and referral plans. medication usage, Demonstrated understanding of instructions, follow-up care, wound care, 23:43 Patient left the ED. rv Signatures: Dispatcher [employer] EDMS Junior Pacheco RN RN Nelson Grissom RN RN jjMarlon Juarez MD MD sp4 Levi Waldron RN RN tl4 Candida Card ra3 Corrections: (The following items were deleted from the chart) 20:49 20:47 Social history: Smoking status: Patient denies any tobacco usage or history of. tl4 tl4
--- NOTE | 2023-11-13 23:38 | EDPHYS ---
Physician Documentation [facility] Name: Omar Joe Age: 68 yrs Sex: Male : 1955 Arrival Date: 11/13/2023 Time: 20:18 Bed 7 Private MD: ED Physician Marlon Platt HPI: 11/12 20:22 This 68 yrs old Male presents to ER via Unassigned with complaints of Fall sp4 Injury, Eye Injury - laceration, Arm Injury. 23:38 Patient is a 68-year-old male with history of diabetes and hypertension who presents sp4 after acute fall at home. Patient takes Plavix daily. Patient reports right lateral forehead injury with laceration is actively bleeding. Patient also reports left forearm skin tear. Denied loss of consciousness. Patient states he stumbled on the stairs on his way up the stairs. . Historical: - Allergies: 20:47 No Known Allergies; tl4 - Home Meds: 20:47 Plavix 75 mg Oral tablet 1 tab daily [Active]; tl4 - PMHx: 20:47 diabetes mellitus; Hypertensive disorder; tl4 - PSHx: 20:47 Coronary artery bypass graft; tl4 - Immunization history:: Adult Immunizations unknown. - Infectious Disease History:: Denies. - Immunization history: Last tetanus immunization: unknown. - Social history:: Smoking status: Patient/guardian denies using tobacco, the patient reports quitting approximately 30 years ago. - Family history:: not pertinent. ROS: 23:38 Constitutional: Negative for fever, chills, and weight loss, positive for forehead sp4 laceration, head injury, left forearm injury and skin tear 23:38 All other systems are negative, Exam: 23:38 Constitutional: This is a well developed, well nourished patient who is awake, alert, sp4 and in no acute distress. Head/Face: Normocephalic, positive right lateral forehead small laceration which is irregular and actively bleeding. Eyes: Pupils equal round and reactive to light, extra-ocular motions intact. Lids and lashes normal. Conjunctiva and sclera are not injected. Cornea within normal limits. Periorbital areas with no swelling, redness, or edema. ENT: Nares patent. No nasal discharge, no septal abnormalities noted. Tympanic membranes are normal and external auditory canals are clear. Oropharynx with no redness, swelling, or masses, exudates, or evidence of obstruction, uvula midline. Mucous membranes moist. Neck: Trachea midline, no thyromegaly or masses palpated, and no cervical lymphadenopathy. Supple, full range of motion without nuchal rigidity, or vertebral point tenderness. Chest/axilla: Normal chest wall appearance and motion. Nontender with no deformity. No lesions are appreciated. Cardiovascular: Regular rate and rhythm with a normal S1 and S2. No gallops, murmurs, or rubs. Normal PMI, no JVD. No pulse deficits. Respiratory: Lungs have equal breath sounds bilaterally, clear to auscultation and percussion. No rales, rhonchi or wheezes noted. No increased work of breathing, no retractions or nasal flaring. Abdomen/GI: Soft, with normal bowel sounds. No distension or tympany. No guarding or rebound. No evidence of tenderness throughout. Back: No spinal tenderness. No costovertebral tenderness. Skin: Warm, dry with normal turgor. Normal color with no rashes, no lesions, and no evidence of cellulitis. MS/ Extremity: Pulses equal, no cyanosis. Neurovascular intact. Full, normal range of motion. Neuro: Awake and alert, GCS 15, oriented to person, place, time, and situation. Cranial nerves II-XII grossly intact. Motor strength 5/5 in all extremities. Sensory grossly intact. Psych: Awake, alert, with orientation to person, place and time. Behavior, mood, and affect are within normal limits Vital Signs: 20:45 BP 150 / 70; Pulse 65; Resp 18; Temp 97.9(O); Pulse Ox 100% on R/A; Weight 77.11 kg; tl4 Height 5 ft. 6 in. ; Pain 0/10; 21:30 BP 169 / 87; Pulse 71; Resp 18; Pulse Ox 98% ; jj7 22:30 BP 173 / 74; Pulse 66; Resp 19; Pulse Ox 99% ; jj7 20:45 Body Mass Index 27.44 (77.11 kg, 167.64 cm) tl4 20:45 Pain Scale: Adult tl4 Octavio Coma Score: 21:05 Eye Response: spontaneous(4). Motor Response: obeys commands(6). Verbal Response: jj7 oriented(5). Total: 15. 23:38 Eye Response: spontaneous(4). Motor Response: obeys commands(6). Verbal Response: sp4 oriented(5). Total: 15. Trauma Score (Adult): 21:05 Eye Response: spontaneous(1); Verbal Response: oriented(1); Motor Response: obeys jj7 commands(2); Systolic BP: > 89 mm Hg(4); Respiratory Rate: 10 to 29 per min(4); [place] Score: 15; Trauma Score: 12 Laceration: 23:22 Wound Repair of 3cm ( 1.2in ) subcutaneous laceration to right side of forehead. sp4 Irregularly shaped.. Skin/tissue flap noted.. Minimal bleeding noted.. Distal neuro/vascular/tendon intact. Anesthesia: Wound infiltrated with 5 mls of 1% lidocaine. Wound prep: Moderate cleansing by me, Copious irrigation. Skin closed with 6 5-0 Prolene using interrupted sutures and sterile technique. Dressed with 4x4's. Patient tolerated well. MDM: 20:24 Patient medically screened. sp4 23:40 Differential Diagnosis altered mental status, Head injury, LOC. Data reviewed: vital sp4 signs, nurses notes, radiologic studies, CT scan. ED course: Laceration repaired. Patient stable for discharge home. 11/12 20:46 Order name: CT Head Brain wo Cont; Complete Time: 23:07 sp4 11/12 20:46 Order name: Dressing - Wound; Complete Time: 20:59 sp4 11/12 20:46 Order name: Gloves, Sterile; Complete Time: 20:59 sp4 11/12 20:46 Order name: Setup Suture Tray; Complete Time: 20:59 sp4 11/12 23:24 Order name: Wound Care: Left arm sterile dressing; Complete Time: 23:27 sp4 Administered Medications: 21:05 Drug: Boostrix Tdap IM 0.5 ml IM once; as a single dose Route: IM; Site: right deltoid; jj7 23:33 Follow up: Response: No adverse reaction rv 23:17 Drug: Lidocaine Infiltration (1 %) 20 ml 20 ml Infiltration once; to bedside {Note: jj7 ADMIN BY DR ABURTO.} Volume: 20 ml; Route: Infiltration; 23:33 Drug: Cjwhvltj-Jsbblwazwb-Lawpwamqw Topical Ointment 1 application Topical once Route: rv Topical; Site: left forearm; Disposition Summary: 11/13/23 23:37 Discharge Ordered Problem: new sp4 Symptoms: have improved sp4 Condition: Stable sp4 Diagnosis - Unspecified injury of head, initial encounter sp4 - Closed head injury, right lateral forehead laceration, left forearm skin tear, sp4 acute fall at home Followup: sp4 - With: Thierno Romero MD - When: 10 - 14 days - Reason: Recheck today's complaints Discharge Instructions: - Discharge Summary Sheet sp4 - Head Injury, Adult sp4 Forms: - Patient Portal Instructions sp4 Signatures: Dispatcher [employer] EDJunior Patel RN RN Nelson Grissom RN RN jj7 Marlon Platt MD MD sp4 Levi Waldron RN RN tl4 Corrections: (The following items were deleted from the chart) 20:46 20:46 Head Brain Wo Cont+CT.RAD.BRZ ordered. EDMS EDMS 20:49 20:47 Social history: Smoking status: Patient denies any tobacco usage or history of. tl4 tl4
[2023-11-13 23:57] VITALS: BP 173/74; TEMP 97.9; O2SAT 99
== END 2023-11-13 23:43 | disposition home or self-care (01) ==
LOC: ER 20:18
PROC: 0HQ1XZZ Repair Face Skin, External Approach (ICD-10-PCS; principal; 2023-11-13)
DX: S01.81XA Laceration without foreign body of other part of head, initial encounter (principal); S51.812A Laceration without foreign body of left forearm, initial encounter; W18.30XA Fall on same level, unspecified, initial encounter; Y92.009 Unspecified place in unspecified non-institutional (private) residence as the place of occurrence of the external cause; I10 Essential (primary) hypertension; Z95.1 Presence of aortocoronary bypass graft; Z79.01 Long term (current) use of anticoagulants
CPT/HCPCS: 70450; 96372; 99284; 12013; J2001

== ENCOUNTER 2024-07-26 15:06 | Inpatient (IN) | payer OTHER ==
--- NOTE | 2024-07-26 16:28 | RAD REPORT ---
EXAMINATION: CT ABDOMEN AND PELVIS WITHOUT CONTRAST CLINICAL INDICATION: Abdominal pain. Hematuria TECHNIQUE: CT abdomen and pelvis was performed, as per department protocol. IV contrast and oral was not administered.Axial, sagittal and coronal reconstructions were obtained. One or more of the following dose reduction techniques were used: Automated exposure control, adjustment of the mA and/o r kV according to the patient size, and/or iterative reconstruction. Unless otherwise specified, incidental findings do not require dedicated imaging follow-up. [id number]. COMPARISON: MRI abdomen February 2024. FINDINGS: The lack of intravenous and oral contrast limits evaluation of solid organs, vessels and bowel. The liver, spleen, pancreas and adrenals appear grossly normal. Small renal cysts. No hydronephrosis. Genitourinary calculus not seen Multiple gallstones. Gallbladder wall thickening. Small amount of ascites. Percutaneous catheter with its tip in the right lower quadrant. Air bubble within the bladder with mild bladder wall thickening. No evidence of diverticulitis IMPRESSION: Cholelithiasis. Gallbladder wall thickening could be secondary to cholecystitis or hypoalbuminemia. Mild bladder wall thickening may indicate mild inflammation. Air bubbles probably secondary to prior instrumentation. Infection can also result in this appearance
[2024-07-26 17:46] LABS: Absolute Lymphocytes (CBC) 0.3 K/uL (0.7-4.9); Absolute Monocytes 0.3 K/uL (0.1-1.3); Absolute Neutrophil 3.8 K/uL (1.8-8.0); Basophils % 0.8 % (0-1.3); Eosinophils % 0.8 % (0-4.4); Hemoglobin 11.6 g/dL (13.6-17.9); Lymphocytes % 5.6 % (15.3-44.8); MCH 24.5 pg (27.0-35.0); MCV 74.1 fL (80-100); MPV 10.2 fL (7.6-11.3); Monocytes % 7.1 % (3.3-12.3); Neutrophils % 85.7 % (41.7-73.7); Platelets 158 thou/uL (152-406); RBC Red Blood Cell Count 4.73 M/uL (4.33-5.43); Red Cell Distribution Width 18.2 % (12.1-15.2)
[2024-07-26 17:59] LABS: AST/SGOT 15 U/L (15-37); Albumin 2.1 g/dL (3.4-5.0); Albumin/Globulin Ratio 0.5 (1.1-1.8); Alkaline Phosphatase 56 U/L (45-117); Anion Gap 16.7 mEq/L (5.0-15.0); BUN Blood Urea Nitrogen 148 mg/dL (7-18); Bicarbonate 30 mEq/L (21-32); Bilirubin Total 0.8 mg/dL (0.2-1.0); Globulin 4.4 g/dL (2.3-3.5); Glomerular Filtration Rate 12 ml/min (=/>90); Glucose Level 102 mg/dL (74-106); Potassium 2.7 mEq/L (3.5-5.1); Protein, Total 6.5 g/dL (6.4-8.2); Sodium Level 131 mEq/L (136-145)
[2024-07-26 18:01] LABS: ALT/SGPT < 14 U/L (16-61)
--- NOTE | 2024-07-26 19:31 | ER ---
Nurse's Notes [facility] Name: Omar Joe Age: 69 yrs Sex: Male : 1955 Arrival Date: 07/26/2024 Time: 15:06 Bed 20 Private MD: Diagnosis: Chronic kidney disease, unspecified;Hypokalemia;Weakness Presentation: 07/26 15:15 Chief complaint: Sent by Dr. Sousa for blood in urine since last night. Pt c/o hb generalized weakness malaise for last few days. Will start PD next week per . Coronavirus screen: At this time, the client does not indicate any symptoms associated with coronavirus-19. Ebola Screen: No symptoms or risks identified at this time. Initial Sepsis Screen: Does the patient meet any 2 criteria? No. Patient's initial sepsis screen is negative. Does the patient have a suspected source of infection? No. Patient's initial sepsis screen is negative. Risk Assessment: Do you want to hurt yourself or someone else? Patient reports no desire to harm self or others. Onset of symptoms was July 25, 2024. 15:15 Method Of Arrival: Wheelchair hb 15:15 Acuity: MIKI 3 hb Historical: - Allergies: 15:17 No Known Allergies; hb - PMHx: 15:17 diabetes mellitus; Hypertensive disorder; Thyroid problem; hb - PSHx: 15:17 Coronary artery bypass graft; hb 15:18 Peritoneal Dialysis Catheter; hb - Immunization history:: Adult Immunizations up to date. - Infectious Disease History:: Denies. - Social history:: Smoking status: Patient denies any tobacco usage or history of. - Family history:: not pertinent. Screenin:20 [facility] ED Fall Risk Assessment (Adult) History of falling in the last 3 months, aa5 including since admission Yes- physiologic fall (2 pts) Confusion or Disorientation No (0 pts) Intoxicated or Sedated No (0 pts) Impaired Gait Yes (1 pt) Mobility Assist Device Used Yes (1 pt) Altered Elimination Yes (1 pt) Score/Fall Risk Level 3 or more points = High Risk Oriented to surroundings, Maintained a safe environment, Educated pt \T\ family on fall prevention, incl call for assistance when getting out of bed. Abuse screen: Denies threats or abuse. Nutritional screening: No deficits noted. Tuberculosis screening: No symptoms or risk factors identified. Assessment: 17:20 General: Appears uncomfortable, Behavior is calm, cooperative, Reports fatigue for 2-3 aa5 days. Pain: Denies pain. Neuro: Level of Consciousness is awake, alert, obeys commands, Oriented to person, place, time, situation. Cardiovascular: Patient's skin is warm and dry. Respiratory: Airway is patent Respiratory effort is even, unlabored, Respiratory pattern is regular, symmetrical. GI: Abdomen is non-distended, Peritoneal dialysis catheter capped. Site is clean and dry. Bowel sounds present X 4 quads. Abd is soft and non tender X 4 quads. : Reports 1 episode of blood in the urine yesterday, none today. Denies inability to void. EENT: No signs and/or symptoms were reported regarding the EENT system. Derm: Skin is pink, warm \T\ dry. Musculoskeletal: Range of motion: intact in all extremities. 17:28 Reassessment: Pt given warm blankets for comfort. . aa5 Vital Signs: 15:15 BP 111 / 65; Pulse 92; Resp 16; Temp 97.1(TE); Pulse Ox 100% on R/A; Pain 0/10; hb 17:28 BP 117 / 69; Pulse 80; Resp 16 S; Pulse Ox 100% on R/A; aa5 19:50 BP 103 / 54; Pulse 85; Resp 16; Temp 97.8; Pulse Ox 100% on R/A; dd2 15:15 Pain Scale: Adult hb ED Course: 15:08 Patient arrived in ED. mr 15:10 Randy Leonard MD is Attending Physician. rt 15:17 Triage completed. hb 15:18 Arm band placed on. hb 16:06 CT Abd/Pelvis - Without Contrast In Process Unspecified. EDMS 17:05 Heather Jensen, RN is Primary Nurse. aa5 17:20 Patient has correct armband on for positive identification. Bed in low position. Call aa5 light in reach. Side rails up X2. Adult w/ patient. 17:20 Pulse ox on. NIBP on. aa5 17:25 Initial lab(s) drawn, by me, sent to lab. Inserted saline lock: 22 gauge in right aa5 wrist, using aseptic technique. Blood collected. Flushed with 10 mL NS. 18:01 Shraddha Rondon F[facility]-C [facility]. kb 19:00 Report given to ILEANA Malave. aa5 19:30 Jim Zamoraon MD is Hospitalizing Provider. kb 19:31 UAM Sent. dd2 20:01 No provider procedures requiring assistance completed. Patient admitted, IV remains in dd2 place. Administered Medications: No medications were administered Medication: 17:20 VIS not applicable for this client. aa5 Outcome: 19:30 Decision to Hospitalize by Provider. kb 22:21 Patient left the ED. sa1 Signatures: Dispatcher [employer] EDMS Shraddha Rondon FNP-C [employer]IOR [employer] DEVELOPER-Ckb Demar Lisbeth, Reg Reg mr Heather Jensen RN RN aa5 Blossom Gordon RN RN Randy Leonard MD MD Sultan Cierra sa1 OLLIE SMILEY RN RN dd2 Corrections: (The following items were deleted from the chart) 15:18 15:17 PSHx: Peritoneal Dialysis Catheter (Coronary artery bypass graft); hb hb
--- NOTE | 2024-07-26 19:31 | EDPHYS ---
Physician Documentation [facility] Name: Omar Joe Age: 69 yrs Sex: Male : 1955 Arrival Date: 07/26/2024 Time: 15:06 Bed 20 Private MD: ED Physician Randy Leonard HPI: 07/26 16:56 This 69 yrs old Male presents to ER via Wheelchair with complaints of Urinary rt Problem. 16:56 Patient with history of end-stage renal disease presents to the ED with malaise, rt generalized weakness for the past few days. The patient reports having hematuria starting today, stating that his Carlos Alberto-Aid colored, denies clot passage and urinary retention. The patient was sent to the ED by his feeder associate. The patient reportedly has a hernia complicating his peritoneal dialysis access which the surgeon will only revise in a few weeks, states that patient would likely require hemodialysis in the interim. Denies any other acute complaints at this time, symptoms are moderate in severity, no other aggravating or alleviating factors.. Historical: - Allergies: 15:17 No Known Allergies; hb - PMHx: 15:17 diabetes mellitus; Hypertensive disorder; Thyroid problem; hb - PSHx: 15:17 Coronary artery bypass graft; hb 15:18 Peritoneal Dialysis Catheter; hb - Immunization history:: Adult Immunizations up to date. - Infectious Disease History:: Denies. - Social history:: Smoking status: Patient denies any tobacco usage or history of. - Family history:: not pertinent. ROS: 16:56 Cardiovascular: Negative for chest pain, palpitations, and edema, Respiratory: Negative rt for shortness of breath, cough, wheezing, and pleuritic chest pain, Abdomen/GI: Negative for abdominal pain, nausea, vomiting, diarrhea, and constipation, MS/Extremity: Negative for injury and deformity, 16:56 Constitutional: Positive for fatigue, malaise, 16:56 : Positive for hematuria, Negative for difficulty urinating, Exam: 16:56 Constitutional: This is a well developed, well nourished patient who is awake, alert, rt and in no acute distress. Head/Face: Normocephalic, atraumatic. Chest/axilla: Normal chest wall appearance and motion. Nontender with no deformity. No lesions are appreciated. Cardiovascular: Regular rate and rhythm with a normal S1 and S2. No gallops, murmurs, or rubs. Normal PMI, no JVD. No pulse deficits. Respiratory: Lungs have equal breath sounds bilaterally, clear to auscultation and percussion. No rales, rhonchi or wheezes noted. No increased work of breathing, no retractions or nasal flaring. Skin: Warm, dry with normal turgor. Normal color with no rashes, no lesions, and no evidence of cellulitis. MS/ Extremity: Pulses equal, no cyanosis. Neurovascular intact. Full, normal range of motion. Neuro: Awake and alert, GCS 15, oriented to person, place, time, and situation. Cranial nerves II-XII grossly intact. Motor strength 5/5 in all extremities. Sensory grossly intact. Cerebellar exam normal. Normal gait. 16:56 Abdomen/GI: Peritoneal dialysis catheter in place, no focal areas of tenderness, Vital Signs: 15:15 BP 111 / 65; Pulse 92; Resp 16; Temp 97.1(TE); Pulse Ox 100% on R/A; Pain 0/10; hb 17:28 BP 117 / 69; Pulse 80; Resp 16 S; Pulse Ox 100% on R/A; aa5 19:50 BP 103 / 54; Pulse 85; Resp 16; Temp 97.8; Pulse Ox 100% on R/A; dd2 15:15 Pain Scale: Adult hb MDM: 15:15 Medical Screening Exam initiated rt 19:29 Differential diagnosis: abnormal electrolytes, acute on chronic kidney disease. Data kb reviewed: vital signs, nurses notes. Consideration of Admission/Observation Patient was admitted/placed on observation. Escalation of care including admission/observation considered. Management of patient was discussed with the following: Hospitalist: Dr Zamorano accepts pt for admission. Counseling: I had a detailed discussion with the patient and/or guardian regarding the historical points, exam findings, and any diagnostic results supporting the discharge/admit diagnosis, lab results, the need for further work-up and treatment in the hospital. 19:57 ED course: Discussed hypokalemia with Dr Dowell. Does not recommend replacing at this time kb due to renal function. 07/26 15:22 Order name: CBC with Diff; Complete Time: 19:39 rt 07/26 15:22 Order name: CMP; Complete Time: 18:03 rt 07/26 15:22 Order name: UAM; Complete Time: 19:43 rt 07/26 19:32 Order name: C.difficile GDH Ag EDMS 07/26 19:32 Order name: CBC with Automated Diff EDMS 07/26 19:32 Order name: CBC with Automated Diff EDMS 07/26 19:32 Order name: Comprehensive Metabolic Panel EDMS 07/26 19:32 Order name: Comprehensive Metabolic Panel EDMS 07/26 19:32 Order name: Ova and Parasites EDMS 07/26 19:37 Order name: CBC Smear Scan; Complete Time: 19:39 EDMS 07/26 15:22 Order name: CT Abd/Pelvis - Without Contrast; Complete Time: 16:33 rt Administered Medications: No medications were administered Disposition: 07/27 07:04 Co-signature as Attending Physician, Randy Leonard MD I reviewed the patient's care rt provided by the Advanced Practice Provider and agree with the diagnosis and treatment plan. Disposition Summary: 07/26/24 19:30 Hospitalization Ordered Notes: Hospitalization Status: Observation kb Provider: Jim Zamorano Location: Telemetry/MedSurg (observation) kb Condition: Stable kb Problem: new kb Symptoms: are unchanged kb Bed/Room Type: Standard kb Room Assignment: 202(07/26/24 19:47) sp Diagnosis - Chronic kidney disease, unspecified kb - Hypokalemia kb - Weakness kb Forms: - Medication Reconciliation Form kb - SBAR form kb - Leadership Thank You Letter kb Signatures: Dispatcher [employer] EDNE Shraddha Rondon, QUILL STRIPPER-C QUILL STRIPPER-Jalyn Santacruz Heather, RN RN Randy Buchanan MD MD rt Corrections: (The following items were deleted from the chart) 07/26 15:18 15:17 PSHx: Peritoneal Dialysis Catheter (Coronary artery bypass graft); hb hb 15:23 15:23 CBC+H.LAB.BRZ ordered. EDMS EDMS 15:23 15:23 COMPREHENSIVE METABOLIC PANEL+C.LAB.BRZ ordered. EDMS EDMS 15:23 15:23 Urinalysis W/Microscopic+U.LAB.BRZ ordered. EDMS EDMS 19:47 19:30 kb sp
--- NOTE | 2024-07-26 19:34 | P.HP ---
Certification for Inpatient Patient admitted to: Observation With expected LOS: <2 Midnights Practitioner: I am a practitioner with admitting privileges, knowledge of patient current condition, hospital course, and medical plan of care. Services: Services provided to patient in accordance with Admission requirements found in Title 42 Section 412.3 of the Code of Federal Regulations Patient History Date of Service: 07/26/24 Reason for admission: Weak hematuria renal failure History of Present Illness: Patient is 69 years of age status post peritoneal dialysis catheter insertion present at the bedside admitted to the hospital was sent by his test engineering technician due to weakness no energy hematuria he has been having diarrhea for the past 7 days couple of times a day is hypokalemic is any shortness of breath no fever or chills Allergies No Known Allergies Allergy (Verified 07/27/23 14:01) Home Medications: Clopidogrel Bisulfate [Plavix*] 75 mg PO DAILY 03/15/21 Ezetimibe [Zetia*] 10 mg PO DAILY 03/15/21 Glipizide [Glipizide Xl] 2.5 mg PO DAILY 03/15/21 Levothyroxine [Synthroid] 125 mcg PO DAILY 06/12/23 Atorvastatin Calcium 40 mg PO DAILY 01/05/24 Na Bicarb Tab [Sodium Bicarb 325 MG] 650 mg PO TID 01/05/24 Oxybutynin Chloride [Oxybutynin Chloride ER] 5 mg PO DAILY 01/05/24 Spironolactone [Aldactone] 25 mg PO DAILY 01/05/24 Amlodipine [Norvasc] 10 mg PO DAILY 01/18/24 Aspirin [Adult Low Dose Aspirin EC] 81 mg PO DAILY 01/18/24 Furosemide [Lasix] 20 mg PO DAILY 01/18/24 Isosorbide Dinitrate [Isordil] 30 mg PO DAILY 01/18/24 Tamsulosin [Flomax*] 0.4 mg PO BID 01/18/24 carvediloL [Coreg] 12.5 mg PO BID 01/18/24 - Past Medical/Surgical History Diabetic: Yes -: DM type 2 -: HTN -: RI (2011) -: CHF -: BPH -: CKD -: CABG -: Carotid endarterectomy Psychosocial/ Personal History: Lives at home with his - Family History Mother -: Heart disease, Diabetes - Social History Alcohol use: No CD- Drugs: No Caffeine use: No Review of Systems 10-point ROS is otherwise unremarkable General: Weakness Gastrointestinal: Diarrhea Physical Examination - Vital Signs Temperature: 97.1 F Blood Pressure: 111/65 Pulse: 92 Respirations: 16 Pulse Ox (%): 100 - Physical Exam General: Alert, Oriented x3 Neck: Supple Respiratory: Clear to auscultation bilaterally Cardiovascular: No edema, Regular rate/rhythm, Normal S1 S2 Gastrointestinal: Normal bowel sounds, Soft and benign, Non-distended Musculoskeletal: No clubbing, No swelling - Studies Laboratory Data (last 24 hrs) 07/26/24 07/26/24 17:25 17:25 WBC 4.50 Hgb 11.6 L Hct 35.0 L Plt Count 158 Sodium 131 L Potassium 2.7 L BUN 148 H Creatinine 4.96 H Glucose 102 Total Bilirubin 0.8 AST 15 ALT < 14 L Alkaline Phosphatase 56 Assessment and Plan - Problems (Diagnosis) (1) Diarrhea Current Visit: Yes Status: Acute Plan: Patient is 69 years of age admitted with diarrhea for the past 7 days will check for ova parasites and C. difficile although he denies having any deep antibiotics does not take any laxative recent history of C. difficile infection labs reviewed patient is hypokalemic hyponatremic make renal failure mild microcytic anemia CT of the abdomen below will admit for observation Cholelithiasis. Gallbladder wall thickening could be secondary to cholecystitis or hypoalbuminemia. Mild bladder wall thickening may indicate mild inflammation. Air bubbles probably secondary to prior instrumentation. Infection can also result in this appearanc (2) Hematuria Current Visit: Yes Status: Acute Plan: Patient has recent hematuria we will start him on IV Rocephin cultures and urinalysis has been ordered Qualifiers: Hematuria type: unspecified type Qualified Code(s): R31.9 - Hematuria, unspecified - Advance Directives Does patient have a Living Will: No Does patient have a Durable POA for Healthcare: No
[2024-07-26 19:37] LABS: Blood Morphology Comment NOT SEEN (NOT SEEN); Platelet Estimate ADEQ; White Blood Cell Scan OK (OK)
[2024-07-26 19:40] LABS: Sqamous Epithelial <5 /HPF (None Seen); Urine Bacteria None Seen /HPF (<20); Urine Bilirubin NEGATIVE (Negative); Urine Blood Negative (Negative); Urine Clarity Clear (Clear); Urine Color Light-Yellow (Yellow); Urine Crystals Unidentified Few /HPF (None Seen); Urine Culture Reflex Order NOT NEEDED; Urine Glucose NEGATIVE (Negative); Urine Ketones NEGATIVE (Negative); Urine Micro Reflex YN NO BILL MICROSCOPIC; Urine Mucus Slight /HPF (None Seen); Urine Nitrite NEGATIVE (Negative); Urine Protein 1+ (Negative); Urine RBC <5 /HPF (None Seen); Urine Urobilinogen Normal (Normal); Urine WBC <5 /HPF (<5); Urine pH 7.5 (5.0-7.0)
[2024-07-26 23:27] VITALS: BMI 21.8
[2024-07-27] MEDS: POTASSIUM CL SA 10 MEQ TAB PO ONE (01:00)
[2024-07-27] MEDS: FLU (Fluarix Triv) TS24-25(6MOS UP)/PF 45 MCG/0.5 ML Syringe IM ONE (08:15)
[2024-07-27 08:38] LABS: AST/SGOT 15 U/L (15-37); Albumin 1.9 g/dL (3.4-5.0); Albumin/Globulin Ratio 0.5 (1.1-1.8); Alkaline Phosphatase 50 U/L (45-117); Anion Gap 14.4 mEq/L (5.0-15.0); BUN Blood Urea Nitrogen 150 mg/dL (7-18); Bicarbonate 33 mEq/L (21-32); Bilirubin Total 0.6 mg/dL (0.2-1.0); Glomerular Filtration Rate 12 ml/min (=/>90); Glucose Level 124 mg/dL (74-106); Potassium 3.4 mEq/L (3.5-5.1); Protein, Total 5.9 g/dL (6.4-8.2); Sodium Level 133 mEq/L (136-145)
[2024-07-27 08:45] LABS: ALT/SGPT < 14 U/L (16-61)
[2024-07-27] MEDS: PNEUMOCOCCAL VACCINE 0.5 ML IMVAC ONE (09:00)
[2024-07-27 09:10] LABS: Absolute Lymphocytes (CBC) 0.3 K/uL (0.7-4.9); Absolute Monocytes 0.4 K/uL (0.1-1.3); Absolute Neutrophil 3.5 K/uL (1.8-8.0); Basophils % 0.9 % (0-1.3); Hematocrit 30.4 % (39.6-49.0); Hemoglobin 10.1 g/dL (13.6-17.9); Lymphocytes % 6.4 % (15.3-44.8); MCH 24.5 pg (27.0-35.0); MCHC 33.3 g/dL (32.0-36.0); MCV 73.8 fL (80-100); Monocytes % 8.3 % (3.3-12.3); Neutrophils % 83.4 % (41.7-73.7); Platelets 144 thou/uL (152-406); RBC Red Blood Cell Count 4.12 M/uL (4.33-5.43); Red Cell Distribution Width 18.2 % (12.1-15.2)
[2024-07-27] MEDS: NA CHLORIDE 0.9% 1,000 ML IV SCH ×2 (11:00→23:45)
--- NOTE | 2024-07-27 11:31 | RAD REPORT ---
EXAMINATION: US RENAL CLINICAL INDICATION: Abdominal pain. Uremia TECHNIQUE: Real-time ultrasonography of the kidneys performed. COMPARISON: CT abdomen July 26, 2024 FINDINGS: Right kidney measures 10 cm with an increased echotexture. It contains several cysts. Largest 1.6 cm. Left kidney measures 10 cm with increased echotexture. Subcentimeter cyst. No hydronephrosis Thickened bladder wall. It contains an air bubble.. IMPRESSION: Increased renal echotexture may indicate parenchymal disease. Thickened bladder wall likely inflammation. Air bubble within the bladder could be secondary to prior instrumentation or infection
--- NOTE | 2024-07-27 14:54 | P.PN ---
Subjective Date of Service: 07/27/24 Chief Complaint: Weak hematuria renal failure Patient reports generalized weakness. No recorded fever. His urine looks clear today. Physical Examination - Vital Signs Temperature: 98.1 F Blood Pressure: 107/68 Pulse: 97 Respirations: 16 Pulse Ox (%): 96 - Studies Laboratory Data (last 24 hrs) 07/26/24 07/26/24 17:25 17:25 WBC 4.50 Hgb 11.6 L Hct 35.0 L Plt Count 158 Sodium 131 L Potassium 2.7 L BUN 148 H Creatinine 4.96 H Glucose 102 Total Bilirubin 0.8 AST 15 ALT < 14 L Alkaline Phosphatase 56 Assessment And Plan - Plan Physical examination General: Alert and oriented x3, NAD, HEENT: Conjunctiva not pale, anicteric sclera Neck: Supple, no elevated JVD Heart: Heart sounds 1 and 2 normal, regular rhythm, normal rate, no pedal edema Lungs: Clear to auscultation bilaterally, adequate breath sounds bilaterally, no rhonchi or crackles. Abdomen: Soft, nondistended, nontender, normal bowel sounds. Peritoneal dialysis catheter-left lower quadrant, no discharge from the stoma. Genitourinary: Purewick in place, clear urine. Extremities: No tenderness, no deformity Skin: Normal skin turgor, no rash, no nodules or ulcers. Neuro: No focal motor deficit. Normal speech. Psychiatry: Normal mood, no agitation. Diagnosis End-stage renal disease on peritoneal dialysis with severe azotemia Generalized weakness Diabetes mellitus type 2 Diarrhea Essential hypertension Hypothyroidism BPH Carotid artery disease Plan: End-stage renal disease on peritoneal dialysis with severe azotemia Generalized weakness Patient with severe azotemia. He is on peritoneal dialysis Also receiving high-dose Lasix and metolazone. Nephrology to follow. Choice of dialysis per nephrology. Increase activity as tolerated. Diarrhea Improved. Stool for C. difficile is pending. Hematuria BPH Hematuria cleared for now. Patient with a history of BPH and also taking antiplatelets. Hold antiplatelet for now. Continue Flomax and finasteride. Monitor for hematuria. Hypothyroidism Check TSH Continue Synthroid. Diabetes mellitus type 2 Hold glipizide. Blood sugar management with insulin sliding scale. Carotid artery disease Holding aspirin and Plavix given hematuria. Continue Lipitor and ezetimibe. DVT prophylaxis: SCD Advanced directive: Full code
[2024-07-27] MEDS: SODIUM BICARB 325 MG TAB PO SCH (21:10)
[2024-07-27] MEDS: TAMSULOSIN 0.4 MG SR CAP PO SCH (21:10)
[2024-07-27] MEDS: EZETIMIBE 10 MG TAB PO SCH (21:11)
[2024-07-27] MEDS: FUROSEMIDE 40 MG TABLET PO SCH (21:11)
--- NOTE | 2024-07-28 00:08 | PN ---
Date of Progress Note: 07/27/2024 Chief Complaint: Acute kidney injury on chronic kidney disease. Subjective: The patient has advance chronic kidney disease due to diabetes mellitus and hypertension. Recently he had a PD catheter placed to start renal replacement therapy with peritoneal dialysis. The patient developed gross hematuria and came to the hospital because of generalized weakness. He was found to have severely elevated azotemia, BUN 150. The patient is volume depleted. Diuretic were stopped and the patient was started on normal saline. The patient may require hemodialysis for metabolic clearance if he does not respond to IV hydration. Review of Systems: Denies PND, orthopnea. Physical Examination: Lungs: Clear to auscultation bilaterally. Heart: S1, S2. Abdomen: Soft. Extremities: No edema, Impression And Plan: 1. Acute kidney injury on chronic kidney disease, volume depletion. Continue IV fluids and diuretics on hold. 2. History of benign prostatic hypertrophy, gross hematuria. The patient will require workup with Urology. Currently, the patient is on antibiotics for urinary tract infection. Urology workup will be done on an outpatient. CT scan of the abdomen and pelvis without contrast did not show obstructive uropathy. Monitor urine culture and adjust antibiotics. 3. Hypokalemia. Potassium supplementation will be started. 4. Hyponatremia. Normal saline started. For volume depletion, check TSH and cortisol level. 5. Diabetes mellitus with renal manifestation. Continue insulin. NIA/MODL Voice ID: [id number] Report ID: [id number] RUBIO
--- NOTE | 2024-07-28 00:44 | CON ---
Date of Consultation: 07/26/2024 Chief Complaint: Acute kidney injury on advanced chronic kidney disease. History Of Present Illness: The patient presented to the hospital because of generalized weakness, gross hematuria. He is admitted to the hospital for uremia. He was found to have elevated BUN up to 150. IV fluids were started for volume depletion. Previously, patient was treated with diuretics including furosemide, metolazone. He was found to have elevated BUN and creatinine ratio, prerenal azotemia. He has nonoliguric urine output. CT scan without contrast did not show obstructive uropathy, although there is possible urinary tract infection with gross hematuria and patient started on antibiotics. The patient has multiple medical problems including history of chronic kidney disease stage 4 advancing to stage 5. He recently underwent peritoneal dialysis catheter placement and hernia repair, and he is to start dialysis with peritoneal dialysis in near future. He has history of diabetic kidney disease hypothyroid, hypercholesterolemia, history of congestive heart failure treated with multiple diuretics including furosemide, Aldactone, and metolazone. The patient has history of BPH. He denies renal colic although he developed gross hematuria prior this admission, but he denied fever, chills. His p.o. intake has declined recently and he was complaining of generalized weakness and dyspnea on exertion. He denies PND, orthopnea. Past Medical History: Diabetes mellitus type 2, hypertension, chronic kidney disease stage 4 advancing to stage 5, congestive heart failure, diastolic dysfunction, coronary artery disease, CABG, peripheral vascular disease, carotid enterectomy, BPH. Family History: Mother; heart disease, diabetes. Social History: Denies tobacco, alcohol. Denies drugs. Review of Systems: Constitutional: Denies fever, chills. Denies vision changes. Ears, Nose, Mouth, and Throat: Denies sore throat or earache. Respiratory: Has some dyspnea on exertion. Denies wheezing, hemoptysis. GI: Denies melena, hematemesis. Had some generalized weakness and decreased p.o. intake. : Denies dysuria. Denies difficulty voiding. Has gross hematuria. All other systems reviewed and all are negative. Physical Examination: General: Alert and oriented x3. Neck: Supple. HEENT: Atraumatic, normocephalic. Anicteric sclerae. Cardiovascular: S1, S2. No pericardial friction rub. Abdomen: Soft, benign, nontender. PD catheter in place. No erythema. No drainage. Extremities: No edema. No clubbing. No cyanosis. Neurologic: Moving extremities. Cranial nerves intact. Laboratory Data: Sodium 131, potassium 2.7, BUN 148, creatinine 4.96, glucose 102, AST 15, ALT less than 14, AP 56. Hemoglobin 11.6, WBC 4.5, platelet count 158,000. Impression And Plan: 1. The patient prior to this admission developed diarrhea, C difficile is pending and patient is admitted to the hospital for gross hematuria. He was found to have hyperazotemia, uremia, hypokalemia, and his medications were adjusted. Diuretic is on hold. The patient does not have fluid overload. There is no evidence of congestive heart failure exacerbation. Plan is to start IV fluids for uremia and prerenal azotemia. Monitor electrolytes closely and start dialysis as soon as possible. Patient may need to start hemodialysis for metabolic clearance during this hospitalization, and he can be switched to peritoneal dialysis outpatient. 2. Hematuria, likely related to urinary tract infection, although patient will require Urology consultation and cystoscopy. Continue IV antibiotics. Urine culture and blood cultures were obtained. 3. Acute kidney injury secondary to diuretic, volume depletion, accelerated by diarrhea. 4. Metabolic alkalosis due to some volume depletion. Plan is to stop sodium bicarbonate tablets and continue normal saline. 5. Hyponatremia. Continue normal saline. Take TSH level and cortisol level. NIA/GISELE Voice ID: [id number] Report ID: [id number] RUBIO
[2024-07-28] MEDS: LEVOTHYROXINE SOD 0.1 MG TAB PO SCH (05:42)
[2024-07-28 07:35] LABS: Absolute Basophils 0.1 K/uL (0-0.5); Absolute Lymphocytes (CBC) 0.4 K/uL (0.7-4.9); Absolute Monocytes 0.4 K/uL (0.1-1.3); Absolute Neutrophil 3.9 K/uL (1.8-8.0); Basophils % 1.1 % (0-1.3); Eosinophils % 0.5 % (0-4.4); Hematocrit 32.5 % (39.6-49.0); Hemoglobin 10.6 g/dL (13.6-17.9); Lymphocytes % 8.5 % (15.3-44.8); MCH 24.2 pg (27.0-35.0); MCHC 32.7 g/dL (32.0-36.0); MCV 73.8 fL (80-100); MPV 9.9 fL (7.6-11.3); Monocytes % 7.9 % (3.3-12.3); Nucleated Red Blood Cells % 0.1 % (0-0); Platelets 145 thou/uL (152-406); RBC Red Blood Cell Count 4.41 M/uL (4.33-5.43); Red Cell Distribution Width 18.1 % (12.1-15.2)
[2024-07-28 08:02] LABS: AST/SGOT 14 U/L (15-37); Albumin/Globulin Ratio 0.5 (1.1-1.8); Alkaline Phosphatase 51 U/L (45-117); Anion Gap 12.1 mEq/L (5.0-15.0); BUN Blood Urea Nitrogen 147 mg/dL (7-18); Bicarbonate 33 mEq/L (21-32); Bilirubin Total 0.5 mg/dL (0.2-1.0); Creatine Phosphokinase 37 U/L (39-308); Globulin 4.3 g/dL (2.3-3.5); Glomerular Filtration Rate 12 ml/min (=/>90); Glucose Level 158 mg/dL (74-106); Potassium 4.1 mEq/L (3.5-5.1); Protein, Total 6.3 g/dL (6.4-8.2); Sodium Level 133 mEq/L (136-145); Troponin High Sensitivity 25.8 pg/mL (<58.9)
[2024-07-28 08:18] LABS: ALT/SGPT < 14 U/L (16-61)
[2024-07-28] MEDS: ISOSORBIDE MONONITRATE 30 MG PO SCH (09:00)
[2024-07-28] MEDS ORDERED: ASPIRIN EC 81 MG TAB PO SCH (09:00)
[2024-07-28] MEDS: HOME MED 1 EA UNK (Calcitriol [Rocaltrol] 0.5 MCG Capsule) PO SCH (09:00)
--- NOTE | 2024-07-28 09:44 | RAD REPORT ---
EXAM: Chest Single View HISTORY: veronica COMPARISON: 05/20/2024 FINDINGS: LUNGS/PLEURA: The lungs are clear. No pleural effusions or pneumothorax. No pulmonary edema. MEDIASTINUM: The mediastinal silhouette is within normal limits. CARDIAC: Similar cardiomegaly UPPER ABDOMEN: No significant abnormality. BONES: Sternotomy. No acute abnormality. LINES/TUBES/OTHER: N/A IMPRESSION: No evidence of acute cardiopulmonary disease.
[2024-07-28] MEDS: ATORVASTATIN 20 MG TAB PO SCH (09:53)
[2024-07-28] MEDS: FINASTERIDE 5 MG TAB PO SCH (09:53)
[2024-07-28] MEDS: CALCITROL 0.25 MCG CAP PO SCH (10:00)
[2024-07-28] MEDS: ISOSORBIDE MONO SR 60 MG TAB PO SCH (10:00)
--- NOTE | 2024-07-28 15:37 | P.PN ---
Subjective Date of Service: 07/28/24 Chief Complaint: Weak hematuria renal failure Patient reports generalized weakness. No recorded fever. Urine looks clear today. Physical Examination - Vital Signs Temperature: 97.9 F Blood Pressure: 117/72 Pulse: 108 Respirations: 16 Pulse Ox (%): 98 - Studies Laboratory Data (last 24 hrs) 07/28/24 07/28/24 07:22 07:22 WBC 4.70 Hgb 10.6 L Hct 32.5 L Plt Count 145 L Sodium 133 L Potassium 4.1 D BUN 147 H Creatinine 4.78 H Glucose 158 H Total Bilirubin 0.5 AST 14 L ALT < 14 L Alkaline Phosphatase 51 Assessment And Plan - Plan Physical examination General: Alert and oriented x3, NAD, HEENT: Anicteric sclera Neck: Supple, no elevated JVD Heart: Heart sounds 1 and 2 normal, regular rhythm, normal rate, no pedal edema Lungs: Clear to auscultation bilaterally, adequate breath sounds bilaterally, no rhonchi or crackles. Abdomen: Soft, nondistended, nontender, normal bowel sounds. Peritoneal dialysis catheter-left lower quadrant, no discharge from the stoma. Genitourinary: Purewick in place, clear urine. Extremities: No tenderness, no deformity Skin: Normal skin turgor, no rash, no nodules or ulcers. Neuro: No focal motor deficit. Normal speech. Psychiatry: Normal mood, no agitation. Diagnosis End-stage renal disease on peritoneal dialysis with severe azotemia Generalized weakness Diabetes mellitus type 2 Diarrhea Essential hypertension Hypothyroidism BPH Carotid artery disease Plan: End-stage renal disease on peritoneal dialysis with severe azotemia Generalized weakness Patient with severe azotemia. He is on peritoneal dialysis Also receiving high-dose Lasix and metolazone. Nephrology recommended initiating hemodialysis General Surgery consult for hemodialysis catheter. Increase activity as tolerated. Diarrhea Improved. Stool for C. difficile is pending. Hematuria BPH UA does not suggest hematuria. Patient urine is clear Patient with a history of BPH and also taking antiplatelets. Hold antiplatelet for now. Continue Flomax and finasteride. Monitor for hematuria. Hypothyroidism TSH within normal range Continue Synthroid. Diabetes mellitus type 2 Hold glipizide. Blood sugar management with insulin sliding scale. Carotid artery disease Holding aspirin and Plavix given hematuria. Continue Lipitor and ezetimibe. DVT prophylaxis: SCD Advanced directive: Full code
--- NOTE | 2024-07-28 20:20 | CON ---
Date of Consultation: 07/28/2024 Diagnosis: Renal failure. History Of Present Illness: This is a case of a 69-year-old patient who came to the hospital due to weakness and hematuria and diarrhea. Found to have also hypokalemic and the patient has history of r ecent peritoneal dialysis, but I am trying to get the information from him and he said that his nurse did it at [place], that is all I got. I was consulted by the Renal doctor for placement of hemodia lysis catheter. The patient does not recollect much of the information and there is nobody at [facility] at this moment. Allergies: NONE. Medications: Plavix, Zetia, glipizide, Synthroid, Aldactone, Norvasc, Lasix, Flomax, Coreg. Past Medical History: Include diabetes, hypertension, myocardial infarct in 2012, congestive heart f ailure, BPH. Past Surgical History: Includes CABG and carotid endarterectomy and peritoneal dialysis catheter [place] [employer] apparently at bedside in the clinic. Review of Systems: He does not have any shortness of breath, any chest pain, although it is somehow limited. Family History: Include diabetes. Physical Examination: General: Patient is awake and alert. HEENT: Pupils are equal and reactive. Anicteric. Neck: Supple. Chest: Clear. Abdomen: Soft and depressible. No guarding or rebound. No perineal signs. No Morris signs. Extremities: Good capillary refill. Laboratory Data: Blood work shows WBC count of 4.7, hemoglobin of 10.6, potassium is 4.1. I do not see an INR. Assessment: This is a 69-year-old patient. They asked me to see if I can put a hemodialysis cathete r. We are going to keep him NPO after midnight. The benefits, alternatives, and risks of placement of hemodialysis catheter fully explained, which include, but not limited to, infection, bleeding, dam age to adjacent structures, anesthesia complication, pneumothorax, DVTs, cardiac arrhythmias, pericar ditis, stroke, [place], even . He also understands this is temporary catheter. He seemed to verbali ze back and understand the plan. HM/MODL Voice ID: [id number] Report ID: [id number]
--- NOTE | 2024-07-28 21:05 | PN ---
Date of Progress Note: 07/28/2024 Chief Complaint: Acute kidney injury on chronic kidney disease. Subjective: The patient has advanced chronic kidney disease. He recently had a peritoneal dialysis catheter placed and was to start renal replacement therapy. He although underwent hernia repair. The patient came to the hospital because of severe fatigue, generalized weakness. He was found to have elevated BUN up to 150 and started on IV fluids for volume depletion. Diuretic was stopped. The patient is started on normal saline. He tolerated IV fluids, although azotemia has not improved. The patient remains somewhat confused, answers questions, cannot provide review of systems. Denies chest pain, shortness. ROS:NO fever, no chills , no cough PE NAD neck : no JVD Respiratory : normal respiratory effort , few crackles at bases Abdomen : soft , NT Extremity; no edema Assessment And Plan: 1. Acute on chronic kidney injury, volume depletion, advanced chronic kidney disease. The patient has end-stage renal disease and needs to start renal replacement therapy. He was to start peritoneal dialysis, although due to severe hyperazotemia, patient will start hemodialysis and subsequently will be switched to peritoneal dialysis according to his preference. Previously, he wanted to do peritoneal dialysis, although he is agreeable to start hemodialysis during this hospitalization. 2. History of BPH, gross hematuria. He will require Urology consultation and workup. Currently, he is on IV antibiotics for urinary tract infection. 3. Hypokalemia. Supplementation was started. 4. Hyponatremia. Normal saline was started for volume depletion. Check TSH and cortisol level. 5. Diabetes mellitus with renal manifestation. Continue insulin. 6. Congestive heart failure. Previously, patient was taking diuretics. Currently, due to volume depletion, diuretics were stopped and IV fluids were started for hydration. EB/MODL Voice ID: [id number] Report ID: [id number] RUBIO
[2024-07-29 00:17] LABS: C.diff Antigen/Toxin Ag neg : Tox neg (NEG : NEG); CDIFF INTERNAL NEG CONTROL White Background (WHITE BKGD); STOOL CONSISTENCY Formed/Solid (soft)
[2024-07-29 06:23] LABS: Absolute Lymphocytes (CBC) 0.3 K/uL (0.7-4.9); Absolute Monocytes 0.4 K/uL (0.1-1.3); Absolute Neutrophil 5.2 K/uL (1.8-8.0); Basophils % 0.4 % (0-1.3); Eosinophils % 0.1 % (0-4.4); Hematocrit 33.1 % (39.6-49.0); Hemoglobin 10.8 g/dL (13.6-17.9); Lymphocytes % 5.4 % (15.3-44.8); MCH 24.3 pg (27.0-35.0); MCHC 32.7 g/dL (32.0-36.0); MCV 74.4 fL (80-100); Monocytes % 6.9 % (3.3-12.3); Neutrophils % 87.2 % (41.7-73.7); Platelets 147 thou/uL (152-406); RBC Red Blood Cell Count 4.45 M/uL (4.33-5.43); Red Cell Distribution Width 18.2 % (12.1-15.2)
[2024-07-29 06:43] LABS: AST/SGOT 44 U/L (15-37); Albumin 1.9 g/dL (3.4-5.0); Albumin/Globulin Ratio 0.5 (1.1-1.8); Alkaline Phosphatase 63 U/L (45-117); Anion Gap 18.5 mEq/L (5.0-15.0); BUN Blood Urea Nitrogen 132 mg/dL (7-18); Bicarbonate 24 mEq/L (21-32); Bilirubin Total 1.1 mg/dL (0.2-1.0); Globulin 4.2 g/dL (2.3-3.5); Glomerular Filtration Rate 12 ml/min (=/>90); Glucose Level 189 mg/dL (74-106); Phosphorus 4.2 mg/dL (2.5-4.9); Potassium 4.5 mEq/L (3.5-5.1); Protein, Total 6.1 g/dL (6.4-8.2); Sodium Level 133 mEq/L (136-145)
[2024-07-29 06:44] LABS: ALT/SGPT < 14 U/L (16-61)
[2024-07-29 06:45] LABS: PT Prothrombin Time 18.4 SECONDS (9.4-12.5); PTT, Activated Partial Thromb 37.3 SECONDS (24.3-36.9); Protime INR 1.76
--- NOTE | 2024-07-29 12:42 | P.PN ---
Subjective Date of Service: 07/29/24 Chief Complaint: Weak hematuria renal failure Patient has no new complaint except generalized weakness No recorded fever. Patient is tolerating diet. Urine looks clear, no hematuria. Physical Examination - Vital Signs Temperature: 98.3 F Blood Pressure: 110/70 Pulse: 103 Respirations: 16 Pulse Ox (%): 92 Assessment And Plan - Plan Physical examination General: Alert and oriented x3, NAD, Neck: Supple, no elevated JVD Heart: Heart sounds 1 and 2 normal, regular rhythm, normal rate, no pedal edema Lungs: Clear to auscultation bilaterally, adequate breath sounds bilaterally, no rhonchi or crackles. Abdomen: Soft, nondistended, nontender, normal bowel sounds. Peritoneal dialysis catheter-left lower quadrant, no discharge from the stoma. Genitourinary: Purewick in place, clear urine. Extremities: No tenderness, no deformity Skin: Normal skin turgor, no rash, no nodules or ulcers. Neuro: No focal motor deficit. Normal speech. Psychiatry: Normal mood, no agitation. Diagnosis End-stage renal disease on peritoneal dialysis with severe azotemia Generalized weakness Diabetes mellitus type 2 Diarrhea Essential hypertension Hypothyroidism BPH Carotid artery disease Plan: End-stage renal disease on peritoneal dialysis with severe azotemia Generalized weakness Patient with severe azotemia. He is on peritoneal dialysis Also receiving high-dose Lasix and metolazone. Nephrology recommended initiating hemodialysis General Surgery consult for hemodialysis catheter. Dr. Nieto planning hemodialysis catheter placement Increase activity as tolerated. Diarrhea Improved. Stool for C. difficile is pending. Hematuria BPH Microcytic anemia UA does not suggest hematuria. Hemoglobin has been relatively stable. Anemia is likely chronic. Patient urine is clear Patient with a history of BPH and also taking antiplatelets. Hold antiplatelet for now. Continue Flomax and finasteride. Monitor for hematuria. Hypothyroidism TSH within normal range Continue Synthroid. Diabetes mellitus type 2 Hold glipizide. Blood sugar management with insulin sliding scale. Carotid artery disease Holding aspirin and Plavix given reported hematuria. Continue Lipitor and ezetimibe. DVT prophylaxis: SCD Advanced directive: Full code
[2024-07-29] MEDS ORDERED: FENTANYL CITR 100 MCG/2 ML ONE (13:12)
[2024-07-29] MEDS ORDERED: LIDOCAINE 2% MPF 5 ML VIAL ONE (13:12)
[2024-07-29] MEDS ORDERED: propofoL 200 MG/20 ML VIAL IV ONE (13:12)
[2024-07-29] MEDS ORDERED: ONDANSETRON 4 MG/2 ML VIAL ONE (13:12)
[2024-07-29] MEDS: CEFAZOLIN SODIUM 1 GM/VIAL ONE (13:14)
[2024-07-29] MEDS: NA CHLORIDE 0.9% 100 ML ONE (13:17)
[2024-07-29] MEDS ORDERED: dexAMETHasone 4 MG/ML VIAL ONE (13:56)
[2024-07-29] MEDS ORDERED: EPHEDRINE SULF 50 MG/ML VIAL ONE (13:56)
--- NOTE | 2024-07-29 13:58 | RAD REPORT ---
EXAM: URINARY BLADDER ULTRASOUND CLINICAL INDICATION: Abdominal pain R33.9, N18.6,N28.1 TECHNIQUE: Sonographic evaluation of the bladder performed. FINDINGS: Bladder volume 110 cc Thickened bladder wall Air bubble in the bladder may be secondary to prior instrumentation. Prostate gland is probably mildly enlarged IMPRESSION; Bladder volume 110 cc Thickened bladder wall may be secondary to inflammation
--- NOTE | 2024-07-29 14:01 | RAD REPORT ---
EXAMINATION: US RENAL CLINICAL INDICATION: Abdominal pain R33.9, N18.6,N28.1 TECHNIQUE: Real-time ultrasonography of the kidneys performed. COMPARISON: July 27, 2024. FINDINGS: Right kidney measures 10 cm with a mildly increased echotexture. Small cysts unchanged. Left kidney measures 10 cm with mildly increased echotexture.. Small cystic change No hydronephrosis Cholelithiasis with wall thickening Small amount of ascites IMPRESSION: No hydronephrosis Cholelithiasis with wall thickening could be secondary to cholecystitis or hypoalbuminemia
[2024-07-29] MEDS: HEPARIN 5000 UNIT/ML 1 ML VIAL ONE (14:20)
[2024-07-29] MEDS: BUPIVACAINE 0.5% PF 10 ML VIAL ONE (14:20)
--- NOTE | 2024-07-29 14:32 | P.BOP ---
Preoperative diagnosis: ESRD Postoperative diagnosis: same Primary procedure: 1. Placement of Hemosplit cuffed HD catheter Secondary procedure: 2. Interpretation of fluoroscopy Other procedure(s): 3. Right neck ultrasound Estimated blood loss: <10cc Specimen: none Findings: compressible internal jugular on ultrasound today Anesthesia: General Complications: None Transferred to: Recovery Room Condition: Good
--- NOTE | 2024-07-29 14:40 | RAD REPORT ---
EXAM: Fluoroscopy use, Fluoroscopy <1 Hour HISTORY: HD CATH PLACEMENT COMPARISON: None FINDINGS: Multiple images were sent to PACS, during a fluoroscopically guided procedure. No radiologi st was involved in protocoling or performance of the study, and no radiologist was present for the duration of the procedure. No interpretation of the saved images will be provided. Total fluoroscopy time: 0.2 minutes. IMPRESSION: Documentation of fluoroscopy use as above. Transcribed Date/Time: 07/29/2024 2:39 PM
--- NOTE | 2024-07-29 15:01 | RAD REPORT ---
EXAM: Chest Single View HISTORY: s/p HD catheter COMPARISON: 07/28/2024 FINDINGS: LUNGS/PLEURA: Bilateral interstitial and airspace disease which is increased from prior. MEDIASTINUM: The mediastinal silhouette is within normal limits. CARDIAC: Moderate cardiomegaly. UPPER ABDOMEN: No significant abnormality. BONES: Sternotomy. No acute abnormality. LINES/TUBES/OTHER: Right IJ approach dialysis catheter with tip at the superior cavoatrial junction. IMPRESSION: Interval placement of a dialysis catheter with tip at the superior cavoatrial junction. No pneumothor ax. Pulmonary edema.
[2024-07-29] MEDS: MANNITOL 25% 12.5 GM/50 ML VIAL IV PRN (16:15)
[2024-07-30] MEDS: ACETAMINOPHEN 325 MG TABLET PO PRN (01:46)
--- NOTE | 2024-07-30 01:49 | OP ---
Date of Procedure: 07/29/2024 Surgeon: David Montano MD Preoperative Diagnosis: End-stage renal disease. Postoperative Diagnosis: End-stage renal disease. Procedures: 1.Placement of a HemoSplit cuff hemodialysis catheter. 2.Interpretation of fluoroscopy. 3.Right neck ultrasound. Estimated Blood Loss: Less than 10 cc. Specimen: None. Findings: Compressible internal jugular vein on ultrasound. Anesthesia: General plus local. Indication: This is the case of a 69-year-old patient in need of hemodialysis. The benefits, altern atives, and risks of placement of a HemoSplit cuff hemodialysis catheter fully explained, which inclu de, but not limited to infection, bleeding, damage to adjacent structures, anesthesia complication, h emothorax, pneumothorax, DVTs, endocarditis, pericarditis, [place], even . He also understands this may not relieve the symptoms. He might need more than one surgical intervention. He understood, sig swapna a consent. Description Of Procedure: The patient was brought to the operating room, placed in the supine positi on. Anesthesia was induced without complication. A time-out was called. The right neck and chest w ere prepped and draped in a sterile fashion. The patient was placed in Trendelenburg position. At t hat moment, we proceeded to inject some local anesthetic, after that did an ultrasound of the neck. We noticed the jugular vein to be compressible and functional. So, at that moment with the help of u ltrasound, we proceeded to place an 18-gauge needle in the right internal jugular vein at the first a ttempt. With the help of fluoroscopy, we passed a guidewire into the superior vena cava, removed the needle. We tunneled the catheter from the right upper chest at the incision in the neck and then af ter that through serial dilators, we put into the wire under fluoroscopy until we have an introducer sheath. Guidewire was removed. Catheter was placed then. Introducer sheath was peeled off. The ca theter seems to be in good position on fluoroscopy. The 3-0 chromic was used to close the subcutaneo us tissue and 3-0 nylon to secure the catheter in place. We flushed the catheter, excellent inflow a nd backflow and then flushed with heparinized solution. The area was covered with sterile dressings. The patient was brought back to normal position, sent to recovery room and a chest x-ray was ordernajma chiang. LOR/GISELE Voice ID: [id number] Report ID: [id number]
--- NOTE | 2024-07-30 03:13 | PN ---
Date of Progress Note: 07/29/2024 Chief Complaint: Acute kidney injury on chronic kidney disease. History Of Present Illness: The patient has advanced chronic kidney disease. He recently had a peritoneal dialysis catheter placed and was to start renal replacement therapy. He although underwent hernia repair, the patient came to the hospital because of severe fatigue, generalized weakness. He was found to have elevated BUN at 150. He was started on IV fluids for hypovolemia. Diuretics were stopped. The patient is on normal saline infusion. He tolerated IV fluids, although renal function has not improved significantly. Review of Systems: The patient denies chest pain, palpitations. Physical Examination: Lungs: Clear to auscultation bilaterally. Heart: S1, S2. Abdomen: Soft. Extremities: No edema. Impression And Plan: 1. Acute on chronic kidney injury, volume depletion. The patient has advanced chronic kidney disease. He will start hemodialysis and tunneled dialysis catheter was placed. Subsequently hyperazotemia is controlled, the patient will be switched to peritoneal dialysis according to his preference. Previously, he wanted to do peritoneal dialysis, although he is agreeable to start hemodialysis during this hospitalization. 2. History of BPH and history of gross hematuria. He will require Urology consultation and workup. Continue IV antibiotics for urinary tract infection. 3. Hypokalemia. Supplementation was started. 4. Hyponatremia. Normal saline was started for volume depletion. 5. Check TSH and cortisol level in view of hyponatremia. 6. Diabetes mellitus with renal manifestation. Continue insulin. 7. Congestive heart failure. The patient previously was taking diuretic for volume control, currently off diuretic and will continue IV fluids as needed. NIA/GISELE Voice ID: [id number] Report ID: [id number] RUBIO
--- NOTE | 2024-07-30 07:06 | P.PN ---
Date of Service: 07/30/24 Subjective: s/p HD Cath yesterday tolerated HD feeling better hasn't ambulated yet, but feels ready to work with PT ROS: 10 point ROS as noted above, otherwise negative Physical Exam: GEN: Alert, NAD CV: Regular rate and rhythm, no edema Pulm: Nonlabored respirations on room air, clear bilaterally ABD: soft, nontender. Peritoneal dialysis catheter-left lower quadrant, no discharge from the stoma Neuro: Normal speech, normal affect Problem List: ESRD on peritoneal dialysis with severe azotemia, now s/p HD cath (07/29) Generalized weakness Diarrhea Hematuria BPH Microcytic anemia NIDDM2 Hypertension Hypothyroidism BPH Carotid artery disease Plan: ESRD on peritoneal dialysis with severe azotemia, now s/p HD cath (07/29) Generalized weakness Patient with severe azotemia. Patient on peritoneal dialysis. Patient also receiving high-dose Lasix and metolazone. CT abdomen (07/26): Multiple gallstones. Gallbladder wall thickening. Air bubble within the bladder with mild bladder wall thickening renal u/s (07/27): Increased renal echotexture may indicate parenchymal disease. Thickened bladder wall likely inflammation. Air bubble within the bladder could be secondary to prior instrumentation or infection Nephrology is following - recommending initiating HD cath Dr. Montano consulted. s/p HD cath (07/29) Dialysis per nephro IVF dc'd Diarrhea Improved/ resolved Hematuria BPH Microcytic anemia UA does not suggest hematuria. Hemoglobin has been relatively stable. Patient with a history of BPH and also taking antiplatelets. Anemia is likely chronic. Hx iron deficiency years ago. Hold antiplatelet for now. Continue Flomax and finasteride. Monitor for hematuria. Hypothyroidism continue home synthroid NIDDM2 accu-cheks, SSI Hold glipizide for now. Carotid artery disease Holding aspirin and Plavix given reported hematuria. Continue Lipitor and ezetimibe. VTE: heparin sq Code: Full Dispo: Home Pending dialysis, nephro recs Time Spent Managing Pts Care (In Minutes): 55
[2024-07-30 08:13] LABS: Absolute Lymphocytes (CBC) 0.4 K/uL (0.7-4.9); Absolute Monocytes 0.5 K/uL (0.1-1.3); Absolute Neutrophil 4.7 K/uL (1.8-8.0); Basophils % 0.5 % (0-1.3); Eosinophils % 0.4 % (0-4.4); Hematocrit 32.3 % (39.6-49.0); Hemoglobin 10.3 g/dL (13.6-17.9); Lymphocytes % 7.4 % (15.3-44.8); MCH 24.3 pg (27.0-35.0); MCV 76.1 fL (80-100); MPV 10.5 fL (7.6-11.3); Monocytes % 8.9 % (3.3-12.3); Neutrophils % 82.8 % (41.7-73.7); Nucleated Red Blood Cells % 0.1 % (0-0); Platelets 161 thou/uL (152-406); RBC Red Blood Cell Count 4.25 M/uL (4.33-5.43); Red Cell Distribution Width 18.2 % (12.1-15.2)
[2024-07-30 08:20] LABS: Albumin 1.8 g/dL (3.4-5.0); Albumin/Globulin Ratio 0.5 (1.1-1.8); Anion Gap 13.1 mEq/L (5.0-15.0); Bilirubin Total 0.8 mg/dL (0.2-1.0); Globulin 3.9 g/dL (2.3-3.5); Magnesium 1.6 mg/dL (1.6-2.4); Potassium 4.1 mEq/L (3.5-5.1); Protein, Total 5.7 g/dL (6.4-8.2)
[2024-07-30] MEDS ORDERED: METOLAZONE 5 MG TABLET PO SCH (09:00)
[2024-07-30] MEDS: MAGNESIUM SULFATE 1 gm IVPB 1 GM/100 ML BAG IV ONE (13:46)
--- NOTE | 2024-07-30 15:09 | RAD REPORT ---
EXAMINATION: CT HEAD WITHOUT CONTRAST CT CERVICAL SPINE WITHOUT CONTRAST CLINICAL INDICATION: Male, 69 years old. fall, head strike TECHNIQUE: Axial CT images from the skull base to the vertex without intravenous contrast. Axial CT i mages through the cervical spine were obtained without intravenous contrast. Sagittal and coronal reformatted images were created from the data set. Coronal and sagittal reformatted images were creat ed from the data set. One or more of the following dose reduction techniques were used: Automated exposure control, adjustment of the mA and/or kV according to patient size, and/or iterative reconstr uction. Unless otherwise specified, incidental findings do not require dedicated imaging follow-up. [id number]. COMPARISON: No prior exam. FINDINGS: Head: INTRACRANIAL: No acute intracranial hemorrhage. No hydrocephalus. No mass effect or midline shift. Mo derate chronic small vessel ischemic changes.Age advanced cerebral atrophy. VASCULATURE: No visualized abnormalities in the arteries or dural venous sinuses. SCALP/SKULL: No significant soft tissue or osseous abnormalities. SINUSES: The visualized paranasal sinuses and mastoid air cells are predominantly clear. Cervical spine: ALIGNMENT: The cervical spine has normal alignment without scoliosis or spondylolisthesis. BONE: Vertebral body heights are maintained. No aggressive osseous lesions. DEGENERATIVE CHANGES: None significant. SOFT TISSUE: Pulmonary edema likely present in the lung apices. Right IJ approach dialysis catheter. Coronary artery calcifications. IMPRESSION: No acute intracranial abnormality. No acute fracture or traumatic malalignment of the cervical spine.
[2024-07-30] MEDS: EPOETIN ALFA 10,000 UNIT/ML VIAL IV SCH (15:53)
--- NOTE | 2024-07-30 16:10 | PN ---
Date of Progress Note: 07/30/2024 Subjective: Status post hemodialysis catheter placement. Patient is doing well. No complaint. Rec eived hemodialysis yesterday. Feels better. No shortness of breath. No chest pain. Objective: Chest: Clear. Neck: Supple. No hematomas. Abdomen: Soft and depressible. No peritoneal signs. No tenderness. Extremities: Good capillary refill. Laboratory Data: The WBC count of 5.7, hemoglobin of 10.3, sodium is 135. Plan: From the surgical standpoint, we will be pleased to reconsult p.r.n., and he was advised how t o take care of the catheter and to remove it as soon as he is not using it anymore. He is going to b e under the service of the Renal practice, and he was instructed about keeping it clean, avoiding get ting it wet, and also proper flushing after the dialysis. As soon as he is not using it anymore, ple ase come back to our service to have it removed. LOR/GISELE Voice ID: [id number] Report ID: [id number]
--- NOTE | 2024-07-30 18:26 | PN ---
Date of Progress Note: 07/30/2024 Subjective: The patient was admitted with uremic symptoms and UTI. Patient was treated, feeling bet ter. Physical Examination: Vital Signs: Blood pressure 120/72, pulse of 92. Afebrile. Chest: Clear to auscultation. Heart: S1, S2 regular. Abdomen: Soft, nontender. Extremities: Trace edema. Neurologic: Alert. No focality. Laboratory Data: Hemoglobin 10.3. Sodium 135, potassium 4.1, bicarb 25, BUN 86, creatinine 3.9, reed cium 7.2, magnesium 1.6, phosphorus 4.2, albumin 1.8. Current Medications: The patient on include Epogen, heparin, atorvastatin, Zetia, isosorbide, levoth yroxine, calcitriol. Assessment And Plan: 1.End-stage renal disease with uremia, on the recovery. I will arrange for another session of dialy sis. Currently, we will switch the patient to TTS. We will monitor. 2.Hypertension, controlled optimal. 3.urinary tract infection with hematuria. The patient treated, recover of antibiotic currently. Re peated renal UA is negative. 4.Deconditioning. Continue PT/OT. 5.Hypomagnesemia. We will supplement. 6.Hyponatremia dilutional. Discontinue IV fluid. TOD/GISELE Voice ID: [id number] Report ID: [id number]
[2024-07-31 05:00] LABS: Percent Reticulocyte Count 1.84 % (0.4-2.05); RBC Red Blood Cell Count 4.31 M/uL (4.33-5.43)
[2024-07-31 05:39] LABS: Albumin 1.8 g/dL (3.4-5.0); Anion Gap 13.1 mEq/L (5.0-15.0); Ferritin 69.5 ng/mL (26-388); Phosphorus 2.9 mg/dL (2.5-4.9); Potassium 4.1 mEq/L (3.5-5.1); Thyroid Stimulating Hormone 3.21 uIU/mL (0.358-3.740); Uric Acid 6.5 mg/dL (3.5-7.2)
[2024-07-31] MEDS ORDERED: SOD FERRIC GLUC COMPLX/SUCROSE 125 MG in NA CHLORIDE 0.9% 100 ML IV SCH (11:00)
--- NOTE | 2024-07-31 11:00 | P.PN ---
Date of Service: 07/31/24 Subjective feeling slightly better overall appetite slowly improving per family otherwise no new problems ROS: 10 point ROS as noted above, otherwise negative Physical Exam: GEN: Alert, NAD CV: Regular rate and rhythm, no edema Pulm: Nonlabored respirations on room air, clear bilaterally ABD: soft, nontender. Peritoneal dialysis catheter-left lower quadrant, no discharge from the stoma Neuro: Normal speech, normal affect Problem List: ESRD on peritoneal dialysis with severe azotemia, now s/p HD cath (07/29) Generalized weakness Hematuria BPH Severe iron deficiency anemia Recent Fall (07/30) NIDDM2 Hypertension Hypothyroidism BPH Carotid artery disease ESRD on peritoneal dialysis with severe azotemia, now s/p HD cath (07/29) Generalized weakness Patient with severe azotemia. Patient on peritoneal dialysis. Patient also receiving high-dose Lasix and metolazone. CT abdomen (07/26): Multiple gallstones. Gallbladder wall thickening. Air bubble within the bladder with mild bladder wall thickening renal u/s (07/27): Increased renal echotexture may indicate parenchymal disease. Thickened bladder wall likely inflammation. Air bubble within the bladder could be secondary to prior instrumentation or infection Nephrology is following - recommending initiating HD cath temporarily Dr. Montano consulted. s/p HD cath (07/29) Dialysis per nephro; switched to TTS IVF dc'd 07/30 Hematuria BPH Severe iron deficiency anemia UA does not suggest hematuria. Hemoglobin has been relatively stable. Patient with a history of BPH and also taking antiplatelets. Anemia is likely chronic. Hx iron deficiency years ago. Continue Flomax and finasteride. iron studies consistent with iron deficiency anemia; iron 19, tsat% 7.2% start IV iron (125mg) with dialysis Recent Fall (07/30) Patient had a fall 07/30 trying to get to the restroom. Reportedly hit his head and back in the process. stat CT head/spine was negative for any acute findings reports some mild back pain otherwise doing okay pain control PT eval Hypothyroidism continue home synthroid NIDDM2 accu-cheks, SSI Hold glipizide for now. Carotid artery disease Holding aspirin and Plavix given reported hematuria. Continue Lipitor and ezetimibe. VTE: heparin sq Code: Full Dispo: Home, likely tomorrow after HD; will resume PD at home, and keep HD cath as backup - can be removed outpatient Pending dialysis, nephro recs Time Spent Managing Pts Care (In Minutes): 55
[2024-07-31 12:06] VITALS: O2SAT 96
--- NOTE | 2024-07-31 17:33 | PN ---
Date of Progress Note: 07/31/2024 Subjective: The patient was admitted to the hospital with uremia and UTI. Patient was treated. The patient was initiated on dialysis, tolerated the dialysis well. The patient started ambulating. Physical Examination: Vital Signs: When I saw the patient, blood pressure 118/68, pulse of 93, afebrile. Chest: Clear to auscultation. Heart: S1, S2. Regular. Abdomen: Soft, nontender. PD catheter in place. Extremities: No edema. Neurologic: Alert, no focality. Laboratory Data: Hemoglobin 10.3. Sodium 135, potassium 4.1, bicarb 26, BUN 57, creatinine 3.2, uri c acid 6.5, calcium 7.5, phosphorus 2.9. Iron saturation 7, ferritin of 69, albumin 1.8, PTH 451. Current Medications: The patient on include: 1. Flomax. 2. Epogen. 3. Zetia. 4. Isosorbide. 5. Levothyroxine. 6. Finasteride. Assessment And Plan: 1. End-stage renal disease. We will continue the patient on dialysis TTS and we will schedule the pa tient for dialysis tomorrow, then we will follow up the patient. 2. Hypertension, controlled, optimal. Continue current treatment. 3. Anemia of iron deficiency anemia/chronic kidney disease. Continue MINDA. 4. Secondary hyperparathyroid. Continue calcitriol. 5. Deconditioning continue PT, OT. 6. Urinary tract infection. Continue current treatment. The patient cleared from the Renal standpoint after dialysis tomorrow for discharge. TOD/GISELE Voice ID: [id number] Report ID: [id number]
[2024-08-01 05:08] LABS: Hematocrit 30.7 % (39.6-49.0); Hemoglobin 10.1 g/dL (13.6-17.9); MCH 24.6 pg (27.0-35.0); MCHC 32.7 g/dL (32.0-36.0); MCV 75.3 fL (80-100); MPV 9.5 fL (7.6-11.3); Platelets 155 thou/uL (152-406); RBC Red Blood Cell Count 4.08 M/uL (4.33-5.43); Red Cell Distribution Width 18.3 % (12.1-15.2)
[2024-08-01 05:31] LABS: Albumin 1.8 g/dL (3.4-5.0); Anion Gap 12.5 mEq/L (5.0-15.0); Magnesium 1.7 mg/dL (1.6-2.4); Phosphorus 2.8 mg/dL (2.5-4.9); Potassium 3.5 mEq/L (3.5-5.1)
[2024-08-01 09:16] VITALS: BP 114/75
--- NOTE | 2024-08-01 09:26 | P.DS ---
Admission Date: 07/28/24 Discharge Date: 08/01/24 Reason for Admission: Weak hematuria renal failure Consultations: Nephrology - Dr. Pate, [facility] General surgery - Dr. Montano Brief History of Present Illness: Patient is 69 years of age status post peritoneal dialysis catheter insertion present at the bedside admitted to the hospital was sent by his customer counter associate due to weakness no energy hematuria he has been having diarrhea for the past 7 days couple of times a day is hypokalemic is any shortness of breath no fever or chills Hospital Course: Problem List: ESRD on peritoneal dialysis with severe azotemia, now s/p HD cath (07/29) Generalized weakness Hematuria, resolved BPH Severe iron deficiency anemia Chronic cholelithiasis Recent Fall (07/30) NIDDM2 Hypertension Hypothyroidism BPH Carotid artery disease Physician discharge instructions: Patient presented to ED per his Door Worker recommendations for gross hematuria, generalized weakness, diarrhea x7 days. Initial lab work on admission noted elevated BUN (148) and creatinine (4.96) severe prerenal azotemia Patient noted to have history of CKD4 advancing to stage 5. He recently underwent peritoneal dialysis catheter placement and hernia repair, and he is to start dialysis with peritoneal dialysis soon per nephrology. Renal ultrasound noted increased renal echotexture may indicate parenchymal disease. Nephrology recommended initiating temporary HD this hospitalization for metabolic clearance. Patient had HD catheter placed on 07/[address] Montano. He was started on HD and had improvement of his symptoms. Hematuria and diarrhea resolved with time. C. diff studies were negative. Discussed with nephrology, plan to continue peritoneal dialysis on discharge. R ecommend close follow up with nephrology for further management. Can discuss with nephrology on timing when to remove HD catheter. Patient was feeling better, strength improving, afebrile without leukocytosis, hematuria resolved, and was deemed stable for discharge. Advised patient to consider following up with urology for further work up given hematuria, hx of BPH. CT abdomen on admission incidentally noted multiple gallstones associated with mild gallbladder wall thickening. Patient was asymptomatic throughout hospitalization. Patient denied any abdominal pain/nausea/vomiting. ON further review of chart, gallstones appear chronic - can be seen in prior imaging ~1 year ago. Advised patient to follow up with PCP for further discussion. No further work up given asymptomatic. Patient noted to have an unwitnessed fall 07/30 trying to get to the restroom, found on the floor lying supine near the restroom door. Reportedly hit his head and back in the process. He reported some mild back pain post fall but otherwise was feeling okay. CT head/spine was negative for CVA or any other traumatic findings. No further work up. Patient was found to be severely iron deficient this hospitalization, similar to iron studies years ago. Iron studies (iron 19, tsat% 7.2) Advised to repeat iron studies in 2-3 months. Medications: no change in home medications. Follow up: PCP 3-5 days Nephrology 1 week Urology 2-4 weeks Please call to schedule / confirm appointments Physical Exam: GEN: Alert, NAD CV: Regular rate and rhythm, no edema Pulm: Nonlabored respirations on room air, clear bilaterally ABD: soft, nontender. Peritoneal dialysis catheter-LLQ, no discharge from the stoma Neuro: Normal speech, normal affect Vital Signs/Physical Exam: Temp Pulse Resp BP Pulse Ox 98 F 106 H 16 114/75 98 08/01/24 08:00 08/01/24 08:00 08/01/24 08:00 08/01/24 08:00 08/01/24 08:00 Laboratory Data at Discharge: WBC 6.00 thou/uL (4.3-10.9) 08/01/24 04:56 Hgb 10.1 g/dL (13.6-17.9) L 08/01/24 04:56 Hct 30.7 % (39.6-49.0) L 08/01/24 04:56 Plt Count 155 thou/uL (152-406) 08/01/24 04:56 PT 18.4 SECONDS (9.4-12.5) H 07/29/24 05:59 INR 1.76 07/29/24 05:59 APTT 37.3 SECONDS (24.3-36.9) H 07/29/24 05:59 Sodium 132 mEq/L (136-145) L 08/01/24 04:56 Potassium 3.5 mEq/L (3.5-5.1) D 08/01/24 04:56 BUN 60 mg/dL (7-18) H 08/01/24 04:56 Creatinine 3.56 mg/dL (0.70-1.30) H 08/01/24 04:56 Glucose 144 mg/dL (74-106) H 08/01/24 04:56 Uric Acid 6.5 mg/dL (3.5-7.2) 07/31/24 04:38 Phosphorus 2.8 mg/dL (2.5-4.9) 08/01/24 04:56 Magnesium 1.7 mg/dL (1.6-2.4) 08/01/24 04:56 Total Bilirubin 0.8 mg/dL (0.2-1.0) 07/30/24 07:48 AST 56 U/L (15-37) H 07/30/24 07:48 ALT 19 U/L (16-61) 07/30/24 07:48 Alkaline Phosphatase 74 U/L (45-117) 07/30/24 07:48 Home Medications: Clopidogrel Bisulfate [Plavix*] 75 mg PO DAILY 03/15/21 Ezetimibe [Zetia*] 10 mg PO BEDTIME 03/15/21 Glipizide [Glipizide Xl] 2.5 mg PO PRN PRN 03/15/21 Levothyroxine [Synthroid*] 125 mcg PO DAILY 06/12/23 Atorvastatin Calcium 20 mg PO DAILY 01/05/24 Na Bicarb Tab [Sodium Bicarb 325 MG Tab*] 650 mg PO TID 01/05/24 Amlodipine [Norvasc*] 10 mg PO DAILY 01/18/24 Furosemide [Lasix*] 80 mg PO BID 01/18/24 Isosorbide Dinitrate [Isordil] 60 mg PO DAILY 01/18/24 carvediloL [Coreg] 12.5 mg PO BID 01/18/24 Aspirin [Aspirin EC 81 MG] 81 mg PO DAILY 07/27/24 Calcitriol [Rocaltrol] 0.5 mg PO DAILY 07/27/24 Finasteride 5 mg PO DAILY 07/27/24 Hydralazine HCl 100 mg PO PRN PRN 07/27/24 Tamsulosin [Flomax*] 0.4 mg PO BID 07/27/24 metOLazone [Metolazone] 5 mg PO EVERY 3RD DAY 07/27/24 Physician Discharge Instructions: Physician discharge instructions: Patient presented to ED per his Door Worker recommendations for gross hematuria, generalized weakness, diarrhea x7 days. Initial lab work on admission noted elevated BUN (148) and creatinine (4.96) severe prerenal azotemia Patient noted to have history of CKD4 advancing to stage 5. He recently underwent peritoneal dialysis catheter placement and hernia repair, and he is to start dialysis with peritoneal dialysis soon per nephrology. Renal ultrasound noted increased renal echotexture may indicate parenchymal disease. Nephrology recommended initiating temporary HD this hospitalization for metabolic clearance. Patient had HD catheter placed on 07/[address] Montano. He was started on HD and had improvement of his symptoms. Hematuria and diarrhea resolved with time. C. diff studies were negative. Discussed with nephrology, plan to continue peritoneal dialysis on discharge. Recommend close follow up with nephrology for further management. Can discuss with nephrology on timing when to remove HD catheter. Patient was feeling better, strength improving, afebrile without leukocytosis, hematuria resolved, and was deemed stable for discharge. Advised patient to consider following up with urology for further work up given hematuria, hx of BPH. CT abdomen on admission incidentally noted multiple gallstones associated with mild gallbladder wall thickening. Patient was asymptomatic throughout hospitalization. Patient denied any abdominal pain/nausea/vomiting. ON further review of chart, gallstones appear chronic - can be seen in prior imaging ~1 year ago. Advised patient to follow up with PCP for further discussion. No further work up given asymptomatic. Patient noted to have an unwitnessed fall 07/30 trying to get to the restroom, found on the floor lying supine near the restroom door. Reportedly hit his head and back in the process. He reported some mild back pain post fall but otherwise was feeling okay. CT head/spine was negative for CVA or any other traumatic findings. No further work up. Patient was found to be severely iron deficient this hospitalization, similar to iron studies years ago. Iron studies (iron 19, tsat% 7.2) Advised to repeat iron studies in 2-3 months. Medications: no change in home medications. Follow up: PCP 3-5 days Nephrology 1 week Urology 2-4 weeks Please call to schedule / confirm appointments Followup: Abilio Pate MD [ACTIVE - CAN ADMIT] - 1-2 Weeks Thierno Romero MD [Primary Care Provider] - 1-2 Weeks Time spent managing pt's care (in minutes): 45
[2024-08-01 12:12] VITALS: TEMP 98.1
[2024-08-01 15:53] LABS: Hepatitis B Core IgM Nonreactive (Nonreactive); Hepatitis B surface AG Interp. Nonreactive (Nonreactive)
[2024-08-01 15:57] LABS: Hepatitis B Surface Ab - Quant < 3.10 mIU/mL (<8.0)
[2024-08-01 15:58] LABS: HBsAG Nonreactive Report Report
--- NOTE | 2024-08-01 22:20 | PN ---
Date of Progress Note: 08/01/2024 Subjective: The patient was admitted with uremic symptoms. The patient was started on dialysis. Th e patient tolerated very well. The patient recovered very well. Physical Examination: Vital Signs: Blood pressure 114/75, pulse of 108. Chest: Clear to auscultation. Heart: S1, S2. Regular. Abdomen: Soft, nontender. Extremities: No edema. Neurologic: Alert. No focality. Laboratory Data: Hepatitis negative. Sodium 132, potassium 3.5, bicarb 25, BUN 60, creatinine 3.5, hemoglobin 10.1. Current Medications: The patient is on include: 1. Epogen. 2. Isosorbide. 3. Calcitriol. 4. Lasix. 5. Atorvastatin. 6. Aspirin. 7. Levothyroxine. Assessment And Plan: 1. End-stage renal disease. We will continue hemodialysis. Plan to discontinue after hemodialysis t alex, to resume PD as outpatient. 2. Hypertension, controlled, optimal. Continue current treatment. 3. Secondary hyperparathyroidism. Continue calcitriol. 4. Anemia of chronic kidney disease and iron deficiency anemia. Continue IV iron and MINDA. 5. Uremic symptoms, deconditioning. Continue PT and OT. TOD/GISELE Voice ID: [id number] Report ID: [id number]
[2024-08-04 23:14] LABS: 1,25 Dihydroxy Vitamin D3 21 pg/mL; Vitamin D 1,25-Dihydroxy Total 21 pg/mL (18-72); Vitamin D,1,25-OH2, D2 <8 pg/mL
--- NOTE | 2024-08-06 12:47 | EKG ---
Test Date: 2024-07-29 Test Time: 14:06:45 [employer] Research Director: EVA MEASUREMENT RESULTS: Intervals: Rate: 103 AL: 178 QRSD: 94 QT: 394 QTc: 516 [employer]: P: 9 AL: 178 QRS: 119 T: 107 INTERPRETIVE STATEMENTS: Sinus tachycardia Right axis deviation Abnormal ECG Compared to ECG 01/18/2024 02:48:24 Sinus rhythm no longer present ST (T wave) deviation no longer present Electronically Signed On 08-06-24 12:26:41 [employer]RE MINER by Tiburcio Valadez
== END 2024-08-01 15:09 | disposition home or self-care (01) | DRG 674 ==
LOC: ER 15:06 → ERHOLD 19:26 → 2ND 20:25 → OBSVTOIN 07-28 15:13
PROVIDERS: ADMIT Internal Medicine Sleep Medicine; ATTEND Hospitalist
PROC: 5A1D70Z Performance of Urinary Filtration, Intermittent, Less than 6 Hours Per Day (ICD-10-PCS; 2024-07-28)
PROC: 02HV33Z Insertion of Infusion Device into Superior Vena Cava, Percutaneous Approach (ICD-10-PCS; 2024-07-29)
PROC: 0JH63XZ Insertion of Tunneled Vascular Access Device into Chest Subcutaneous Tissue and Fascia, Percutaneous Approach (ICD-10-PCS; principal; 2024-07-29 13:42)
DX: N17.9 Acute kidney failure, unspecified (principal); E87.1 Hypo-osmolality and hyponatremia; N39.0 Urinary tract infection, site not specified; I50.32 Chronic diastolic (congestive) heart failure; I13.2 Hypertensive heart and chronic kidney disease with heart failure and with stage 5 chronic kidney disease, or end stage renal disease; E87.3 Alkalosis; N18.6 End stage renal disease; E11.22 Type 2 diabetes mellitus with diabetic chronic kidney disease; E11.51 Type 2 diabetes mellitus with diabetic peripheral angiopathy without gangrene; D63.1 Anemia in chronic kidney disease; D50.9 Iron deficiency anemia, unspecified; E03.9 Hypothyroidism, unspecified; E87.6 Hypokalemia; E86.9 Volume depletion, unspecified; I77.9 Disorder of arteries and arterioles, unspecified; E83.42 Hypomagnesemia; K80.20 Calculus of gallbladder without cholecystitis without obstruction; N25.81 Secondary hyperparathyroidism of renal origin; N40.0 Benign prostatic hyperplasia without lower urinary tract symptoms; I25.2 Old myocardial infarction; I25.10 Atherosclerotic heart disease of native coronary artery without angina pectoris; R31.0 Gross hematuria; Z95.1 Presence of aortocoronary bypass graft; Z99.2 Dependence on renal dialysis; Z79.02 Long term (current) use of antithrombotics/antiplatelets; Z79.84 Long term (current) use of oral hypoglycemic drugs; Z79.890 Hormone replacement therapy; Z79.899 Other long term (current) drug therapy; Z79.82 Long term (current) use of aspirin
CPT/HCPCS: 36415; 70450; 71045; 72125; 74176; 76000; 76770; 76857; 80053; 80069; 81001; 82533; 82550; 82607; 82652; 82728; 82947; 83540; 83735; 83970; 84100; 84443; 84466; 84484; 84550; 85025; 85027; 85044; 85610; 85730; 86705; 86706; 87040; 87177; 87209; 87324; 87340; 90935; 93005; 97116; 97161; 97530; 99283; C1752; G0378; J0690; J1100; J1644; J2003; J2150; J2405; J2704; J3010; J3475; J7030

== ENCOUNTER 2024-08-08 14:04 | Inpatient (IN) | payer OTHER ==
--- NOTE | 2024-08-08 15:22 | RAD REPORT ---
EXAMINATION: ONE VIEW CHEST XR CLINICAL INDICATION: Male, 69 years old.,heart failure TECHNIQUE: Frontal chest projection is submitted. Examination is limited by patient positioning and t echnique. COMPARISON: 08/06/2024 FINDINGS: Prominence of the central vascular markings and interstitial central prominence, stable. Right IJ aren lysis catheter unchanged in position. Overall suboptimal inspiratory effort somewhat limits evaluation. No pneumothorax or sizable effusion. The heart is normal in size. Mediastinal contours a re unchanged with sequelae of median sternotomy. IMPRESSION: Stable findings as above, may reflect mild central congestion/CHF.
[2024-08-08 17:52] LABS: Absolute Lymphocytes (CBC) 0.3 K/uL (0.7-4.9); Absolute Monocytes 0.4 K/uL (0.1-1.3); Absolute Neutrophil 4.7 K/uL (1.8-8.0); Basophils % 0.3 % (0-1.3); Eosinophils % 0.4 % (0-4.4); Hematocrit 33.8 % (39.6-49.0); Hemoglobin 10.9 g/dL (13.6-17.9); Lymphocytes % 6.4 % (15.3-44.8); MCH 23.7 pg (27.0-35.0); MCHC 32.3 g/dL (32.0-36.0); MCV 73.4 fL (80-100); MPV 9.4 fL (7.6-11.3); Monocytes % 7.5 % (3.3-12.3); Neutrophils % 85.4 % (41.7-73.7); Nucleated Red Blood Cells % 0.2 % (0-0); Platelets 162 thou/uL (152-406); RBC Red Blood Cell Count 4.61 M/uL (4.33-5.43); Red Cell Distribution Width 19.3 % (12.1-15.2)
[2024-08-08 18:11] LABS: BUN Blood Urea Nitrogen 64 mg/dL (7-18); Bicarbonate 30 mEq/L (21-32); Glomerular Filtration Rate 14 ml/min (=/>90); Glucose Level 154 mg/dL (74-106); Magnesium 1.7 mg/dL (1.6-2.4); Sodium Level 134 mEq/L (136-145); Troponin High Sensitivity 38.9 pg/mL (<58.9)
[2024-08-08 18:26] LABS: NT PRO-BNP > 175000 pg/mL (<125)
--- NOTE | 2024-08-08 19:53 | ER ---
Nurse's Notes [facility] Name: Omar Joe Age: 69 yrs Sex: Male : 1955 Arrival Date: 08/08/2024 Time: 14:04 Bed 27 Private MD: Diagnosis: Heart failure, unspecified;Shortness of breath;Pedal Edema;Hypokalemia;Anemia, unspecified Presentation: 08/08 14:28 Chief complaint: Spouse and/or significant other states: sent by Dr Palmer for heart me1 failure. c/o SOB and edema. Coronavirus screen: Vaccine status: Patient reports receiving the 2nd dose of the covid vaccine. Ebola Screen: No symptoms or risks identified at this time. Initial Sepsis Screen: Does the patient meet any 2 criteria? No. Patient's initial sepsis screen is negative. Does the patient have a suspected source of infection? No. Patient's initial sepsis screen is negative. Risk Assessment: Do you want to hurt yourself or someone else? Patient reports no desire to harm self or others. Onset of symptoms is unknown. 14:28 Method Of Arrival: Wheelchair me1 14:28 Acuity: MIKI 3 me1 Historical: - Allergies: 14:30 No Known Allergies; me1 - PMHx: 14:30 diabetes mellitus; Hypertensive disorder; Thyroid problem; Kidney disease; w/ me1 peritoneal dialysis; 17:20 Peritoneal dialysis catheter; aa5 - PSHx: 14:30 Coronary artery bypass graft; peritoneal dialysis catheter; Carotid endarterectomy; me1 Repair of inguinal hernia; - Immunization history:: Adult Immunizations up to date. - Infectious Disease History:: Denies. - Social history:: Smoking status: Patient/guardian denies using tobacco, but has a distant history of tobacco abuse. Screenin:20 [facility] ED Fall Risk Assessment (Adult) History of falling in the last 3 months, aa5 including since admission No falls in past 3 months (0 pts) Confusion or Disorientation No (0 pts) Intoxicated or Sedated No (0 pts) Impaired Gait Yes (1 pt) Mobility Assist Device Used Yes (1 pt) Altered Elimination Yes (1 pt) Score/Fall Risk Level 3 or more points = High Risk Oriented to surroundings, Maintained a safe environment, Educated pt \T\ family on fall prevention, incl call for assistance when getting out of bed. Abuse screen: Denies threats or abuse. Nutritional screening: No deficits noted. Tuberculosis screening: No symptoms or risk factors identified. Assessment: 17:20 General: Appears uncomfortable, Behavior is calm, cooperative. Pain: Denies pain. aa5 Neuro: Level of Consciousness is awake, alert, obeys commands, Oriented to person, place, time, situation. Cardiovascular: Heart tones S1 S2 present Dialysis catheter noted to right upper chest. . Edema 2+ pitting edema noted to thom lower extremities. Rhythm is sinus tachycardia. Respiratory: Airway is patent Respiratory effort is even, unlabored, Respiratory pattern is regular, symmetrical. GI: Abdomen is round non-distended, Peritoneal dialysis catheter capped. Site is clean and dry. Bowel sounds present X 4 quads. Abd is soft and non tender X 4 quads. : brief noted, pt reports urinary incontinence. EENT: No signs and/or symptoms were reported regarding the EENT system. Derm: Skin is dry, Skin is normal, Skin temperature is warm. Musculoskeletal: Range of motion: intact in all extremities. 17:20 Respiratory: Breath sounds with crackles bilaterally. aa5 18:30 Reassessment: Patient is alert, oriented x 3, equal unlabored respirations, skin aa5 warm/dry/pink. Vital Signs: 14:28 BP 104 / 64; Pulse 96; Resp 16; Temp 98.3; Pulse Ox 100% ; Weight 65.77 kg; Height 5 me1 ft. 6 in. ; Pain 0/10; 17:30 BP 114 / 79; Pulse 108; Resp 28 S; Pulse Ox 94% on R/A; aa5 18:30 BP 117 / 71; Pulse 104; Resp 25 S; Pulse Ox 93% on R/A; aa5 14:28 Body Mass Index 23.40 (65.77 kg, 167.64 cm) me1 14:28 Pain Scale: Adult me1 ED Course: 14:06 Patient arrived in ED. im 14:07 Shawn White DO is Attending Physician. ms3 14:30 Triage completed. me1 14:30 Arm band placed on Patient placed in waiting room. me1 15:08 XRAY Chest (1 view) In Process Unspecified. EDMS 16:27 Heather Jensen, RN is Primary Nurse. aa5 17:20 Patient has correct armband on for positive identification. Placed in gown. Bed in low aa5 position. Call light in reach. Side rails up X2. Client placed on continuous cardiac and pulse oximetry monitoring. NIBP monitoring applied. case monitor on. Pulse ox on. NIBP on. 17:35 Warm blanket given. Placed on male purewick for elimination needs, to suction. aa5 17:40 Initial lab(s) drawn, by me, sent to lab. Inserted saline lock: 22 gauge in right aa5 wrist, using aseptic technique. Blood collected. Flushed with 10 mL NS. 19:08 Report given to ILEANA Pathak. aa5 19:51 Serg Hong MD is Hospitalizing Provider. ms3 Administered Medications: 20:13 Drug: Furosemide IVP 40 mg IVP once; give over 2 minutes Route: IVP; Site: left hand; ay 22:22 Follow up: Response: No adverse reaction ay 20:13 Drug: Potassium PO Effervescent Tablet 50 mEq PO once; dissolve in 4 ounces of water or ay juice Route: PO; Medication: 19:00 VIS not applicable for this client. aa5 Outcome: 19:52 Decision to Hospitalize by Provider. ms3 0207 12:35 Patient left the ED. ap3 Signatures: Dispatcher [employer] EDMS Heather Jensen RN ILEANA aa5 Alee Vasquez RN RN ap3 Shawn White DO DO ms3 Dorys Griggs Michelle, RN RN nv1 Zo Dia RN RN ay Corrections: (The following items were deleted from the chart) 08/08 19:07 17:20 Cardiovascular: Heart tones S1 S2 present Edema 2+ pitting edema noted to thom aa5 lower extremities. Rhythm is sinus tachycardia aa5 19:09 17:20 Cardiovascular: Heart tones S1 S2 present Edema 2+ pitting edema noted to thom aa5 lower extremities. Rhythm is sinus tachycardia aa5
--- NOTE | 2024-08-08 19:53 | EDPHYS ---
Physician Documentation [facility] Name: Omar Joe Age: 69 yrs Sex: Male : 1955 Arrival Date: 08/08/2024 Time: 14:04 Bed 27 Private MD: ED Physician Shawn White HPI: 08/08 15:13 This 69 yrs old Male presents to ER via Wheelchair with complaints of ms3 Shortness of breath. 15:13 69-year-old male with past medical history of diabetes, hypertension, thyroid disease, ms3 chronic kidney disease presents to the emergency department from Dr. Palmer's office for shortness of breath that is been ongoing for 2 weeks per patient's daughter. Patient endorses vomiting yesterday and cough. Patient denies chest pain or diaphoresis.. Historical: - Allergies: 14:30 No Known Allergies; me1 - PMHx: 14:30 diabetes mellitus; Hypertensive disorder; Thyroid problem; Kidney disease; w/ me1 peritoneal dialysis; 17:20 Peritoneal dialysis catheter; aa5 - PSHx: 14:30 Coronary artery bypass graft; peritoneal dialysis catheter; Carotid endarterectomy; me1 Repair of inguinal hernia; - Immunization history:: Adult Immunizations up to date. - Infectious Disease History:: Denies. - Social history:: Smoking status: Patient/guardian denies using tobacco, but has a distant history of tobacco abuse. ROS: 15:13 Constitutional: Negative for fever, and chills. ms3 15:13 Cardiovascular: Negative for chest pain, and palpitations. 15:13 Abdomen/GI: Negative for abdominal pain, nausea, vomiting, diarrhea, and constipation, Skin: Negative for injury, rash, and discoloration, 15:13 Respiratory: Positive for shortness of breath, 15:13 MS/extremity: Positive for swelling, of the Bilateral lower extremities, Exam: 15:13 Constitutional: This is a well developed, well nourished patient who is awake, alert, ms3 and in no acute distress. Cardiovascular: Regular rate and rhythm with a normal S1 and S2. No gallops, murmurs, or rubs. Normal PMI, no JVD. No pulse deficits. Respiratory: Lungs have equal breath sounds bilaterally, clear to auscultation and percussion. No rales, rhonchi or wheezes noted. No increased work of breathing, no retractions or nasal flaring. Abdomen/GI: Soft, non-tender, with normal bowel sounds. No distension or tympany. No guarding or rebound. No evidence of tenderness throughout. 15:13 Cardiovascular: Edema: pedal edema, that is moderate, 15:13 Musculoskeletal/extremity: 17:09 ECG was reviewed by the Attending Physician. ms3 Vital Signs: 14:28 BP 104 / 64; Pulse 96; Resp 16; Temp 98.3; Pulse Ox 100% ; Weight 65.77 kg; Height 5 me1 ft. 6 in. ; Pain 0/10; 17:30 BP 114 / 79; Pulse 108; Resp 28 S; Pulse Ox 94% on R/A; aa5 18:30 BP 117 / 71; Pulse 104; Resp 25 S; Pulse Ox 93% on R/A; aa5 14:28 Body Mass Index 23.40 (65.77 kg, 167.64 cm) me1 14:28 Pain Scale: Adult me1 MDM: 14:26 Medical Screening Exam initiated ms3 15:13 Differential diagnosis: CHF exacerbation, Myocardial Infarction pulmonary edema. ms3 20:44 Data reviewed: vital signs, nurses notes, lab test result(s), EKG, radiologic studies, ms3 and as a result, I will admit patient. Consideration of Admission/Observation Patient was admitted/placed on observation. Management of patient was discussed with the following: Hospitalist: Dr. Hong. I considered the following discharge prescriptions or medication management in the emergency department Medications were administered in the Emergency Department. See MAR. Independent interpretation of the following test(s) in the Emergency Department EKG: See my EKG interpretation above. Historians other than the Patient: Daughter/Son: Patient's daughter. Counseling: I had a detailed discussion with the patient and/or guardian regarding the historical points, exam findings, and any diagnostic results supporting the discharge/admit diagnosis, lab results, radiology results, the need for further work-up and treatment in the hospital. ED course: Discussed labs and imaging with patient and his family. Discussed case with Dr. Hong and he accepts patient. Discussed with Dr. Hal Palmer would like patient diuresed and will plan for heart catheterization on Monday. 08/08 14:08 Order name: Basic Metabolic Panel; Complete Time: 18:46 ms3 08/08 14:08 Order name: CBC with Diff; Complete Time: 20:44 ms3 08/08 14:08 Order name: Magnesium; Complete Time: 18:46 ms3 08/08 14:08 Order name: NT PRO-BNP; Complete Time: 18:46 ms3 08/08 14:08 Order name: Troponin HS; Complete Time: 18:46 ms3 08/08 20:36 Order name: Urinalysis w/ reflexes EDMS 08/08 20:36 Order name: CBC with Automated Diff EDMS 08/08 20:36 Order name: CBC with Automated Diff EDMS 08/08 20:36 Order name: Comprehensive Metabolic Panel EDMS 08/08 20:36 Order name: Comprehensive Metabolic Panel EDMS 08/08 20:36 Order name: Magnesium EDMS 08/08 20:36 Order name: Magnesium EDMS 08/08 20:36 Order name: Phosphorus EDMS 08/08 20:36 Order name: Phosphorus EDMS 08/08 20:36 Order name: Troponin High Sensitivity EDMS 08/08 20:36 Order name: Troponin High Sensitivity EDMS 08/08 20:36 Order name: Troponin High Sensitivity EDMS / 20:36 Order name: Troponin High Sensitivity EDMS / 20:36 Order name: CBC Smear Scan; Complete Time: 20:44 EDMS 08/09 09:27 Order name: Glucose, Ancillary Testing EDMS 08/09 11:37 Order name: Glucose, Ancillary Testing EDMS 08/08 14:08 Order name: XRAY Chest (1 view); Complete Time: 15:33 ms3 08/08 14:08 Order name: EKG; Complete Time: 14:08 ms3 08/08 20:36 Order name: CONS Physician Consult EDMS 08/08 14:08 Order name: Cardiac monitoring; Complete Time: 17:46 ms3 08/08 14:08 Order name: EKG - Nurse/Tech; Complete Time: 17:46 ms3 08/08 14:08 Order name: IV Saline Lock; Complete Time: 17:47 ms3 08/08 14:08 Order name: Labs collected and sent; Complete Time: 17:47 ms3 08/08 14:08 Order name: O2 Per Protocol; Complete Time: 17:47 ms3 08/08 14:08 Order name: O2 Sat Monitoring; Complete Time: 17:47 ms3 EC:09 Rate is 109 beats/min. Rhythm is irregular. Right axis deviation noted. SD interval is ms3 normal. QRS interval is normal. Clinical impression: Sinus tachycardia. Interpreted by me. Reviewed by me. Administered Medications: 20:13 Drug: Furosemide IVP 40 mg IVP once; give over 2 minutes Route: IVP; Site: left hand; ay 22:22 Follow up: Response: No adverse reaction ay 20:13 Drug: Potassium PO Effervescent Tablet 50 mEq PO once; dissolve in 4 ounces of water or ay juice Route: PO; Disposition Summary: 08/08/24 19:52 Hospitalization Ordered Notes: Hospitalization Status: Inpatient Admission ms3 Provider: Serg Hong ms3 Condition: Stable ms3 Problem: new ms3 Symptoms: are unchanged ms3 Bed/Room Type: Standard ms3 Location: Telemetry/MedSurg (observation)(08/09/24 11:55) jl7 Room Assignment: [facility](08/09/24 11:55) [facility] Diagnosis - Heart failure, unspecified ms3 - Shortness of breath ms3 - Pedal Edema ms3 - Hypokalemia ms3 - Anemia, unspecified ms3 Forms: - Medication Reconciliation Form ms3 - SBAR form ms3 - Leadership Thank You Letter ms3 Signatures: Dispatcher [employer] EDHeather Lee, RN RN aa5 Paulina Aguilar RN RN jl7 Shawn White DO DO ms3 Kacy Delgado RN RN me1 Kay Feliciano [facility] Zo Dia RN ILEANA ay Corrections: (The following items were deleted from the chart) 14:08 14:08 BASIC METABOLIC PANEL+C.LAB.BRZ ordered. EDMS EDMS 14:08 14:08 CBC+H.LAB.BRZ ordered. EDMS EDMS 14:08 14:08 MAGNESIUM+C.LAB.BRZ ordered. EDMS EDMS 14:08 14:08 PROBNP+C.LAB.BRZ ordered. EDMS EDMS 14:08 14:08 Troponin High Sensitivity+C.LAB.BRZ ordered. EDMS EDMS 08/09 04:14 08/08 19:52 Telemetry/MedSurg (Inpatient) ms3 [facility] 08/09 04:14 0206 19:52 ms3 kmf 08/09 04:14 04:14 kmf kmf 11:55 04:14 BR ER [facility] km jl7 [facility]
[2024-08-08] MEDS ORDERED: POTASSIUM 25 MEQ EFFERV TAB ONE (20:04)
[2024-08-08] MEDS ORDERED: FUROSEMIDE 40 MG/4 ML VIAL ONE (20:04)
[2024-08-08] MEDS ORDERED: ACETAMINOPHEN 325 MG TABLET PO PRN (20:31)
[2024-08-08] MEDS ORDERED: ONDANSETRON 4 MG/2 ML VIAL IV PRN (20:31)
--- NOTE | 2024-08-08 20:31 | P.HP ---
Certification for Inpatient Patient admitted to: Inpatient With expected LOS: >2 Midnights Practitioner: I am a practitioner with admitting privileges, knowledge of patient current condition, hospital course, and medical plan of care. Services: Services provided to patient in accordance with Admission requirements found in Title 42 Section 412.3 of the Code of Federal Regulations Patient History Date of Service: 08/08/24 Reason for admission: SOB History of Present Illness: 69-year-old male with past medical history of diabetes, hypertension, CAD status post CABG, carotid endarterectomy, thyroid disease, ESRD on peritoneal dialysis transferred from Dr. Palmer's office for shortness of breath that is been ongoing for 2 weeks. Patient endorses vomiting yesterday and cough. Patient denies chest pain or diaphoresis. Patient is a poor historian hence most of the history is obtained from the chart review and also talking to the ER physician. Patient still continues to be hypoxic and had to be placed on oxygen. Denies any chest pain at this time. No fever or chills. No nausea vomiting or diarrhea now. Patient was assessed in the ER and is admitted for further management . Allergies No Known Allergies Allergy (Verified 07/27/23 14:01) Home medications list reviewed: Yes Home Medications: Clopidogrel Bisulfate [Plavix*] 75 mg PO DAILY 03/15/21 Ezetimibe [Zetia*] 10 mg PO BEDTIME 03/15/21 Glipizide [Glipizide Xl] 2.5 mg PO PRN PRN 03/15/21 Levothyroxine [Synthroid*] 125 mcg PO DAILY 06/12/23 Atorvastatin Calcium 20 mg PO DAILY 01/05/24 Na Bicarb Tab [Sodium Bicarb 325 MG Tab*] 650 mg PO TID 01/05/24 Amlodipine [Norvasc*] 10 mg PO DAILY 01/18/24 Furosemide [Lasix*] 80 mg PO BID 01/18/24 Isosorbide Dinitrate [Isordil] 60 mg PO DAILY 01/18/24 carvediloL [Coreg] 12.5 mg PO BID 01/18/24 Aspirin [Aspirin EC 81 MG] 81 mg PO DAILY 07/27/24 Calcitriol [Rocaltrol] 0.5 mg PO DAILY 07/27/24 Finasteride 5 mg PO DAILY 07/27/24 Hydralazine HCl 100 mg PO PRN PRN 07/27/24 Tamsulosin [Flomax*] 0.4 mg PO BID 07/27/24 metOLazone [Metolazone] 5 mg PO EVERY 3RD DAY 07/27/24 - Past Medical/Surgical History Diabetic: Yes Past Medical History: Reviewed- Non-Contributory -: DM type 2 -: HTN -: LA (2011) -: CHF -: BPH -: CKD Past Surgical History: Reviewed- Non-Contributory -: CABG -: Carotid endarterectomy Psychosocial/ Personal History: Lives at home with his - Family History Mother -: Heart disease, Diabetes - Social History Smoking Status: Never smoker Alcohol use: No CD- Drugs: No Caffeine use: Yes Review of Systems 10-point ROS is otherwise unremarkable Physical Examination - Vital Signs Temperature: 97.8 F Blood Pressure: 122/76 Pulse: 76 Respirations: 18 Pulse Ox (%): 92 - Physical Exam General: Alert, In no apparent distress HEENT: Atraumatic, Normocephalic Neck: Supple Respiratory: Diminished, Crackles/rales Cardiovascular: Regular rate/rhythm, Normal S1 S2 Capillary refill: <2 Seconds Gastrointestinal: Soft and benign, W/out hepatosplenomegaly Musculoskeletal: No clubbing, No swelling Integumentary: No rashes, No breakdown Neurological: Normal speech, Normal strength at 5/5 x4 extr, Cranial nerves 3-12 intact Lymphatics: No axilla or inguinal lymphadenopathy - Studies Laboratory Data (last 24 hrs) 08/08/24 08/08/24 17:40 17:40 WBC 5.50 Hgb 10.9 L Hct 33.8 L Plt Count 162 Sodium 134 L Potassium 3.0 L BUN 64 H Creatinine 4.39 H Glucose 154 H Magnesium 1.7 Assessment and Plan - Plan Acute on chronic CHF possibly systolic/diastolic Monitor closely on telemetry Started on aggressive diuresis X-ray findings consistent with CHF Oxygen supplementation Will try to wean down oxygen requirement Continue home medications Titrate as needed Will obtain an echocardiogram Cardiology consult Elevated BNP noted ESRD Hypokalemia Hyponatremia Monitor renal parameters Electrolytes monitor and replace accordingly Hypertension Antihypertensives titrated Continue home medications and titrate as needed Hyperlipidemia Continue statin Diabetes Insulin sliding scale Accu-Chek before every meal and at bedtime Anemia of chronic disease Monitor H&H closely GI/DVT prophylaxis Advanced directive full code Discharge Plan: Home Plan to discharge in: 48 Hours - Advance Directives Does patient have a Living Will: No Does patient have a Durable POA for Healthcare: No - Code Status/Comfort Care Code Status: Full Code Time Spent Managing Pts Care (In Minutes): 48
[2024-08-08 20:35] LABS: Blood Morphology Comment NOT SEEN (NOT SEEN); Platelet Estimate DECR; White Blood Cell Scan OK (OK)
[2024-08-08] MEDS: FUROSEMIDE 40 MG/4 ML VIAL IV SCH (20:35)
[2024-08-08] MEDS: HEPARIN 5000 UNIT/ML 1 ML VIAL SQ SCH (21:00)
[2024-08-08] MEDS ORDERED: HEPARIN 5000 UNIT/ML 1 ML VIAL ONE (22:36)
[2024-08-09] MEDS ORDERED: FUROSEMIDE 40 MG/4 ML VIAL ONE ×2 (04:00→09:21)
[2024-08-09 04:55] LABS: Absolute Lymphocytes (CBC) 0.3 K/uL (0.7-4.9); Absolute Monocytes 0.4 K/uL (0.1-1.3); Absolute Neutrophil 4.2 K/uL (1.8-8.0); Basophils % 0.2 % (0-1.3); Eosinophils % 0.2 % (0-4.4); Hematocrit 34.8 % (39.6-49.0); Hemoglobin 11.1 g/dL (13.6-17.9); Lymphocytes % 5.5 % (15.3-44.8); MCH 23.8 pg (27.0-35.0); MCHC 31.8 g/dL (32.0-36.0); MCV 74.9 fL (80-100); MPV 8.8 fL (7.6-11.3); Monocytes % 7.9 % (3.3-12.3); Nucleated Red Blood Cells % 0.3 % (0-0); Platelets 158 thou/uL (152-406); RBC Red Blood Cell Count 4.64 M/uL (4.33-5.43); Red Cell Distribution Width 19.4 % (12.1-15.2)
[2024-08-09 05:01] LABS: Neutrophils % 86.2 % (41.7-73.7)
[2024-08-09 05:18] LABS: AST/SGOT 20 U/L (15-37); Albumin 1.8 g/dL (3.4-5.0); Albumin/Globulin Ratio 0.5 (1.1-1.8); Alkaline Phosphatase 72 U/L (45-117); Anion Gap 6.8 mEq/L (5.0-15.0); BUN Blood Urea Nitrogen 64 mg/dL (7-18); Bicarbonate 31 mEq/L (21-32); Bilirubin Total 0.8 mg/dL (0.2-1.0); Globulin 3.5 g/dL (2.3-3.5); Glomerular Filtration Rate 13 ml/min (=/>90); Glucose Level 122 mg/dL (74-106); Magnesium 1.5 mg/dL (1.6-2.4); Phosphorus 3.9 mg/dL (2.5-4.9); Potassium 3.8 mEq/L (3.5-5.1); Protein, Total 5.3 g/dL (6.4-8.2); Sodium Level 133 mEq/L (136-145); Troponin High Sensitivity 36.9 pg/mL (<58.9)
[2024-08-09 05:19] LABS: ALT/SGPT < 14 U/L (16-61)
[2024-08-09] MEDS ORDERED: HEPARIN 5000 UNIT/ML 1 ML VIAL ONE (09:21)
--- NOTE | 2024-08-09 13:40 | EKG ---
Test Date: 2024-08-08 Test Time: 17:01:38 Project Management Advisor: RAMIREZ MEASUREMENT RESULTS: Intervals: Rate: 109 MD: 170 QRSD: 90 QT: 352 QTc: 474 [place]: P: 0 MD: 170 QRS: 96 T: 91 INTERPRETIVE STATEMENTS: Sinus tachycardia with premature atrial complexes Rightward axis Nonspecific ST and T wave abnormality Abnormal ECG Compared to ECG 07/29/2024 14:06:45 Atrial premature complex(es) now present ST (T wave) deviation now present Electronically Signed On 08-09-24 13:38:18 CATERPILLAR MECHANIC by Anselmo Palmer
--- NOTE | 2024-08-09 13:59 | ECHO ---
HEIGHT: 5 ft 6 in WEIGHT: 140 lb 0 oz DATE OF STUDY: 08/09/[address]: Kenyatta Gray MD 2-DIMENSIONAL: YES M.MODE: YES DOPPLER: YES COLOR FLOW: YES TDS: PORTABLE: DEFINITY: BUBBLE STUDY: DIAGNOSIS: CARDIAC HISTORY: CATHERIZATION: SURGERY: PROSTHETIC VALVE: PACEMAKER: MEASUREMENTS (cm) DIASTOLIC (NORMALS) SYSTOLIC (NORMALS) IVSd [*] (0.6-1.2) LA Diam [*] (1.9-4.0) LVEF [*]% LVIDd [*] (3.5-5.7) LVIDs [*] (2.0-3.5) %FS [*]% LVPWd [*] (0.6-1.2) Ao Diam [*] (2.0-3.7) 2 DIMENSIONAL ASSESSMENT: RIGHT ATRIUM: NORMAL LEFT ATRIUM: ENLARGED RIGHT VENTRICLE: MODERATE DYSFUNCTION LEFT VENTRICLE: DEPRESSED EJECTION FRACTION TRICUSPID VALVE: MILD TRICUSPID REGURGITATION MITRAL VALVE: MODERATE MITRAL REGURGITATION PULMONIC VALVE: MILD PULMONIC INSUFFICIENCY AORTIC VALVE: MILD AORTIC INSUFFICIENCY PERICARDIAL EFFUSION: NONE AORTIC ROOT: NORMAL LEFT VENTRICULAR WALL MOTION: SEVERE GLOBAL HYPOKINESIS DOPPLER/COLOR FLOW: SEE BELOW COMMENTS: 1. SEVERELY DEPRESSED LEFT VENTRICULAR EJECTION FRACTION 25-30% 2. SEVERE GLOBAL HYPOKINESIS 3. MODERATE RIGHT VENTRICULAR DYSFUNCTION 4. LEFT ATRIAL ENLARGEMENT 5. MILD AORTIC INSUFFICIENCY, TRICUSPID REGURGITATION 6. MODERATE MITRAL REGURGITATION 7. SEVERE PULMONARY HYPERTENSION WITH RIGHT VENTRICULAR SYSTOLIC PRESSURE GREATER THAN 60 mmHg TECHNOLOGIST: [facility]
[2024-08-09] MEDS: ALBUMIN HUMAN 25% 100 ML IV ONE ×2 (17:00→21:36)
[2024-08-09] MEDS: MIDODRINE HCL 5 MG TABLET PO ONE ×2 (17:03→18:03)
--- NOTE | 2024-08-09 18:51 | CON ---
Date of Consultation: 08/09/2024 Reason For Consultation: Shortness of breath. History Of Present Illness: A 69-year-old male with history of diabetes, hypertension, coronary misael ry disease, congestive heart failure, end-stage renal disease, and carotid stenosis, I evaluated him in the office, he was in respiratory failure, sent him to the emergency room for evaluation, found to be fluid overloaded with advanced kidney disease and having significant orthopnea. Denies having an y chest pain, seen by bedside today, and he is very short of breath and using accessory muscles. Past Medical History: As outlined above in HPI. Medications: Refer reconciliation sheet for detailed list. Allergies: NO KNOWN DRUG ALLERGIES. Family History: No premature coronary artery disease or cancer. Social History: He does not smoke or drink. Does not use any drugs. Review of Systems: All systems reviewed, they are negative except as mentioned in HPI. Physical Examination: Vital Signs: Reviewed. Head and Neck: Pupils are equal, reactive to light. Intact eye movements. Positive JVD. No cervic al lymphadenopathy. Neck: Supple. Thyroid is not enlarged. Lungs: Crackles all the way up bilaterally with mild accessory muscle use. Heart: Irregular. No extra sounds. Abdomen: Soft, nontender. Bowel sounds positive. No organomegaly. No tenderness. Extremities: Edema bilaterally. No clubbing, cyanosis. Intact pulses. Skin: No rash. No nodules. Neurologic: Alert, awake. No acute focal deficits appreciated. Investigations: BUN 64, creatinine 4.4. Troponins are negative and NT proBNP more than 175,000. Assessment/recommendation: 1. Acute respiratory failure due to significant fluid retention. Recommend urgent Nephrology evaluat ion for urgent dialysis [id number] to manage his fluid status. Lasix is being given, but with this kidney dysfunction, it is unlikely to mobilize the fluids. Recommend involvement of mine wirer to start dialysis. 2. Acute on chronic heart failure exacerbation. He had an echo. Ejection fraction is 25%-30% with s evere pulmonary arterial hypertension, which is due to the heart failure. Again, recommend Nephrolog y evaluation for in-house dialysis and we will evaluate his records from the office to see if ischemi a workup was done on him or not. 3. Coronary artery disease, status post CABG in the past. If ischemia evaluation was not done recent ly, this is to follow after his fluid status is optimized. 4. End-stage renal disease. Consult Nephrology for inhouse dialysis. SR/MODL Voice ID: [id number] Report ID: [id number]
[2024-08-09] MEDS: FUROSEMIDE 40 MG/4 ML VIAL IV STA (21:36)
[2024-08-09] MEDS: NA CHLORIDE 0.9% 100 ML ONE (21:41)
[2024-08-09] MEDS ORDERED: NOREPINEPHRINE 4 MG in D5W 250 ML IV SCH (22:00)
--- NOTE | 2024-08-09 22:22 | CON ---
Date of Consultation: 08/09/2024 Chief Complaint: The patient was sent from Cardiology office for shortness of breath. Reason For Consultation: ESRD, fluid management. History Of Present Illness: The patient is unable to provide history, then I obtained it from the art. This 69-year-old man with past medical history of end-stage renal disease. He had last dialysi s yesterday, peritoneal dialysis and had a history of coronary artery disease, status post CABG and c arotid stenosis, status post endarterectomy. The patient was sent from the Cardiology office for kalli rtness of breath. The patient had symptoms lasted for 2 weeks. Currently, patient might look lethar gic, has tachypnea. Past Medical History: End-stage renal disease, hypothyroidism. Past Surgical History: Hemodialysis catheter placement, PD catheter placement. Allergies: NO KNOWN DRUG ALLERGIES. Family History: Mother has heart disease and diabetes mellitus. Social History: No known history of tobacco or recreational drug abuse. Review of Systems: Unable to provide at this time. Physical Examination: Vital Signs: Temperature 97.9, pulse rate 114, blood pressure 111/68. General: The patient is lethargic, looks frail and chronically ill. Neck: Supple. No elevated JVD. Heart: Tachycardia. Normal S1, S2. Chest: Diffuse rales. Abdomen: Soft and nontender. Extremities: No edema. Laboratory Data: White count 4.9, hemoglobin 11. Sodium 133, BUN 64, creatinine 4.4, calcium 7.2. Magnesium 1.5. Assessment And Plan: 1. End-stage renal disease. On dialysis today, patient was hypotensive. We will give albumin and mi dodrine. We will transfer the patient to the ICU after dialysis. He will have another dialysis kee rrow. 2. Hypoxic respiratory failure. Currently on high O2 demand. Continue dialysis as above. Continue Lasix. Monitor INR. Consider chest CT scan when patient is more stable. 3. Shock, unknown baseline blood pressure. Continue midodrine. blood cultures. 4. Anemia of chronic disease. Hemoglobin is more than 10. No need for Epogen at this time. Thanks for allowing me to participate in the patient's care. Total time spent 75 minutes including d ocumentation, reviewing labs, and placing orders. SOPHIA Voice ID: [id number] Report ID: [id number]
[2024-08-10 04:35] VITALS: BMI 22.8
[2024-08-10 06:03] LABS: Absolute Lymphocytes (CBC) 0.3 K/uL (0.7-4.9); Absolute Monocytes 0.4 K/uL (0.1-1.3); Absolute Neutrophil 8.2 K/uL (1.8-8.0); Basophils % 0.2 % (0-1.3); Hematocrit 30.6 % (39.6-49.0); Hemoglobin 9.8 g/dL (13.6-17.9); Lymphocytes % 3.6 % (15.3-44.8); MCH 23.8 pg (27.0-35.0); MCHC 31.9 g/dL (32.0-36.0); MCV 74.7 fL (80-100); MPV 9.3 fL (7.6-11.3); Neutrophils % 92.2 % (41.7-73.7); Nucleated Red Blood Cells % 0.3 % (0-0); Platelets 126 thou/uL (152-406); Red Cell Distribution Width 19.7 % (12.1-15.2)
[2024-08-10 06:27] LABS: Albumin 2.1 g/dL (3.4-5.0); Albumin/Globulin Ratio 0.7 (1.1-1.8); Anion Gap 10.8 mEq/L (5.0-15.0); Bilirubin Total 1.4 mg/dL (0.2-1.0); Globulin 3.2 g/dL (2.3-3.5); Magnesium 1.8 mg/dL (1.6-2.4); Phosphorus 3.5 mg/dL (2.5-4.9); Potassium 3.8 mEq/L (3.5-5.1); Protein, Total 5.3 g/dL (6.4-8.2)
[2024-08-10] MEDS: MIDODRINE HCL 5 MG TABLET PO SCH (08:32)
--- NOTE | 2024-08-10 08:57 | RAD REPORT ---
EXAM: Chest Single View HISTORY: pneumonia COMPARISON: 08/08/2024 FINDINGS: LUNGS/PLEURA: No consolidative airspace disease appreciated. Prominence of the central pulmonary vasc ular with some possible alveolar opacities as well has increased from 08/08/2024. MEDIASTINUM: The mediastinal silhouette is within normal limits. CARDIAC: Stable size and configuration. UPPER ABDOMEN: No significant abnormality. BONES: Sternotomy. No acute abnormality. LINES/TUBES/OTHER: Dialysis catheter with tip overlying the SVC. IMPRESSION: Vascular congestion/congestive heart failure with mild worsening since 08/08/2024. No convincing eviden ce of pneumonia.
[2024-08-10 12:16] VITALS: TEMP 97.4
[2024-08-10] MEDS: ALBUMIN HUMAN 25% 100 ML IV ONE (12:32)
--- NOTE | 2024-08-10 17:39 | RAD REPORT ---
EXAMINATION: CTA CHEST PE CLINICAL INDICATION: Male, 69 years old. tachypnea, desats on room air TECHNIQUE: This examination was performed according to an angiographic protocol with 3D post-processi ng. This involves 3D reconstructions, MIPs, volume rendered images and/or shaded surface rendering. One or more of the following dose reduction techniques were used: Automated exposure control, adjustm ent of the mA and/or kV according to patient size, and/or iterative reconstruction. Unless otherwise specified, incidental findings do not require dedicated imaging follow-up. [id number]. COMPARISON: Same day chest radiograph. FINDINGS: LOWER NECK: Visualized thyroid gland and soft tissues are normal. LUNGS AND AIRWAYS: There is a consolidation and nodularity bilaterally. Most notable area of consolid ation is in the left lower lobe. There are other scattered nodular opacities. PLEURA: Small bilateral effusions. MEDIASTINUM AND LYMPH NODES: No mediastinal mass or fluid collection. Normal size mediastinal, hilar, and axillary lymph nodes. THORACIC AORTA: No thoracic aortic aneurysm. Atherosclerotic changes are present. PULMONARY ARTERIES: Enlarged main pulmonary arteries could indicate pulmonary artery hypertension. No pulmonary emboli identified to the level of the segmental pulmonary arteries. The subsegmental pulmonary arteries cannot be adequately assessed due to motion/suboptimal contrast opacification. HEART: Moderate cardiomegaly. Coronary arterial calcifications are present.No significant pericardial effusion. OSSEOUS STRUCTURES AND CHEST WALL: No fracture or suspicious osseous lesions. UPPER ABDOMEN: Mild ascites.Reflux of contrast into the hepatic veins. IMPRESSION: No evidence of pulmonary emboli to the segmental level. Nodular airspace disease bilaterally with an appearance more typical of pneumonia but superimposed up on a background of edema. Moderate cardiomegaly with significant reflux of contrast into the hepatic veins. This could reflect right heart failure.
[2024-08-10] MEDS: NOREPINEPHRINE BITARTRATE/D5W 4 MG/250 ML KIT IV ONE (18:18)
--- NOTE | 2024-08-10 19:36 | PN ---
Date of Progress Note: 08/10/2024 Subjective: The patient was admitted with CHF exacerbation. The patient's blood pressure marginally low. Physical Examination: Vital Signs: Blood pressure 102/61, pulse of 96. Chest: Crackles bilateral. Heart: S1, S2, systolic murmur. Abdomen: Soft, nontender. Extremities: Plus edema. Neuro: Alert, no focality. Lab: Hemoglobin 9.8. Sodium 138, potassium 3.8, bicarb 29, BUN 46, creatinine 3.5. Calcium 7.3, ph osphorus 3.5, magnesium 1.8. Iron saturation 7.2, ferritin 69. Hemoglobin 9.8. PTH 451. Cortisol 32. Current Medications: The patient on include: 1. Midodrine. 2. Levophed. 3. Lasix. 4. Zofran. Assessment And Plan: 1. End-stage renal disease, supposed to be started on PD, but because of the worsening condition, the patient was started on hemo, had congestive heart failure with exacerbation. Currently blood pressu re on the lower side secondary to cardiogenic shock, status post dialysis yesterday, managed to remov e 1600. We will try to do another session of dialysis today and we will follow up the patient. If b lood pressure continued to be low and could not tolerate the dialysis, we will transfer the patient f or CRRT. 2. Cardiogenic shock with congestive heart failure with exacerbation. I am going to go ahead and sta rt Levophed. The patient planned for cardiac cath Monday. With over-volume situation, I am going to try to transfer the patient for CRRT to optimize the fluid status and facilitate cardiac workup. St art Levophed and midodrine. 3. Anemia of iron deficiency anemia. I will start the patient on IV iron and resume MINDA. 4. Secondary hyperpara. Start Zemplar. 5. Respiratory failure, questionable of congestive heart failure, ejection fraction of 20. Chest x-r ay does not support congestion. We will dialyze the patient today. We will transfer for CRRT. We w ill go ahead and get CT with contrast to rule out PE and we will follow up. MIRTA Voice ID: [id number] Report ID: [id number]
[2024-08-10 20:23] VITALS: O2SAT 96
[2024-08-10 22:36] VITALS: BP 111/69
== END 2024-08-10 22:33 | disposition short-term general hospital (02) | DRG 291 ==
LOC: ER 14:04 → ERHOLD 20:31 → 2ND 08-09 12:01 → 3RD-ICU 08-09 21:14
PROVIDERS: ADMIT Family Medicine; ATTEND Hospitalist
PROC: 5A09457 Assistance with Respiratory Ventilation, 24-96 Consecutive Hours, Continuous Positive Airway Pressure (ICD-10-PCS; principal; 2024-08-09)
PROC: 5A1D70Z Performance of Urinary Filtration, Intermittent, Less than 6 Hours Per Day (ICD-10-PCS; 2024-08-09)
PROC: 3E033XZ Introduction of Vasopressor into Peripheral Vein, Percutaneous Approach (ICD-10-PCS; 2024-08-10)
DX: I13.2 Hypertensive heart and chronic kidney disease with heart failure and with stage 5 chronic kidney disease, or end stage renal disease (principal); I50.43 Acute on chronic combined systolic (congestive) and diastolic (congestive) heart failure; J96.01 Acute respiratory failure with hypoxia; N18.6 End stage renal disease; R57.0 Cardiogenic shock; E87.1 Hypo-osmolality and hyponatremia; N25.81 Secondary hyperparathyroidism of renal origin; E11.22 Type 2 diabetes mellitus with diabetic chronic kidney disease; D63.1 Anemia in chronic kidney disease; D50.9 Iron deficiency anemia, unspecified; E87.6 Hypokalemia; E78.5 Hyperlipidemia, unspecified; I27.20 Pulmonary hypertension, unspecified; N40.0 Benign prostatic hyperplasia without lower urinary tract symptoms; I25.10 Atherosclerotic heart disease of native coronary artery without angina pectoris; I25.2 Old myocardial infarction; R33.9 Retention of urine, unspecified; Z95.1 Presence of aortocoronary bypass graft; Z99.2 Dependence on renal dialysis; Z79.02 Long term (current) use of antithrombotics/antiplatelets; Z79.84 Long term (current) use of oral hypoglycemic drugs; Z79.82 Long term (current) use of aspirin; Z79.890 Hormone replacement therapy; Z87.891 Personal history of nicotine dependence; Z79.899 Other long term (current) drug therapy; Z91.158 Patient's noncompliance with renal dialysis for other reason
CPT/HCPCS: 36415; 71045; 71275; 80048; 80053; 82947; 83735; 83880; 84100; 84484; 85025; 90935; 93005; 94660; 94760; 96374; 99285; J1644; J1940; P9047; Q9967